=== PATIENT | female | born 1950 | race Caucasian/White ===

== ENCOUNTER 2017-10-14 14:15 | Outpatient (RCR) | payer SELFPAY | END 2017-10-21 23:59 | LOC: PR 14:15 | PROVIDERS: Family Provider Internal Medicine; PCP Internal Medicine; Visit Provider Internal Medicine Critical Care Medicine | DX: Z00.00 Encounter for general adult medical examination without abnormal findings (principal) ==

== ENCOUNTER 2017-11-17 06:00 | Outpatient (RCR) | payer SELFPAY | END 2017-11-18 23:59 | LOC: PR 06:00 | PROVIDERS: Family Provider Internal Medicine; PCP Internal Medicine; Visit Provider Internal Medicine Critical Care Medicine | DX: Z00.00 Encounter for general adult medical examination without abnormal findings (principal) ==

== ENCOUNTER 2017-11-19 06:48 | Outpatient (RCR) | payer SELFPAY | END 2017-12-19 23:59 | LOC: PR 06:48 | PROVIDERS: Family Provider Internal Medicine; PCP Internal Medicine; Visit Provider Internal Medicine Critical Care Medicine | DX: Z00.00 Encounter for general adult medical examination without abnormal findings (principal) ==

== ENCOUNTER → 2018-02-10 14:05 | Outpatient (CLI) | payer MEDICARE, SELFPAY ==
[2018-02-10 14:36] LABS: Allen Test POS; Base Excess 11 mmol/L (-2 to +2); Bicarbonate 36.2 mmol/L (22-26); Blood Gas Specimen Type ART; O2 Delivery Device Nasal Can; PO2 75 mmHG (75-100); SITE L Radial; SO2 93 % (95-99); Time Given 1428; Total Carbon Dioxide 38 mmol/L; pCO2 65.5 mmHg (35-45); pH 7.35 (7.35-7.45)
[2018-02-10 15:01] LABS: Hematocrit 43.3 % (37-47); Hemoglobin 13.1 g/dl (12.0-15.0); Mean Corp Hgb Conc 30.3 g/gl (32-36); Mean Corpuscular Hgb 30.3 pg (27.0-32.0); Mean Platelet Vol. 10.8 fl (6.2-12.0); Platelet Count 283 K/mm3 (150-450); RBC Distribution Width CV 11.7 % (11.6-14.6); RBC Distribution Width SD 41.9 fl (35.1-43.9); Red Blood Count 4.33 M/mm3 (4.2-5.4); Scan Indicated on CBC? Y/N NO; White Blood Count 8.7 K/mm3 (4.4-11.0)
== END ==
PROVIDERS: Family Provider Internal Medicine; PCP Internal Medicine; Visit Provider Nurse Practitioner Acute Care
DX: J44.9 Chronic obstructive pulmonary disease, unspecified (principal)
CPT/HCPCS: 36415; 36600; 82803; 85027

== ENCOUNTER 2018-02-17 14:15 | Outpatient (RCR) | payer SELFPAY | END 2018-02-18 23:59 | LOC: PR 14:15 | PROVIDERS: Family Provider Internal Medicine; PCP Internal Medicine; Visit Provider Internal Medicine Critical Care Medicine | DX: Z00.00 Encounter for general adult medical examination without abnormal findings (principal) ==

== ENCOUNTER 2018-03-15 14:15 | Outpatient (RCR) | payer SELFPAY | END 2018-03-20 23:59 | LOC: PR 14:15 | PROVIDERS: Family Provider Internal Medicine; PCP Internal Medicine; Visit Provider Internal Medicine Critical Care Medicine | DX: Z00.00 Encounter for general adult medical examination without abnormal findings (principal) ==

== ENCOUNTER → 2018-03-22 12:06 | Outpatient (CLI) | payer MEDICARE, SELFPAY ==
--- NOTE | 2018-03-22 12:09 | ECHOD_ITS ---
Reason For Study: Dyspnea/SOB Procedure This was a 2D Doppler, Color Flow transthoracic echocardiogram. The exam was of fair technical quality due to diminished acoustic windows. The study was technically difficult. Exam performed in department. Left Ventricle Normal LV size. Mild segmental systolic dysfunction (see wall motion). The estimated ejection fraction is 50 %. Septal motion consistent with IVCD. No evidence for diastolic dysfunction. Anterio-Basal: Hypokinetic. Infero-Basal: Hypokinetic. Basal inferoseptal: Hypokinetic. Basal anteroseptal: Hypokinetic. Mid-Anterior : Hypokinetic. Mid-Lateral : Hypokinetic. Mid-Posterior: Hypokinetic. Mid-Inferior: Hypokinetic. Mid-inferoseptal : Hypokinetic. Mid-anteroseptal : Hypokinetic. [place] : Hypokinetic. Right Ventricle Normal RV size. Normal systolic function. Atria Normal left atrium. Normal right atrium. No doppler evidence for ASD. Mitral Valve There is no mitral annular calcification. Normal mitral valve. Mild (1+) mitral valve insufficiency. Tricuspid Valve Normal tricuspid valve. Trivial tricuspid valve insufficiency. Right ventricular systolic pressure estimated to be 20 mmHg. Aortic Valve Trisinus/trileaflet aortic valve. Normal aortic valve. Trivial aortic valve insufficiency. Pulmonic Valve The pulmonic valve is not well visualized. Trivial pulmonic valve insufficiency. Great Vessels Normal sized aortic root. Pericardium/Pleural No pericardial effusion. MMode/2D Measurements & Calculations LVIDd: 4.2 cm IVSd: 0.93 cm Ao root diam: 2.1 cm LVIDs: 3.1 cm LVPWd: 1.0 cm RVDd: 3.1 cm FS: 25.7 % LAV(MOD-bp): 26.5 ml LA A4 area: 10.4 cm2 RA A4 area: 9.6 cm2 LAV(MOD-bp) Indexed: 16.6 ml/m2 LAV(MOD-sp2): 35.5 ml LAV(MOD-sp4): 18.6 ml Doppler Measurements & Calculations MV E max jose: 63.9 cm/sec Lat Peak E' Jose: 6.3 cm/sec Med Peak E' Jose: 5.2 cm/sec MV A max jose: 75.2 cm/sec E/E' lat: 10.2 E/E' med: 12.4 MV E/A: 0.85 Ao V2 max: 135.1 cm/sec LV V1 max: 89.8 cm/sec PA V2 max: 109.3 cm/sec Ao max P.3 mmHg LV V1 max P.2 mmHg Ao V2 mean: 96.5 cm/sec Ao mean P.1 mmHg Ao V2 VTI: 29.0 cm TR max jose: 204.6 cm/sec TR max P.7 mmHg Interpretation Summary The study was technically difficult. Mild segmental systolic dysfunction (see wall motion). The estimated ejection fraction is 50 %. Septal motion consistent with IVCD. Mild (1+) mitral valve insufficiency. Trivial tricuspid valve insufficiency. Trivial aortic valve insufficiency. Trivial pulmonic valve insufficiency. Right ventricular systolic pressure estimated to be 20 mmHg. No evidence for diastolic dysfunction. Ordering Physician: Henry Villar Referring Physician: Edith Alba M.D. Performed By: Kaleigh Isbell, CONNER, RVT
== END ==
PROVIDERS: Family Provider Internal Medicine; PCP Internal Medicine; Visit Provider Internal Medicine Cardiovascular Disease
DX: I42.0 Dilated cardiomyopathy (principal); G47.33 Obstructive sleep apnea (adult) (pediatric)
CPT/HCPCS: 93306

== ENCOUNTER 2018-04-20 06:00 | Outpatient (RCR) | payer MEDICARE, SELFPAY | END 2018-04-20 23:59 | LOC: PR 06:00 | PROVIDERS: Family Provider Internal Medicine; PCP Internal Medicine; Visit Provider Internal Medicine Critical Care Medicine | DX: Z00.00 Encounter for general adult medical examination without abnormal findings (principal) ==

== ENCOUNTER → 2018-05-20 09:05 | Outpatient (CLI) | payer MEDICARE, SELFPAY ==
--- NOTE | 2018-05-20 09:30 | CPS ---
Patient arrived on own liquid oxygen at 4lpm. Placed on room air prior to ambulation. At rest pre test, spo2 was 86% RA. Placed on 2lpmwith spo2 increasing to 95%. Ambulation began on 2lpm. At 2 min, spo2 was 86% on 2lpm, rest break taken, increased to 3lpm, continued test. At 3 min, spo2 80% on 3lpm, increased to 4lpm(spo2 to 86%) then 6lpm (pt rested entire 3rd and 4th minute) Ambulation began again at minute 5 and testing finished on 6lpm.
[2018-05-20 09:48] VITALS: PULSE 100; PULSE 104; PULSE 106; PULSE 109; PULSE 112; PULSE 91; PULSE 98; O2SAT 80; O2SAT 86; O2SAT 93; O2SAT 94; O2SAT 96
--- NOTE | 2018-05-20 13:26 | PCM.PSN.6M ---
PSN 6 Minute Walk Test - 6 Minute Walk Test 6 Minute Walk Test: 6 Minute Walk Test PSN:6-Minute Walk Test Start: 05/20/18 09:48 Freq: Status: Active Protocol: RESP.6MINW Document 05/20/18 09:48 [facility] (Rec: 05/20/18 09:56 [facility] [id number]) 6 Minute Walk Test Date Performed 05/20/18 Time Performed 09:30 Height 5 ft 1 in Weight: 138 lb Weight in Pounds 138.[address]: Fili Wellington Assistive device used: None Pre-test Oxygen Delivery Method Room Air Pulse Ox (%) 86 Pulse Rate (60-100 beats/min) 91 Dyspnea Ganga Scale (0-10) 0 Reported Symptoms Cyanotic 1st minute Oxygen Flow Rate (L/min) (L/min) 2 Oxygen Delivery Method Nasal Cannula Pulse Ox (%) 94 Pulse Rate (60-100 beats/min) 100 Dyspnea Ganga Scale (0-10) 1 2nd minute Oxygen Flow Rate (L/min) (L/min) 2 Oxygen Delivery Method Nasal Cannula Pulse Ox (%) 86 Pulse Rate (60-100 beats/min) 106 H Dyspnea Ganga Scale (0-10) 3 Number of Rests Taken 1 Reported Symptoms Cyanotic Increased Work of Breathing 3rd minute Oxygen Flow Rate (L/min) (L/min) 3 Oxygen Delivery Method Nasal Cannula Pulse Ox (%) 80 Pulse Rate (60-100 beats/min) 112 H Dyspnea Ganga Scale (0-10) 5 Number of Rests Taken 1 Reported Symptoms Cyanotic Increased Work of Breathing Dizziness 4th minute Oxygen Flow Rate (L/min) (L/min) 4 Oxygen Delivery Method Nasal Cannula Pulse Ox (%) 86 Pulse Rate (60-100 beats/min) 109 H Dyspnea Ganga Scale (0-10) 4 Number of Rests Taken 1 Reported Symptoms Cyanotic Increased Work of Breathing Dizziness 5th minute Oxygen Flow Rate (L/min) (L/min) 6 Oxygen Delivery Method Nasal Cannula Pulse Ox (%) 96 Pulse Rate (60-100 beats/min) 104 H Dyspnea Ganga Scale (0-10) 3 Reported Symptoms Increased Work of Breathing 6th minute Oxygen Flow Rate (L/min) (L/min) 6 Oxygen Delivery Method Nasal Cannula Pulse Ox (%) 93 Pulse Rate (60-100 beats/min) 106 H Dyspnea Ganga Scale (0-10) 3 Reported Symptoms Increased Work of Breathing Post-test Oxygen Flow Rate (L/min) (L/min) 4 Oxygen Delivery Method Nasal Cannula Pulse Ox (%) 94 Pulse Rate (60-100 beats/min) 98 Dyspnea Ganga Scale (0-10) 1 Full Laps Walked 12 Partial Lap, Number of Tiles Walked 16 Total Distance Walked (ft) 724 05/20/18 09:30 (created 05/20/18 11:01) Cardiopulmonary Services by Sonali Rhodes Patient arrived on own liquid oxygen at 4lpm. Placed on room air prior to ambulation. At rest pre test, spo2 was 86% RA. Placed on 2lpmwith spo2 increasing to 95%. Ambulation began on 2lpm. At 2 min, spo2 was 86% on 2lpm, rest break taken, increased to 3lpm, continued test. At 3 min, spo2 80% on 3lpm, increased to 4lpm(spo2 to 86%) then 6lpm (pt rested entire 3rd and 4th minute) Ambulation began again at minute 5 and testing finished on 6lpm. Initialized on 05/20/18 11:01 - END OF NOTE - Interpretation Interpretation: The patient ambulated 724 feet over the course of 6 minutes on supplemental oxygen with notable breaks taken. Pretesting oxygen saturation on room air was noted to be 86%. Therefore, 2 L/min of supplemental oxygen was applied prior to testing. With ambulation, the patient desaturated to 86% at minute 2 of testing. The patient supplemental flow rate was increased to 3 L/min. However, the patient continued to experience significant oxygen desaturation down to 80%, which eventually required an escalation in her flow rate to 6 L/min. The patient was noted to have rested during minutes 3 and 4 of the test. On 6 L/min of supplemental oxygen, the patient was able to complete the remainder of the test while maintaining oxygen saturations at or above 88%. This testing indicates significant exertional oxygen desaturation consistent with a pulmonary limitation to exercise tolerance. - Recommendations Recommendations: 2 L/min of supplemental oxygen should be utilized at rest and 6 L/min should be utilized with exertion. Close interval follow-up is recommended.
== END ==
PROVIDERS: Family Provider Internal Medicine; PCP Internal Medicine; Visit Provider Internal Medicine Critical Care Medicine
DX: J44.9 Chronic obstructive pulmonary disease, unspecified (principal); J96.12 Chronic respiratory failure with hypercapnia
CPT/HCPCS: 94618

== ENCOUNTER 2018-05-21 14:15 | Outpatient (RCR) | payer SELFPAY | END 2018-05-21 23:59 | LOC: PR 14:15 | PROVIDERS: Family Provider Internal Medicine; PCP Internal Medicine; Visit Provider Internal Medicine Critical Care Medicine | DX: Z00.00 Encounter for general adult medical examination without abnormal findings (principal) ==

== ENCOUNTER → 2018-06-11 12:54 | Outpatient (CLI) | payer MEDICARE, SELFPAY ==
--- NOTE | 2018-06-12 07:11 | PFTCOMP ---
COMPLETE PULMONARY FUNCTION TEST INTERPRETATION Brief HPI: Patient is a 67 year old female, currently under the care of myself, who presents to [facility] for complete pulmonary function tests secondary to diagnosis of COPD. Respiratory therapist reports good effort and reproducible results. Interpretation: Forced expiration spirometry shows a very severe large airways obstructive ventilatory defect with an FEV1 of 23% predicted. There is no significant bronchodilator response by ATS criteria. Spirograms are of good quality and plateau slowly, indicating slowly emptying areas of the lungs. The respiratory flow volume loop shows decreased expiratory flow rates at all lung volumes consistent with airway obstruction. Lung volumes by body plethysmography show an elevated total lung capacity at 5.57 L, 131% predicted. FRC and RV are elevated out of proportion. Lung volume measurements are consistent with hyperinflation and air-trapping. Diffusion capacity by carbon monoxide is decreased at 34% predicted. The airway resistance is elevated. Compared to previous pulmonary function tests from 01/14/2016, there has been a significant reduction in FVC with significant increase in air trapping. Impression: Irreversible very severe large airways obstructive ventilatory defect with a symmetric reduction in diffusing capacity, resulting in air trapping with hyperinflation. There has been worsening in air-trapping compared to previous study in 2016.
== END ==
PROVIDERS: Family Provider Internal Medicine; PCP Internal Medicine; Visit Provider Internal Medicine Critical Care Medicine
DX: J44.9 Chronic obstructive pulmonary disease, unspecified (principal); J96.12 Chronic respiratory failure with hypercapnia
CPT/HCPCS: 94060; 94726; 94729

== ENCOUNTER 2018-06-18 14:15 | Outpatient (RCR) | payer SELFPAY | END 2018-06-20 23:59 | LOC: PR 14:15 | PROVIDERS: Family Provider Internal Medicine; PCP Internal Medicine; Visit Provider Internal Medicine Critical Care Medicine | DX: Z00.00 Encounter for general adult medical examination without abnormal findings (principal) ==

== ENCOUNTER 2018-07-21 14:15 | Outpatient (RCR) | payer SELFPAY | END 2018-07-21 23:59 | LOC: PR 14:15 | PROVIDERS: Family Provider Internal Medicine; PCP Internal Medicine; Visit Provider Internal Medicine Critical Care Medicine | DX: Z00.00 Encounter for general adult medical examination without abnormal findings (principal) ==

== ENCOUNTER 2018-07-29 06:00 | Outpatient (RCR) | payer SELFPAY | END 2018-08-20 23:59 | LOC: PR 06:00 | PROVIDERS: Family Provider Internal Medicine; PCP Internal Medicine; Visit Provider Internal Medicine Critical Care Medicine | DX: Z00.00 Encounter for general adult medical examination without abnormal findings (principal) ==

== ENCOUNTER 2018-08-23 14:11 | Outpatient (RCR) | payer SELFPAY | END 2018-09-20 23:59 | LOC: PR 14:11 | PROVIDERS: Family Provider Internal Medicine; PCP Internal Medicine; Referring Provider Internal Medicine Critical Care Medicine; Visit Provider Internal Medicine Critical Care Medicine | DX: Z00.00 Encounter for general adult medical examination without abnormal findings (principal) ==

== ENCOUNTER → 2018-09-09 13:54 | Outpatient (CLI) | payer MEDICARE, SELFPAY ==
[2018-08-24 13:10] VITALS: BMI 26.6
--- NOTE | 2018-09-09 13:58 | BI_ITS ---
MAMMOGRAPHY - BILATERAL SCREENING REASON FOR EXAM: Female, 67 years old. Routine annual screening examination. PERTINENT HISTORY: Daughter with breast cancer. Remote right stereotactic breast biopsy. TECHNIQUE: Digital bilateral breast kelley (3D mammographic acquisition) in the CC and MLO projections. 2-D mediolateral oblique (MLO) and craniocaudad (CC) views of both breasts were obtained. CAD: Full Field Digital Mammography with Computer Added Detection was performed. COMPARISON: Comparison is made with prior study dated January 08, 2017 and September 04, 2015. FINDINGS: Breast Composition: The breasts are heterogeneously dense, which may obscure small masses. There are no dominant masses or suspicious calcifications. A tissue clip marker is once again seen in the upper midportion of the right breast. No other significant abnormalities are identified. There has been no significant change since the prior study. BI/SCREENING MAMM (CAD), BILAT IMPRESSION: Stable bilateral screening mammogram. Yearly follow-up mammogram recommended. (A) ASSESSMENT CATEGORY: BIRADS Category 2: Benign. A letter regarding these results will be sent to the patient by the facility within 30 days. Approximately 10% of breast cancers are not detected by mammography. A normal mammogram should not delay biopsy of a clinically suspicious abnormality. [id number] Electronically Signed: Jcarlos Lennon MD at 8:16 EST Tel [phone], Service support ,
--- NOTE | 2018-09-09 14:20 | BD_ITS ---
STUDY: DUAL ENERGY X-RAY ABSORPTIOMETRY / DXA REASON FOR EXAM: Female, 67 years old. Early menopause. Loss of height. TECHNIQUE: Bone Mineral Density (BMD) measurements of lumbar spine and bilateral hips were obtained. COMPARISON: Comparison is made with prior study dated September 04, 2015. FINDINGS: Lumbar Spine (L1-L4): g/cm2 (1.061) / T-score (-1.0) / Z-score (0.6) Findings are suggestive of normal bone density with a low fracture risk. Left Femur Total: g/cm2 (0.847) / T-score (-1.3) / Z-score (0.0) Left Femoral Neck: g/cm2 (0.723) / T-score (-2.3) / Z-score (-0.7) Right Femur Total: g/cm2 (0.769) / T-score (-1.9) / Z-score (-0.6) Right Femoral Neck: g/cm2 (0.688) / T-score (-2.5) / Z-score (-1.0) The T-Scores on the most recent prior examination were: Lumbar Spine (L1-L4): There has been worsening of bone density since the previous examination. Left Femur Total: which represents a worsening of 3.5%. Right Femur Total: which represents a worsening of 4.1%. BD/Dexa Bone Density Study IMPRESSION: The patient is considered osteopenic as outlined below according to World Joseph Organization (WHO) criteria with a high fracture risk. There has been worsening of bone density since the previous examination. Reference Information: The T-score is the number of standard deviations above or below the standard which is normal for young adults at their peak bone mineral density. The World Health Organization (WHO) interprets the T-scores as follows: Above -1 Normal bone density Between -1 and -2.5 Osteopenia Equal to / or below -2.5 Osteoporosis As a practical clinical guideline, osteopenia may be graded as follows: Mild -1 through -1.5 Moderate -1.6 through -2.0 Severe -2.1 through -2.4 The Z-score is the number of standard deviations above or below age-matched controls. A Z-score of less than -1.5 would be considered abnormal. References: 1. NIH Osteoporosis and Related Bone Diseases http://www.osteo.org 2. International Society for Clinical Densitometry http://www.iscd.org 3. National Osteoporosis Foundation http://www.nof.org Electronically Signed: Jcarlos Lennon MD at 12:48 EST Tel [phone], Service support ,
== END ==
PROVIDERS: Family Provider Internal Medicine; PCP Internal Medicine; Visit Provider Internal Medicine
DX: Z12.31 Encounter for screening mammogram for malignant neoplasm of breast (principal); Z78.0 Asymptomatic menopausal state; M85.80 Other specified disorders of bone density and structure, unspecified site
CPT/HCPCS: 77063; 77067; 77080

== ENCOUNTER 2018-09-22 12:27 | Outpatient (RCR) | payer SELFPAY ==
[2018-08-24 13:10] VITALS: BMI 26.6
== END 2018-10-21 23:59 ==
LOC: PR 12:27
PROVIDERS: Family Provider Internal Medicine; PCP Internal Medicine; Visit Provider Internal Medicine Critical Care Medicine
DX: Z00.00 Encounter for general adult medical examination without abnormal findings (principal)

== ENCOUNTER 2018-10-25 06:35 | Outpatient (RCR) | payer SELFPAY ==
[2018-08-24 13:10] VITALS: BMI 26.6
== END 2018-11-18 23:59 ==
LOC: PR 06:35
PROVIDERS: Family Provider Internal Medicine; PCP Internal Medicine; Visit Provider Internal Medicine Critical Care Medicine
DX: Z00.00 Encounter for general adult medical examination without abnormal findings (principal)

== ENCOUNTER 2018-11-19 12:46 | Outpatient (RCR) | payer SELFPAY ==
[2018-08-24 13:10] VITALS: BMI 26.6
== END 2018-12-19 23:59 ==
LOC: PR 12:46
PROVIDERS: Family Provider Internal Medicine; PCP Internal Medicine; Visit Provider Internal Medicine Critical Care Medicine
DX: Z00.00 Encounter for general adult medical examination without abnormal findings (principal)

== ENCOUNTER 2019-01-18 06:00 | Outpatient (RCR) | payer SELFPAY ==
[2018-12-01 14:31] VITALS: BMI 26.6
== END 2019-01-18 23:59 ==
LOC: PR 06:00
PROVIDERS: Family Provider Internal Medicine; PCP Internal Medicine; Referring Provider Internal Medicine Critical Care Medicine; Visit Provider Internal Medicine Critical Care Medicine
DX: Z00.00 Encounter for general adult medical examination without abnormal findings (principal)

== ENCOUNTER 2019-02-07 14:15 | Outpatient (RCR) | payer SELFPAY ==
[2018-12-01 14:31] VITALS: BMI 26.6
== END 2019-02-18 23:59 ==
LOC: PR 14:15
PROVIDERS: Family Provider Internal Medicine; PCP Internal Medicine; Referring Provider Internal Medicine Critical Care Medicine; Visit Provider Internal Medicine Critical Care Medicine
DX: Z00.00 Encounter for general adult medical examination without abnormal findings (principal)

== ENCOUNTER 2019-02-16 12:36 | Day surgery (SDC) | payer MEDICARE, SELFPAY ==
[2018-12-01 14:31] VITALS: BMI 26.6
--- NOTE | 2019-02-15 19:29 | HP.PCM_ITS ---
History and Physical Date of Admission: 02/16/19 HISTORY AND PHYSICAL ? Mary Petit 1950 ? REFERRING PHYSICIAN: ??Self ? CHIEF COMPLAINT: ??Consult (Consult colonoscopy) ? HPI: The patient is a 68 year old female referred for endoscopy.??Patient is preparing for a lung transplant and was told she needs to complete colonoscopy prior to this.??Mary notes?no colon issues currently. ?Patient denies any change in bowel habits, weight changes, blood in stools, black tarry stools or abdominal pain. ?Notes father had benign colon polyps.??The patient notes no upper GI complaints. ? Mary?has?undergone prior endoscopy.??Most recent colonoscopy was in January [address] Najera with no concerning findings. ?Repeat colonoscopy was recommended in 5 years due to her personal history of prior polyps as well as family history of polyps. ? Patient's past medical history is significant for severe COPD, pneumonia, history of viral cardiomyopathy. ?Patient follows with Dr. Wellington in pulmonology and Dr. Villra in cardiology. ?Patient on oxygen up to 8 L, but states constantly adjusts oxygen flow depending on activity, states she is a CO2 retainer. ?Patient denies problems with sedation in the past. ? ? ? PAST?MEDICAL?HISTORY PAST MEDICAL HISTORY Diagnosis Date ? Abdominal pain, unspecified site ? ? Anxiety states ? ? Benign neoplasm of colon ? ? Carpal tunnel syndrome ? ? Chronic obstructive asthma ? ? COPD (chronic obstructive pulmonary disease) (HCC) ? ? Disorder of bone and cartilage, unspecified ? ? Esophageal reflux ? ? Flatulence, eructation, and gas pain ? ? Other emphysema (HCC) ? ? Pneumonia, organism unspecified([phone]) ? ? ? PAST?SURGICAL?HISTORY PAST SURGICAL HISTORY Procedure Laterality Date ? BRONCHOSCOPY ? 2009 ? CHOLECYSTECTOMY ? 2006 ? COLONOSCOP W/ OR W/O BRSH SPEC ? 02/08/2008 ? Colonoscopy ? COLONOSCOP W/ OR W/O BRSH SPEC ? 02/09/2014 ? Colonoscopy ? LAP CHOLECYSTECT/CHOLANGIOGRAPHY ? ? Normal IOC ? LIGATE FALLOPIAN TUBE ? 1973 ? SIGMOIDOSCOPY FLEX DIAG ? ? ? Sigmoidoscopy ? ? CURRENT?MEDICATIONS ? Current Outpatient Medications: xhgqwjbjtuf-thwdeqxvw-enqmuqok (TRELEGY ELLIPTA) 100-62.5-25 mcg dsdv Inhale 1 Puff as instructed. losartan (COZAAR) 25 mg tablet Take 25 mg by mouth. alendronate (FOSAMAX) 70 mg tablet Take 70 mg by mouth. thjnpja-ebgwsyxiw-hpfqekw D3 500 mg(1,250mg) -200 unit per tablet Take 1 tablet by mouth. PREDNISONE ORAL Take by mouth. COMPOUNDED PRESCRIPTION lozenge for thrush alprazolam(XANAX 0.25 MG TAB) Take one(1) tablet two(2) times daily. IPRATROPIUM BROMIDE 0.02 % SOLN FOR INHALATION as directed albuterol sulfate(ACCUNEB 0.63 MG/3 ML NEB SOLUTION) ? ALBUTEROL SULFATE 2.5 MG/3 ML NEB SOLUTION nebulized soln 1 unit inhalation every 4 hrs as needed ALBUTEROL 90 MCG/ACTUATION AEROSOL INHALER Use as directed four(4) times daily. NEXIUM 40 MG CAP Take one(1) tablet daily. carvedilol (COREG) 12.5 mg tablet ? simvastatin (ZOCOR) 40 mg tablet ? aspirin 81 mg chewable tablet Take 81 mg by mouth. azelastine (ASTELIN,ASTEPRO) 0.1% nasal spray ? fluticasone-salmeterol (ADVAIR DISKUS) 500-50 mcg/dose dsdv Inhale 1 Puff as instructed twice daily. multivitamins w-minerals/lut(CENTRUM SILVER TAB) Take one(1) tablet daily. fluticasone propionate(FLONASE 50 MCG/ACTUATION NASAL SPRAY) as directed CALTRATE 600 1,500 MG TAB Take one(1) tablet two(2) times daily. TYLENOL 325MG CAPLET as necessary ? No current facility-administered medications for this visit.? ? ALLERGIES:?Codeine ? PERSONAL HISTORY:? SOCIAL?HISTORY Social History ??Socioeconomic History ?Marital status: ?Spouse name: Not on file ?Number of children: Not on file ?Years of education: Not on file ?Highest education level: Not on file ??Social Needs ?Financial resource strain: Not on file ?Food insecurity - worry: Not on file ?Food insecurity - inability: Not on file ?Transportation needs - medical: Not on file ?Transportation needs - non-medical: Not on file ??Occupational History ?Not on file ??Tobacco Use ?Smoking status: Former Smoker ?Packs/day: 2.00 ?Years: 22.00 ?Pack years: 44 ?Types: Cigarettes ?Quit date: 08/22/1997 ?Years since quittin.4 ??Substance and Sexual Activity ?Alcohol use: No ?Drug use: No ?Sexual activity: Not on file ??Other Topics ?Concerns: ?Not on file ??Social History Narrative ?Not on file ? FAMILY HISTORY:? FAMILY?HISTORY FAMILY HISTORY Problem Relation Age of Onset ? Asthma Sister ? ? COPD Sister ? ? REVIEW OF SYMPTOMS: ??The review of systems data was entered by the nurse and reviewed by me ? Nursing Notes: Roque Miguel LPN ?02/10/2019 ?3:14 PM ?Signed REVIEW OF SYSTEMS: ?General:???The patient denies fatigue, denies weight loss, denies weight gain, denies feeling hot, and denies feelings of cold. ?Eyes: ?The patient denies glaucoma, denies eye injury/surgery, wears glasses or contacts. ?Ear/Nose/Throat: ?The patient NOTES allergies, denies hayfever, denies ear infections, and denies bloody noses. ?Cardiovascular: ?The patient denies chest pain, denies heart disease, NOTES high blood pressure,denies cardiac stent, denies prior heart attack, denies irregular heart beat, denies high cholesterol, ?denies poor circulation, denies heart failure, other cardiac issues, denies claudication, denies cold feet, denies peripheral arterial stent. ?Respiratory: ?The patient denies tuberculosis, denies pneumonia, denies frequent cough, denies pulmonary embolism, NOTES shortness of breath, and denies coughing up blood. ?Gastrointestinal: ?The patient denies difficulty swallowing, NOTES acid reflux, denies ulcers, denies vomiting, denies jaundice/hepatitis, denies gallbladder problems, denies black or tarry stools, denies hemorrhoids, denies bleeding from rectum, denies diverticulitis, denies constipation, denies diarrhea, denies loss of stool control, and denies hernias. ?Kidney/Bladder: ?The patient denies kidney stones, denies urine infections, and denies bloody urine. ?Skin: ?The patient denies a history of skin cancer, denies bleeding/changing moles, and denies a history of skin rash. ?Neurologic: ?The patient denies a history of epilepsy/convulsions, denies headaches, denies head/spinal injuries, and denies stroke/TIA. ?Psychiatric: ?The patient denies psychiatric medications, denies depression, and denies voices, denies substance abuse. ?Endocrine: ?The patient denies thyroid disorders, denies diabetes, and denies hormonal problems. ?Hematologic: ?The patient denies a history of bruising, denies bleeding, and denies anemia, denies blood clots. ?Infections: ?The patient denies a history of measles and mumps, denies rheumatic fever, and denies sexually transmitted diseases. ?Musculoskeletal: ?The patient denies back pain/injury, denies back problems, denies sciatica, denies knee/foot trouble, denies arthritis, or denies gout. ? ? When was patient's last Mammogram screening? 2018 ? ?Last Colonoscopy: ?02/01 ? ? Roque Miguel LPN? I have confirmed and edited as necessary, the PFSH and ROS obtained by others. ? ? PHYSICAL EXAMINATION: ? General: ?The patient is 68 year old female, well nourished, well hydrated in no acute distress. ?The patient is oriented to time, place, and person. ? VITALS:?Blood pressure 132/64, pulse 74, temperature 36.4 ?C (97.5 ?F), height 155.6 cm (5' 1.25), weight 64.3 kg (141 lb 12.8 oz), SpO2 97 %.?Body mass index is 26.57 kg/m?.? ? HEENT: ?Normal cephalic, ataumatic, pupils are equally round, sclera are anicteric, mucous membranes are moist, oropharynx is clear. ?Neck has no masses, asymmetry or lymphadenopathy. ? ? Respiratory: ?Clear to auscultation and percussion. ?Normal respiratory excursion and pattern. ? Cardiac: ?Examination is regular rate and rhythm. ?Normal S1/S2 ? Abdominal exam: ?Soft, nontender, ?with no palpable masses. ?No hepatosplenomegaly. ?No palpable hernias. ? Extremities: ?no clubbing, cyanosis or edema. ?No adenopathy. ? LABORATORY VALUES: As Noted ? RADIOLOGIC STUDIES: ?As Noted ? ? Assessment ? IMPRESSION:?encounter for colonoscopy, part of preop testing for lung transplant. ?Multiple medical comorbidities, plan for MAC in hospital ? PLAN: ?I have reviewed my findings with the surgeon. ?Will plan for colonoscopy under Monitored Anesthetic Care in a hospital setting.???We discussed the risks and benefits of the planned endoscopy. ?I have informed the patient that complications can occur including failure to complete the endoscopy and perforation. ?The patient had the opportunity to ask questions concerning the planned endoscopy. ?My staff has also explained the procedure to the patient in understandable terms and has given the patient printed material concerning the procedure. ?The patient freely consents to surgery. ? I plan to use?Golytely?bowel preparation ? The patient has medical comorbidities for which we will plan for the procedure to be performed under Monitored Anesthetic Care. Patient requesting [facility] as both her paid internship and photo stylist, Dr. Wellington and Dr. Villar, are at [facility] ? 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 ? Grace Vigil PA-C
--- NOTE | 2019-02-16 | COLBX_PTH ---
PATIENT: EPIFANIO PAYTON LOC: EN U#:[id number] AGE/SX: 68/F ROOM: RE02/16/[address]: Dr. Partha Underwood MD : 1950 BED: DIS: 02/16/2019 SPEC #: [id number] RECD: 02/16/19 14:40 STATUS: HOPE REShai #: [id number] DAVIDA: 02/16/19 00:[address]: Partha Underwood DEPT: SURGICAL PATHOLOGY RECD BY: Justice Williamson ENTERED: 02/17/19 10:23 SP TYPE: COLON BX OTHR DR: Dr. Edith Alba DO Tissues: Sigmoid colon biopsy Procedures: Surgery Specimen Level IV HEADER OPERATION: Colonoscopy (MAC) PRE-OP DIAGNOSIS: Screening TISSUE SUBMITTED: Polyp sigmoid MICROSCOPIC DIAGNOSIS Sigmoid colon polyp, biopsy: Mucosal polyp with cautery artifact. See comment. AM:cecy 02/18/19 COMMENT A hyperplastic polyp is favored. Clinical correlation is suggested. MICROSCOPIC DESCRIPTION Slides are reviewed. GROSS DESCRIPTION Received in fixative is one container labeled with the patient's name and designated polyp sigmoid. The specimen consists of one irregular fragment of light tobin soft tissue that measures 0.3 x 0.2 x 0.2 cm. The specimen is totally submitted in one cassette. / CE:cecy 02/17/19 TC:5 CPT: 91046
[2019-02-16 13:00] VITALS: BP 132/50; PULSE 73; RESP 20; TEMP 36.9; O2SAT 100; BMI 26.2
--- NOTE | 2019-02-16 14:26 | OP.ENDO_ITS ---
02/16/2019 Edith Alba [address] [place] [address] Re : Colonoscopy procedure for Mary Petit Dear Dr. Alba This procedure was performed on Saturday, February 16, 2019. My impressions and recommendations are as follows: Impressions : - One 6 mm polyp in the sigmoid colon, removed with a hot snare. Resected and retrieved. - Diverticulosis in the sigmoid colon. - The examination was otherwise normal. - The distal rectum and anal verge are normal on retroflexion view. Recommendations : - Discharge patient to home. - Resume previous diet. - Continue present medications. - Telephone my office for pathology results in 1 week. - Repeat colonoscopy is recommended. The colonoscopy date will be determined after pathology results from today's exam become available for review. My findings are described in the full procedure note, which is enclosed. If I can be of further assistance, please feel free to contact me at Doctor phone number(s): , Work: . Sincerely, Partha Underwood MD 02/16/2019 2:26:25 PM This report has been signed electronically.
[2019-02-16 14:28] VITALS: BP 106/53; BP 132/50; PULSE 80; RESP 16; TEMP 36.8; O2SAT 92
[2019-02-16 14:33] VITALS: BP 105/76; BP 132/50; PULSE 72; RESP 17; O2SAT 98
[2019-02-16 14:38] VITALS: BP 102/45; BP 132/50; PULSE 80; RESP 18; O2SAT 98
[2019-02-16 14:43] VITALS: BP 117/53; BP 132/50; PULSE 74; RESP 18; TEMP 37.1; O2SAT 100
[2019-02-16 15:15] VITALS: BP 132/50
== END 2019-02-16 15:33 | disposition home or self-care (01) ==
LOC: EN 12:37 → AC 12:40
PROVIDERS: Family Provider Internal Medicine; PCP Internal Medicine; Referring Provider Internal Medicine; Visit Provider Surgery
PROC: 0DJD8ZZ Inspection of Lower Intestinal Tract, Via Natural or Artificial Opening Endoscopic (ICD-10-PCS; CPT 45378; principal; 2019-02-16 14:00)
DX: Z12.11 Encounter for screening for malignant neoplasm of colon (principal); D12.5 Benign neoplasm of sigmoid colon; K57.30 Diverticulosis of large intestine without perforation or abscess without bleeding; J43.1 Panlobular emphysema; I10 Essential (primary) hypertension; E78.00 Pure hypercholesterolemia, unspecified; K21.9 Gastro-esophageal reflux disease without esophagitis; F41.9 Anxiety disorder, unspecified; Z78.0 Asymptomatic menopausal state; Z79.51 Long term (current) use of inhaled steroids; Z79.82 Long term (current) use of aspirin; Z99.81 Dependence on supplemental oxygen; Z79.52 Long term (current) use of systemic steroids; Z79.899 Other long term (current) drug therapy; Z88.5 Allergy status to narcotic agent; Z86.010 Personal history of colon polyps; Z87.891 Personal history of nicotine dependence
CPT/HCPCS: 45385; 88305; J7120

== ENCOUNTER 2019-02-21 07:37 | Outpatient (RCR) | payer SELFPAY ==
[2019-02-19 00:36] VITALS: BMI 26.6
== END 2019-03-20 23:59 ==
LOC: PR 07:37
PROVIDERS: Family Provider Internal Medicine; PCP Internal Medicine; Referring Provider Internal Medicine Critical Care Medicine; Visit Provider Internal Medicine Critical Care Medicine
DX: Z00.00 Encounter for general adult medical examination without abnormal findings (principal)

== ENCOUNTER 2019-04-20 14:15 | Outpatient (RCR) | payer SELFPAY ==
[2019-02-21 14:29] VITALS: BMI 26.6
== END 2019-04-20 23:59 ==
LOC: PR 14:15
PROVIDERS: Family Provider Internal Medicine; PCP Internal Medicine; Referring Provider Internal Medicine Critical Care Medicine; Visit Provider Internal Medicine Critical Care Medicine
DX: Z00.00 Encounter for general adult medical examination without abnormal findings (principal)

== ENCOUNTER 2019-05-20 14:15 | Outpatient (RCR) | payer SELFPAY ==
[2019-04-20 14:34] VITALS: BMI 26.6
== END 2019-05-21 23:59 ==
LOC: PR 14:15
PROVIDERS: Family Provider Internal Medicine; PCP Internal Medicine; Referring Provider Internal Medicine Critical Care Medicine; Visit Provider Internal Medicine Critical Care Medicine
DX: Z00.00 Encounter for general adult medical examination without abnormal findings (principal)

== ENCOUNTER 2019-06-20 14:15 | Outpatient (RCR) | payer SELFPAY ==
[2019-04-20 14:34] VITALS: BMI 26.6
== END 2019-06-20 23:59 ==
LOC: PR 14:15
PROVIDERS: Family Provider Internal Medicine; PCP Internal Medicine; Referring Provider Internal Medicine Critical Care Medicine; Visit Provider Internal Medicine Critical Care Medicine
DX: Z00.00 Encounter for general adult medical examination without abnormal findings (principal)

== ENCOUNTER 2019-07-21 06:00 | Outpatient (RCR) | payer SELFPAY ==
[2019-04-20 14:34] VITALS: BMI 26.6
== END 2019-07-21 23:59 ==
LOC: PR 06:00
PROVIDERS: Family Provider Internal Medicine; PCP Internal Medicine; Referring Provider Internal Medicine Critical Care Medicine; Visit Provider Internal Medicine Critical Care Medicine
DX: Z00.00 Encounter for general adult medical examination without abnormal findings (principal)

== ENCOUNTER 2019-07-25 10:36 | Outpatient (RCR) | payer MEDICARE, SELFPAY ==
[2019-07-14 08:36] VITALS: BMI 26.6
== END 2019-08-20 23:59 ==
LOC: PAVLAB 10:36
PROVIDERS: Family Provider Internal Medicine; PCP Internal Medicine
DX: Z01.818 Encounter for other preprocedural examination (principal); R79.9 Abnormal finding of blood chemistry, unspecified
CPT/HCPCS: 36415

== ENCOUNTER 2019-08-17 14:15 | Outpatient (RCR) | payer SELFPAY ==
[2019-07-14 08:36] VITALS: BMI 26.6
== END 2019-08-20 23:59 ==
LOC: PR 14:15
PROVIDERS: Family Provider Internal Medicine; PCP Internal Medicine; Referring Provider Internal Medicine Critical Care Medicine; Visit Provider Internal Medicine Critical Care Medicine
DX: Z00.00 Encounter for general adult medical examination without abnormal findings (principal)

== ENCOUNTER 2019-08-25 11:14 | Outpatient (RCR) | payer MEDICARE, SELFPAY ==
[2019-07-14 08:36] VITALS: BMI 26.6
== END 2019-09-20 23:59 ==
LOC: PAVLAB 11:14
PROVIDERS: Family Provider Internal Medicine; PCP Internal Medicine
DX: Z01.818 Encounter for other preprocedural examination (principal); R79.9 Abnormal finding of blood chemistry, unspecified
CPT/HCPCS: 36415

== ENCOUNTER 2019-08-26 14:15 | Outpatient (RCR) | payer SELFPAY ==
[2019-07-14 08:36] VITALS: BMI 26.6
== END 2019-09-20 23:59 ==
LOC: PR 14:15
PROVIDERS: Family Provider Internal Medicine; PCP Internal Medicine; Referring Provider Internal Medicine Critical Care Medicine; Visit Provider Internal Medicine Critical Care Medicine
DX: Z00.00 Encounter for general adult medical examination without abnormal findings (principal)

== ENCOUNTER → 2019-11-01 07:43 | Outpatient (CLI) | payer MEDICARE, MEDICAID, SELFPAY ==
[2019-07-14 08:36] VITALS: BMI 26.6
--- NOTE | 2019-11-01 07:49 | PCM.PR.TP ---
General Information - General Information Admitting Diagnosis: S/P BILATERAL LUNG TRANSPLANT AT [facility] - Education/Goals Barriers to Learning: Vision Impairment Patient Goals: Breathe better: Initial Assessment, Increase endurance/stamina: Initial Assessment, Improve diet and nutrition: Initial Assessment Exercise - Initial Assessment - Visit Date of Eval: 11/01/19 - Problem/Goals Goals:: Aerobic exercise 30-60 mins x 9 weeks, TN: 2-3/wk, Resistance: 2-3x/weekly - Physician Prescribed Exercise Modalities: Treadmill, Airdyne, NuStep, SciFit Frequency (days/week): 3 Duration (Minutes):: 30-45 Intensity: 60-80% of age predicted maximum heart rate reserve METs - Progression: 0.5-1.0 MET, RPE 11-14 WEEK: 3.5 Target Heart Rate:: 99-129 - Plan Plan and Plan to Review:: Benefits of exercise, Core components of exercise, How to measure dyspnea level, How to monitor dyspnea level, Exercise intensity, Exercise safety guideline, Home exercise guidelines, [place]: 3-4/-13 Disease Management - Initial - Problems/Goals-Hypoxemia Hypoxemia Problems:: No home O2 - Problems/Goals-Bronchial Hygiene Bronchial Hygiene Problems:: Respiratory infection Prevention/Management Bronchial Hygiene Goals:: Pt demonstrates effective cough, effective secretion clearance., Pt describes signs and symptoms of infection. - Initial Assessment Medications: No MDI, No DPI, No NEB, No Spacer Patient Reports:: No cough - Plans Hypoxemia Plan:: Monitor SpO2 rest & with exercise Reviewed prescribed medications:: Purpose, Schedule, Side effects, Importance of compliance Bronchial Hygiene Plan: Hand hygiene, Signs/symptoms to report: Psychosocial - Initial Assess - Problems/Goals Problems: Depression, Anxiety Psychosocial Goals: Improved psychosocial coping skills., Verbalizes coping strategies., Adequate treatment of depression., Improved Q.O.L. - Psychosocial Test Depression:: Anxiety, Impaired QOL Tests Completed: SF - 36 survey completed, Mood Scale Test Referred to MD for counseling:: No - Plan Reviewed screening results: No Instructions given regarding:: Benefits of exercise, Relaxation techniques, Training in coping strategies Tobacco - Initial Assessment - Program Goals Tobacco Program Goals: Complete smoking cessation. Attend education classes. Improve Knowledge Test score - Stage of Change Stages of Change:: Action - Learning Barriers Learning Barriers: Vision, Ready to Learn - Family Support Do you have family support?: Yes - Tobacco Use Tobacco Use: Non-smoker Do you use smokeless tobacco?: No - Intervention Smoking Cessation Referral:: No Individual Education/Counseling:: No Education Schedule Given:: Yes - Education Gave Education Materials For:: Pulmonary Disease, Risk Factors, Breathing Techniques, Medical Compliance, Pulmonary A&P, Exacerbation Signs & Symptoms, Stress & Relaxation Nutrition/Wt Mgmt - Initial - Weight Management Knowledge Deficit Management of:: Osteoporosis, Lack of vitamin D/Ca++ supplement - Diabetes Diabetes:: Yes Insulin: No Do you monitor your blood sugar at home?: No - Intervention Referral to dietitian:: No Referral to Diabetic Clinic:: No Will attend diet classes:: Yes - Plan Nutrition Plan: Yes Nutrition education class:, Yes Medication education class [Prednisone]: Patient Health Questionnaire Initial Assessment 1. Little interest or pleasure in doing things: Several days 2. Feeling down, depressed, or hopeless: Not at all 3. Trouble falling or staying asleep, or sleeping too much: Several days 4. Feeling tired or having little energy: Several days 5. Poor appetite or overeating: Nearly every day 6. Feeling bad about yourself -- or that you are a failure or have let yourself or your family down: Several days 7. Trouble concentrating on things, such as reading the newspaper or watching television: Not at all 8. Moving or speaking so slowly that other people could have noticed. Or the opposite - being so fidgety or restless that you have been moving around a lot more than usual: Not at all 9. Thoughts that you would be better off , or of hurting yourself in some way: Not at all How difficult have these problems made it for you to do your work, take care of things at home, or get along with other people?: Not difficult at all Total Score: 7 COPD Knowledge Test Initial COPD is a lung disease that:: Makes it hard to breathe & gets worse over time In the [place] the term COPD describes 2 main lung conditions:: Emphysema & chronic bronchitis The most common lung irritant that causes COPD is:: Cigarette smoke Common signs and symptoms of COPD include:: An ongoing cough/cough that produces a large amount of mucus, & SOB If you have COPD, what steps can you take?: All of the above Swelling of the ankles is common in COPD:: False Fatigue [tiredness] is common in COPD:: True Wheezing is common in COPD:: True Crushing chest pain is common in COPD:: False Rapid weight loss is common in COPD:: False Breathlessness is a normal response to exercise: True Exercise should be avoided if it makes you short of breath: False All bronchodilators act within 10 minutes: False A spacer device increases the medication to the lungs: True Annual flu vaccine is recommended for pts w/lung disease: True COPD Knowledge Test Total Score:: 15 COPD Assessment Test [CAT] - Questions Never cough = 0, Cough all the time = 5: 2 No phlegm = 0, Chest full of phlegm = 5: 1 No chest tightness = 0, Chest very tight = 5: 5 No breathless w/exertion = 0, Very breathless w/exertion = 5: 1 No limitations w/activity = 0, Very limited w/activity = 5: 4 Confident leaving home = 0, Not at all confident = 5: 1 Sleep soundly = 0, Don't sleep soundly = 5: 3 Lots of energy = 0, No energy at all = 5: 3 Total CAT score:: 20 Self-Efficacy Initial Assessment We would like to know how confident you are in doing certain activities. Please select your confidence level for:: Select your confidence level for the following using the scale 1-10 where 1 is not at all confident and 10 is totally confident. Your score is the average of all 6 responses. Fatigue: How confident are you that you can keep the fatigue caused by your disease from interfering with the things you want to do? Select Number: 10 Physical Discomfort or Pain: How confident are you that you can keep the physical discomfort or pain of your disease from interfering with the things you want to do? Select Number: 10 Emotional Distress: How confident are you that you can keep the emotional distress caused by your disease from interfering with the things you want to do? Select Number: 10 Other Symptoms or Health Problems: How confident are you that you can keep other symptoms or health problems from interfering with the things you want to do? Select Number: 10 Different Tasks and Activities: How confident are you that you can do the different tasks and activities needed to manage your health condition so as to reduce your need to see a doctor? Select Number: 10 Medication: How confident are you that you can do things other than just taking medication to reduce how much your illness affects your everyday life? Select Number: 10 Total Score:: 10 Nutrition Survey - Nutrition Survey Instructions Scoring Instructions: Scoring is as follows: Yes = 1 points. No = 0 point. Patient score that is >/=12 is considered to be at potential nutritional risk and could benefit from a referral to a registered dietitian. - Nutrition Survey Initial Have you lost >10 lbs over the past 2 months without trying?: Yes Are you following a special diet at home for diabetes, low fat, or low salt?: Yes Are you interested in meeting with a dietitian for help understanding your diet?: No Do you eat less than 3 meals a day?: No Do you eat fatty meats (muniz, sausage, ribs, etc), fried foods, desserts, large amounts of salad dressings, margarine, butter, or cheese most days?: No Do you have food allergies? [Enter types in comment field]: No Do you eat in restaurants more than 3 times a week?: No Do you season food with salt, seasoning salt, or garlic salt?: No Do you used canned, boxed, frozen meals, or soups, seasoning packets?: No Total Score:: 2
--- NOTE | 2019-11-01 07:50 | PR.HP_ITS ---
History of Present Illness Arrival date:: 11/01/19 Arrival time:: 07:35 Date of Referral:: 10/11/19 Date of Evaluation: 11/01/19 Referring Physician: DR. MARINA MONTES @ [facility] / DR. BAH @ [facility] Primary Diagnosis: S/P BILATERAL LUNG TRANSPLANT History of Present Illness: PT IS A 69 YR OLD FEMALE PATIENT OF DR. LASHAWN BAH WHO WAS RECENTLY REFERRED TO [facility] IN [facility] FOR LUNG TRANSPLANT EVALUATION. ON Aug PATIENT WAS CALLED ADN RECEIVED A BILATERAL LUNG TRANSPLANT. THE PATIENT REPORTED A SLIGHT SET-BACK S/P SURGERY FROM STEROID FACUNDO (REACTION TO ALL OF THE STEROIDS). SHE RECOVERED WELL AND HAS SINCE BEEN DISCHARGED TO RESUME HER [place] PROGRAM HERE AT [facility]. SHE HAS ATTENDED 6 TOTAL [place] VISITS AT [facility] FOLLOWING OCCUPATIONAL THERAPY. WE HAVE RECEIVED HER EXERCISE PROTOCOL FROM [facility] AND WILL BE FOLLOWING HER GUIDELINES. m[facility] Breathless Scale: When is the patient short of breath? Y/N Grade: Description of Breathlessness: 0 I only get breathless with strenuous exercise. 1 I get short of breath when hurrying on level ground or walking up a slight hill. 2 On level ground, I walk slower than people of the same age because of breathless, or have to stop for breath when walking at my own pace. 3 I stop for breath after walking 100 yards or after a few minutes on level ground. 4 I am too breathless to leave the house or I am breathless when dressing. Home Medications: Home Medications ALPRAZolam [Xanax] 0.25 mg PO TID 01/15/15 Acetaminophen [Tylenol] 500 mg PO Q4H PRN PRN 01/15/15 Esomeprazole Mag Trihydrate [Nexium] 40 mg PO DAILY 01/15/15 Fluticasone 0.05% [Flonase Nasal [place]] 2 spray NASAL DAILY 01/15/15 Aspirin [Aspirin, Baby] 81 mg PO DAILY 01/23/15 Oxygen, Home [Home Oxygen] 5 lpm NASAL CONT 05/14/16 ipratropium 0.5 mg-albuterol 3 mg (2.5 mg base)/3 mL nebulization soln 3 ml INHALATION BID #60 vial 11/19/17 simvastatin 40 mg tablet 40 mg PO QHS #30 tab 01/18/18 albuterol sulfate 90 mcg/actuation aerosol inhaler 1 puff INHALATION Q4H PRN PRN #18 g 08/24/18 Alendronate Sodium [Fosamax] 70 mg PO QWEEK 02/15/19 azelastine 137 mcg (0.1 %) nasal spray aerosol 1 spray INTRANASAL BID #30 ml 02/21/19 fluticasone fur. 100 mcg-umeclid 62.5 mcg-vilant 25 mcg inhalat.powder 1 inh INHALATION 1300 #60 ea 02/21/19 carvedilol 25 mg tablet 25 mg PO BID 04/20/19 cholecalciferol (vitamin D3) 50 mcg (2,000 unit) tablet 2,000 unit PO DAILY 04/20/19 ferrous sulfate 325 mg (65 mg iron) tablet 325 mg PO DAILY 04/20/19 albuterol sulfate 2.5 mg INHALATION Q4H PRN #180 vial 07/14/19 Blood-Glucose Meter [Blood Glucose Monitoring] 11/01/19 Calcium Citrate/Vitamin D3 [Calcium Citrate - Vit D Tablet] 1 ea PO 11/01/19 Enoxaparin [Lovenox] 40 mg SUBCUT DAILY@0600 11/01/19 Furosemide [Lasix] 80 mg PO BIDLX 11/01/19 Loperamide [Imodium] 2 mg PO 11/01/19 Magnesium Oxide [Magnesium] 400 mg PO 11/01/19 Melatonin/Pyridoxine HCl (B6) [Melatonin 3 mg Tablet] 11/01/19 Metoprolol Tartrate [Lopressor (Beta Annmarie)] 12.5 mg PO BID 11/01/19 Mirtazapine [Remeron] 15 mg PO 11/01/19 Multivit with Calcium,Iron,Min [Multiple Vitamins For Women] 11/01/19 Mycophenolate Mofetil [Cellcept] 1,000 mg PO BID 11/01/19 Olanzapine [Zyprexa] 2.5 mg PO 11/01/19 Pantoprazole Sodium [Protonix] 40 mg PO DAILY 11/01/19 Prednisone 10 mg PO 11/01/19 Rosuvastatin Calcium [Crestor] 5 mg PO QHS 11/01/19 Sulfamethoxazole/Trimethoprim [Sulfamethoxazole-Tmp Ds Tablet] 160 - 800 each 11/01/19 Tacrolimus [Astagraf Xl] 0.5 mg PO 11/01/19 Thiamine HCl [Vitamin B-1] 100 mg PO 11/01/19 Valganciclovir HCl 450 mg PO 11/01/19 Voriconazole [Vfend] 200 mg PO Q12H 11/01/19 Allergies/Adverse Reactions: Allergies codeine Adverse Reaction (Verified 07/14/19 13:50) Vomiting morphine Adverse Reaction (Verified 07/14/19 13:50) Nausea - Secretions Thick:: No Thin:: No Hx of Sleep Apnea: Yes Do you snore loudly (louder than talking or can be heard through closed doors)?: Yes - NOT CURRENTLY USING HOME UNIT PER [facility] TRANSPLANT TEAM. Do you often feel tired/ fatigued/ sleepy during daytime?: No Has anyone observed you stop breathing during sleep?: No History of Hypertension (for STOP score): Yes STOP Results: Positive Medical Utilization Do you use a peak flow meter at home?: No Do you use a spacer device with your inhalers?: No Number of hospital visits in the last year?: 1 Number of emergency room visits in the last year?: 0 Do you see your physician on a regular schedule?: Yes How often?: WEEKLY SEE TRANSPLANT TEAM ON THURSDAY'S Advanced Directives - Advanced Directives Power of Talent Coordinator: Yes - dAUGHTER Mattie IS HER POA FOR HEALTHCARE. 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 (Chronic) J44.9 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 Allergic rhinitis (Chronic) J30.9 Fatigue (Chronic) R53.83 Shortness of breath (Chronic) R06.02 COLD (chronic obstructive lung disease) (Chronic) J44.9 Chronic respiratory failure (Chronic) J96.10 Chest pain (Acute) R07.9 Hyperlipidemia (Chronic) E78.5 PVC (premature ventricular contraction) (Acute) I49.3 Anxiety F41.9 GERD (gastroesophageal reflux disease) K21.9 Sleep apnea G47.30 Hyperkalemia (Resolved) E87.5 Abnormal nuclear stress test (Inactive) Rib pain on right side (Inactive) R07.81 Surgical History: Past Surgical History (Last Updated 11/01/19 @ 08:06 by Fidencio Carlton, [employer] PRESS OPERATOR, SHARED SERVICES AND OUTSOURCING MANAGER, BS) S/P lung transplant Onset Date: ~08/31/19 Z94.2 bILATERAL LUNG TRANSPLANT AT [facility] H/O tubal ligation Z98.51 History of cholecystectomy Z90.49 Family History: Family History (Last Reviewed 07/14/19 @ 13:53 by Janessa Spicer NP-C) Sister Asthma Hypertension Grandmother Asthma CAD (coronary artery disease) Grandfather CAD (coronary artery disease) Son Diabetes Hypertension Social History - Smoking History Smoking Status: Former smoker Hx Tobacco Use: No Hx Smoking Exposure: No - Alcohol Use Alcohol Usage: No - Substance Abuse Hx Substance Use: No - Occupation Occupation (List type of work in comments):: Retired - Hobbies, Recreation, Social Activities Hobbies: Reading, Watch TV, Exercise Recreational Activities: I am able to engage in most, but not all activities - GETTING BETTER EACH DAY ADN DOING MORE EACH DAY. Functioning ADL/IADL - Current Ability Current Ability: Independent Self-Care (e.g.,grooming, dressing, & bathing), Independent Ambulation, Independent Transfer, Independent Household tasks (e.g., light meal prep, laundry, shopping) - Pt Functioning Prior to Problem Prior Functioning: Self-Care (e.g.,grooming, dressing, & bathing): Independent, Ambulation: Independent, Transfer: Independent, Household tasks (e.g., light meal prep, laundry, shopping): Independent Social Environment - Status Marital Status: - Current Living Arrangements Living Environment:: Alone - Children How many children do you have?: 2 Do any of your children live nearby?: Yes - Safety Do you feel safe in your surroundings?: Yes - Assistance Do you need any assistance at home?: NONE Review of Systems Review of Systems: Right click = Denies (Slash). Left click = Reports ([place]) Respiratory: Reports: Sputum production - VERY SLIGHT PRODUCTION, Fatigue - CONTROLLED, Sleep, Normal. Denies: Cough, SOB at Rest, SOB upon Exertion, Wheezing, Appetite, Normal - LACK OF TASTE, Dizziness/Lightheadedness Is Patient Pain Free?: Yes Pain Location: none Pain Level: 0/10 Risk Factor Assessment - Vital Signs Temperature: 98.5 F Pulse Rate: 61 Respiratory Rate: 14 Pulse Ox: 96 - ROOM AIR - Diabetes Nutrition Referral for Diabetes: No - Obesity Height: 5 ft 1 in Weight:: 129 lb Weight in Pounds: 129.0 lbs Weight Source: Standing Scale Body Mass Index (BMI): 24.3 Nutritional Referral for Obesity: No - Physical Activity Physical Inactivity: Recreational activity - WALKING - Risk Stratification Risk Guidelines: Lowest Risk: Risk Factor for Smoking, Risk Factor for Dyslipidemia, Risk Factor for Diabetes, Risk Factor for Obesity, Risk Factor for Hypertension, Risk Factor for Sedentary Lifestyle, Risk Factor for Depression - For Smoking Smoking Risk Guidelines: Smoking Low Risk: None or quit greater than 6 months ago. Smoking Moderate Risk: Smoker or quit 6 months or less ago. Smoking High Risk: Smoker - For Dyslipidemia Dyslipidemia Risk Guidelines: Low Risk: Moderate Risk: High Risk: 15-25% fat 25.1-29% fat >/= 30% fat. <7% sat fat 7-9% sat fat >9% sat fat. <150 mg chol 150-299 mg chol >/= 300 mg chol. LDL <100 LDL 100-129 LDL >/= 130. Chol/HDL ratio <5.0 Chol/HDL ratio 5.0-6.0 Chol/HDL ratio >6.0. Triglycerides <100 Triglycerides 100- 149 Triglycerides >/= 150 - For Diabetes Mellitus Diabetes Risk Guidelines: Diabetes Low Risk: HgA1c <6.5% and/or FBG <120. Diabetes Moderate Risk: HgA1c 6.6-7.9% and/or FBG 120-180. Diabetes High Risk: HgA1c >/= 8% and/or FBG >180 - For Obesity/Overweight Obesity/Overweight Risk Guidelines: Obesity Low Risk: BMI <25.0. Obesity Moderate Risk: BMI 25-29.9. Obesity High Risk: BMI >/= 30.0 - For Hypertension Hypertension Risk Guidelines: Hypertension Low Risk: Systolic <120 and Diastolic <80. Hypertension Moderate Risk: Systolic 120-139 and Diastolic 80-89. Hypertension High Risk: Systolic >/= 140 and Diastolic >/= 90 - For Sedentary Lifestyle Sedentary Lifestyle Risk Guidelines: Sedentary Lifestyle Low Risk: >/= 1,500 kcal/week. Sedentary Lifestyle Moderate Risk: 700-1,499 kcal/week. Sedentary Lifestyle High Risk: < 700 kcal/week - For Depression Depression Risk Guidelines: Depression Low Risk: Not clinically depressed. Depression Moderate Risk: Mildly depressed. Depression High Risk: Clinically depressed Motivation - Motivation to Participate On a scale of 1 to 10, how prepared are you to commit to attending program?: 10 What do you see as barriers to successfully being able to complete the program?: NONE What do you see as the benefits of succesfully completing the program? In other words, what do you hope to get out of participating in the program?: GETTING CRISTINA K TO MY NORMAL Are there issues you are dealing with that will interfere with completing the program?: NONE Do you have a spouse or signficant other, family or friends who will help support you to complete the program?: YES
[2019-11-01 08:29] VITALS: PULSE 61; RESP 14; TEMP 36.9; O2SAT 96; BMI 24.3
== END ==
PROVIDERS: PCP Internal Medicine; Referring Provider Internal Medicine Critical Care Medicine; Visit Provider Internal Medicine Critical Care Medicine
DX: Z94.2 Lung transplant status (principal)

== ENCOUNTER 2019-11-14 09:29 | Outpatient (RCR) | payer MEDICARE, SELFPAY ==
[2019-07-14 08:36] VITALS: BMI 26.6
[2019-10-31 09:45] LABS: Absolute Neutrophil Count 4.8 X10^3/uL (2.0-7.7); Basophil# 0.07 X10^3/uL; Basophil% 0.9 % (0-1); Eosinophil# 0.04 X10^3/uL; Eosinophils% 0.5 % (0-5); Hematocrit 38.9 % (37-47); Hemoglobin 11.6 g/dL (12.0-15.0); Lymphocyte % 33.2 % (19-41); Mean Corp Hgb Conc 29.8 g/dL (32-36); Mean Corpuscular Volume 110.5 fL (81-99); Mean Platelet Vol. 9.6 fl (6.2-12.0); Monocyte# 0.22 X10^3/uL; Monocyte% 2.8 % (0-10); NRBC Flagged by Analyzer 0 % (0-5); Neutrophil # 4.75 X10^3/uL (2.7-7.7); Neutrophil % 60.7 % (47-70); POSITIVE MORPHOLOGY YES; Platelet Count 341 K/mm3 (150-450); RBC Distribution Width CV 18.3 % (11.6-14.6); RBC Distribution Width SD 74.7 fl (35.1-43.9); Red Blood Count 3.52 M/mm3 (4.2-5.4); White Blood Count 7.8 K/mm3 (4.4-11.0)
[2019-10-31 09:46] LABS: Differential Indicated SCAN CRITERIA MET
[2019-10-31 10:05] LABS: ALB/GLOB Ratio 1.1 RATIO (0.9-2.4); AST(SGOT) 30 U/L (15-37); Alanine Aminotransfer ALT/SGPT 50 U/L (13-56); Albumin, Serum 3.3 g/dL (3.2-5.0); Alkaline Phosphatase 85 U/L (45-117); Anion Gap 5 (5-15); BUN 28 mg/dL (7-18); BUN/Creat Ratio 15.1 RATIO (10-20); Chloride 94 mmol/L (98-107); Creatinine, Serum 1.86 mg/dL (0.55-1.02); EST Glomerular Filtration Rate 29 mL/min (>60); Est Glom Filt Rate - Afr Amer 35 mL/min (>60); Ferritin 254 ng/mL (8-252); Glucose 135 mg/dL (74-106); Iron 55 ug/dL (50-170); Iron Binding Capacity,Total 382 ug/dL (250-450); Magnesium 2.2 mg/dL (1.6-2.6); PERCENT IRON SATURATION 14.4 % (15.0-55.0); Phosphorus 3.2 mg/dL (2.5-4.9); Protein, Total 6.3 g/dL (6.4-8.2); Sodium Level 135 mmol/L (136-145); Uric Acid 9.5 mg/dL (2.6-6.0)
[2019-10-31 10:14] LABS: Hemoglobin A1c 4.1 % (4.2-6.3)
[2019-10-31 10:39] LABS: Anisocytosis 2+
[2019-10-31 10:40] LABS: Platelet Estimate ADEQUATE (ADEQ); Stomatocyte 2+
[2019-11-02 10:18] LABS: GGTP 100 U/L (5-55)
[2019-11-03 09:41] LABS: Absolute Lymphocyte Count 2.89 X10^3/uL (0.83-4.51); Basophil# 0.07 X10^3/uL; Basophil% 0.8 % (0-1); Eosinophil# 0.02 X10^3/uL; Eosinophils% 0.2 % (0-5); Hematocrit 39.5 % (37-47); Hemoglobin 12.1 g/dL (12.0-15.0); Lymphocyte # 2.89 X10^3/ul (4.0); Lymphocyte % 34.5 % (19-41); Mean Corp Hgb Conc 30.6 g/dL (32-36); Mean Corpuscular Hgb 33.6 pg (27.0-32.0); Mean Corpuscular Volume 109.7 fL (81-99); Mean Platelet Vol. 9.7 fl (6.2-12.0); Monocyte# 0.23 X10^3/uL; Monocyte% 2.7 % (0-10); NRBC Flagged by Analyzer 0 % (0-5); Neutrophil # 4.95 X10^3/uL (2.7-7.7); Neutrophil % 59.2 % (47-70); POSITIVE MORPHOLOGY YES; Platelet Count 356 K/mm3 (150-450); RBC Distribution Width CV 16.9 % (11.6-14.6); RBC Distribution Width SD 68.8 fl (35.1-43.9); White Blood Count 8.4 K/mm3 (4.4-11.0)
[2019-11-03 09:50] LABS: Differential Indicated SCAN CRITERIA MET
[2019-11-03 09:55] LABS: Anion Gap 7 (5-15); BUN 41 mg/dL (7-18); BUN/Creat Ratio 18.2 RATIO (10-20); Calcium,Total 8.9 mg/dL (8.5-10.1); Chloride 93 mmol/L (98-107); Creatinine, Serum 2.25 mg/dL (0.55-1.02); EST Glomerular Filtration Rate 23 mL/min (>60); Est Glom Filt Rate - Afr Amer 28 mL/min (>60); Glucose 99 mg/dL (74-106); Magnesium 2.6 mg/dL (1.6-2.6); Potassium 4.7 mmol/L (3.5-5.1); Sodium Level 136 mmol/L (136-145)
[2019-11-03 10:43] LABS: Anisocytosis 1+; Platelet Estimate ADEQUATE (ADEQ)
[2019-11-03 10:44] LABS: Red Cell Morphology N CHROM NORMAL (NORM C&C)
[2019-11-04 08:08] LABS: Immunoglobulin A 181 mg/dL (87-352); Immunoglobulin G 480 mg/dL (700-1600); Immunoglobulin M 69 mg/dL (26-217)
[2019-11-04 11:22] LABS: CMV by PCR Negative (Negative); Tacrolimus (FK506) 12.5 ng/mL (2.0-20.0)
[2019-11-07 09:40] LABS: Hematocrit 41.4 % (37-47); Mean Corp Hgb Conc 31.4 g/dL (32-36); Mean Corpuscular Hgb 33.5 pg (27.0-32.0); Mean Corpuscular Volume 106.7 fL (81-99); Mean Platelet Vol. 9.7 fl (6.2-12.0); POSITIVE COUNT YES; POSITIVE MORPHOLOGY YES; Platelet Count 299 K/mm3 (150-450); RBC Distribution Width CV 15.5 % (11.6-14.6); RBC Distribution Width SD 62.1 fl (35.1-43.9); Red Blood Count 3.88 M/mm3 (4.2-5.4); White Blood Count 7.3 K/mm3 (4.4-11.0)
[2019-11-07 09:58] LABS: Anion Gap 8 (5-15); BUN 48 mg/dL (7-18); Calcium,Total 8.5 mg/dL (8.5-10.1); Chloride 88 mmol/L (98-107); Creatinine, Serum 2.09 mg/dL (0.55-1.02); EST Glomerular Filtration Rate 25 mL/min (>60); Est Glom Filt Rate - Afr Amer 30 mL/min (>60); GGTP 121 U/L (5-55); Glucose 118 mg/dL (74-106); Magnesium 2.4 mg/dL (1.6-2.6); Phosphorus 4.4 mg/dL (2.5-4.9); Potassium 4.6 mmol/L (3.5-5.1); Sodium Level 131 mmol/L (136-145)
[2019-11-07 10:02] LABS: Differential Indicated MANUAL DIFF
[2019-11-07 10:45] LABS: Basophil 1 % (0-1); Lymphocyte 51 % (19-41); Myelocyte 1 (0-0); Neutrophil-Segmented 47 % (47-70); Total Cells Counted 100 (MANUAL DIFF)
[2019-11-07 10:49] LABS: Platelet Estimate ADEQUATE (ADEQ)
[2019-11-07 10:50] LABS: Red Cell Morphology NORM C+C NORMAL (NORM C&C)
[2019-11-07 10:51] LABS: Absolute Lymphocyte Count 3.72 X10^3/uL (0.83-4.51); Absolute Neutrophil Count 3.4 X10^3/uL (2.0-7.7)
[2019-11-07 12:19] LABS: Tacrolimus (FK506) 12.3 ng/mL (2.0-20.0)
[2019-11-08 14:43] LABS: Pathologist Review Reviewed
[2019-11-08 15:17] LABS: Tacrolimus (FK506) 12.9 ng/mL (2.0-20.0)
[2019-11-10 09:27] LABS: Hematocrit 41.9 % (37-47); Hemoglobin 13.1 g/dL (12.0-15.0); Mean Corp Hgb Conc 31.3 g/dL (32-36); Mean Corpuscular Hgb 33.5 pg (27.0-32.0); Mean Corpuscular Volume 107.2 fL (81-99); POSITIVE COUNT YES; POSITIVE MORPHOLOGY YES; Platelet Count 288 K/mm3 (150-450); RBC Distribution Width CV 15.1 % (11.6-14.6); RBC Distribution Width SD 59.7 fl (35.1-43.9); Red Blood Count 3.91 M/mm3 (4.2-5.4); White Blood Count 8.9 K/mm3 (4.4-11.0)
[2019-11-10 09:36] LABS: Differential Indicated MANUAL DIFF
[2019-11-10 09:40] LABS: Anion Gap 9 (5-15); BUN 61 mg/dL (7-18); BUN/Creat Ratio 25.2 RATIO (10-20); Calcium,Total 8.7 mg/dL (8.5-10.1); Chloride 88 mmol/L (98-107); Creatinine, Serum 2.42 mg/dL (0.55-1.02); EST Glomerular Filtration Rate 21 mL/min (>60); Est Glom Filt Rate - Afr Amer 26 mL/min (>60); Glucose 170 mg/dL (74-106); Magnesium 2.5 mg/dL (1.6-2.6); Phosphorus 3.4 mg/dL (2.5-4.9); Potassium 4.6 mmol/L (3.5-5.1); Sodium Level 129 mmol/L (136-145)
[2019-11-10 10:11] LABS: Lymphocyte 53 % (19-41); Monocyte 3 % (0-10); Neutrophil-Segmented 44 % (47-70); Total Cells Counted 100 (MANUAL DIFF)
[2019-11-10 10:12] LABS: Platelet Estimate ADEQUATE (ADEQ); Red Cell Morphology N CHROM NORMAL (NORM C&C); Stomatocyte 2+
[2019-11-10 10:13] LABS: Absolute Neutrophil Count 3.9 X10^3/uL (2.0-7.7)
[2019-11-10 12:30] LABS: Pathologist Review Reviewed
[2019-11-11 20:47] LABS: Tacrolimus (FK506) 16.5 ng/mL (2.0-20.0)
[2019-11-14 09:56] LABS: Absolute Lymphocyte Count 3.21 X10^3/uL (0.83-4.51); Absolute Neutrophil Count 3.2 X10^3/uL (2.0-7.7); Basophil# 0.06 X10^3/uL; Basophil% 0.9 % (0-1); Eosinophil# 0.01 X10^3/uL; Eosinophils% 0.1 % (0-5); Hematocrit 42.1 % (37-47); Hemoglobin 12.8 g/dL (12.0-15.0); Lymphocyte # 3.21 X10^3/ul (4.0); Lymphocyte % 45.9 % (19-41); Mean Corp Hgb Conc 30.4 g/dL (32-36); Mean Corpuscular Hgb 33.2 pg (27.0-32.0); Mean Corpuscular Volume 109.1 fL (81-99); Monocyte# 0.38 X10^3/uL; Monocyte% 5.4 % (0-10); NRBC Flagged by Analyzer 0 % (0-5); Neutrophil % 45.7 % (47-70); POSITIVE MORPHOLOGY YES; Platelet Count 211 K/mm3 (150-450); RBC Distribution Width CV 14.7 % (11.6-14.6); RBC Distribution Width SD 60.2 fl (35.1-43.9); Red Blood Count 3.86 M/mm3 (4.2-5.4)
[2019-11-14 10:09] LABS: Anion Gap 7 (5-15); BUN 52 mg/dL (7-18); Calcium,Total 8.9 mg/dL (8.5-10.1); Chloride 96 mmol/L (98-107); EST Glomerular Filtration Rate 19 mL/min (>60); Est Glom Filt Rate - Afr Amer 24 mL/min (>60); Glucose 99 mg/dL (74-106); Magnesium 2.5 mg/dL (1.6-2.6); Phosphorus 3.6 mg/dL (2.5-4.9); Potassium 5.2 mmol/L (3.5-5.1); Sodium Level 134 mmol/L (136-145)
[2019-11-14 10:21] LABS: Differential Indicated SCAN CRITERIA MET
[2019-11-14 10:51] LABS: Atypical Lymphocyte RARE %; Differential Comment SCANNED
[2019-11-16 15:58] LABS: Tacrolimus (FK506) 14.7 ng/mL (2.0-20.0)
== END 2019-11-19 23:59 ==
LOC: PAVLAB 09:29
PROVIDERS: Family Provider Internal Medicine; PCP Internal Medicine
DX: Z01.818 Encounter for other preprocedural examination (principal); Z94.2 Lung transplant status; Z48.24 Encounter for aftercare following lung transplant; D89.9 Disorder involving the immune mechanism, unspecified; R79.9 Abnormal finding of blood chemistry, unspecified; Z79.899 Other long term (current) drug therapy; Z51.81 Encounter for therapeutic drug level monitoring
CPT/HCPCS: 36415; 80048; 80053; 80197; 82248; 82728; 82784; 82977; 83036; 83540; 83550; 83735; 84100; 84550; 85025; 87496; 97150; G0239

== ENCOUNTER 2019-11-18 10:15 | Outpatient (RCR) | payer MEDICARE, MEDICAID, SELFPAY ==
[2019-11-01 08:29] VITALS: BMI 24.3
== END 2019-11-19 23:59 ==
LOC: PR 10:15
PROVIDERS: PCP Internal Medicine; Referring Provider Internal Medicine Critical Care Medicine; Visit Provider Internal Medicine Critical Care Medicine
DX: Z01.818 Encounter for other preprocedural examination (principal); Z48.24 Encounter for aftercare following lung transplant
CPT/HCPCS: 97150; G0239

== ENCOUNTER 2019-12-12 10:15 | Outpatient (RCR) | payer MEDICARE, MEDICAID, SELFPAY ==
[2019-11-01 08:29] VITALS: BMI 24.3
--- NOTE | 2019-11-30 06:35 | PCM.PR.TP ---
General Information - General Information Admitting Diagnosis: S/P LUNG TRANSPLANT BILATERAL - Education/Goals Barriers to Learning: Vision Impairment Individual Counseling: Initial Assessment: Dyspnea control techniques at rest, activity, and ADLs, ADL management and pacing, Home exercise plan & guidelines Patient Goals: Breathe better: Initial Assessment, Increase endurance/stamina: Initial Assessment, Improve diet and nutrition: Initial Assessment Exercise - 30-Day Assessment - Physician Prescribed Exercise Modalities: Treadmill, NuStep, SciFit Frequency (days/week): 3 Duration (Minutes):: 30-45 Intensity: 60-80% of age predicted maximum heart rate reserve Aerobic Exercise [30-60 min 3-7x/week]:: Progressing Target heart rate: 98-129 Ganga-12 METs - Progression: 0.5-1.0 MET, RPE 11-14 WEEK: 3.0 - Home Exercise Home Exercise:: Yes Mode: Treadmill Frequency:: OFF DAYS OF PULM REHAB Time (minutes):: 30 Disease Management - 30-Day - Medications Medication list reviewed:: Yes Taking medications 100% of the time:: Met Medication reassessment: Yes Pt demonstrates correct technique timing for MDI, Yes Pt demonstrates correct technique timing for DPI, Yes Pt demonstrates correct technique timing for NEB, Yes Pt demonstrates correct technique timing for spacer - Bronchial Hygiene Bronchial Hygiene Plan: Yes Pt demonstrates correctly for effective cough, Yes Pt demo correct for device, Yes Pt demo correct for sputum management, Yes Pt demo correct for improved hydration, Yes Pt demo correct for hand hygiene Psychosocial - 30-Day - Assessment Reassessment: Management of stress & depression, Practicing interventions, Demonstrate coping strategies, COPD assessment w/ CAT, Geriatric depression screening, Self efficacy score Tobacco - 30-Day Assessment - Program Goals Tobacco Program Goals: Complete smoking cessation. Attend education classes. Improve Knowledge Test score - Stage of Change Stages of Change:: Action - Learning Barriers Learning Barriers: Participates in education - Family Support Do you have family support?: Yes - Tobacco Use Tobacco Use: Non-smoker - Intervention Smoking Cessation Referral:: No - Education Gave Education Materials For:: Pulmonary Disease, Risk Factors, Breathing Techniques, Medical Compliance, Pulmonary A&P, Exacerbation Signs & Symptoms, Stress & Relaxation Nutrition/Wt Mgmt - 30-Day - Weight Management Weight:: 123 lb 9.6 oz - DOWN FROM 129 Weight Goals Progress:: Progressing Patient Health Questionnaire 30-Day Re-eval Assessment 1. Little interest or pleasure in doing things: Several days 2. Feeling down, depressed, or hopeless: Not at all 3. Trouble falling or staying asleep, or sleeping too much: Several days 4. Feeling tired or having little energy: Several days 5. Poor appetite or overeating: Nearly every day 6. Feeling bad about yourself -- or that you are a failure or have let yourself or your family down: Several days 7. Trouble concentrating on things, such as reading the newspaper or watching television: Not at all 8. Moving or speaking so slowly that other people could have noticed. Or the opposite - being so fidgety or restless that you have been moving around a lot more than usual: Not at all 9. Thoughts that you would be better off , or of hurting yourself in some way: Not at all Total Score: 7 COPD Assessment Test [CAT] - Questions Never cough = 0, Cough all the time = 5: 2 No phlegm = 0, Chest full of phlegm = 5: 1 No chest tightness = 0, Chest very tight = 5: 5 No breathless w/exertion = 0, Very breathless w/exertion = 5: 1 No limitations w/activity = 0, Very limited w/activity = 5: 4 Confident leaving home = 0, Not at all confident = 5: 1 Sleep soundly = 0, Don't sleep soundly = 5: 3 Lots of energy = 0, No energy at all = 5: 3 Total CAT score:: 20 Self-Efficacy 30-Day Re-eval Assessment We would like to know how confident you are in doing certain activities. Please select your confidence level for:: Select your confidence level for the following using the scale 1-10 where 1 is not at all confident and 10 is totally confident. Your score is the average of all 6 responses. Fatigue: How confident are you that you can keep the fatigue caused by your disease from interfering with the things you want to do? Select Number: 10 Physical Discomfort or Pain: How confident are you that you can keep the physical discomfort or pain of your disease from interfering with the things you want to do? Select Number: 10 Emotional Distress: How confident are you that you can keep the emotional distress caused by your disease from interfering with the things you want to do? Select Number: 10 Other Symptoms or Health Problems: How confident are you that you can keep other symptoms or health problems from interfering with the things you want to do? Select Number: 10 Different Tasks and Activities: How confident are you that you can do the different tasks and activities needed to manage your health condition so as to reduce your need to see a doctor? Select Number: 10 Medication: How confident are you that you can do things other than just taking medication to reduce how much your illness affects your everyday life? Select Number: 10 Total Score:: 10
== END 2019-12-20 23:59 ==
LOC: PR 10:15
PROVIDERS: PCP Internal Medicine; Referring Provider Internal Medicine Critical Care Medicine; Visit Provider Internal Medicine Critical Care Medicine
DX: Z01.818 Encounter for other preprocedural examination (principal); Z48.24 Encounter for aftercare following lung transplant
CPT/HCPCS: 97150; G0239

== ENCOUNTER 2019-12-19 09:06 | Outpatient (RCR) | payer MEDICARE, MEDICAID, SELFPAY ==
[2019-11-01 08:29] VITALS: BMI 24.3
[2019-11-21 09:50] LABS: Absolute Lymphocyte Count 2.71 X10^3/uL (0.83-4.51); Absolute Neutrophil Count 2.9 X10^3/uL (2.0-7.7); Basophil# 0.04 X10^3/uL; Basophil% 0.6 % (0-1); Differential Indicated SCAN CRITERIA MET; Eosinophil# 0.03 X10^3/uL; Eosinophils% 0.5 % (0-5); Hematocrit 37.9 % (37-47); Hemoglobin 11.4 g/dL (12.0-15.0); Lymphocyte # 2.71 X10^3/ul (4.0); Lymphocyte % 43.6 % (19-41); Mean Corp Hgb Conc 30.1 g/dL (32-36); Mean Corpuscular Hgb 32.9 pg (27.0-32.0); Mean Corpuscular Volume 109.5 fL (81-99); Mean Platelet Vol. 9.8 fl (6.2-12.0); Monocyte# 0.46 X10^3/uL; Monocyte% 7.4 % (0-10); NRBC Flagged by Analyzer 0 % (0-5); Neutrophil # 2.87 X10^3/uL (2.7-7.7); Neutrophil % 46.1 % (47-70); POSITIVE MORPHOLOGY YES; Platelet Count 159 K/mm3 (150-450); RBC Distribution Width CV 14.6 % (11.6-14.6); RBC Distribution Width SD 58.9 fl (35.1-43.9); Red Blood Count 3.46 M/mm3 (4.2-5.4); White Blood Count 6.2 K/mm3 (4.4-11.0)
[2019-11-21 10:04] LABS: Anion Gap 5 (5-15); BUN 31 mg/dL (7-18); BUN/Creat Ratio 18.9 RATIO (10-20); Calcium,Total 8.4 mg/dL (8.5-10.1); Chloride 103 mmol/L (98-107); Creatinine, Serum 1.64 mg/dL (0.55-1.02); EST Glomerular Filtration Rate 33 mL/min (>60); Est Glom Filt Rate - Afr Amer 40 mL/min (>60); Glucose 109 mg/dL (74-106); Magnesium 2.3 mg/dL (1.6-2.6); Phosphorus 2.6 mg/dL (2.5-4.9); Sodium Level 138 mmol/L (136-145)
[2019-11-21 10:16] LABS: Hypochromasia RARE; Platelet Estimate ADEQUATE (ADEQ); Red Cell Morphology N CYTIC NORMAL (NORM C&C)
[2019-11-22 18:35] LABS: Tacrolimus (FK506) 6.7 ng/mL (2.0-20.0)
[2019-11-28 09:56] LABS: Absolute Lymphocyte Count 2.54 X10^3/uL (0.83-4.51); Absolute Neutrophil Count 2.1 X10^3/uL (2.0-7.7); Basophil# 0.04 X10^3/uL; Basophil% 0.7 % (0-1); Eosinophil# 0.06 X10^3/uL; Eosinophils% 1.1 % (0-5); Hematocrit 38.8 % (37-47); Hemoglobin 11.8 g/dL (12.0-15.0); Lymphocyte # 2.54 X10^3/ul (4.0); Mean Corp Hgb Conc 30.4 g/dL (32-36); Mean Corpuscular Volume 108.4 fL (81-99); Mean Platelet Vol. 9.9 fl (6.2-12.0); Monocyte# 0.44 X10^3/uL; Monocyte% 8.1 % (0-10); NRBC Flagged by Analyzer 0 % (0-5); Neutrophil # 2.09 X10^3/uL (2.7-7.7); Neutrophil % 38.8 % (47-70); POSITIVE MORPHOLOGY YES; Platelet Count 236 K/mm3 (150-450); RBC Distribution Width SD 56.9 fl (35.1-43.9); Red Blood Count 3.58 M/mm3 (4.2-5.4); White Blood Count 5.4 K/mm3 (4.4-11.0)
[2019-11-28 09:58] LABS: Differential Indicated SCAN CRITERIA MET
[2019-11-28 10:15] LABS: ALB/GLOB Ratio 1.2 RATIO (0.9-2.4); AST(SGOT) 52 U/L (15-37); Alanine Aminotransfer ALT/SGPT 85 U/L (13-56); Albumin, Serum 3.3 g/dL (3.2-5.0); Alkaline Phosphatase 97 U/L (45-117); Anion Gap 5 (5-15); BUN 24 mg/dL (7-18); BUN/Creat Ratio 15.3 RATIO (10-20); Bilirubin, Direct 0.06 mg/dL (0.00-0.30); Calcium,Total 8.7 mg/dL (8.5-10.1); Chloride 102 mmol/L (98-107); Creatinine, Serum 1.57 mg/dL (0.55-1.02); EST Glomerular Filtration Rate 35 mL/min (>60); Est Glom Filt Rate - Afr Amer 42 mL/min (>60); GGTP 285 U/L (5-55); Globulin 2.8 g/dL (2.2-4.2); Glucose 101 mg/dL (74-106); Phosphorus 3.7 mg/dL (2.5-4.9); Potassium 5.1 mmol/L (3.5-5.1); Protein, Total 6.1 g/dL (6.4-8.2); Sodium Level 139 mmol/L (136-145); Uric Acid 5.7 mg/dL (2.6-6.0)
[2019-11-28 11:00] LABS: Reactive Lymphocyte 1+
[2019-11-29 21:48] LABS: Tacrolimus (FK506) 11.3 ng/mL (2.0-20.0)
[2019-12-05 09:01] LABS: Absolute Lymphocyte Count 3.28 X10^3/uL (0.83-4.51); Absolute Neutrophil Count 2.3 X10^3/uL (2.0-7.7); Basophil# 0.05 X10^3/uL; Basophil% 0.8 % (0-1); Eosinophil# 0.08 X10^3/uL; Eosinophils% 1.3 % (0-5); Hematocrit 39.9 % (37-47); Hemoglobin 12.2 g/dL (12.0-15.0); Lymphocyte # 3.28 X10^3/ul (4.0); Lymphocyte % 52.7 % (19-41); Mean Corp Hgb Conc 30.6 g/dL (32-36); Mean Corpuscular Hgb 32.6 pg (27.0-32.0); Mean Corpuscular Volume 106.7 fL (81-99); Monocyte# 0.51 X10^3/uL; Monocyte% 8.2 % (0-10); NRBC Flagged by Analyzer 0 % (0-5); Neutrophil # 2.26 X10^3/uL (2.7-7.7); Neutrophil % 36.4 % (47-70); POSITIVE MORPHOLOGY YES; Platelet Count 239 K/mm3 (150-450); RBC Distribution Width CV 13.6 % (11.6-14.6); Red Blood Count 3.74 M/mm3 (4.2-5.4); White Blood Count 6.2 K/mm3 (4.4-11.0)
[2019-12-05 09:02] LABS: Differential Indicated SCAN CRITERIA MET
[2019-12-05 09:13] LABS: Anion Gap 5 (5-15); BUN 39 mg/dL (7-18); BUN/Creat Ratio 20.1 RATIO (10-20); Calcium,Total 8.8 mg/dL (8.5-10.1); Chloride 99 mmol/L (98-107); Creatinine, Serum 1.94 mg/dL (0.55-1.02); EST Glomerular Filtration Rate 27 mL/min (>60); Est Glom Filt Rate - Afr Amer 33 mL/min (>60); Glucose 120 mg/dL (74-106); Magnesium 2.2 mg/dL (1.6-2.6); Phosphorus 3.6 mg/dL (2.5-4.9); Potassium 4.4 mmol/L (3.5-5.1); Sodium Level 134 mmol/L (136-145)
[2019-12-06 16:20] LABS: Tacrolimus (FK506) 8.3 ng/mL (2.0-20.0)
[2019-12-12 09:55] LABS: Absolute Lymphocyte Count 2.69 X10^3/uL (0.83-4.51); Absolute Neutrophil Count 2.1 X10^3/uL (2.0-7.7); Basophil# 0.04 X10^3/uL; Basophil% 0.7 % (0-1); Eosinophil# 0.07 X10^3/uL; Eosinophils% 1.3 % (0-5); Hematocrit 35.5 % (37-47); Hemoglobin 10.6 g/dL (12.0-15.0); Lymphocyte # 2.69 X10^3/ul (4.0); Lymphocyte % 48.7 % (19-41); Mean Corp Hgb Conc 29.9 g/dL (32-36); Mean Corpuscular Hgb 32.1 pg (27.0-32.0); Mean Corpuscular Volume 107.6 fL (81-99); Mean Platelet Vol. 9.9 fl (6.2-12.0); Monocyte# 0.43 X10^3/uL; Monocyte% 7.8 % (0-10); NRBC Flagged by Analyzer 0 % (0-5); Neutrophil # 2.09 X10^3/uL (2.7-7.7); Neutrophil % 37.9 % (47-70); Platelet Count 183 K/mm3 (150-450); RBC Distribution Width CV 13.7 % (11.6-14.6); RBC Distribution Width SD 54.8 fl (35.1-43.9); White Blood Count 5.5 K/mm3 (4.4-11.0)
[2019-12-12 10:17] LABS: Anion Gap 3 (5-15); BUN 31 mg/dL (7-18); BUN/Creat Ratio 21.5 RATIO (10-20); Calcium,Total 8.5 mg/dL (8.5-10.1); Chloride 102 mmol/L (98-107); Creatinine, Serum 1.44 mg/dL (0.55-1.02); EST Glomerular Filtration Rate 38 mL/min (>60); Est Glom Filt Rate - Afr Amer 47 mL/min (>60); Glucose 122 mg/dL (74-106); Magnesium 2.6 mg/dL (1.6-2.6); Phosphorus 3.4 mg/dL (2.5-4.9); Potassium 5.3 mmol/L (3.5-5.1); Sodium Level 134 mmol/L (136-145)
[2019-12-14 14:31] LABS: Tacrolimus (FK506) 10.2 ng/mL (2.0-20.0)
[2019-12-19 09:25] LABS: Absolute Lymphocyte Count 2.89 X10^3/uL (0.83-4.51); Basophil# 0.04 X10^3/uL; Basophil% 0.7 % (0-1); Eosinophil# 0.07 X10^3/uL; Eosinophils% 1.2 % (0-5); Hematocrit 36.8 % (37-47); Hemoglobin 11.1 g/dL (12.0-15.0); Lymphocyte # 2.89 X10^3/ul (4.0); Lymphocyte % 50.7 % (19-41); Mean Corp Hgb Conc 30.2 g/dL (32-36); Mean Corpuscular Hgb 32.8 pg (27.0-32.0); Mean Corpuscular Volume 108.9 fL (81-99); Mean Platelet Vol. 9.9 fl (6.2-12.0); Monocyte# 0.48 X10^3/uL; Monocyte% 8.4 % (0-10); NRBC Flagged by Analyzer 0 % (0-5); Neutrophil # 1.96 X10^3/uL (2.7-7.7); Neutrophil % 34.4 % (47-70); POSITIVE MORPHOLOGY YES; Platelet Count 204 K/mm3 (150-450); RBC Distribution Width CV 13.5 % (11.6-14.6); RBC Distribution Width SD 53.8 fl (35.1-43.9); Red Blood Count 3.38 M/mm3 (4.2-5.4); White Blood Count 5.7 K/mm3 (4.4-11.0)
[2019-12-19 09:29] LABS: Differential Indicated SCAN CRITERIA MET
[2019-12-19 09:47] LABS: Anion Gap 7 (5-15); BUN 22 mg/dL (7-18); BUN/Creat Ratio 15.4 RATIO (10-20); Calcium,Total 8.3 mg/dL (8.5-10.1); Chloride 102 mmol/L (98-107); Creatinine, Serum 1.43 mg/dL (0.55-1.02); EST Glomerular Filtration Rate 39 mL/min (>60); Est Glom Filt Rate - Afr Amer 47 mL/min (>60); Glucose 121 mg/dL (74-106); Magnesium 2.4 mg/dL (1.6-2.6); Potassium 4.6 mmol/L (3.5-5.1); Sodium Level 135 mmol/L (136-145)
[2019-12-19 10:00] LABS: Platelet Estimate ADEQUATE (ADEQ); Reactive Lymphocyte 1+; Red Cell Morphology NORM C+C NORMAL (NORM C&C)
[2019-12-22 12:02] LABS: Tacrolimus (FK506) 8.6 ng/mL (2.0-20.0)
== END 2019-12-20 23:59 ==
LOC: PAVLAB 09:06
PROVIDERS: Family Provider Internal Medicine; PCP Internal Medicine
DX: Z01.818 Encounter for other preprocedural examination (principal); Z94.2 Lung transplant status; Z48.24 Encounter for aftercare following lung transplant; D89.9 Disorder involving the immune mechanism, unspecified; R79.9 Abnormal finding of blood chemistry, unspecified; Z79.899 Other long term (current) drug therapy; Z51.81 Encounter for therapeutic drug level monitoring
CPT/HCPCS: 36415; 80048; 80053; 80197; 82248; 82977; 83735; 84100; 84550; 85025; 97150; G0239

== ENCOUNTER 2020-01-16 09:05 | Outpatient (RCR) | payer MEDICARE, MEDICAID, SELFPAY ==
[2019-11-01 08:29] VITALS: BMI 24.3
[2019-12-26 09:19] LABS: Hemoglobin 10.5 g/dL (12.0-15.0); Mean Corpuscular Hgb 32.1 pg (27.0-32.0); Mean Platelet Vol. 9.9 fl (6.2-12.0); POSITIVE COUNT YES; POSITIVE MORPHOLOGY YES; Platelet Count 231 K/mm3 (150-450); RBC Distribution Width CV 13.6 % (11.6-14.6); RBC Distribution Width SD 53.8 fl (35.1-43.9); Red Blood Count 3.27 M/mm3 (4.2-5.4); White Blood Count 6.5 K/mm3 (4.4-11.0)
[2019-12-26 09:25] LABS: Differential Indicated MANUAL DIFF
[2019-12-26 09:36] LABS: AST(SGOT) 175 U/L (15-37); Alanine Aminotransfer ALT/SGPT 230 U/L (13-56); Albumin, Serum 3.3 g/dL (3.2-5.0); Alkaline Phosphatase 239 U/L (45-117); Anion Gap 3 (5-15); BUN 29 mg/dL (7-18); Calcium,Total 8.7 mg/dL (8.5-10.1); Chloride 107 mmol/L (98-107); Creatinine, Serum 1.21 mg/dL (0.55-1.02); EST Glomerular Filtration Rate 47 mL/min (>60); Est Glom Filt Rate - Afr Amer 57 mL/min (>60); GGTP 1263 U/L (5-55); Glucose 126 mg/dL (74-106); Magnesium 1.9 mg/dL (1.6-2.6); Phosphorus 2.9 mg/dL (2.5-4.9); Potassium 5.1 mmol/L (3.5-5.1); Sodium Level 137 mmol/L (136-145); Uric Acid 4.6 mg/dL (2.6-6.0)
[2019-12-26 10:02] LABS: Eosinophil 1 % (0-5); Lymphocyte 54 % (19-41); Monocyte 7 % (0-10); Neutrophil-Band 2 % (0-5); Neutrophil-Segmented 36 % (47-70); Platelet Estimate ADEQUATE (ADEQ); Red Cell Morphology N CHROM NORMAL (NORM C&C); Total Cells Counted 100 (MANUAL DIFF)
[2019-12-26 10:03] LABS: Absolute Neutrophil Count 2.5 X10^3/uL (2.0-7.7); Macrocytosis 1+
[2019-12-26 10:04] LABS: Absolute Lymphocyte Count 3.51 X10^3/uL (0.83-4.51)
[2019-12-27 10:41] LABS: Pathologist Review Reviewed
[2020-01-02 10:11] LABS: Absolute Lymphocyte Count 2.75 X10^3/uL (0.83-4.51); Absolute Neutrophil Count 2.4 X10^3/uL (2.0-7.7); Basophil# 0.06 X10^3/uL; Eosinophil# 0.09 X10^3/uL; Eosinophils% 1.5 % (0-5); Hematocrit 33.1 % (37-47); Hemoglobin 9.7 g/dL (12.0-15.0); Lymphocyte # 2.75 X10^3/ul (4.0); Lymphocyte % 45.3 % (19-41); Mean Corp Hgb Conc 29.3 g/dL (32-36); Mean Corpuscular Hgb 31.5 pg (27.0-32.0); Mean Corpuscular Volume 107.5 fL (81-99); Mean Platelet Vol. 10.2 fl (6.2-12.0); Monocyte# 0.49 X10^3/uL; Monocyte% 8.1 % (0-10); NRBC Flagged by Analyzer 0 % (0-5); Neutrophil # 2.38 X10^3/uL (2.7-7.7); Neutrophil % 39.2 % (47-70); Platelet Count 235 K/mm3 (150-450); RBC Distribution Width CV 13.6 % (11.6-14.6); RBC Distribution Width SD 53.8 fl (35.1-43.9); Red Blood Count 3.08 M/mm3 (4.2-5.4); White Blood Count 6.1 K/mm3 (4.4-11.0)
[2020-01-02 10:23] LABS: Anion Gap 6 (5-15); BUN 26 mg/dL (7-18); BUN/Creat Ratio 24.3 RATIO (10-20); Calcium,Total 8.8 mg/dL (8.5-10.1); Chloride 110 mmol/L (98-107); Creatinine, Serum 1.07 mg/dL (0.55-1.02); EST Glomerular Filtration Rate 54 mL/min (>60); Est Glom Filt Rate - Afr Amer 66 mL/min (>60); Glucose 121 mg/dL (74-106); Magnesium 1.9 mg/dL (1.6-2.6); Phosphorus 3.9 mg/dL (2.5-4.9); Potassium 4.2 mmol/L (3.5-5.1); Sodium Level 143 mmol/L (136-145)
[2020-01-02 17:47] LABS: Xtra Tube EP Lab EXTRA TUBE
[2020-01-03 12:46] LABS: CMV by PCR Negative (Negative); Tacrolimus (FK506) 9.8 ng/mL (2.0-20.0)
[2020-01-04 23:10] LABS: Tacrolimus (FK506) 8.2 ng/mL (2.0-20.0)
[2020-01-09 09:18] LABS: Hematocrit 34.2 % (37-47); Hemoglobin 10.2 g/dL (12.0-15.0); Mean Corp Hgb Conc 29.8 g/dL (32-36); Mean Corpuscular Hgb 32.4 pg (27.0-32.0); Mean Corpuscular Volume 108.6 fL (81-99); Mean Platelet Vol. 10.1 fl (6.2-12.0); POSITIVE COUNT YES; POSITIVE MORPHOLOGY YES; Platelet Count 232 K/mm3 (150-450); RBC Distribution Width CV 13.9 % (11.6-14.6); RBC Distribution Width SD 55.5 fl (35.1-43.9); Red Blood Count 3.15 M/mm3 (4.2-5.4); White Blood Count 6.6 K/mm3 (4.4-11.0)
[2020-01-09 09:19] LABS: Differential Indicated MANUAL DIFF
[2020-01-09 09:32] LABS: Anion Gap 5 (5-15); BUN 21 mg/dL (7-18); BUN/Creat Ratio 18.4 RATIO (10-20); Calcium,Total 8.7 mg/dL (8.5-10.1); Chloride 108 mmol/L (98-107); Creatinine, Serum 1.14 mg/dL (0.55-1.02); EST Glomerular Filtration Rate 50 mL/min (>60); Est Glom Filt Rate - Afr Amer 61 mL/min (>60); Glucose 126 mg/dL (74-106); Magnesium 2.1 mg/dL (1.6-2.6); Phosphorus 2.8 mg/dL (2.5-4.9); Potassium 4.1 mmol/L (3.5-5.1); Sodium Level 142 mmol/L (136-145)
[2020-01-09 09:42] LABS: Anisocytosis 2+; Eosinophil 1 % (0-5); Lymphocyte 43 % (19-41); Macrocytosis 2+; Monocyte 3 % (0-10); Myelocyte 1 (0-0); Neutrophil-Segmented 52 % (47-70); Total Cells Counted 100 (MANUAL DIFF)
[2020-01-09 09:43] LABS: Platelet Estimate ADEQUATE (ADEQ)
[2020-01-09 09:44] LABS: Absolute Lymphocyte Count 2.84 X10^3/uL (0.83-4.51); Absolute Neutrophil Count 3.4 X10^3/uL (2.0-7.7)
[2020-01-10 10:38] LABS: Pathologist Review Reviewed
[2020-01-16 10:54] LABS: Hematocrit 32.9 % (37-47); Hemoglobin 9.9 g/dL (12.0-15.0); Mean Corp Hgb Conc 30.1 g/dL (32-36); Mean Corpuscular Hgb 32.7 pg (27.0-32.0); Mean Corpuscular Volume 108.6 fL (81-99); Mean Platelet Vol. 10.9 fl (6.2-12.0); POSITIVE COUNT YES; POSITIVE MORPHOLOGY YES; Platelet Count 218 K/mm3 (150-450); RBC Distribution Width CV 13.7 % (11.6-14.6); RBC Distribution Width SD 54.8 fl (35.1-43.9); Red Blood Count 3.03 M/mm3 (4.2-5.4); White Blood Count 6.6 K/mm3 (4.4-11.0)
[2020-01-16 10:55] LABS: Anion Gap 5 (5-15); BUN 20 mg/dL (7-18); BUN/Creat Ratio 18.7 RATIO (10-20); Calcium,Total 8.7 mg/dL (8.5-10.1); Chloride 107 mmol/L (98-107); Creatinine, Serum 1.07 mg/dL (0.55-1.02); EST Glomerular Filtration Rate 54 mL/min (>60); Est Glom Filt Rate - Afr Amer 66 mL/min (>60); Glucose 128 mg/dL (74-106); Magnesium 2.1 mg/dL (1.6-2.6); Phosphorus 3.8 mg/dL (2.5-4.9); Potassium 4.2 mmol/L (3.5-5.1); Sodium Level 141 mmol/L (136-145)
[2020-01-16 11:08] LABS: Differential Indicated MANUAL DIFF
[2020-01-16 12:08] LABS: Lymphocyte 36 % (19-41); Monocyte 13 % (0-10); Neutrophil-Band 3 % (0-5); Neutrophil-Segmented 48 % (47-70); Total Cells Counted 100 (MANUAL DIFF)
[2020-01-16 12:10] LABS: Anisocytosis 1+; Platelet Estimate ADEQUATE (ADEQ); Stomatocyte 1+
[2020-01-16 12:13] LABS: Absolute Lymphocyte Count 2.38 X10^3/uL (0.83-4.51); Absolute Neutrophil Count 3.4 X10^3/uL (2.0-7.7)
[2020-01-17 12:18] LABS: Pathologist Review Reviewed
[2020-01-18 14:34] LABS: Tacrolimus (FK506) 9.9 ng/mL (2.0-20.0)
== END 2020-01-19 23:59 ==
LOC: PAVLAB 09:05
PROVIDERS: Family Provider Internal Medicine; PCP Internal Medicine
DX: Z94.2 Lung transplant status (principal); Z79.899 Other long term (current) drug therapy; Z48.24 Encounter for aftercare following lung transplant; D89.9 Disorder involving the immune mechanism, unspecified; R79.9 Abnormal finding of blood chemistry, unspecified; Z51.81 Encounter for therapeutic drug level monitoring
CPT/HCPCS: 36415; 80048; 80197; 82040; 82247; 82248; 82977; 83735; 84075; 84100; 84450; 84460; 84550; 85025; 87496

== ENCOUNTER 2020-02-14 09:16 | Outpatient (RCR) | payer MEDICARE, MEDICAID, SELFPAY ==
[2019-11-01 08:29] VITALS: BMI 24.3
[2020-01-23 09:03] LABS: Hematocrit 32.6 % (37-47); Hemoglobin 9.7 g/dL (12.0-15.0); Mean Corp Hgb Conc 29.8 g/dL (32-36); Mean Corpuscular Hgb 33.1 pg (27.0-32.0); Mean Corpuscular Volume 111.3 fL (81-99); Mean Platelet Vol. 10.1 fl (6.2-12.0); POSITIVE COUNT YES; POSITIVE MORPHOLOGY YES; Platelet Count 227 K/mm3 (150-450); RBC Distribution Width CV 13.7 % (11.6-14.6); RBC Distribution Width SD 55.9 fl (35.1-43.9); Red Blood Count 2.93 M/mm3 (4.2-5.4); White Blood Count 7.8 K/mm3 (4.4-11.0)
[2020-01-23 09:05] LABS: Differential Indicated MANUAL DIFF
[2020-01-23 09:25] LABS: AST(SGOT) 51 U/L (15-37); Alanine Aminotransfer ALT/SGPT 66 U/L (13-56); Albumin, Serum 2.9 g/dL (3.2-5.0); Alkaline Phosphatase 197 U/L (45-117); Anion Gap 2 (5-15); BUN 24 mg/dL (7-18); BUN/Creat Ratio 22.4 RATIO (10-20); Bilirubin, Direct 0.08 mg/dL (0.00-0.30); Calcium,Total 8.7 mg/dL (8.5-10.1); Chloride 110 mmol/L (98-107); Creatinine, Serum 1.07 mg/dL (0.55-1.02); EST Glomerular Filtration Rate 54 mL/min (>60); Est Glom Filt Rate - Afr Amer 66 mL/min (>60); GGTP 920 U/L (5-55); Glucose 130 mg/dL (74-106); Magnesium 2.2 mg/dL (1.6-2.6); Phosphorus 3.5 mg/dL (2.5-4.9); Potassium 5.4 mmol/L (3.5-5.1); Sodium Level 142 mmol/L (136-145); Uric Acid 5.3 mg/dL (2.6-6.0)
[2020-01-23 10:02] LABS: Eosinophil 3 % (0-5); Lymphocyte 34 % (19-41); Monocyte 3 % (0-10); Myelocyte 2 (0-0); Neutrophil-Band 4 % (0-5); Neutrophil-Segmented 54 % (47-70); Platelet Estimate ADEQUATE (ADEQ); Red Cell Morphology NORM C+C NORMAL (NORM C&C); Total Cells Counted 100 (MANUAL DIFF)
[2020-01-23 10:04] LABS: Absolute Lymphocyte Count 2.64 X10^3/uL (0.83-4.51); Absolute Neutrophil Count 4.3 X10^3/uL (2.0-7.7)
[2020-01-24 09:26] LABS: Pathologist Review Reviewed
[2020-01-26 15:39] LABS: CMV by PCR Negative (Negative); Tacrolimus (FK506) 8.7 ng/mL (2.0-20.0)
[2020-01-30 09:44] LABS: Hematocrit 34.9 % (37-47); Hemoglobin 10.7 g/dL (12.0-15.0); Mean Corp Hgb Conc 30.7 g/dL (32-36); Mean Corpuscular Hgb 33.5 pg (27.0-32.0); Mean Corpuscular Volume 109.4 fL (81-99); Mean Platelet Vol. 10.3 fl (6.2-12.0); POSITIVE COUNT YES; POSITIVE MORPHOLOGY YES; Platelet Count 261 K/mm3 (150-450); RBC Distribution Width CV 13.5 % (11.6-14.6); Red Blood Count 3.19 M/mm3 (4.2-5.4); White Blood Count 7.3 K/mm3 (4.4-11.0)
[2020-01-30 09:47] LABS: Differential Indicated MANUAL DIFF
[2020-01-30 09:56] LABS: Anion Gap 3 (5-15); BUN 23 mg/dL (7-18); Calcium,Total 8.4 mg/dL (8.5-10.1); Chloride 107 mmol/L (98-107); Creatinine, Serum 1.15 mg/dL (0.55-1.02); EST Glomerular Filtration Rate 50 mL/min (>60); Est Glom Filt Rate - Afr Amer 60 mL/min (>60); Glucose 103 mg/dL (74-106); Magnesium 2.4 mg/dL (1.6-2.6); Phosphorus 3.8 mg/dL (2.5-4.9); Potassium 4.6 mmol/L (3.5-5.1); Sodium Level 141 mmol/L (136-145)
[2020-01-30 10:15] LABS: Eosinophil 2 % (0-5); Lymphocyte 33 % (19-41); Metamyelocyte 2 % (0-1); Monocyte 8 % (0-10); Neutrophil-Band 5 % (0-5); Neutrophil-Segmented 50 % (47-70); Total Cells Counted 100 (MANUAL DIFF)
[2020-01-30 10:16] LABS: Hypochromasia RARE; Macrocytosis 1+; Platelet Estimate ADEQUATE (ADEQ)
[2020-01-30 10:17] LABS: Absolute Lymphocyte Count 2.42 X10^3/uL (0.83-4.51)
[2020-01-31 10:56] LABS: Pathologist Review Reviewed
[2020-02-01 22:31] LABS: Tacrolimus (FK506) 7.4 ng/mL (2.0-20.0)
[2020-02-06 09:33] LABS: Hematocrit 33.8 % (37-47); Hemoglobin 10.1 g/dL (12.0-15.0); Mean Corp Hgb Conc 29.9 g/dL (32-36); Mean Corpuscular Hgb 33.1 pg (27.0-32.0); Mean Corpuscular Volume 110.8 fL (81-99); Mean Platelet Vol. 10.4 fl (6.2-12.0); POSITIVE COUNT YES; POSITIVE MORPHOLOGY YES; Platelet Count 268 K/mm3 (150-450); RBC Distribution Width CV 13.2 % (11.6-14.6); RBC Distribution Width SD 54.1 fl (35.1-43.9); Red Blood Count 3.05 M/mm3 (4.2-5.4)
[2020-02-06 09:35] LABS: Differential Indicated MANUAL DIFF
[2020-02-06 09:44] LABS: Anion Gap 4 (5-15); BUN 25 mg/dL (7-18); BUN/Creat Ratio 23.1 RATIO (10-20); Calcium,Total 8.7 mg/dL (8.5-10.1); Chloride 107 mmol/L (98-107); Creatinine, Serum 1.08 mg/dL (0.55-1.02); EST Glomerular Filtration Rate 54 mL/min (>60); Est Glom Filt Rate - Afr Amer 65 mL/min (>60); Glucose 141 mg/dL (74-106); Magnesium 2.1 mg/dL (1.6-2.6); Phosphorus 3.3 mg/dL (2.5-4.9); Potassium 3.7 mmol/L (3.5-5.1); Sodium Level 142 mmol/L (136-145)
[2020-02-06 10:02] LABS: Eosinophil 1 % (0-5); Lymphocyte 28 % (19-41); Metamyelocyte 4 % (0-1); Monocyte 7 % (0-10); Neutrophil-Segmented 60 % (47-70); Platelet Estimate ADEQUATE (ADEQ); Red Cell Morphology NORM C+C NORMAL (NORM C&C); Total Cells Counted 100 (MANUAL DIFF)
[2020-02-06 10:03] LABS: Absolute Neutrophil Count 3.6 X10^3/uL (2.0-7.7)
[2020-02-07 10:48] LABS: Pathologist Review Reviewed
[2020-02-09 08:24] LABS: Tacrolimus (FK506) 8.2 ng/mL (2.0-20.0)
[2020-02-14 09:59] LABS: Hematocrit 32.2 % (37-47); Hemoglobin 9.8 g/dL (12.0-15.0); Mean Corp Hgb Conc 30.4 g/dL (32-36); Mean Corpuscular Hgb 33.1 pg (27.0-32.0); Mean Corpuscular Volume 108.8 fL (81-99); Mean Platelet Vol. 10.6 fl (6.2-12.0); POSITIVE COUNT YES; POSITIVE MORPHOLOGY YES; Platelet Count 267 K/mm3 (150-450); RBC Distribution Width CV 13.2 % (11.6-14.6); RBC Distribution Width SD 52.7 fl (35.1-43.9); Red Blood Count 2.96 M/mm3 (4.2-5.4); White Blood Count 6.5 K/mm3 (4.4-11.0)
[2020-02-14 10:01] LABS: Anion Gap 5 (5-15); BUN 25 mg/dL (7-18); BUN/Creat Ratio 23.4 RATIO (10-20); Calcium,Total 8.5 mg/dL (8.5-10.1); Chloride 108 mmol/L (98-107); Creatinine, Serum 1.07 mg/dL (0.55-1.02); EST Glomerular Filtration Rate 54 mL/min (>60); Est Glom Filt Rate - Afr Amer 66 mL/min (>60); Glucose 124 mg/dL (74-106); Potassium 3.6 mmol/L (3.5-5.1); Sodium Level 144 mmol/L (136-145)
[2020-02-14 10:12] LABS: Differential Indicated MANUAL DIFF
[2020-02-14 12:29] LABS: Basophil 2 % (0-1); Eosinophil 4 % (0-5); Lymphocyte 36 % (19-41); Metamyelocyte 2 % (0-1); Monocyte 7 % (0-10); Myelocyte 1 (0-0); Neutrophil-Segmented 48 % (47-70); Platelet Estimate ADEQUATE (ADEQ); Red Cell Morphology NORM C+C NORMAL (NORM C&C); Total Cells Counted 100 (MANUAL DIFF)
[2020-02-14 12:30] LABS: Absolute Neutrophil Count 3.1 X10^3/uL (2.0-7.7)
[2020-02-14 17:39] LABS: Xtra Tube EP Lab EXTRA TUBE
[2020-02-15 11:59] LABS: Pathologist Review Reviewed
[2020-02-15 16:50] LABS: Tacrolimus (FK506) 7.2 ng/mL (2.0-20.0)
== END 2020-02-19 23:59 ==
LOC: PAVLAB 09:16
PROVIDERS: Family Provider Internal Medicine; PCP Internal Medicine
DX: Z94.2 Lung transplant status (principal); Z79.899 Other long term (current) drug therapy; Z48.24 Encounter for aftercare following lung transplant; D89.9 Disorder involving the immune mechanism, unspecified; R79.9 Abnormal finding of blood chemistry, unspecified; Z51.81 Encounter for therapeutic drug level monitoring
CPT/HCPCS: 36415; 80048; 80197; 82040; 82247; 82248; 82977; 83735; 84075; 84100; 84450; 84460; 84550; 85025; 87496

== ENCOUNTER 2020-03-19 09:08 | Outpatient (RCR) | payer MEDICARE, MEDICAID, SELFPAY ==
[2020-02-06 07:32] VITALS: BMI 24.3
[2020-02-20 09:49] LABS: Hematocrit 33.5 % (37-47); Hemoglobin 10.1 g/dL (12.0-15.0); Mean Corp Hgb Conc 30.1 g/dL (32-36); Mean Corpuscular Hgb 32.7 pg (27.0-32.0); Mean Corpuscular Volume 108.4 fL (81-99); Mean Platelet Vol. 10.3 fl (6.2-12.0); POSITIVE COUNT YES; POSITIVE MORPHOLOGY YES; Platelet Count 288 K/mm3 (150-450); RBC Distribution Width CV 13.1 % (11.6-14.6); RBC Distribution Width SD 51.8 fl (35.1-43.9); Red Blood Count 3.09 M/mm3 (4.2-5.4); White Blood Count 7.2 K/mm3 (4.4-11.0)
[2020-02-20 09:51] LABS: Differential Indicated MANUAL DIFF
[2020-02-20 10:05] LABS: ALB/GLOB Ratio 0.8 RATIO (0.9-2.4); AST(SGOT) 58 U/L (15-37); Alanine Aminotransfer ALT/SGPT 62 U/L (13-56); Albumin, Serum 2.8 g/dL (3.2-5.0); Alkaline Phosphatase 231 U/L (45-117); Anion Gap 6 (5-15); BUN 32 mg/dL (7-18); BUN/Creat Ratio 29.6 RATIO (10-20); Calcium,Total 8.6 mg/dL (8.5-10.1); Chloride 104 mmol/L (98-107); Cholesterol 242 mg/dL (200); Creatinine, Serum 1.08 mg/dL (0.55-1.02); EST Glomerular Filtration Rate 54 mL/min (>60); Est Glom Filt Rate - Afr Amer 65 mL/min (>60); Globulin 3.6 g/dL (2.2-4.2); Glucose 141 mg/dL (74-106); High Density Lipoprotein 47 mg/dL; Phosphorus 3.7 mg/dL (2.5-4.9); Potassium 4.1 mmol/L (3.5-5.1); Protein, Total 6.4 g/dL (6.4-8.2); Sodium Level 142 mmol/L (136-145); Triglycerides 239 mg/dL; Very Low Density Lipoprotein 48 mg/dL (5-40)
[2020-02-20 10:17] LABS: Basophil 1 % (0-1); Eosinophil 3 % (0-5); Lymphocyte 31 % (19-41); Metamyelocyte 6 % (0-1); Monocyte 6 % (0-10); Myelocyte 5 (0-0); Neutrophil-Band 3 % (0-5); Neutrophil-Segmented 45 % (47-70); Total Cells Counted 100 (MANUAL DIFF)
[2020-02-20 10:18] LABS: Absolute Neutrophil Count 3.5 X10^3/uL (2.0-7.7); Platelet Estimate ADEQUATE (ADEQ); Red Cell Morphology NORM C+C NORMAL (NORM C&C)
[2020-02-20 10:19] LABS: Absolute Lymphocyte Count 2.23 X10^3/uL (0.83-4.51); Lymphocyte # 2.23 X10^3/ul (4.0)
[2020-02-20 10:28] LABS: Magnesium 1.9 mg/dL (1.6-2.6); Uric Acid 5.7 mg/dL (2.6-6.0)
[2020-02-21 11:24] LABS: Pathologist Review Reviewed
[2020-02-27 09:56] LABS: Hematocrit 34.3 % (37-47); Hemoglobin 10.4 g/dL (12.0-15.0); Mean Corp Hgb Conc 30.3 g/dL (32-36); Mean Corpuscular Volume 108.9 fL (81-99); Mean Platelet Vol. 10.8 fl (6.2-12.0); POSITIVE COUNT YES; POSITIVE MORPHOLOGY YES; Platelet Count 284 K/mm3 (150-450); RBC Distribution Width CV 13.1 % (11.6-14.6); Red Blood Count 3.15 M/mm3 (4.2-5.4); White Blood Count 6.4 K/mm3 (4.4-11.0)
[2020-02-27 10:22] LABS: ALB/GLOB Ratio 0.9 RATIO (0.9-2.4); AST(SGOT) 80 U/L (15-37); Alanine Aminotransfer ALT/SGPT 61 U/L (13-56); Albumin, Serum 2.9 g/dL (3.2-5.0); Alkaline Phosphatase 213 U/L (45-117); Anion Gap 4 (5-15); BUN 36 mg/dL (7-18); BUN/Creat Ratio 26.7 RATIO (10-20); Bilirubin, Direct 0.22 mg/dL (0.00-0.30); Calcium,Total 9.1 mg/dL (8.5-10.1); Chloride 108 mmol/L (98-107); Creatinine, Serum 1.35 mg/dL (0.55-1.02); EST Glomerular Filtration Rate 41 mL/min (>60); Est Glom Filt Rate - Afr Amer 50 mL/min (>60); GGTP 939 U/L (5-55); Globulin 3.2 g/dL (2.2-4.2); Glucose 115 mg/dL (74-106); Magnesium 2.2 mg/dL (1.6-2.6); Potassium 4.5 mmol/L (3.5-5.1); Protein, Total 6.1 g/dL (6.4-8.2); Sodium Level 144 mmol/L (136-145); Uric Acid 6.4 mg/dL (2.6-6.0)
[2020-02-27 10:38] LABS: Differential Indicated MANUAL DIFF
[2020-02-27 10:43] LABS: Lymphocyte 30 % (19-41); Metamyelocyte 4 % (0-1); Monocyte 10 % (0-10); Myelocyte 2 (0-0); Neutrophil-Band 19 % (0-5); Neutrophil-Segmented 35 % (47-70); Total Cells Counted 100 (MANUAL DIFF)
[2020-02-27 10:45] LABS: Absolute Lymphocyte Count 1.92 X10^3/uL (0.83-4.51); Absolute Neutrophil Count 3.4 X10^3/uL (2.0-7.7); Scan Smear per Review Criteria MANUAL DIFF
[2020-02-27 10:47] LABS: Macrocytosis 1+; Reactive Lymphocyte OCC; Red Cell Morphology N CHROM NORMAL (NORM C&C)
[2020-02-28 11:18] LABS: Pathologist Review Reviewed
[2020-02-28 12:28] LABS: CMV by PCR Negative (Negative); Tacrolimus (FK506) 9.6 ng/mL (2.0-20.0)
[2020-03-05 09:01] LABS: Hematocrit 38.2 % (37-47); Hemoglobin 11.6 g/dL (12.0-15.0); Mean Corp Hgb Conc 30.4 g/dL (32-36); Mean Corpuscular Hgb 33.1 pg (27.0-32.0); Mean Corpuscular Volume 109.1 fL (81-99); Mean Platelet Vol. 10.3 fl (6.2-12.0); POSITIVE COUNT YES; POSITIVE MORPHOLOGY YES; Platelet Count 350 K/mm3 (150-450); RBC Distribution Width CV 12.9 % (11.6-14.6); RBC Distribution Width SD 51.3 fl (35.1-43.9); White Blood Count 8.6 K/mm3 (4.4-11.0)
[2020-03-05 09:03] LABS: Differential Indicated MANUAL DIFF
[2020-03-05 09:23] LABS: ALB/GLOB Ratio 0.9 RATIO (0.9-2.4); AST(SGOT) 58 U/L (15-37); Alanine Aminotransfer ALT/SGPT 58 U/L (13-56); Albumin, Serum 3.2 g/dL (3.2-5.0); Alkaline Phosphatase 229 U/L (45-117); Anion Gap 4 (5-15); BUN 28 mg/dL (7-18); BUN/Creat Ratio 21.1 RATIO (10-20); Bilirubin, Direct 0.12 mg/dL (0.00-0.30); Calcium,Total 9.2 mg/dL (8.5-10.1); Chloride 105 mmol/L (98-107); Creatinine, Serum 1.33 mg/dL (0.55-1.02); EST Glomerular Filtration Rate 42 mL/min (>60); Est Glom Filt Rate - Afr Amer 51 mL/min (>60); GGTP 1034 U/L (5-55); Globulin 3.7 g/dL (2.2-4.2); Glucose 104 mg/dL (74-106); Magnesium 2.2 mg/dL (1.6-2.6); Phosphorus 3.4 mg/dL (2.5-4.9); Potassium 3.9 mmol/L (3.5-5.1); Protein, Total 6.9 g/dL (6.4-8.2); Sodium Level 142 mmol/L (136-145)
[2020-03-05 09:33] LABS: Eosinophil 1 % (0-5); Lymphocyte 34 % (19-41); Metamyelocyte 6 % (0-1); Monocyte 8 % (0-10); Neutrophil-Band 3 % (0-5); Neutrophil-Segmented 48 % (47-70); Total Cells Counted 100 (MANUAL DIFF)
[2020-03-05 09:34] LABS: Hypochromasia 1+; Macrocytosis 1+; Platelet Estimate ADEQUATE (ADEQ)
[2020-03-05 09:35] LABS: Absolute Lymphocyte Count 2.93 X10^3/uL (0.83-4.51); Absolute Neutrophil Count 4.4 X10^3/uL (2.0-7.7)
[2020-03-06 09:51] LABS: CMV by PCR Negative (Negative)
[2020-03-06 11:17] LABS: Pathologist Review Reviewed
[2020-03-14 03:19] LABS: CMV by PCR Negative (Negative); Tacrolimus (FK506) 14.1 ng/mL (2.0-20.0)
[2020-03-19 09:32] LABS: Hematocrit 39.2 % (37-47); Hemoglobin 12.1 g/dL (12.0-15.0); Mean Corp Hgb Conc 30.9 g/dL (32-36); Mean Corpuscular Hgb 32.4 pg (27.0-32.0); Mean Corpuscular Volume 104.8 fL (81-99); Mean Platelet Vol. 10.1 fl (6.2-12.0); POSITIVE COUNT YES; POSITIVE MORPHOLOGY YES; Platelet Count 328 K/mm3 (150-450); RBC Distribution Width CV 12.2 % (11.6-14.6); RBC Distribution Width SD 47.3 fl (35.1-43.9); Red Blood Count 3.74 M/mm3 (4.2-5.4); White Blood Count 7.3 K/mm3 (4.4-11.0)
[2020-03-19 09:34] LABS: Differential Indicated MANUAL DIFF
[2020-03-19 09:51] LABS: ALB/GLOB Ratio 0.9 RATIO (0.9-2.4); AST(SGOT) 29 U/L (15-37); Alanine Aminotransfer ALT/SGPT 32 U/L (13-56); Albumin, Serum 3.3 g/dL (3.2-5.0); Alkaline Phosphatase 123 U/L (45-117); Anion Gap 4 (5-15); BUN 27 mg/dL (7-18); BUN/Creat Ratio 18.4 RATIO (10-20); Calcium,Total 9.6 mg/dL (8.5-10.1); Chloride 100 mmol/L (98-107); Cholesterol 229 mg/dL (200); Creatinine, Serum 1.47 mg/dL (0.55-1.02); EST Glomerular Filtration Rate 38 mL/min (>60); Est Glom Filt Rate - Afr Amer 45 mL/min (>60); Globulin 3.8 g/dL (2.2-4.2); Glucose 113 mg/dL (74-106); High Density Lipoprotein 44 mg/dL; Magnesium 2.3 mg/dL (1.6-2.6); Phosphorus 4.4 mg/dL (2.5-4.9); Potassium 4.9 mmol/L (3.5-5.1); Protein, Total 7.1 g/dL (6.4-8.2); Sodium Level 137 mmol/L (136-145); Triglycerides 374 mg/dL; Uric Acid 8.1 mg/dL (2.6-6.0); Very Low Density Lipoprotein 75 mg/dL (5-40)
[2020-03-19 10:13] LABS: Eosinophil 2 % (0-5); Lymphocyte 39 % (19-41); Monocyte 6 % (0-10); Myelocyte 1 (0-0); Neutrophil-Band 13 % (0-5); Neutrophil-Segmented 39 % (47-70); Total Cells Counted 100 (MANUAL DIFF)
[2020-03-19 10:14] LABS: Absolute Lymphocyte Count 2.86 X10^3/uL (0.83-4.51); Absolute Neutrophil Count 3.8 X10^3/uL (2.0-7.7)
[2020-03-19 10:16] LABS: Anisocytosis 1+; Macrocytosis 1+; Platelet Estimate ADEQUATE (ADEQ)
[2020-03-19 10:17] LABS: Red Cell Morphology N CHROM NORMAL (NORM C&C)
[2020-03-20 11:39] LABS: Pathologist Review Reviewed
[2020-03-24 07:57] LABS: CMV by PCR Negative (Negative); Tacrolimus (FK506) 7.3 ng/mL (2.0-20.0)
== END 2020-03-20 23:59 ==
LOC: PAVLAB 09:08
PROVIDERS: Family Provider Internal Medicine; PCP Internal Medicine
DX: Z94.2 Lung transplant status (principal); Z48.24 Encounter for aftercare following lung transplant; D89.9 Disorder involving the immune mechanism, unspecified; R79.9 Abnormal finding of blood chemistry, unspecified; Z51.81 Encounter for therapeutic drug level monitoring; Z79.899 Other long term (current) drug therapy
CPT/HCPCS: 36415; 80053; 80061; 80197; 82248; 82977; 83735; 84100; 84550; 85025; 87496

== ENCOUNTER 2020-03-20 06:00 | Outpatient (RCR) | payer SELFPAY ==
[2019-07-14 08:36] VITALS: BMI 26.6
[2020-02-06 07:32] VITALS: BMI 24.3
== END 2020-03-20 23:59 ==
LOC: PR 06:00
PROVIDERS: Family Provider Internal Medicine; PCP Internal Medicine; Referring Provider Internal Medicine Critical Care Medicine; Visit Provider Internal Medicine Critical Care Medicine
DX: Z00.00 Encounter for general adult medical examination without abnormal findings (principal)

== ENCOUNTER 2020-04-16 08:53 | Outpatient (RCR) | payer MEDICARE, MEDICAID, SELFPAY ==
[2020-02-06 07:32] VITALS: BMI 24.3
[2020-03-26 09:56] LABS: Hematocrit 36.1 % (37-47); Hemoglobin 11.6 g/dL (12.0-15.0); Mean Corp Hgb Conc 32.1 g/dL (32-36); Mean Corpuscular Volume 102.8 fL (81-99); Mean Platelet Vol. 10.2 fl (6.2-12.0); POSITIVE COUNT YES; POSITIVE MORPHOLOGY YES; Platelet Count 258 K/mm3 (150-450); RBC Distribution Width CV 12.1 % (11.6-14.6); Red Blood Count 3.51 M/mm3 (4.2-5.4); White Blood Count 6.4 K/mm3 (4.4-11.0)
[2020-03-26 09:58] LABS: Differential Indicated MANUAL DIFF
[2020-03-26 10:24] LABS: AST(SGOT) 26 U/L (15-37); Alanine Aminotransfer ALT/SGPT 22 U/L (13-56); Albumin, Serum 3.5 g/dL (3.2-5.0); Alkaline Phosphatase 87 U/L (45-117); Anion Gap 5 (5-15); BUN 52 mg/dL (7-18); BUN/Creat Ratio 24.4 RATIO (10-20); Calcium,Total 9.3 mg/dL (8.5-10.1); Chloride 97 mmol/L (98-107); Creatinine, Serum 2.13 mg/dL (0.55-1.02); EST Glomerular Filtration Rate 25 mL/min (>60); Est Glom Filt Rate - Afr Amer 30 mL/min (>60); Globulin 3.5 g/dL (2.2-4.2); Glucose 96 mg/dL (74-106); Magnesium 2.3 mg/dL (1.6-2.6); Phosphorus 4.5 mg/dL (2.5-4.9); Potassium 4.2 mmol/L (3.5-5.1); Sodium Level 136 mmol/L (136-145); Uric Acid 10.1 mg/dL (2.6-6.0)
[2020-03-26 10:25] LABS: Eosinophil 5 % (0-5); Lymphocyte 41 % (19-41); Macrocytosis RARE; Metamyelocyte 4 % (0-1); Monocyte 7 % (0-10); Neutrophil-Band 2 % (0-5); Neutrophil-Segmented 41 % (47-70); Platelet Estimate ADEQUATE (ADEQ); Red Cell Morphology N CHROM NORMAL (NORM C&C); Total Cells Counted 100 (MANUAL DIFF)
[2020-03-26 10:26] LABS: Absolute Neutrophil Count 2.7 X10^3/uL (2.0-7.7)
[2020-03-27 12:00] LABS: Pathologist Review Reviewed
[2020-04-02 09:45] LABS: Hematocrit 35.4 % (37-47); Hemoglobin 10.9 g/dL (12.0-15.0); Mean Corp Hgb Conc 30.8 g/dL (32-36); Mean Corpuscular Hgb 32.3 pg (27.0-32.0); Mean Platelet Vol. 9.9 fl (6.2-12.0); POSITIVE COUNT YES; POSITIVE MORPHOLOGY YES; Platelet Count 256 K/mm3 (150-450); RBC Distribution Width CV 12.3 % (11.6-14.6); RBC Distribution Width SD 47.1 fl (35.1-43.9); Red Blood Count 3.37 M/mm3 (4.2-5.4); White Blood Count 6.4 K/mm3 (4.4-11.0)
[2020-04-02 09:46] LABS: Differential Indicated MANUAL DIFF
[2020-04-02 09:59] LABS: Anion Gap 5 (5-15); BUN 30 mg/dL (7-18); BUN/Creat Ratio 25.9 RATIO (10-20); Calcium,Total 8.8 mg/dL (8.5-10.1); Chloride 106 mmol/L (98-107); Creatinine, Serum 1.16 mg/dL (0.55-1.02); EST Glomerular Filtration Rate 49 mL/min (>60); Est Glom Filt Rate - Afr Amer 60 mL/min (>60); Glucose 103 mg/dL (74-106); Phosphorus 3.1 mg/dL (2.5-4.9); Potassium 4.3 mmol/L (3.5-5.1); Sodium Level 140 mmol/L (136-145)
[2020-04-02 10:14] LABS: Eosinophil 1 % (0-5); Lymphocyte 33 % (19-41); Metamyelocyte 1 % (0-1); Monocyte 6 % (0-10); Neutrophil-Band 8 % (0-5); Neutrophil-Segmented 51 % (47-70); Total Cells Counted 100 (MANUAL DIFF)
[2020-04-02 10:15] LABS: Hypochromasia RARE; Macrocytosis RARE; Platelet Estimate ADEQUATE (ADEQ)
[2020-04-02 10:16] LABS: Absolute Lymphocyte Count 2.11 X10^3/uL (0.83-4.51); Absolute Neutrophil Count 3.8 X10^3/uL (2.0-7.7)
[2020-04-02 17:41] LABS: Xtra Tube EP Lab EXTRA TUBE
[2020-04-03 12:44] LABS: Pathologist Review Reviewed
[2020-04-04 06:28] LABS: Tacrolimus (FK506) 5.6 ng/mL (2.0-20.0)
[2020-04-05 04:18] LABS: CMV by PCR Negative (Negative); Tacrolimus (FK506) 3.4 ng/mL (2.0-20.0)
[2020-04-09 09:30] LABS: Hematocrit 36.1 % (37-47); Hemoglobin 11.4 g/dL (12.0-15.0); Mean Corp Hgb Conc 31.6 g/dL (32-36); Mean Corpuscular Hgb 32.6 pg (27.0-32.0); Mean Corpuscular Volume 103.1 fL (81-99); POSITIVE COUNT YES; POSITIVE MORPHOLOGY YES; Platelet Count 267 K/mm3 (150-450); RBC Distribution Width CV 12.2 % (11.6-14.6); RBC Distribution Width SD 45.9 fl (35.1-43.9); White Blood Count 6.3 K/mm3 (4.4-11.0)
[2020-04-09 09:31] LABS: Differential Indicated MANUAL DIFF
[2020-04-09 09:45] LABS: ALB/GLOB Ratio 0.9 RATIO (0.9-2.4); AST(SGOT) 21 U/L (15-37); Alanine Aminotransfer ALT/SGPT 25 U/L (13-56); Albumin, Serum 3.3 g/dL (3.2-5.0); Alkaline Phosphatase 65 U/L (45-117); Anion Gap 3 (5-15); BUN 38 mg/dL (7-18); BUN/Creat Ratio 29.2 RATIO (10-20); Calcium,Total 8.3 mg/dL (8.5-10.1); Chloride 106 mmol/L (98-107); EST Glomerular Filtration Rate 43 mL/min (>60); Est Glom Filt Rate - Afr Amer 52 mL/min (>60); Globulin 3.6 g/dL (2.2-4.2); Glucose 98 mg/dL (74-106); Magnesium 2.5 mg/dL (1.6-2.6); Phosphorus 3.5 mg/dL (2.5-4.9); Potassium 4.7 mmol/L (3.5-5.1); Protein, Total 6.9 g/dL (6.4-8.2); Sodium Level 141 mmol/L (136-145)
[2020-04-09 10:07] LABS: Eosinophil 2 % (0-5); Lymphocyte 41 % (19-41); Monocyte 6 % (0-10); Neutrophil-Band 9 % (0-5); Neutrophil-Segmented 42 % (47-70); Platelet Estimate ADEQUATE (ADEQ); Red Cell Morphology NORM C+C NORMAL (NORM C&C); Total Cells Counted 100 (MANUAL DIFF)
[2020-04-09 10:08] LABS: Absolute Lymphocyte Count 2.57 X10^3/uL (0.83-4.51); Absolute Neutrophil Count 3.2 X10^3/uL (2.0-7.7); Lymphocyte # 2.57 X10^3/ul (4.0)
[2020-04-10 11:48] LABS: Pathologist Review Reviewed
[2020-04-11 15:35] LABS: Tacrolimus (FK506) 3.9 ng/mL (2.0-20.0)
[2020-04-16 09:23] LABS: Hematocrit 34.4 % (37-47); Hemoglobin 10.9 g/dL (12.0-15.0); Mean Corp Hgb Conc 31.7 g/dL (32-36); Mean Corpuscular Hgb 32.1 pg (27.0-32.0); Mean Corpuscular Volume 101.2 fL (81-99); POSITIVE COUNT YES; POSITIVE MORPHOLOGY YES; Platelet Count 269 K/mm3 (150-450); RBC Distribution Width CV 12.3 % (11.6-14.6); RBC Distribution Width SD 45.8 fl (35.1-43.9); White Blood Count 6.5 K/mm3 (4.4-11.0)
[2020-04-16 09:36] LABS: Differential Indicated MANUAL DIFF
[2020-04-16 09:40] LABS: Hemoglobin A1c 5.7 % (3.8-5.6)
[2020-04-16 09:41] LABS: AST(SGOT) 22 U/L (15-37); Alanine Aminotransfer ALT/SGPT 25 U/L (13-56); Albumin, Serum 3.1 g/dL (3.2-5.0); Alkaline Phosphatase 56 U/L (45-117); Anion Gap 4 (5-15); BUN 34 mg/dL (7-18); Bilirubin, Direct 0.08 mg/dL (0.00-0.30); Calcium,Total 8.5 mg/dL (8.5-10.1); Chloride 105 mmol/L (98-107); Creatinine, Serum 1.36 mg/dL (0.55-1.02); EST Glomerular Filtration Rate 41 mL/min (>60); Est Glom Filt Rate - Afr Amer 50 mL/min (>60); Ferritin 50 ng/mL (8-252); GGTP 63 U/L (5-55); Globulin 3.5 g/dL (2.2-4.2); Glucose 125 mg/dL (74-106); Iron Binding Capacity,Total 351 ug/dL (250-450); Magnesium 2.1 mg/dL (1.6-2.6); Phosphorus 4.1 mg/dL (2.5-4.9); Potassium 4.2 mmol/L (3.5-5.1); Protein, Total 6.6 g/dL (6.4-8.2); Sodium Level 137 mmol/L (136-145)
[2020-04-16 10:20] LABS: POSITIVE DIFFERENTIAL YES
[2020-04-16 10:21] LABS: Blast 1 % (0-0); Eosinophil 1 % (0-5); Lymphocyte 34 % (19-41); Metamyelocyte 3 % (0-1); Monocyte 7 % (0-10); Myelocyte 1 (0-0); Neutrophil-Band 12 % (0-5); Neutrophil-Segmented 41 % (47-70)
[2020-04-16 10:22] LABS: Macrocytosis 1+; Platelet Estimate ADEQUATE (ADEQ); Red Cell Morphology N CHROM NORMAL (NORM C&C)
[2020-04-16 10:36] LABS: Absolute Lymphocyte Count 2.21 X10^3/uL (0.83-4.51); Absolute Neutrophil Count 3.5 X10^3/uL (2.0-7.7)
[2020-04-17 12:16] LABS: Pathologist Review Reviewed
[2020-04-25 20:07] LABS: Immunoglobulin A 173 mg/dL (87-352); Immunoglobulin G 641 mg/dL (586-1602); Immunoglobulin M 112 mg/dL (26-217)
[2020-04-25 20:23] LABS: CMV by PCR Negative (Negative); Tacrolimus (FK506) 5.1 ng/mL (2.0-20.0); Transferrin 269 mg/dL (192-364)
== END 2020-04-20 23:59 ==
LOC: PAVLAB 08:53
PROVIDERS: Family Provider Internal Medicine; PCP Internal Medicine
DX: Z94.2 Lung transplant status (principal); Z79.899 Other long term (current) drug therapy; R79.9 Abnormal finding of blood chemistry, unspecified; Z48.24 Encounter for aftercare following lung transplant; D89.9 Disorder involving the immune mechanism, unspecified; Z51.81 Encounter for therapeutic drug level monitoring
CPT/HCPCS: 36415; 80048; 80053; 80076; 80197; 82248; 82728; 82784; 82977; 83036; 83550; 83735; 84100; 84466; 84550; 85025; 87496

== ENCOUNTER 2020-04-20 14:00 | Outpatient (RCR) | payer SELFPAY ==
[2020-02-06 07:32] VITALS: BMI 24.3
== END 2020-04-20 23:59 ==
LOC: PR 14:00
PROVIDERS: Family Provider Internal Medicine; PCP Internal Medicine; Referring Provider Internal Medicine Critical Care Medicine; Visit Provider Internal Medicine Critical Care Medicine
DX: Z00.00 Encounter for general adult medical examination without abnormal findings (principal)

== ENCOUNTER 2020-05-21 08:58 | Outpatient (RCR) | payer MEDICARE, MEDICAID, SELFPAY ==
[2020-04-18 10:20] VITALS: BMI 24.4
[2020-04-23 09:38] LABS: Hemoglobin 10.5 g/dL (12.0-15.0); Mean Corp Hgb Conc 30.9 g/dL (32-36); Mean Corpuscular Hgb 31.6 pg (27.0-32.0); Mean Corpuscular Volume 102.4 fL (81-99); Mean Platelet Vol. 9.9 fl (6.2-12.0); POSITIVE COUNT YES; POSITIVE MORPHOLOGY YES; Platelet Count 323 K/mm3 (150-450); RBC Distribution Width CV 12.4 % (11.6-14.6); RBC Distribution Width SD 46.5 fl (35.1-43.9); Red Blood Count 3.32 M/mm3 (4.2-5.4); White Blood Count 8.1 K/mm3 (4.4-11.0)
[2020-04-23 09:39] LABS: Differential Indicated MANUAL DIFF
[2020-04-23 09:55] LABS: ALB/GLOB Ratio 0.9 RATIO (0.9-2.4); AST(SGOT) 16 U/L (15-37); Alanine Aminotransfer ALT/SGPT 20 U/L (13-56); Albumin, Serum 3.1 g/dL (3.2-5.0); Alkaline Phosphatase 55 U/L (45-117); Anion Gap 4 (5-15); BUN 42 mg/dL (7-18); BUN/Creat Ratio 26.4 RATIO (10-20); Calcium,Total 8.6 mg/dL (8.5-10.1); Chloride 105 mmol/L (98-107); Creatinine, Serum 1.59 mg/dL (0.55-1.02); EST Glomerular Filtration Rate 34 mL/min (>60); Est Glom Filt Rate - Afr Amer 41 mL/min (>60); Globulin 3.5 g/dL (2.2-4.2); Glucose 84 mg/dL (74-106); Magnesium 2.2 mg/dL (1.6-2.6); Potassium 5.4 mmol/L (3.5-5.1); Protein, Total 6.6 g/dL (6.4-8.2); Sodium Level 138 mmol/L (136-145)
[2020-04-23 10:14] LABS: Hypochromasia 1+; Lymphocyte 41 % (19-41); Macrocytosis 1+; Metamyelocyte 3 % (0-1); Monocyte 9 % (0-10); Neutrophil-Band 2 % (0-5); Neutrophil-Segmented 45 % (47-70); Platelet Estimate ADEQUATE (ADEQ); Total Cells Counted 100 (MANUAL DIFF)
[2020-04-23 10:15] LABS: Absolute Lymphocyte Count 3.32 X10^3/uL (0.83-4.51); Absolute Neutrophil Count 3.8 X10^3/uL (2.0-7.7); Ovalocyte RARE
[2020-04-24 13:35] LABS: Pathologist Review Reviewed
[2020-04-26 13:45] LABS: Tacrolimus (FK506) 9.7 ng/mL (2.0-20.0)
[2020-04-30 09:18] LABS: Hematocrit 33.8 % (37-47); Hemoglobin 10.4 g/dL (12.0-15.0); Mean Corp Hgb Conc 30.8 g/dL (32-36); Mean Corpuscular Hgb 31.4 pg (27.0-32.0); Mean Corpuscular Volume 102.1 fL (81-99); Mean Platelet Vol. 9.7 fl (6.2-12.0); POSITIVE COUNT YES; POSITIVE MORPHOLOGY YES; Platelet Count 305 K/mm3 (150-450); RBC Distribution Width CV 12.5 % (11.6-14.6); RBC Distribution Width SD 46.5 fl (35.1-43.9); Red Blood Count 3.31 M/mm3 (4.2-5.4); White Blood Count 7.3 K/mm3 (4.4-11.0)
[2020-04-30 09:38] LABS: AST(SGOT) 18 U/L (15-37); Alanine Aminotransfer ALT/SGPT 19 U/L (13-56); Albumin, Serum 3.1 g/dL (3.2-5.0); Alkaline Phosphatase 53 U/L (45-117); Anion Gap 5 (5-15); BUN 22 mg/dL (7-18); BUN/Creat Ratio 15.7 RATIO (10-20); Calcium,Total 8.5 mg/dL (8.5-10.1); Chloride 109 mmol/L (98-107); EST Glomerular Filtration Rate 40 mL/min (>60); Est Glom Filt Rate - Afr Amer 48 mL/min (>60); Globulin 3.2 g/dL (2.2-4.2); Glucose 83 mg/dL (74-106); Magnesium 1.9 mg/dL (1.6-2.6); Phosphorus 5.2 mg/dL (2.5-4.9); Protein, Total 6.3 g/dL (6.4-8.2); Sodium Level 140 mmol/L (136-145)
[2020-04-30 09:47] LABS: Neutrophil-Band 17 % (0-5); Neutrophil-Segmented 32 % (47-70); Total Cells Counted 100 (MANUAL DIFF)
[2020-04-30 09:48] LABS: Eosinophil 3 % (0-5); Lymphocyte 41 % (19-41); Metamyelocyte 1 % (0-1); Monocyte 6 % (0-10)
[2020-04-30 09:49] LABS: Differential Indicated MANUAL DIFF
[2020-04-30 09:51] LABS: Reactive Lymphocyte OCC
[2020-04-30 09:52] LABS: Macrocytosis 1+; Platelet Estimate ADEQUATE (ADEQ); Red Cell Morphology N CHROM NORMAL (NORM C&C)
[2020-04-30 09:57] LABS: Absolute Lymphocyte Count 2.98 X10^3/uL (0.83-4.51); Absolute Neutrophil Count 3.6 X10^3/uL (2.0-7.7)
[2020-05-01 11:44] LABS: Pathologist Review Reviewed
[2020-05-02 20:39] LABS: Tacrolimus (FK506) 9.3 ng/mL (2.0-20.0)
[2020-05-07 10:36] LABS: Hematocrit 36.2 % (37-47); Mean Corp Hgb Conc 30.4 g/dL (32-36); Mean Corpuscular Hgb 31.2 pg (27.0-32.0); Mean Corpuscular Volume 102.5 fL (81-99); Mean Platelet Vol. 9.7 fl (6.2-12.0); POSITIVE COUNT YES; POSITIVE MORPHOLOGY YES; Platelet Count 305 K/mm3 (150-450); RBC Distribution Width CV 12.4 % (11.6-14.6); RBC Distribution Width SD 46.3 fl (35.1-43.9); Red Blood Count 3.53 M/mm3 (4.2-5.4); White Blood Count 5.6 K/mm3 (4.4-11.0)
[2020-05-07 10:41] LABS: Differential Indicated MANUAL DIFF
[2020-05-07 10:50] LABS: Anion Gap 2 (5-15); BUN 18 mg/dL (7-18); Calcium,Total 8.8 mg/dL (8.5-10.1); Chloride 104 mmol/L (98-107); Creatinine, Serum 1.38 mg/dL (0.55-1.02); EST Glomerular Filtration Rate 40 mL/min (>60); Est Glom Filt Rate - Afr Amer 49 mL/min (>60); Glucose 94 mg/dL (74-106); Magnesium 2.3 mg/dL (1.6-2.6); Phosphorus 3.8 mg/dL (2.5-4.9); Potassium 5.3 mmol/L (3.5-5.1); Sodium Level 136 mmol/L (136-145)
[2020-05-07 11:07] LABS: Eosinophil 2 % (0-5); Lymphocyte 30 % (19-41); Metamyelocyte 2 % (0-1); Monocyte 6 % (0-10); Neutrophil-Band 17 % (0-5); Neutrophil-Segmented 42 % (47-70); Promyelocyte 1 (0-0); Total Cells Counted 100 (MANUAL DIFF)
[2020-05-07 11:09] LABS: Platelet Estimate ADEQUATE (ADEQ); Red Cell Morphology N CHROM NORMAL (NORM C&C)
[2020-05-07 11:10] LABS: Macrocytosis 1+
[2020-05-07 18:25] LABS: Absolute Lymphocyte Count 1.68 X10^3/uL (0.83-4.51); Absolute Neutrophil Count 3.3 X10^3/uL (2.0-7.7)
[2020-05-08 12:39] LABS: Pathologist Review Reviewed
[2020-05-09 12:59] LABS: Tacrolimus (FK506) 8.9 ng/mL (2.0-20.0)
[2020-05-14 09:46] LABS: Hematocrit 34.2 % (37-47); Hemoglobin 10.5 g/dL (12.0-15.0); Mean Corp Hgb Conc 30.7 g/dL (32-36); Mean Corpuscular Hgb 31.7 pg (27.0-32.0); Mean Corpuscular Volume 103.3 fL (81-99); Mean Platelet Vol. 9.6 fl (6.2-12.0); POSITIVE COUNT YES; POSITIVE MORPHOLOGY YES; Platelet Count 286 K/mm3 (150-450); RBC Distribution Width CV 12.5 % (11.6-14.6); RBC Distribution Width SD 46.5 fl (35.1-43.9); Red Blood Count 3.31 M/mm3 (4.2-5.4); White Blood Count 6.4 K/mm3 (4.4-11.0)
[2020-05-14 09:47] LABS: Differential Indicated MANUAL DIFF
[2020-05-14 10:25] LABS: ALB/GLOB Ratio 0.9 RATIO (0.9-2.4); AST(SGOT) 16 U/L (15-37); Alanine Aminotransfer ALT/SGPT 18 U/L (13-56); Alkaline Phosphatase 52 U/L (45-117); Anion Gap 3 (5-15); BUN 20 mg/dL (7-18); Calcium,Total 8.3 mg/dL (8.5-10.1); Chloride 110 mmol/L (98-107); Cholesterol 234 mg/dL (200); Creatinine, Serum 1.33 mg/dL (0.55-1.02); EST Glomerular Filtration Rate 42 mL/min (>60); Est Glom Filt Rate - Afr Amer 51 mL/min (>60); GGTP 22 U/L (5-55); Globulin 3.2 g/dL (2.2-4.2); Glucose 96 mg/dL (74-106); High Density Lipoprotein 45 mg/dL; Magnesium 2.3 mg/dL (1.6-2.6); Potassium 5.2 mmol/L (3.5-5.1); Protein, Total 6.2 g/dL (6.4-8.2); Sodium Level 139 mmol/L (136-145); Triglycerides 466 mg/dL; Uric Acid 4.3 mg/dL (2.6-6.0)
[2020-05-14 10:47] LABS: Eosinophil 3 % (0-5); Lymphocyte 35 % (19-41); Monocyte 7 % (0-10); Neutrophil-Segmented 55 % (47-70); Platelet Estimate ADEQUATE (ADEQ); Red Cell Morphology NORM C+C NORMAL (NORM C&C); Total Cells Counted 100 (MANUAL DIFF)
[2020-05-14 10:48] LABS: Absolute Neutrophil Count 3.5 X10^3/uL (2.0-7.7)
[2020-05-15 12:39] LABS: Pathologist Review Reviewed
[2020-05-19 14:47] LABS: CMV by PCR Negative (Negative); Tacrolimus (FK506) 7.2 ng/mL (2.0-20.0)
[2020-05-21 10:01] LABS: Differential Indicated MANUAL DIFF; Hematocrit 33.7 % (37-47); Hemoglobin 10.5 g/dL (12.0-15.0); Mean Corp Hgb Conc 31.2 g/dL (32-36); Mean Corpuscular Hgb 31.4 pg (27.0-32.0); Mean Corpuscular Volume 100.9 fL (81-99); Mean Platelet Vol. 9.9 fl (6.2-12.0); POSITIVE COUNT YES; POSITIVE MORPHOLOGY YES; Platelet Count 301 K/mm3 (150-450); RBC Distribution Width CV 12.6 % (11.6-14.6); RBC Distribution Width SD 46.3 fl (35.1-43.9); Red Blood Count 3.34 M/mm3 (4.2-5.4); White Blood Count 7.4 K/mm3 (4.4-11.0)
[2020-05-21 10:19] LABS: ALB/GLOB Ratio 0.9 RATIO (0.9-2.4); AST(SGOT) 18 U/L (15-37); Alanine Aminotransfer ALT/SGPT 18 U/L (13-56); Alkaline Phosphatase 63 U/L (45-117); Anion Gap 3 (5-15); BUN 19 mg/dL (7-18); BUN/Creat Ratio 15.3 RATIO (10-20); Calcium,Total 8.1 mg/dL (8.5-10.1); Chloride 109 mmol/L (98-107); Creatinine, Serum 1.24 mg/dL (0.55-1.02); EST Glomerular Filtration Rate 46 mL/min (>60); Est Glom Filt Rate - Afr Amer 55 mL/min (>60); Globulin 3.4 g/dL (2.2-4.2); Glucose 100 mg/dL (74-106); Magnesium 2.1 mg/dL (1.6-2.6); Phosphorus 2.5 mg/dL (2.5-4.9); Potassium 4.5 mmol/L (3.5-5.1); Protein, Total 6.4 g/dL (6.4-8.2); Sodium Level 139 mmol/L (136-145)
[2020-05-21 10:22] LABS: Eosinophil 4 % (0-5); Lymphocyte 36 % (19-41); Metamyelocyte 2 % (0-1); Monocyte 10 % (0-10); Myelocyte 3 (0-0); Neutrophil-Band 4 % (0-5); Neutrophil-Segmented 41 % (47-70); Total Cells Counted 100 (MANUAL DIFF)
[2020-05-21 10:23] LABS: Hypochromasia 1+; Macrocytosis 1+; Platelet Estimate ADEQUATE (ADEQ)
[2020-05-21 10:24] LABS: Absolute Lymphocyte Count 2.66 X10^3/uL (0.83-4.51); Absolute Neutrophil Count 3.3 X10^3/uL (2.0-7.7)
[2020-05-22 14:00] LABS: Pathologist Review Reviewed
[2020-05-23 10:40] LABS: Tacrolimus (FK506) 9.2 ng/mL (2.0-20.0)
== END 2020-05-21 23:59 ==
LOC: PAVLAB 08:58
PROVIDERS: Family Provider Internal Medicine; PCP Internal Medicine
DX: Z94.2 Lung transplant status (principal); Z48.24 Encounter for aftercare following lung transplant; D89.9 Disorder involving the immune mechanism, unspecified; Z79.899 Other long term (current) drug therapy; R79.9 Abnormal finding of blood chemistry, unspecified; Z51.81 Encounter for therapeutic drug level monitoring
CPT/HCPCS: 36415; 80048; 80053; 80061; 80197; 82977; 83735; 84100; 84550; 85025; 87496

== ENCOUNTER 2020-05-21 14:00 | Outpatient (RCR) | payer MEDICARE, SELFPAY ==
[2020-04-18 10:20] VITALS: BMI 24.4
== END 2020-05-21 23:59 ==
LOC: PR 14:00
PROVIDERS: Family Provider Internal Medicine; PCP Internal Medicine; Referring Provider Internal Medicine Critical Care Medicine; Visit Provider Internal Medicine Critical Care Medicine
DX: Z00.00 Encounter for general adult medical examination without abnormal findings (principal)

== ENCOUNTER 2020-06-04 08:48 | Outpatient (RCR) | payer MEDICARE, MEDICAID, SELFPAY ==
[2020-04-18 10:20] VITALS: BMI 24.4
[2020-05-29 09:31] LABS: Hematocrit 35.4 % (37-47); Hemoglobin 10.7 g/dL (12.0-15.0); Mean Corp Hgb Conc 30.2 g/dL (32-36); Mean Corpuscular Hgb 30.4 pg (27.0-32.0); Mean Corpuscular Volume 100.6 fL (81-99); Mean Platelet Vol. 9.7 fl (6.2-12.0); POSITIVE COUNT YES; POSITIVE MORPHOLOGY YES; Platelet Count 334 K/mm3 (150-450); RBC Distribution Width CV 12.6 % (11.6-14.6); RBC Distribution Width SD 46.2 fl (35.1-43.9); Red Blood Count 3.52 M/mm3 (4.2-5.4); White Blood Count 6.8 K/mm3 (4.4-11.0)
[2020-05-29 09:36] LABS: Differential Indicated MANUAL DIFF
[2020-05-29 09:43] LABS: Anion Gap 5 (5-15); BUN 32 mg/dL (7-18); BUN/Creat Ratio 21.1 RATIO (10-20); Calcium,Total 8.8 mg/dL (8.5-10.1); Chloride 108 mmol/L (98-107); Creatinine, Serum 1.52 mg/dL (0.55-1.02); EST Glomerular Filtration Rate 36 mL/min (>60); Est Glom Filt Rate - Afr Amer 44 mL/min (>60); Glucose 84 mg/dL (74-106); Magnesium 2.2 mg/dL (1.6-2.6); Phosphorus 4.4 mg/dL (2.5-4.9); Sodium Level 141 mmol/L (136-145)
[2020-05-29 10:22] LABS: Basophil 1 % (0-1); Eosinophil 3 % (0-5); Lymphocyte 45 % (19-41); Monocyte 3 % (0-10); Neutrophil-Band 12 % (0-5); Neutrophil-Segmented 36 % (47-70); Total Cells Counted 100 (MANUAL DIFF)
[2020-05-29 10:24] LABS: Atypical Lymphocyte 2+ %
[2020-05-29 10:26] LABS: Absolute Lymphocyte Count 3.06 X10^3/uL (0.83-4.51); Absolute Neutrophil Count 3.3 X10^3/uL (2.0-7.7); Macrocytosis 1+; Platelet Estimate ADEQUATE (ADEQ); Red Cell Morphology N CHROM NORMAL (NORM C&C)
[2020-05-31 09:11] LABS: Pathologist Review Reviewed
[2020-06-01 09:52] LABS: Tacrolimus (FK506) 10.3 ng/mL (2.0-20.0)
[2020-06-04 09:47] LABS: Hematocrit 33.1 % (37-47); Hemoglobin 10.4 g/dL (12.0-15.0); Mean Corp Hgb Conc 31.4 g/dL (32-36); Mean Corpuscular Hgb 31.5 pg (27.0-32.0); Mean Corpuscular Volume 100.3 fL (81-99); POSITIVE COUNT YES; POSITIVE MORPHOLOGY YES; Platelet Count 296 K/mm3 (150-450); RBC Distribution Width CV 12.8 % (11.6-14.6); RBC Distribution Width SD 46.7 fl (35.1-43.9); White Blood Count 6.3 K/mm3 (4.4-11.0)
[2020-06-04 09:55] LABS: Differential Indicated MANUAL DIFF
[2020-06-04 10:03] LABS: AST(SGOT) 20 U/L (15-37); Alanine Aminotransfer ALT/SGPT 25 U/L (13-56); Albumin, Serum 3.3 g/dL (3.2-5.0); Alkaline Phosphatase 58 U/L (45-117); Anion Gap 5 (5-15); BUN 39 mg/dL (7-18); BUN/Creat Ratio 24.5 RATIO (10-20); Bilirubin, Direct < 0.05 mg/dL (0.00-0.30); Calcium,Total 8.9 mg/dL (8.5-10.1); Chloride 106 mmol/L (98-107); Creatinine, Serum 1.59 mg/dL (0.55-1.02); EST Glomerular Filtration Rate 34 mL/min (>60); Est Glom Filt Rate - Afr Amer 41 mL/min (>60); GGTP 18 U/L (5-55); Globulin 3.2 g/dL (2.2-4.2); Glucose 84 mg/dL (74-106); Magnesium 2.4 mg/dL (1.6-2.6); Phosphorus 4.6 mg/dL (2.5-4.9); Potassium 4.7 mmol/L (3.5-5.1); Protein, Total 6.5 g/dL (6.4-8.2); Sodium Level 140 mmol/L (136-145)
[2020-06-04 11:05] LABS: Basophil 1 % (0-1); Eosinophil 2 % (0-5); Lymphocyte 41 % (19-41); Monocyte 7 % (0-10); Neutrophil-Band 14 % (0-5); Neutrophil-Segmented 35 % (47-70); Total Cells Counted 100 (MANUAL DIFF)
[2020-06-04 11:06] LABS: Platelet Estimate ADEQUATE (ADEQ); Reactive Lymphocyte 3+
[2020-06-04 11:07] LABS: Absolute Neutrophil Count 3.1 X10^3/uL (2.0-7.7); Macrocytosis 1+; Red Cell Morphology N CHROM NORMAL (NORM C&C)
[2020-06-04 11:08] LABS: Absolute Lymphocyte Count 2.58 X10^3/uL (0.83-4.51)
[2020-06-05 13:02] LABS: Pathologist Review Reviewed
[2020-06-08 08:40] LABS: CMV by PCR Negative (Negative); Tacrolimus (FK506) 12.1 ng/mL (2.0-20.0)
== END 2020-06-20 23:59 ==
LOC: PAVLAB 08:48
PROVIDERS: Family Provider Internal Medicine; PCP Internal Medicine
DX: Z48.24 Encounter for aftercare following lung transplant (principal); D89.9 Disorder involving the immune mechanism, unspecified; R79.9 Abnormal finding of blood chemistry, unspecified; Z51.81 Encounter for therapeutic drug level monitoring; Z79.899 Other long term (current) drug therapy; Z94.2 Lung transplant status
CPT/HCPCS: 36415; 80048; 80053; 80197; 82248; 82977; 83735; 84100; 85025; 85610; 87496

== ENCOUNTER 2020-06-19 06:00 | Outpatient (RCR) | payer SELFPAY ==
[2020-04-18 10:20] VITALS: BMI 24.4
== END 2020-06-20 23:59 ==
LOC: PR 06:00
PROVIDERS: Family Provider Internal Medicine; PCP Internal Medicine; Referring Provider Internal Medicine Critical Care Medicine; Visit Provider Internal Medicine Critical Care Medicine
DX: Z00.00 Encounter for general adult medical examination without abnormal findings (principal)

== ENCOUNTER 2020-06-26 06:00 | Outpatient (RCR) | payer SELFPAY ==
[2020-04-18 10:20] VITALS: BMI 24.4
== END 2020-07-21 23:59 ==
LOC: PR 06:00
PROVIDERS: Family Provider Internal Medicine; PCP Internal Medicine; Referring Provider Internal Medicine Critical Care Medicine; Visit Provider Internal Medicine Critical Care Medicine
DX: Z00.00 Encounter for general adult medical examination without abnormal findings (principal)

== ENCOUNTER 2020-07-16 08:58 | Outpatient (RCR) | payer MEDICARE, MEDICAID, SELFPAY ==
[2020-04-18 10:20] VITALS: BMI 24.4
[2020-06-25 09:31] LABS: Hematocrit 36.7 % (37-47); Hemoglobin 10.9 g/dL (12.0-15.0); Mean Corp Hgb Conc 29.7 g/dL (32-36); Mean Corpuscular Hgb 30.5 pg (27.0-32.0); Mean Corpuscular Volume 102.8 fL (81-99); Mean Platelet Vol. 9.7 fl (6.2-12.0); POSITIVE COUNT YES; POSITIVE MORPHOLOGY YES; Platelet Count 298 K/mm3 (150-450); RBC Distribution Width CV 12.9 % (11.6-14.6); RBC Distribution Width SD 48.6 fl (35.1-43.9); Red Blood Count 3.57 M/mm3 (4.2-5.4); White Blood Count 6.5 K/mm3 (4.4-11.0)
[2020-06-25 09:32] LABS: Differential Indicated MANUAL DIFF
[2020-06-25 09:45] LABS: BUN 32 mg/dL (7-18); Calcium,Total 8.6 mg/dL (8.5-10.1); Chloride 109 mmol/L (98-107); Creatinine, Serum 1.33 mg/dL (0.55-1.02); EST Glomerular Filtration Rate 42 mL/min (>60); Est Glom Filt Rate - Afr Amer 51 mL/min (>60); Glucose Challenge Gest 1H 50g 131 mg/dL (70-140); Magnesium 2.5 mg/dL (1.6-2.6); Phosphorus 3.4 mg/dL (2.5-4.9); Potassium 4.7 mmol/L (3.5-5.1); Sodium Level 141 mmol/L (136-145)
[2020-06-25 09:49] LABS: Eosinophil 2 % (0-5); Lymphocyte 34 % (19-41); Metamyelocyte 1 % (0-1); Monocyte 7 % (0-10); Myelocyte 1 (0-0); Neutrophil-Band 2 % (0-5); Neutrophil-Segmented 53 % (47-70); Total Cells Counted 100 (MANUAL DIFF)
[2020-06-25 09:50] LABS: Hypochromasia RARE; Macrocytosis 1+; Platelet Estimate ADEQUATE (ADEQ); Toxic Granulation RARE
[2020-06-25 09:51] LABS: Absolute Lymphocyte Count 2.21 X10^3/uL (0.83-4.51); Absolute Neutrophil Count 3.6 X10^3/uL (2.0-7.7)
[2020-06-25 17:28] LABS: Xtra Tube EP Lab EXTRA TUBE
[2020-06-26 15:09] LABS: Pathologist Review Reviewed
[2020-07-02 09:47] LABS: Hematocrit 35.1 % (37-47); Hemoglobin 10.8 g/dL (12.0-15.0); Mean Corp Hgb Conc 30.8 g/dL (32-36); Mean Corpuscular Hgb 30.1 pg (27.0-32.0); Mean Corpuscular Volume 97.8 fL (81-99); Mean Platelet Vol. 9.8 fl (6.2-12.0); POSITIVE COUNT YES; POSITIVE MORPHOLOGY YES; Platelet Count 278 K/mm3 (150-450); RBC Distribution Width SD 46.6 fl (35.1-43.9); Red Blood Count 3.59 M/mm3 (4.2-5.4)
[2020-07-02 09:51] LABS: Differential Indicated MANUAL DIFF
[2020-07-02 10:08] LABS: Anion Gap 6 (5-15); BUN 41 mg/dL (7-18); BUN/Creat Ratio 21.2 RATIO (10-20); Calcium,Total 9.5 mg/dL (8.5-10.1); Chloride 107 mmol/L (98-107); Creatinine, Serum 1.93 mg/dL (0.55-1.02); EST Glomerular Filtration Rate 27 mL/min (>60); Est Glom Filt Rate - Afr Amer 33 mL/min (>60); Glucose 78 mg/dL (74-106); Magnesium 2.6 mg/dL (1.6-2.6); Phosphorus 6.2 mg/dL (2.5-4.9); Potassium 4.8 mmol/L (3.5-5.1); Sodium Level 140 mmol/L (136-145); Uric Acid 6.9 mg/dL (2.6-6.0)
[2020-07-02 10:15] LABS: Basophil 1 % (0-1); Eosinophil 3 % (0-5); Lymphocyte 35 % (19-41); Monocyte 9 % (0-10); Neutrophil-Band 21 % (0-5); Neutrophil-Segmented 31 % (47-70); Total Cells Counted 100 (MANUAL DIFF)
[2020-07-02 10:17] LABS: Absolute Lymphocyte Count 2.46 X10^3/uL (0.83-4.51); Absolute Neutrophil Count 3.7 X10^3/uL (2.0-7.7); Hypersegmented Neutrophils RARE
[2020-07-02 10:18] LABS: Platelet Estimate ADEQUATE (ADEQ); Red Cell Morphology NORM C+C NORMAL (NORM C&C)
[2020-07-03 13:45] LABS: Pathologist Review Reviewed
[2020-07-04 16:10] LABS: Tacrolimus (FK506) 7.6 ng/mL (2.0-20.0)
[2020-07-09 09:35] LABS: Hematocrit 36.5 % (37-47); Hemoglobin 10.8 g/dL (12.0-15.0); Mean Corp Hgb Conc 29.6 g/dL (32-36); Mean Corpuscular Hgb 30.3 pg (27.0-32.0); Mean Corpuscular Volume 102.2 fL (81-99); POSITIVE COUNT YES; POSITIVE MORPHOLOGY YES; Platelet Count 288 K/mm3 (150-450); RBC Distribution Width CV 12.9 % (11.6-14.6); RBC Distribution Width SD 48.4 fl (35.1-43.9); Red Blood Count 3.57 M/mm3 (4.2-5.4)
[2020-07-09 09:38] LABS: Differential Indicated MANUAL DIFF
[2020-07-09 10:00] LABS: Eosinophil 5 % (0-5); Lymphocyte 37 % (19-41); Metamyelocyte 2 % (0-1); Monocyte 4 % (0-10); Neutrophil-Band 6 % (0-5); Neutrophil-Segmented 45 % (47-70); Promyelocyte 1 (0-0); Total Cells Counted 100 (MANUAL DIFF)
[2020-07-09 10:01] LABS: Hypochromasia 1+; Macrocytosis 1+; Platelet Estimate ADEQUATE (ADEQ); Polychromasia RARE
[2020-07-09 10:02] LABS: Absolute Lymphocyte Count 2.22 X10^3/uL (0.83-4.51); Absolute Neutrophil Count 3.1 X10^3/uL (2.0-7.7)
[2020-07-09 10:34] LABS: AST(SGOT) 22 U/L (15-37); Alanine Aminotransfer ALT/SGPT 29 U/L (13-56); Albumin, Serum 3.3 g/dL (3.2-5.0); Alkaline Phosphatase 50 U/L (45-117); Anion Gap 9 (5-15); BUN 24 mg/dL (7-18); BUN/Creat Ratio 15.7 RATIO (10-20); Bilirubin, Direct < 0.05 mg/dL (0.00-0.30); Calcium,Total 8.5 mg/dL (8.5-10.1); Chloride 105 mmol/L (98-107); Creatinine, Serum 1.53 mg/dL (0.55-1.02); EST Glomerular Filtration Rate 36 mL/min (>60); Est Glom Filt Rate - Afr Amer 43 mL/min (>60); Ferritin 44 ng/mL (8-252); GGTP 12 U/L (5-55); Globulin 3.2 g/dL (2.2-4.2); Glucose 126 mg/dL (74-106); Iron 88 ug/dL (50-170); Iron Binding Capacity,Total 346 ug/dL (250-450); Magnesium 2.6 mg/dL (1.6-2.6); Phosphorus 3.2 mg/dL (2.5-4.9); Potassium 4.1 mmol/L (3.5-5.1); Protein, Total 6.5 g/dL (6.4-8.2); Sodium Level 140 mmol/L (136-145); Uric Acid 5.2 mg/dL (2.6-6.0)
[2020-07-09 13:57] LABS: Hemoglobin A1c 5.5 % (3.8-5.6)
[2020-07-09 14:30] LABS: Pathologist Review Reviewed
[2020-07-16 09:22] LABS: Hematocrit 36.2 % (37-47); Hemoglobin 10.8 g/dL (12.0-15.0); Mean Corp Hgb Conc 29.8 g/dL (32-36); Mean Corpuscular Hgb 30.1 pg (27.0-32.0); Mean Corpuscular Volume 100.8 fL (81-99); Mean Platelet Vol. 9.6 fl (6.2-12.0); POSITIVE COUNT YES; POSITIVE MORPHOLOGY YES; Platelet Count 262 K/mm3 (150-450); RBC Distribution Width SD 47.9 fl (35.1-43.9); Red Blood Count 3.59 M/mm3 (4.2-5.4); White Blood Count 7.1 K/mm3 (4.4-11.0)
[2020-07-16 09:24] LABS: Differential Indicated MANUAL DIFF
[2020-07-16 09:34] LABS: Anion Gap 3 (5-15); BUN 37 mg/dL (7-18); BUN/Creat Ratio 23.4 RATIO (10-20); Calcium,Total 9.1 mg/dL (8.5-10.1); Chloride 106 mmol/L (98-107); Creatinine, Serum 1.58 mg/dL (0.55-1.02); EST Glomerular Filtration Rate 35 mL/min (>60); Est Glom Filt Rate - Afr Amer 42 mL/min (>60); Glucose 90 mg/dL (74-106); Magnesium 2.7 mg/dL (1.6-2.6); Potassium 5.4 mmol/L (3.5-5.1); Sodium Level 139 mmol/L (136-145)
[2020-07-16 09:49] LABS: Eosinophil 3 % (0-5); Lymphocyte 51 % (19-41); Monocyte 7 % (0-10); Neutrophil-Band 5 % (0-5); Neutrophil-Segmented 34 % (47-70); Platelet Estimate ADEQUATE (ADEQ); Total Cells Counted 100 (MANUAL DIFF)
[2020-07-16 09:50] LABS: Red Cell Morphology NORM C+C NORMAL (NORM C&C)
[2020-07-16 09:51] LABS: Absolute Lymphocyte Count 3.62 X10^3/uL (0.83-4.51); Absolute Neutrophil Count 2.8 X10^3/uL (2.0-7.7)
[2020-07-16 17:19] LABS: Xtra Tube EP Lab EXTRA TUBE
[2020-07-17 09:08] LABS: Immunoglobulin A 159 mg/dL (87-352); Immunoglobulin G 640 mg/dL (586-1602); Immunoglobulin M 101 mg/dL (26-217)
[2020-07-17 10:41] LABS: CMV by PCR Negative (Negative); Tacrolimus (FK506) 16.8 ng/mL (2.0-20.0); Transferrin 273 mg/dL (192-364)
[2020-07-17 14:26] LABS: Pathologist Review Reviewed
[2020-07-18 15:16] LABS: Tacrolimus (FK506) 10.7 ng/mL (2.0-20.0)
== END 2020-07-21 23:59 ==
LOC: PAVLAB 08:58
PROVIDERS: Family Provider Internal Medicine; PCP Internal Medicine
DX: Z48.24 Encounter for aftercare following lung transplant (principal); D89.9 Disorder involving the immune mechanism, unspecified; R79.9 Abnormal finding of blood chemistry, unspecified; Z51.81 Encounter for therapeutic drug level monitoring; Z79.899 Other long term (current) drug therapy; Z94.2 Lung transplant status
CPT/HCPCS: 36415; 80048; 80053; 80197; 82248; 82310; 82374; 82435; 82565; 82728; 82784; 82950; 82977; 83036; 83540; 83550; 83735; 84100; 84132; 84295; 84466; 84520; 84550; 85025; 87496

== ENCOUNTER 2020-08-20 08:53 | Outpatient (RCR) | payer MEDICARE, MEDICAID, SELFPAY ==
[2020-04-18 10:20] VITALS: BMI 24.4
[2020-07-23 09:54] LABS: Hematocrit 34.4 % (37-47); Hemoglobin 10.6 g/dL (12.0-15.0); Mean Corp Hgb Conc 30.8 g/dL (32-36); Mean Corpuscular Hgb 30.5 pg (27.0-32.0); Mean Corpuscular Volume 98.9 fL (81-99); Mean Platelet Vol. 9.9 fl (6.2-12.0); POSITIVE COUNT YES; POSITIVE MORPHOLOGY YES; Platelet Count 233 K/mm3 (150-450); RBC Distribution Width CV 12.9 % (11.6-14.6); RBC Distribution Width SD 46.1 fl (35.1-43.9); Red Blood Count 3.48 M/mm3 (4.2-5.4); White Blood Count 6.1 K/mm3 (4.4-11.0)
[2020-07-23 09:55] LABS: Differential Indicated MANUAL DIFF
[2020-07-23 10:08] LABS: Anion Gap 8 (5-15); BUN 24 mg/dL (7-18); BUN/Creat Ratio 17.5 RATIO (10-20); Calcium,Total 8.5 mg/dL (8.5-10.1); Chloride 108 mmol/L (98-107); Creatinine, Serum 1.37 mg/dL (0.55-1.02); EST Glomerular Filtration Rate 41 mL/min (>60); Est Glom Filt Rate - Afr Amer 49 mL/min (>60); Glucose 110 mg/dL (74-106); Magnesium 2.3 mg/dL (1.6-2.6); Phosphorus 3.7 mg/dL (2.5-4.9); Potassium 4.1 mmol/L (3.5-5.1); Sodium Level 140 mmol/L (136-145)
[2020-07-23 10:23] LABS: Basophil 4 % (0-1); Lymphocyte 32 % (19-41); Metamyelocyte 1 % (0-1); Monocyte 5 % (0-10); Myelocyte 1 (0-0); Neutrophil-Band 1 % (0-5); Neutrophil-Segmented 56 % (47-70); Total Cells Counted 100 (MANUAL DIFF)
[2020-07-23 10:24] LABS: Platelet Estimate ADEQUATE (ADEQ); Red Cell Morphology NORM C+C NORMAL (NORM C&C)
[2020-07-23 10:32] LABS: Absolute Lymphocyte Count 1.93 X10^3/uL (0.83-4.51); Lymphocyte # 1.93 X10^3/ul (4.0)
[2020-07-23 10:33] LABS: Absolute Neutrophil Count 3.4 X10^3/uL (2.0-7.7); Neutrophil # 3.44 X10^3/uL (2.7-7.7)
[2020-07-23 17:52] LABS: Xtra Tube EP Lab EXTRA TUBE
[2020-07-24 14:52] LABS: Pathologist Review Reviewed
[2020-07-25 14:07] LABS: Tacrolimus (FK506) 11.7 ng/mL (2.0-20.0)
[2020-07-30 09:21] LABS: Hematocrit 36.4 % (37-47); Hemoglobin 11.4 g/dL (12.0-15.0); Mean Corp Hgb Conc 31.3 g/dL (32-36); Mean Corpuscular Hgb 30.5 pg (27.0-32.0); Mean Corpuscular Volume 97.3 fL (81-99); POSITIVE COUNT YES; POSITIVE MORPHOLOGY YES; Platelet Count 305 K/mm3 (150-450); RBC Distribution Width CV 12.8 % (11.6-14.6); RBC Distribution Width SD 45.2 fl (35.1-43.9); Red Blood Count 3.74 M/mm3 (4.2-5.4); White Blood Count 6.3 K/mm3 (4.4-11.0)
[2020-07-30 09:23] LABS: Differential Indicated MANUAL DIFF
[2020-07-30 09:36] LABS: Anion Gap 6 (5-15); BUN 30 mg/dL (7-18); BUN/Creat Ratio 17.6 RATIO (10-20); Calcium,Total 8.9 mg/dL (8.5-10.1); Chloride 103 mmol/L (98-107); EST Glomerular Filtration Rate 32 mL/min (>60); Est Glom Filt Rate - Afr Amer 38 mL/min (>60); Glucose 115 mg/dL (74-106); Magnesium 2.5 mg/dL (1.6-2.6); Phosphorus 4.4 mg/dL (2.5-4.9); Potassium 4.5 mmol/L (3.5-5.1); Sodium Level 137 mmol/L (136-145)
[2020-07-30 09:49] LABS: Eosinophil 4 % (0-5); Lymphocyte 39 % (19-41); Monocyte 1 % (0-10); Neutrophil-Band 11 % (0-5); Neutrophil-Segmented 45 % (47-70); Total Cells Counted 100 (MANUAL DIFF)
[2020-07-30 09:50] LABS: Platelet Estimate ADEQUATE (ADEQ); Red Cell Morphology NORM C+C NORMAL (NORM C&C)
[2020-07-30 09:56] LABS: Absolute Lymphocyte Count 2.46 X10^3/uL (0.83-4.51); Absolute Neutrophil Count 3.5 X10^3/uL (2.0-7.7)
[2020-07-30 17:18] LABS: Xtra Tube EP Lab EXTRA TUBE
[2020-07-31 14:06] LABS: Pathologist Review Reviewed
[2020-08-01 15:15] LABS: Tacrolimus (FK506) 8.9 ng/mL (2.0-20.0)
[2020-08-06 09:34] LABS: Hematocrit 39.2 % (37-47); Hemoglobin 11.7 g/dL (12.0-15.0); Mean Corp Hgb Conc 29.8 g/dL (32-36); Mean Corpuscular Hgb 29.8 pg (27.0-32.0); Mean Corpuscular Volume 99.7 fL (81-99); Mean Platelet Vol. 10.1 fl (6.2-12.0); POSITIVE COUNT YES; POSITIVE MORPHOLOGY YES; Platelet Count 278 K/mm3 (150-450); RBC Distribution Width CV 12.9 % (11.6-14.6); RBC Distribution Width SD 47.8 fl (35.1-43.9); Red Blood Count 3.93 M/mm3 (4.2-5.4); White Blood Count 7.2 K/mm3 (4.4-11.0)
[2020-08-06 09:36] LABS: Differential Indicated MANUAL DIFF
[2020-08-06 10:15] LABS: AST(SGOT) 21 U/L (15-37); Alanine Aminotransfer ALT/SGPT 25 U/L (13-56); Albumin, Serum 3.5 g/dL (3.2-5.0); Alkaline Phosphatase 61 U/L (45-117); Anion Gap 7 (5-15); BUN 30 mg/dL (7-18); BUN/Creat Ratio 20.8 RATIO (10-20); Bilirubin, Direct 0.07 mg/dL (0.00-0.30); Calcium,Total 8.5 mg/dL (8.5-10.1); Chloride 107 mmol/L (98-107); Creatinine, Serum 1.44 mg/dL (0.55-1.02); EST Glomerular Filtration Rate 38 mL/min (>60); Est Glom Filt Rate - Afr Amer 46 mL/min (>60); Globulin 3.4 g/dL (2.2-4.2); Glucose 122 mg/dL (74-106); Lymphocyte 46 % (19-41); Magnesium 2.4 mg/dL (1.6-2.6); Metamyelocyte 4 % (0-1); Monocyte 1 % (0-10); Neutrophil-Band 1 % (0-5); Neutrophil-Segmented 48 % (47-70); Platelet Estimate ADEQUATE (ADEQ); Potassium 4.2 mmol/L (3.5-5.1); Protein, Total 6.9 g/dL (6.4-8.2); Red Cell Morphology NORM C+C NORMAL (NORM C&C); Sodium Level 140 mmol/L (136-145); Total Bilirubin < 0.10 mg/dL (0.20-1.00); Total Cells Counted 100 (MANUAL DIFF); Uric Acid 6.1 mg/dL (2.6-6.0)
[2020-08-06 10:16] LABS: Absolute Neutrophil Count 3.5 X10^3/uL (2.0-7.7)
[2020-08-07 13:12] LABS: Pathologist Review Reviewed
[2020-08-10 16:48] LABS: CMV by PCR Negative (Negative)
[2020-08-13 09:27] LABS: Hematocrit 41.3 % (37-47); Hemoglobin 12.8 g/dL (12.0-15.0); Mean Corpuscular Hgb 30.6 pg (27.0-32.0); Mean Corpuscular Volume 98.8 fL (81-99); Mean Platelet Vol. 10.4 fl (6.2-12.0); POSITIVE COUNT YES; POSITIVE MORPHOLOGY YES; Platelet Count 289 K/mm3 (150-450); RBC Distribution Width CV 13.1 % (11.6-14.6); RBC Distribution Width SD 46.5 fl (35.1-43.9); Red Blood Count 4.18 M/mm3 (4.2-5.4); White Blood Count 7.4 K/mm3 (4.4-11.0)
[2020-08-13 09:30] LABS: Differential Indicated MANUAL DIFF
[2020-08-13 09:38] LABS: Anion Gap 3 (5-15); BUN 40 mg/dL (7-18); BUN/Creat Ratio 22.5 RATIO (10-20); Calcium,Total 9.6 mg/dL (8.5-10.1); Chloride 104 mmol/L (98-107); Creatinine, Serum 1.78 mg/dL (0.55-1.02); EST Glomerular Filtration Rate 30 mL/min (>60); Est Glom Filt Rate - Afr Amer 36 mL/min (>60); Glucose 110 mg/dL (74-106); Magnesium 2.7 mg/dL (1.6-2.6); Phosphorus 4.4 mg/dL (2.5-4.9); Potassium 4.6 mmol/L (3.5-5.1); Sodium Level 138 mmol/L (136-145)
[2020-08-13 09:56] LABS: Atypical Lymphocyte 2+ %; Basophil 1 % (0-1); Lymphocyte 64 % (19-41); Monocyte 5 % (0-10); Neutrophil-Segmented 30 % (47-70)
[2020-08-13 09:57] LABS: Platelet Estimate ADEQUATE (ADEQ); Red Cell Morphology NORM C+C NORMAL (NORM C&C)
[2020-08-13 09:58] LABS: Absolute Neutrophil Count 2.2 X10^3/uL (2.0-7.7)
[2020-08-13 09:59] LABS: Absolute Lymphocyte Count 4.76 X10^3/uL (0.83-4.51)
[2020-08-13 17:22] LABS: Xtra Tube EP Lab EXTRA TUBE
[2020-08-14 15:00] LABS: Pathologist Review Reviewed
[2020-08-15 13:28] LABS: Tacrolimus (FK506) 8.9 ng/mL (2.0-20.0)
[2020-08-20 09:17] LABS: Hematocrit 38.9 % (37-47); Hemoglobin 11.9 g/dL (12.0-15.0); Mean Corp Hgb Conc 30.6 g/dL (32-36); Mean Corpuscular Hgb 30.2 pg (27.0-32.0); Mean Corpuscular Volume 98.7 fL (81-99); Mean Platelet Vol. 10.4 fl (6.2-12.0); POSITIVE COUNT YES; POSITIVE MORPHOLOGY YES; Platelet Count 265 K/mm3 (150-450); RBC Distribution Width CV 12.8 % (11.6-14.6); RBC Distribution Width SD 45.9 fl (35.1-43.9); Red Blood Count 3.94 M/mm3 (4.2-5.4)
[2020-08-20 09:20] LABS: Differential Indicated MANUAL DIFF
[2020-08-20 09:29] LABS: Anion Gap 5 (5-15); BUN 33 mg/dL (7-18); BUN/Creat Ratio 18.4 RATIO (10-20); Calcium,Total 8.8 mg/dL (8.5-10.1); Chloride 105 mmol/L (98-107); Creatinine, Serum 1.79 mg/dL (0.55-1.02); EST Glomerular Filtration Rate 30 mL/min (>60); Est Glom Filt Rate - Afr Amer 36 mL/min (>60); Glucose 110 mg/dL (74-106); Magnesium 2.5 mg/dL (1.6-2.6); Phosphorus 3.9 mg/dL (2.5-4.9); Sodium Level 139 mmol/L (136-145)
[2020-08-20 09:44] LABS: Eosinophil 3 % (0-5); Lymphocyte 33 % (19-41); Metamyelocyte 4 % (0-1); Monocyte 7 % (0-10); Neutrophil-Band 3 % (0-5); Neutrophil-Segmented 50 % (47-70); Platelet Estimate ADEQUATE (ADEQ); Red Cell Morphology NORM C+C NORMAL (NORM C&C); Total Cells Counted 100 (MANUAL DIFF)
[2020-08-20 09:45] LABS: Absolute Lymphocyte Count 2.65 X10^3/uL (0.83-4.51); Absolute Neutrophil Count 4.3 X10^3/uL (2.0-7.7)
[2020-08-20 17:12] LABS: Xtra Tube EP Lab EXTRA TUBE
[2020-08-21 13:14] LABS: Pathologist Review Reviewed
[2020-08-23 15:02] LABS: Tacrolimus (FK506) 6.8 ng/mL (2.0-20.0)
== END 2020-08-20 23:59 ==
LOC: PAVLAB 08:53
PROVIDERS: Family Provider Internal Medicine; PCP Internal Medicine
DX: Z48.24 Encounter for aftercare following lung transplant (principal); D89.9 Disorder involving the immune mechanism, unspecified; R79.9 Abnormal finding of blood chemistry, unspecified; Z51.81 Encounter for therapeutic drug level monitoring; Z79.899 Other long term (current) drug therapy; Z94.2 Lung transplant status
CPT/HCPCS: 36415; 80048; 80076; 80197; 83735; 84100; 84550; 85025; 87496

== ENCOUNTER → 2020-09-12 08:35 | Outpatient (CLI) | payer MEDICARE, MEDICAID, SELFPAY ==
[2020-04-18 10:20] VITALS: BMI 24.4
--- NOTE | 2020-09-12 08:41 | BD_ITS ---
STUDY: DUAL ENERGY X-RAY ABSORPTIOMETRY / DXA REASON FOR EXAM: Female, 69 years old. ROGUER -EARLY AT 39 YRS OLD -- HX OF HRT FOR SHORT WHILE -- RECENT DOUBLE LUNG TRANSPLANT- TAKES ANTI REJECTION MEDS -- HX OF SMOKING -- USES STEROID MEDS NEEDED -- TAKES LASIX -- TAKES CALCIUM AND VITAMIN D -- TAKES FOSAMAX -- DOES HIGH AMOUNT OF EXERCISE -- FAMILY HX OF OSTEO- MOTHER, GRANDMOTHER -- ELIZABET OF 1 INCH TECHNIQUE: Bone Mineral Density (BMD) measurements of lumbar spine and bilateral hips were obtained. COMPARISON: Comparison is made with prior study dated 09/09/2018. FINDINGS: Lumbar Spine (L1-L4): g/cm2 (1.097) / T-score (-0.7) / Z-score (1.0) Findings are suggestive of normal bone density with a low fracture risk. Left Femur Total: g/cm2 (0.823) / T-score (-1.5) / Z-score (-0.1) Left Femoral Neck: g/cm2 (0.711) / T-score (-2.4) / Z-score (-0.7) Right Femur Total: g/cm2 (0.765) / T-score (-1.9) / Z-score (-0.5) Right Femoral Neck: g/cm2 (0.742) / T-score (-2.1) / Z-score (-0.5) The T-Scores on the most recent prior examination were: Lumbar Spine (L1-L4): There has been improvement of bone density since the previous examination. Left Femur Total: which represents a worsening of 2.8%. Right Femur Total: which represents a worsening of 0.5%. BD/Dexa Bone Density Study IMPRESSION: The patient is considered osteopenic as outlined below according to World Joseph Organization (WHO) criteria with a high fracture risk. There has been worsening of bone density since the previous examination. Reference Information: The T-score is the number of standard deviations above or below the standard which is normal for young adults at their peak bone mineral density. The World Health Organization (WHO) interprets the T-scores as follows: Above -1 Normal bone density Between -1 and -2.5 Osteopenia Equal to / or below -2.5 Osteoporosis As a practical clinical guideline, osteopenia may be graded as follows: Mild -1 through -1.5 Moderate -1.6 through -2.0 Severe -2.1 through -2.4 The Z-score is the number of standard deviations above or below age-matched controls. A Z-score of less than -1.5 would be considered abnormal. References: 1. NIH Osteoporosis and Related Bone Diseases www osteo.org 2. International Society for Clinical Densitometry www iscd.org 3. National Osteoporosis Foundation www nof.org Electronically Signed: Jcarlos Lennon, at 10:44 EST , Service support ,
== END ==
PROVIDERS: PCP Internal Medicine; Referring Provider Internal Medicine Critical Care Medicine; Visit Provider Internal Medicine Critical Care Medicine
DX: M85.89 Other specified disorders of bone density and structure, multiple sites (principal); D84.9 Immunodeficiency, unspecified; R79.9 Abnormal finding of blood chemistry, unspecified; Z94.2 Lung transplant status; Z48.24 Encounter for aftercare following lung transplant; Z51.81 Encounter for therapeutic drug level monitoring; Z79.52 Long term (current) use of systemic steroids; Z79.899 Other long term (current) drug therapy; Z78.0 Asymptomatic menopausal state
CPT/HCPCS: 77080

== ENCOUNTER 2020-09-17 08:43 | Outpatient (RCR) | payer MEDICARE, MEDICAID, SELFPAY ==
[2020-04-18 10:20] VITALS: BMI 24.4
[2020-08-27 09:41] LABS: Hemoglobin 11.7 g/dL (12.0-15.0); Mean Corp Hgb Conc 31.6 g/dL (32-36); Mean Corpuscular Volume 97.9 fL (81-99); Mean Platelet Vol. 10.3 fl (6.2-12.0); POSITIVE COUNT YES; POSITIVE MORPHOLOGY YES; Platelet Count 279 K/mm3 (150-450); RBC Distribution Width SD 46.3 fl (35.1-43.9); Red Blood Count 3.78 M/mm3 (4.2-5.4); White Blood Count 6.9 K/mm3 (4.4-11.0)
[2020-08-27 09:43] LABS: Differential Indicated MANUAL DIFF
[2020-08-27 09:53] LABS: Anion Gap 5 (5-15); BUN 28 mg/dL (7-18); BUN/Creat Ratio 17.1 RATIO (10-20); Calcium,Total 8.9 mg/dL (8.5-10.1); Chloride 108 mmol/L (98-107); Creatinine, Serum 1.64 mg/dL (0.55-1.02); EST Glomerular Filtration Rate 33 mL/min (>60); Est Glom Filt Rate - Afr Amer 40 mL/min (>60); Glucose 103 mg/dL (74-106); Magnesium 2.7 mg/dL (1.6-2.6); Phosphorus 3.6 mg/dL (2.5-4.9); Potassium 4.6 mmol/L (3.5-5.1); Sodium Level 138 mmol/L (136-145)
[2020-08-27 10:11] LABS: Basophil 2 % (0-1); Eosinophil 1 % (0-5); Lymphocyte 43 % (19-41); Monocyte 5 % (0-10); Neutrophil-Segmented 49 % (47-70); Platelet Estimate ADEQUATE (ADEQ); Red Cell Morphology NORM C+C NORMAL (NORM C&C); Total Cells Counted 100 (MANUAL DIFF)
[2020-08-27 10:12] LABS: Absolute Neutrophil Count 3.4 X10^3/uL (2.0-7.7)
[2020-08-28 12:20] LABS: Pathologist Review Reviewed
[2020-08-29 21:35] LABS: Tacrolimus (FK506) 6.7 ng/mL (2.0-20.0)
[2020-09-10 09:24] LABS: Hematocrit 35.3 % (37-47); Hemoglobin 11.5 g/dL (12.0-15.0); Mean Corp Hgb Conc 32.6 g/dL (32-36); Mean Corpuscular Hgb 30.8 pg (27.0-32.0); Mean Corpuscular Volume 94.6 fL (81-99); Mean Platelet Vol. 10.4 fl (6.2-12.0); POSITIVE COUNT YES; POSITIVE MORPHOLOGY YES; Platelet Count 297 K/mm3 (150-450); RBC Distribution Width CV 13.1 % (11.6-14.6); RBC Distribution Width SD 45.1 fl (35.1-43.9); Red Blood Count 3.73 M/mm3 (4.2-5.4)
[2020-09-10 09:25] LABS: Differential Indicated MANUAL DIFF
[2020-09-10 09:40] LABS: AST(SGOT) 29 U/L (15-37); Alanine Aminotransfer ALT/SGPT 31 U/L (13-56); Albumin, Serum 3.6 g/dL (3.2-5.0); Alkaline Phosphatase 54 U/L (45-117); Anion Gap 7 (5-15); BUN 33 mg/dL (7-18); BUN/Creat Ratio 15.5 RATIO (10-20); Bilirubin, Direct 0.06 mg/dL (0.00-0.30); Calcium,Total 9.7 mg/dL (8.5-10.1); Chloride 100 mmol/L (98-107); Creatinine, Serum 2.13 mg/dL (0.55-1.02); EST Glomerular Filtration Rate 24 mL/min (>60); Est Glom Filt Rate - Afr Amer 30 mL/min (>60); GGTP 15 U/L (5-55); Glucose 120 mg/dL (74-106); Magnesium 2.2 mg/dL (1.6-2.6); Phosphorus 5.6 mg/dL (2.5-4.9); Potassium 4.1 mmol/L (3.5-5.1); Sodium Level 135 mmol/L (136-145); Uric Acid 6.9 mg/dL (2.6-6.0)
[2020-09-10 09:41] LABS: Eosinophil 3 % (0-5); Lymphocyte 52 % (19-41); Monocyte 3 % (0-10); Neutrophil-Band 8 % (0-5); Neutrophil-Segmented 34 % (47-70); Total Cells Counted 100 (MANUAL DIFF)
[2020-09-10 09:44] LABS: Absolute Lymphocyte Count 3.65 X10^3/uL (0.83-4.51); Absolute Neutrophil Count 2.9 X10^3/uL (2.0-7.7); Reactive Lymphocyte 2+
[2020-09-10 09:45] LABS: Platelet Estimate ADEQUATE (ADEQ); Red Cell Morphology NORM C+C NORMAL (NORM C&C)
[2020-09-11 13:32] LABS: Pathologist Review Reviewed
[2020-09-17 09:08] LABS: Hematocrit 36.9 % (37-47); Hemoglobin 11.8 g/dL (12.0-15.0); Mean Corpuscular Hgb 32.3 pg (27.0-32.0); Mean Corpuscular Volume 101.1 fL (81-99); Platelet Count 250 K/mm3 (150-450); Red Blood Count 3.65 M/mm3 (4.2-5.4); White Blood Count 8.6 K/mm3 (4.4-11.0)
[2020-09-17 09:23] LABS: Anion Gap 6 (5-15); BUN 27 mg/dL (7-18); BUN/Creat Ratio 15.3 RATIO (10-20); Calcium,Total 8.7 mg/dL (8.5-10.1); Chloride 105 mmol/L (98-107); Creatinine, Serum 1.77 mg/dL (0.55-1.02); EST Glomerular Filtration Rate 30 mL/min (>60); Est Glom Filt Rate - Afr Amer 37 mL/min (>60); Glucose 88 mg/dL (74-106); Magnesium 2.3 mg/dL (1.6-2.6); Phosphorus 4.1 mg/dL (2.5-4.9); Potassium 4.5 mmol/L (3.5-5.1); Sodium Level 139 mmol/L (136-145)
[2020-09-17 09:37] LABS: Eosinophil 3 % (0-5); Lymphocyte 34 % (19-41); Metamyelocyte 4 % (0-1); Monocyte 4 % (0-10); Neutrophil-Band 3 % (0-5); Neutrophil-Segmented 52 % (47-70); Total Cells Counted 100 (MANUAL DIFF)
[2020-09-17 09:38] LABS: Hypochromasia RARE; Macrocytosis 1+; Platelet Estimate ADEQUATE (ADEQ)
[2020-09-17 09:40] LABS: Absolute Neutrophil Count 4.7 X10^3/uL (2.0-7.7)
[2020-09-17 16:32] LABS: CMV by PCR Negative (Negative)
[2020-09-18 11:33] LABS: Pathologist Review Reviewed
[2020-09-18 20:19] LABS: Tacrolimus (FK506) 11.1 ng/mL (2.0-20.0)
== END 2020-09-20 23:59 ==
LOC: PAVLAB 08:43
PROVIDERS: Family Provider Internal Medicine; PCP Internal Medicine
DX: Z48.24 Encounter for aftercare following lung transplant (principal); D89.9 Disorder involving the immune mechanism, unspecified; R79.9 Abnormal finding of blood chemistry, unspecified; Z51.81 Encounter for therapeutic drug level monitoring; Z79.899 Other long term (current) drug therapy; Z94.2 Lung transplant status
CPT/HCPCS: 36415; 80048; 80197; 82040; 82247; 82248; 82977; 83735; 84075; 84100; 84450; 84460; 84550; 85007; 85025; 85027; 87496

== ENCOUNTER 2020-09-24 08:54 | Outpatient (RCR) | payer MEDICARE, MEDICAID, SELFPAY ==
[2020-04-18 10:20] VITALS: BMI 24.4
[2020-09-24 09:32] LABS: Hematocrit 36.3 % (37-47); Mean Corp Hgb Conc 30.3 g/dL (32-36); Mean Corpuscular Hgb 29.7 pg (27.0-32.0); Mean Corpuscular Volume 98.1 fL (81-99); Mean Platelet Vol. 9.9 fl (6.2-12.0); POSITIVE COUNT YES; POSITIVE MORPHOLOGY YES; Platelet Count 272 K/mm3 (150-450); RBC Distribution Width CV 13.1 % (11.6-14.6); RBC Distribution Width SD 46.2 fl (35.1-43.9); White Blood Count 8.9 K/mm3 (4.4-11.0)
[2020-09-24 09:36] LABS: Differential Indicated MANUAL DIFF
[2020-09-24 09:50] LABS: Hemoglobin A1c 5.6 % (3.8-5.6)
[2020-09-24 09:53] LABS: AST(SGOT) 19 U/L (15-37); Alanine Aminotransfer ALT/SGPT 25 U/L (13-56); Albumin, Serum 3.4 g/dL (3.2-5.0); Alkaline Phosphatase 53 U/L (45-117); Anion Gap 6 (5-15); BUN 37 mg/dL (7-18); Calcium,Total 8.7 mg/dL (8.5-10.1); Chloride 108 mmol/L (98-107); Creatinine, Serum 1.54 mg/dL (0.55-1.02); EST Glomerular Filtration Rate 36 mL/min (>60); Est Glom Filt Rate - Afr Amer 43 mL/min (>60); Ferritin 44 ng/mL (8-252); Globulin 3.3 g/dL (2.2-4.2); Glucose 92 mg/dL (74-106); Iron 91 ug/dL (50-170); Iron Binding Capacity,Total 376 ug/dL (250-450); Magnesium 2.3 mg/dL (1.6-2.6); Phosphorus 4.6 mg/dL (2.5-4.9); Potassium 4.2 mmol/L (3.5-5.1); Protein, Total 6.7 g/dL (6.4-8.2); Sodium Level 140 mmol/L (136-145); Uric Acid 6.1 mg/dL (2.6-6.0)
[2020-09-24 10:08] LABS: Metamyelocyte 5 % (0-1); Myelocyte 1 (0-0); Neutrophil-Band 2 % (0-5); Neutrophil-Segmented 60 % (47-70); Total Cells Counted 100 (MANUAL DIFF)
[2020-09-24 10:09] LABS: Lymphocyte 24 % (19-41); Monocyte 8 % (0-10); Plasma Cell 1 %; Platelet Estimate ADEQUATE (ADEQ); Red Cell Morphology NORM C+C NORMAL (NORM C&C)
[2020-09-24 10:10] LABS: Absolute Lymphocyte Count 2.14 X10^3/uL (0.83-4.51); Absolute Neutrophil Count 5.5 X10^3/uL (2.0-7.7)
[2020-09-25 11:09] LABS: Pathologist Review Reviewed
[2020-09-26 12:08] LABS: Immunoglobulin A 160 mg/dL (87-352); Immunoglobulin G 657 mg/dL (586-1602); Immunoglobulin M 102 mg/dL (26-217)
[2020-09-26 12:25] LABS: CMV by PCR Negative (Negative); Tacrolimus (FK506) 7.9 ng/mL (2.0-20.0); Transferrin 289 mg/dL (192-364)
== END 2020-10-21 23:59 ==
LOC: PAVLAB 08:54
PROVIDERS: Internal Medicine Critical Care Medicine; Family Provider Internal Medicine; PCP Internal Medicine
DX: Z48.24 Encounter for aftercare following lung transplant (principal); D89.9 Disorder involving the immune mechanism, unspecified; R79.9 Abnormal finding of blood chemistry, unspecified; Z94.2 Lung transplant status; Z51.81 Encounter for therapeutic drug level monitoring; Z79.899 Other long term (current) drug therapy
CPT/HCPCS: 36415; 80053; 80197; 82728; 82784; 83036; 83540; 83550; 83735; 84100; 84466; 84550; 85025; 87496

== ENCOUNTER → 2020-10-05 10:02 | Outpatient (CLI) | payer MEDICARE, MEDICAID, SELFPAY ==
[2020-04-18 10:20] VITALS: BMI 24.4
--- NOTE | 2020-10-05 14:38 | SPIR ---
Spirometry PFT Testing Spirometry PFT Testing: INTRODUCTION: The patient is a 70-year-old female that presents for pulmonary function testing secondary to a diagnosis of post lung transplantation. Respiratory therapy reports good patient effort. INTERPRETATION: Forced expiration spirometry demonstrates no evidence of a large airways obstructive ventilatory defect with an FEV1 of 110% of predicted. Spirograms are of good quality and plateau normally. The respiratory flow volume loop appears normal. IMPRESSION: Normal spirometry.
== END ==
PROVIDERS: PCP Internal Medicine
DX: Z48.24 Encounter for aftercare following lung transplant (principal); D84.9 Immunodeficiency, unspecified; Z94.2 Lung transplant status; Z79.899 Other long term (current) drug therapy
CPT/HCPCS: 94010

== ENCOUNTER 2020-10-23 08:23 | Outpatient (RCR) | payer MEDICARE, MEDICAID, SELFPAY ==
[2020-04-18 10:20] VITALS: BMI 24.4
[2020-10-23 09:20] LABS: Absolute Lymphocyte Count 1.86 X10^3/uL (0.83-4.51); Basophil# 0.04 X10^3/uL; Basophil% 0.7 % (0-1); Eosinophil# 0.14 X10^3/uL; Eosinophils% 2.4 % (0-5); Hematocrit 34.8 % (37-47); Hemoglobin 11.1 g/dL (12.0-15.0); Lymphocyte # 1.86 X10^3/ul (4.0); Mean Corp Hgb Conc 31.9 g/dL (32-36); Mean Corpuscular Volume 94.1 fL (81-99); Mean Platelet Vol. 10.3 fl (6.2-12.0); Monocyte# 0.52 X10^3/uL; NRBC Flagged by Analyzer 0 % (0-5); Neutrophil # 2.98 X10^3/uL (2.7-7.7); Neutrophil % 51.3 % (47-70); Platelet Count 230 K/mm3 (150-450); RBC Distribution Width CV 12.7 % (11.6-14.6); RBC Distribution Width SD 43.7 fl (35.1-43.9); White Blood Count 5.8 K/mm3 (4.4-11.0)
[2020-10-23 09:37] LABS: AST(SGOT) 24 U/L (15-37); Alanine Aminotransfer ALT/SGPT 29 U/L (13-56); Albumin, Serum 3.3 g/dL (3.2-5.0); Alkaline Phosphatase 50 U/L (45-117); Anion Gap 8 (5-15); BUN 25 mg/dL (7-18); BUN/Creat Ratio 16.8 RATIO (10-20); Bilirubin, Direct 0.07 mg/dL (0.00-0.30); Calcium,Total 8.9 mg/dL (8.5-10.1); Chloride 107 mmol/L (98-107); Creatinine, Serum 1.49 mg/dL (0.55-1.02); EST Glomerular Filtration Rate 37 mL/min (>60); Est Glom Filt Rate - Afr Amer 45 mL/min (>60); Ferritin 56 ng/mL (8-252); Globulin 3.3 g/dL (2.2-4.2); Glucose 78 mg/dL (74-106); Hemoglobin A1c 5.5 % (3.8-5.6); Iron 106 ug/dL (50-170); Iron Binding Capacity,Total 346 ug/dL (250-450); Magnesium 2.5 mg/dL (1.6-2.6); Phosphorus 4.3 mg/dL (2.5-4.9); Potassium 4.7 mmol/L (3.5-5.1); Protein, Total 6.6 g/dL (6.4-8.2); Sodium Level 139 mmol/L (136-145); Uric Acid 5.7 mg/dL (2.6-6.0)
[2020-10-23 14:16] LABS: GGTP 15 U/L (5-55)
[2020-10-23 17:10] LABS: Xtra Tube EP Lab EXTRA TUBE
[2020-10-26 14:09] LABS: Immunoglobulin A 163 mg/dL (87-352); Immunoglobulin G 673 mg/dL (586-1602); Immunoglobulin M 105 mg/dL (26-217)
[2020-10-26 15:55] LABS: Tacrolimus (FK506) 6.2 ng/mL (2.0-20.0); Transferrin 260 mg/dL (192-364)
== END 2020-11-18 23:59 ==
LOC: PAVLAB 08:23
PROVIDERS: Internal Medicine Critical Care Medicine; Family Provider Internal Medicine; PCP Internal Medicine
DX: Z48.24 Encounter for aftercare following lung transplant (principal); Z94.2 Lung transplant status; Z79.899 Other long term (current) drug therapy; R79.9 Abnormal finding of blood chemistry, unspecified; D89.9 Disorder involving the immune mechanism, unspecified; Z51.81 Encounter for therapeutic drug level monitoring
CPT/HCPCS: 36415; 80048; 80076; 80197; 82728; 82784; 82977; 83036; 83540; 83550; 83735; 84100; 84466; 84550; 85025

== ENCOUNTER → 2020-11-05 09:32 | Outpatient (CLI) | payer MEDICARE, MEDICAID, SELFPAY ==
[2020-04-18 10:20] VITALS: BMI 24.4
--- NOTE | 2020-11-05 14:46 | SPIR_ITS ---
Spirometry PFT Testing Spirometry PFT Testing: COMPLETE PULMONARY FUNCTION TEST INTERPRETATION Brief HPI: Patient is a 70 year old female, currently under the care of myself, who presents to [facility] for complete pulmonary function tests secondary to diagnosis of lung transplant. Respiratory therapist reports good effort and reproducible results. Interpretation: Forced expiration spirometry shows no large airways obstructive ventilatory defect with an FEV1 of 105% predicted. There is no bronchodilator response tested. Spirograms are of good quality and plateau normally. The respiratory flow volume loop shows a normal pattern. Compared to previous pulmonary function tests from 10/05/2020, there has been no significant change. Impression: Normal spirometry
== END ==
PROVIDERS: PCP Internal Medicine
DX: Z48.24 Encounter for aftercare following lung transplant (principal); D84.9 Immunodeficiency, unspecified; Z79.899 Other long term (current) drug therapy
CPT/HCPCS: 94010

== ENCOUNTER 2020-11-20 08:25 | Outpatient (RCR) | payer MEDICARE, MEDICAID, SELFPAY ==
[2020-04-18 10:20] VITALS: BMI 24.4
[2020-11-20 08:50] LABS: Hematocrit 38.1 % (37-47); Hemoglobin 11.6 g/dL (12.0-15.0); Mean Corp Hgb Conc 30.4 g/dL (32-36); Mean Corpuscular Hgb 29.4 pg (27.0-32.0); Mean Corpuscular Volume 96.7 fL (81-99); Mean Platelet Vol. 10.1 fl (6.2-12.0); POSITIVE COUNT YES; POSITIVE MORPHOLOGY YES; Platelet Count 252 K/mm3 (150-450); RBC Distribution Width CV 12.9 % (11.6-14.6); RBC Distribution Width SD 45.7 fl (35.1-43.9); Red Blood Count 3.94 M/mm3 (4.2-5.4); White Blood Count 6.5 K/mm3 (4.4-11.0)
[2020-11-20 08:55] LABS: Differential Indicated MANUAL DIFF
[2020-11-20 09:07] LABS: AST(SGOT) 24 U/L (15-37); Alanine Aminotransfer ALT/SGPT 35 U/L (13-56); Albumin, Serum 3.5 g/dL (3.2-5.0); Alkaline Phosphatase 62 U/L (45-117); Anion Gap 8 (5-15); BUN 34 mg/dL (7-18); Bilirubin, Direct 0.07 mg/dL (0.00-0.30); Calcium,Total 9.4 mg/dL (8.5-10.1); Chloride 105 mmol/L (98-107); Creatinine, Serum 1.89 mg/dL (0.55-1.02); EST Glomerular Filtration Rate 28 mL/min (>60); Est Glom Filt Rate - Afr Amer 34 mL/min (>60); GGTP 25 U/L (5-55); Globulin 3.5 g/dL (2.2-4.2); Glucose 141 mg/dL (74-106); Magnesium 2.1 mg/dL (1.6-2.6); Phosphorus 5.8 mg/dL (2.5-4.9); Potassium 4.2 mmol/L (3.5-5.1); Sodium Level 140 mmol/L (136-145); Uric Acid 6.8 mg/dL (2.6-6.0)
[2020-11-20 09:49] LABS: Eosinophil 2 % (0-5); Lymphocyte 34 % (19-41); Monocyte 1 % (0-10); Myelocyte 1 (0-0); Neutrophil-Band 5 % (0-5); Neutrophil-Segmented 57 % (47-70); Platelet Estimate ADEQUATE (ADEQ); Red Cell Morphology NORM C+C NORMAL (NORM C&C); Total Cells Counted 100 (MANUAL DIFF)
[2020-11-20 09:50] LABS: Reactive Lymphocyte 1+
[2020-11-20 09:54] LABS: Absolute Lymphocyte Count 2.21 X10^3/uL (0.83-4.51); Lymphocyte # 2.21 X10^3/ul (4.0); Neutrophil # 4.04 X10^3/uL (2.7-7.7)
[2020-11-20 16:46] LABS: Xtra Tube EP Lab EXTRA TUBE
[2020-11-21 14:48] LABS: Pathologist Review Reviewed
== END 2020-12-19 23:59 ==
LOC: PAVLAB 08:25
PROVIDERS: Family Provider Internal Medicine; PCP Internal Medicine
DX: Z48.24 Encounter for aftercare following lung transplant (principal); Z94.2 Lung transplant status; Z79.899 Other long term (current) drug therapy; R79.9 Abnormal finding of blood chemistry, unspecified; D89.9 Disorder involving the immune mechanism, unspecified; Z51.81 Encounter for therapeutic drug level monitoring
CPT/HCPCS: 36415; 80048; 80076; 80197; 82977; 83735; 84100; 84550; 85025

== ENCOUNTER → 2020-12-25 08:32 | Outpatient (CLI) | payer MEDICARE, MEDICAID, SELFPAY ==
[2020-04-18 10:20] VITALS: BMI 24.4
[2020-12-25 08:55] LABS: Hematocrit 36.3 % (37-47); Hemoglobin 11.6 g/dL (12.0-15.0); Mean Corpuscular Hgb 29.3 pg (27.0-32.0); Mean Corpuscular Volume 91.7 fL (81-99); Mean Platelet Vol. 9.5 fl (6.2-12.0); POSITIVE COUNT YES; POSITIVE MORPHOLOGY YES; Platelet Count 297 K/mm3 (150-450); RBC Distribution Width CV 12.8 % (11.6-14.6); RBC Distribution Width SD 42.6 fl (35.1-43.9); Red Blood Count 3.96 M/mm3 (4.2-5.4); White Blood Count 7.3 K/mm3 (4.4-11.0)
[2020-12-25 08:56] LABS: Differential Indicated MANUAL DIFF
[2020-12-25 09:14] LABS: AST(SGOT) 28 U/L (15-37); Alanine Aminotransfer ALT/SGPT 38 U/L (13-56); Albumin, Serum 3.8 g/dL (3.2-5.0); Alkaline Phosphatase 70 U/L (45-117); Anion Gap 6 (5-15); BUN 20 mg/dL (7-18); BUN/Creat Ratio 14.6 RATIO (10-20); Calcium,Total 8.9 mg/dL (8.5-10.1); Chloride 98 mmol/L (98-107); Creatinine, Serum 1.37 mg/dL (0.55-1.02); EST Glomerular Filtration Rate 41 mL/min (>60); Est Glom Filt Rate - Afr Amer 49 mL/min (>60); GGTP 20 U/L (5-55); Globulin 3.3 g/dL (2.2-4.2); Glucose 84 mg/dL (74-106); Magnesium 1.8 mg/dL (1.6-2.6); Potassium 4.5 mmol/L (3.5-5.1); Protein, Total 7.1 g/dL (6.4-8.2); Sodium Level 130 mmol/L (136-145); Uric Acid 6.7 mg/dL (2.6-6.0)
[2020-12-25 09:41] LABS: Lymphocyte 28 % (19-41); Metamyelocyte 1 % (0-1); Monocyte 7 % (0-10); Myelocyte 1 % (0-0); Neutrophil-Segmented 63 % (47-70); Platelet Estimate ADEQUATE (ADEQ); Red Cell Morphology NORM C+C NORMAL (NORM C&C); Total Cells Counted 100 (MANUAL DIFF)
[2020-12-25 09:43] LABS: Absolute Neutrophil Count 4.6 X10^3/uL (2.0-7.7)
[2020-12-26 12:25] LABS: Pathologist Review Reviewed
== END ==
PROVIDERS: PCP Internal Medicine; Referring Provider Internal Medicine Critical Care Medicine; Visit Provider Internal Medicine Critical Care Medicine
DX: Z48.24 Encounter for aftercare following lung transplant (principal); D89.9 Disorder involving the immune mechanism, unspecified; R79.9 Abnormal finding of blood chemistry, unspecified; Z51.81 Encounter for therapeutic drug level monitoring; Z79.899 Other long term (current) drug therapy; Z94.2 Lung transplant status
CPT/HCPCS: 36415; 80048; 80076; 80197; 82977; 83735; 84100; 84550; 85025

== ENCOUNTER 2020-12-26 09:49 | Outpatient (RCR) | payer MEDICARE, SELFPAY ==
[2020-04-18 10:20] VITALS: BMI 24.4
== END 2021-02-26 23:59 ==
LOC: IMMUN 09:49
PROVIDERS: PCP Internal Medicine; Referring Provider Family Medicine; Visit Provider Family Medicine
DX: Z23 Encounter for immunization (principal)
CPT/HCPCS: 0001A; 0002A; 91300

== ENCOUNTER → 2021-01-03 08:39 | Outpatient (CLI) | payer MEDICARE, MEDICAID, SELFPAY ==
[2020-04-18 10:20] VITALS: BMI 24.4
--- NOTE | 2021-01-04 13:30 | SPIR ---
Spirometry PFT Testing Spirometry PFT Testing: COMPLETE PULMONARY FUNCTION TEST INTERPRETATION Brief HPI: Patient is a 70 year old female, currently under the care of myself, who presents to [facility] for complete pulmonary function tests secondary to diagnosis of status post lung transplant. Respiratory therapist reports good effort and reproducible results. Interpretation: Forced expiration spirometry shows no large airways obstructive ventilatory defect with an FEV1 of 107% predicted. Spirograms are of good quality and plateau normally. The respiratory flow volume loop shows a normal pattern. Compared to previous pulmonary function tests from 11/05/20, there has been no significant change. Impression: Normal Spirometry
== END ==
PROVIDERS: PCP Internal Medicine
DX: Z48.24 Encounter for aftercare following lung transplant (principal); D84.9 Immunodeficiency, unspecified; Z79.899 Other long term (current) drug therapy; Z94.2 Lung transplant status
CPT/HCPCS: 94010

== ENCOUNTER 2021-01-16 08:34 | Outpatient (RCR) | payer MEDICARE, MEDICAID, SELFPAY ==
[2020-04-18 10:20] VITALS: BMI 24.4
[2021-01-04 09:07] LABS: Absolute Lymphocyte Count 2.92 X10^3/uL (0.83-4.51); Absolute Neutrophil Count 4.6 X10^3/uL (2.0-7.7); Basophil# 0.03 X10^3/uL; Basophil% 0.4 % (0-1); Eosinophil# 0.14 X10^3/uL; Eosinophils% 1.7 % (0-5); Hematocrit 37.5 % (37-47); Hemoglobin 12.1 g/dL (12.0-15.0); Lymphocyte # 2.92 X10^3/ul (0.83-4.51); Lymphocyte % 34.8 % (19-41); Mean Corp Hgb Conc 32.3 g/dL (32-36); Mean Corpuscular Hgb 29.7 pg (27.0-32.0); Mean Corpuscular Volume 91.9 fL (81-99); Mean Platelet Vol. 9.6 fl (6.2-12.0); NRBC Flagged by Analyzer 0 % (0-5); Neutrophil # 4.55 X10^3/uL (2.7-7.7); Neutrophil % 54.1 % (47-70); Platelet Count 352 K/mm3 (150-450); RBC Distribution Width CV 12.5 % (11.6-14.6); RBC Distribution Width SD 41.9 fl (35.1-43.9); Red Blood Count 4.08 M/mm3 (4.2-5.4); White Blood Count 8.4 K/mm3 (4.4-11.0)
[2021-01-04 09:25] LABS: AST(SGOT) 20 U/L (15-37); Alanine Aminotransfer ALT/SGPT 35 U/L (13-56); Albumin, Serum 3.9 g/dL (3.2-5.0); Alkaline Phosphatase 55 U/L (45-117); Anion Gap 6 (5-15); BUN 27 mg/dL (7-18); Bilirubin, Direct 0.09 mg/dL (0.00-0.30); Calcium,Total 8.7 mg/dL (8.5-10.1); Chloride 97 mmol/L (98-107); Creatinine, Serum 2.08 mg/dL (0.55-1.02); EST Glomerular Filtration Rate 25 mL/min (>60); Est Glom Filt Rate - Afr Amer 30 mL/min (>60); GGTP 24 U/L (5-55); Globulin 3.2 g/dL (2.2-4.2); Glucose 102 mg/dL (74-106); Phosphorus 3.6 mg/dL (2.5-4.9); Potassium 4.6 mmol/L (3.5-5.1); Protein, Total 7.1 g/dL (6.4-8.2); Sodium Level 128 mmol/L (136-145); Uric Acid 6.4 mg/dL (2.6-6.0)
[2021-01-07 17:54] LABS: Tacrolimus (FK506) 14.7 ng/mL (2.0-20.0)
[2021-01-16 09:07] LABS: Hemoglobin 9.6 g/dL (12.0-15.0); Mean Corpuscular Volume 93.7 fL (81-99); POSITIVE COUNT YES; POSITIVE MORPHOLOGY YES; Platelet Count 265 K/mm3 (150-450); RBC Distribution Width CV 13.2 % (11.6-14.6); RBC Distribution Width SD 45.4 fl (35.1-43.9); Red Blood Count 3.31 M/mm3 (4.2-5.4); White Blood Count 5.5 K/mm3 (4.4-11.0)
[2021-01-16 09:11] LABS: Differential Indicated MANUAL DIFF
[2021-01-16 09:22] LABS: AST(SGOT) 21 U/L (15-37); Alanine Aminotransfer ALT/SGPT 44 U/L (13-56); Albumin, Serum 3.3 g/dL (3.2-5.0); Alkaline Phosphatase 63 U/L (45-117); Anion Gap 4 (5-15); BUN 22 mg/dL (7-18); BUN/Creat Ratio 12.7 RATIO (10-20); Bilirubin, Direct 0.06 mg/dL (0.00-0.30); Chloride 110 mmol/L (98-107); Creatinine, Serum 1.73 mg/dL (0.55-1.02); EST Glomerular Filtration Rate 31 mL/min (>60); Est Glom Filt Rate - Afr Amer 38 mL/min (>60); Ferritin 78 ng/mL (8-252); GGTP 48 U/L (5-55); Glucose 91 mg/dL (74-106); Iron 80 ug/dL (50-170); Iron Binding Capacity,Total 310 ug/dL (250-450); Magnesium 1.9 mg/dL (1.6-2.6); Potassium 4.1 mmol/L (3.5-5.1); Protein, Total 6.3 g/dL (6.4-8.2); Sodium Level 140 mmol/L (136-145); Uric Acid 6.8 mg/dL (2.6-6.0)
[2021-01-16 09:27] LABS: Hemoglobin A1c 5.6 % (3.8-5.6)
[2021-01-16 09:38] LABS: Eosinophil 4 % (0-5); Lymphocyte 25 % (19-41); Metamyelocyte 1 % (0-1); Monocyte 17 % (0-10); Myelocyte 1 % (0-0); Neutrophil-Segmented 52 % (47-70); Total Cells Counted 100 (MANUAL DIFF)
[2021-01-16 09:39] LABS: Absolute Neutrophil Count 2.9 X10^3/uL (2.0-7.7); Platelet Estimate ADEQUATE (ADEQ); Red Cell Morphology NORM C+C NORMAL (NORM C&C)
[2021-01-16 17:01] LABS: Xtra Tube EP Lab EXTRA TUBE
[2021-01-17 12:47] LABS: Pathologist Review Reviewed
[2021-01-19 09:07] LABS: Immunoglobulin A 152 mg/dL (87-352); Immunoglobulin G 647 mg/dL (586-1602); Immunoglobulin M 84 mg/dL (26-217)
[2021-01-20 08:34] LABS: Tacrolimus (FK506) 6.8 ng/mL (2.0-20.0); Transferrin 262 mg/dL (192-364)
== END 2021-01-18 23:59 ==
LOC: PAVLAB 08:34
PROVIDERS: Family Provider Internal Medicine; PCP Internal Medicine
DX: Z48.24 Encounter for aftercare following lung transplant (principal); D89.9 Disorder involving the immune mechanism, unspecified; Z51.81 Encounter for therapeutic drug level monitoring; R79.9 Abnormal finding of blood chemistry, unspecified; Z79.899 Other long term (current) drug therapy; Z94.2 Lung transplant status
CPT/HCPCS: 36415; 80048; 80076; 80197; 82728; 82784; 82977; 83036; 83540; 83550; 83735; 84100; 84466; 84550; 85025

== ENCOUNTER → 2021-02-07 08:54 | Outpatient (CLI) | payer MEDICARE, MEDICAID, SELFPAY ==
[2020-04-18 10:20] VITALS: BMI 24.4
[2021-01-29 15:35] VITALS: BMI 27.8
--- NOTE | 2021-02-07 13:20 | SPIR_ITS ---
Spirometry PFT Testing Spirometry PFT Testing: INTRODUCTION: The patient is a 70-year-old female that presents for pulmonary func tion studies secondary to a diagnosis of lung transplantation. Respiratory therapy reports good patient effort. Bronchodilators were used during testing. INTERPRETATION: Forced expiration spirometry demonstrates no evidence of a large airways obstructive ventilatory defect with an FEV1 noted to be 110% of predicted. Spirograms are of good quality and plateau normally. IMPRESSION: Normal spirometry
== END ==
PROVIDERS: PCP Internal Medicine
DX: Z48.24 Encounter for aftercare following lung transplant (principal); D84.9 Immunodeficiency, unspecified; Z79.899 Other long term (current) drug therapy; Z94.2 Lung transplant status
CPT/HCPCS: 94010

== ENCOUNTER → 2021-02-12 12:18 | Outpatient (CLI) | payer MEDICARE, MEDICAID, SELFPAY ==
[2021-01-29 15:35] VITALS: BMI 27.8
--- NOTE | 2021-02-12 12:20 | ECHOD_ITS ---
Reason For Study: MURMUR Procedure This was a 2D Doppler, Color Flow transthoracic echocardiogram. Technically difficult parasternal images- acquired subcostally. The study was technically difficult. Exam performed in department. Left Ventricle Normal LV size. Left ventricular systolic function is normal. The estimated ejection fraction is 55 %. The global longitudinal strain = -16% (borderline). Septal motion consistent with IVCD. No evidence for diastolic dysfunction. No regional wall motion abnormalities noted. Right Ventricle Normal RV size. Normal systolic function. Atria Normal left atrium. Normal right atrium. No doppler evidence for ASD. Mitral Valve There is no mitral annular calcification. Normal mitral valve. Mild-Moderate (1-2+) eccentric mitral valve insufficiency. Tricuspid Valve Normal tricuspid valve. Mild tricuspid valve insufficiency. Right ventricular systolic pressure estimated to be 33 mmHg. Aortic Valve The aortic valve is not well visualized. Trivial aortic valve insufficiency. Pulmonic Valve The pulmonic valve is not well visualized. Great Vessels The aortic root is not well visualized. Pericardium/Pleural No pericardial effusion. MMode/2D Measurements & Calculations LVIDd: 4.2 cm IVSd: 1.0 cm LAV(MOD-bp): 43.3 ml LVIDs: 3.4 cm LVPWd: 1.0 cm LAV(MOD-bp) Indexed: 26.2 ml/m2 RVDd: 3.4 cm FS: 19.5 % LAV(MOD-sp2): 47.3 ml LAV(MOD-sp4): 40.1 ml LA A4 area: 15.4 cm2 RA A4 area: 13.1 cm2 Time Measurements MV dec time: 0.14 sec Doppler Measurements & Calculations MV E max jose: 74.1 cm/sec Lat Peak E' Jose: 9.0 cm/sec Med Peak E' Jose: 7.2 cm/sec MV A max jose: 100.9 cm/sec E/E' lat: 8.3 E/E' med: 10.3 MV E/A: 0.73 Ao V2 max: 133.8 cm/sec AI max jose: 323.4 cm/sec LV V1 max: 94.3 cm/sec Ao max P.2 mmHg AI max P.8 mmHg LV V1 max P.6 mmHg AI dec slope: 162.1 cm/sec2 AI P1/2t: 584.4 msec PA V2 max: 56.5 cm/sec TR max jose: 271.6 cm/sec TR max P.5 mmHg ECHO/Echo Complete Interpretation Summary The study was technically difficult. Left ventricular systolic function is normal. The estimated ejection fraction is 55 %. The global longitudinal strain = -16% (borderline). Septal motion consistent with IVCD. Mild-Moderate (1-2+) eccentric mitral valve insufficiency. Mild tricuspid valve insufficiency. Trivial aortic valve insufficiency. Right ventricular systolic pressure estimated to be 33 mmHg. No evidence for diastolic dysfunction. Ordering Physician: Henry Villar Referring Physician: IRISH CARLIN Performed By: Lucinda Larson, CONNER, RVT
== END ==
PROVIDERS: PCP Internal Medicine; Referring Provider Internal Medicine Cardiovascular Disease; Visit Provider Internal Medicine Cardiovascular Disease
DX: R07.9 Chest pain, unspecified (principal); I10 Essential (primary) hypertension; I42.0 Dilated cardiomyopathy; E78.5 Hyperlipidemia, unspecified; I49.3 Ventricular premature depolarization
CPT/HCPCS: 93306

== ENCOUNTER 2021-02-26 09:13 | Outpatient (RCR) | payer MEDICARE, MEDICAID, SELFPAY ==
[2020-04-18 10:20] VITALS: BMI 24.4
[2021-01-29 15:35] VITALS: BMI 27.8
[2021-02-26 09:41] LABS: Hematocrit 33.5 % (37-47); Hemoglobin 10.5 g/dL (12.0-15.0); Mean Corp Hgb Conc 31.3 g/dL (32-36); Mean Corpuscular Volume 92.5 fL (81-99); Mean Platelet Vol. 9.9 fl (6.2-12.0); POSITIVE COUNT YES; POSITIVE MORPHOLOGY YES; Platelet Count 290 K/mm3 (150-450); RBC Distribution Width CV 13.1 % (11.6-14.6); RBC Distribution Width SD 43.8 fl (35.1-43.9); Red Blood Count 3.62 M/mm3 (4.2-5.4); White Blood Count 6.8 K/mm3 (4.4-11.0)
[2021-02-26 09:43] LABS: Differential Indicated MANUAL DIFF
[2021-02-26 09:58] LABS: AST(SGOT) 20 U/L (15-37); Alanine Aminotransfer ALT/SGPT 31 U/L (13-56); Albumin, Serum 3.6 g/dL (3.2-5.0); Alkaline Phosphatase 54 U/L (45-117); Anion Gap 6 (5-15); BUN 24 mg/dL (7-18); BUN/Creat Ratio 15.4 RATIO (10-20); Bilirubin, Direct 0.07 mg/dL (0.00-0.30); Chloride 107 mmol/L (98-107); Creatinine, Serum 1.56 mg/dL (0.55-1.02); EST Glomerular Filtration Rate 35 mL/min (>60); Est Glom Filt Rate - Afr Amer 42 mL/min (>60); GGTP 28 U/L (5-55); Globulin 3.1 g/dL (2.2-4.2); Glucose 93 mg/dL (74-106); Magnesium 2.1 mg/dL (1.6-2.6); Phosphorus 3.9 mg/dL (2.5-4.9); Potassium 4.6 mmol/L (3.5-5.1); Protein, Total 6.7 g/dL (6.4-8.2); Sodium Level 137 mmol/L (136-145); Uric Acid 5.9 mg/dL (2.6-6.0)
[2021-02-26 10:04] LABS: Lymphocyte 32 % (19-41); Metamyelocyte 3 % (0-1); Monocyte 4 % (0-10); Neutrophil-Band 3 % (0-5); Neutrophil-Segmented 54 % (47-70); Total Cells Counted 100 (MANUAL DIFF)
[2021-02-26 10:05] LABS: Absolute Lymphocyte Count 2.17 X10^3/uL (0.83-4.51); Absolute Neutrophil Count 3.9 X10^3/uL (2.0-7.7); Hypochromasia RARE; Platelet Estimate ADEQUATE (ADEQ)
[2021-02-26 17:38] LABS: Xtra Tube EP Lab EXTRA TUBE
[2021-02-27 13:22] LABS: Pathologist Review Reviewed
[2021-02-28 12:16] LABS: Tacrolimus (FK506) 9.3 ng/mL (2.0-20.0)
== END 2021-03-20 23:59 ==
LOC: PAVLAB 09:13
PROVIDERS: Family Provider Internal Medicine; PCP Internal Medicine
DX: Z48.24 Encounter for aftercare following lung transplant (principal); D89.9 Disorder involving the immune mechanism, unspecified; R79.9 Abnormal finding of blood chemistry, unspecified; Z51.81 Encounter for therapeutic drug level monitoring; Z94.2 Lung transplant status; Z79.899 Other long term (current) drug therapy
CPT/HCPCS: 36415; 80048; 80076; 80197; 82977; 83735; 84100; 84550; 85025

== ENCOUNTER 2021-03-26 08:49 | Outpatient (RCR) | payer MEDICARE, MEDICAID, SELFPAY ==
[2021-01-29 15:35] VITALS: BMI 27.8
[2021-03-26 09:13] LABS: Absolute Lymphocyte Count 2.78 X10^3/uL (0.83-4.51); Absolute Neutrophil Count 3.6 X10^3/uL (2.0-7.7); Basophil# 0.04 X10^3/uL; Basophil% 0.6 % (0-1); Eosinophil# 0.09 X10^3/uL; Eosinophils% 1.2 % (0-5); Hematocrit 31.8 % (37-47); Hemoglobin 10.1 g/dL (12.0-15.0); Lymphocyte # 2.78 X10^3/ul (0.83-4.51); Lymphocyte % 38.5 % (19-41); Mean Corp Hgb Conc 31.8 g/dL (32-36); Mean Corpuscular Hgb 29.2 pg (27.0-32.0); Mean Corpuscular Volume 91.9 fL (81-99); Mean Platelet Vol. 9.4 fl (6.2-12.0); Monocyte% 5.5 % (0-10); NRBC Flagged by Analyzer 0 % (0-5); Neutrophil # 3.59 X10^3/uL (2.7-7.7); Neutrophil % 49.8 % (47-70); Platelet Count 275 K/mm3 (150-450); RBC Distribution Width CV 12.9 % (11.6-14.6); RBC Distribution Width SD 43.2 fl (35.1-43.9); Red Blood Count 3.46 M/mm3 (4.2-5.4); White Blood Count 7.2 K/mm3 (4.4-11.0)
[2021-03-26 09:31] LABS: AST(SGOT) 23 U/L (15-37); Alanine Aminotransfer ALT/SGPT 26 U/L (13-56); Albumin, Serum 3.9 g/dL (3.2-5.0); Alkaline Phosphatase 55 U/L (45-117); Anion Gap 6 (5-15); BUN 32 mg/dL (7-18); BUN/Creat Ratio 15.2 RATIO (10-20); Calcium,Total 9.6 mg/dL (8.5-10.1); Chloride 100 mmol/L (98-107); Creatinine, Serum 2.11 mg/dL (0.55-1.02); EST Glomerular Filtration Rate 25 mL/min (>60); Est Glom Filt Rate - Afr Amer 30 mL/min (>60); GGTP 27 U/L (5-55); Globulin 3.1 g/dL (2.2-4.2); Glucose 98 mg/dL (74-106); Magnesium 2.2 mg/dL (1.6-2.6); Phosphorus 5.6 mg/dL (2.5-4.9); Potassium 5.1 mmol/L (3.5-5.1); Sodium Level 129 mmol/L (136-145)
[2021-03-26 17:10] LABS: Xtra Tube EP Lab EXTRA TUBE
== END 2021-04-20 23:59 ==
LOC: PAVLAB 08:49
PROVIDERS: Family Provider Internal Medicine; PCP Internal Medicine
DX: Z48.24 Encounter for aftercare following lung transplant (principal); D89.9 Disorder involving the immune mechanism, unspecified; R79.9 Abnormal finding of blood chemistry, unspecified; Z94.2 Lung transplant status; Z51.81 Encounter for therapeutic drug level monitoring; Z79.899 Other long term (current) drug therapy
CPT/HCPCS: 36415; 80048; 80076; 80197; 82977; 83735; 84100; 84550; 85025

== ENCOUNTER → 2021-04-04 08:57 | Outpatient (CLI) | payer MEDICARE, MEDICAID, SELFPAY ==
[2020-04-18 10:20] VITALS: BMI 24.4
[2021-01-29 15:35] VITALS: BMI 27.8
--- NOTE | 2021-04-05 10:42 | SPIR_ITS ---
Spirometry PFT Testing Spirometry PFT Testing: INTRODUCTION: The patient is a 70-year-old female that presents for spirometry [facility] due to a history of lung transplantation. Respiratory therapy reports good patient effort. INTERPRETATION: Forced expiration spirometry demonstrates no evidence of a large airways obstructive ventilatory defect. FEV1 was noted to be 117% of predicted. Spirograms are of good quality and plateau normally. The respiratory flow volume loop appears normal. IMPRESSION: Normal spirometry.
== END ==
PROVIDERS: PCP Internal Medicine; Referring Provider Internal Medicine Critical Care Medicine; Visit Provider Internal Medicine Critical Care Medicine
DX: D84.9 Immunodeficiency, unspecified (principal); Z94.2 Lung transplant status
CPT/HCPCS: 94010

== ENCOUNTER 2021-04-25 09:10 | Outpatient (RCR) | payer MEDICARE, MEDICAID, SELFPAY ==
[2021-01-29 15:35] VITALS: BMI 27.8
[2021-04-25 09:39] LABS: Absolute Lymphocyte Count 2.72 X10^3/uL (0.83-4.51); Absolute Neutrophil Count 5.2 X10^3/uL (2.0-7.7); Basophil# 0.02 X10^3/uL; Basophil% 0.2 % (0-1); Eosinophil# 0.04 X10^3/uL; Eosinophils% 0.5 % (0-5); Hematocrit 28.3 % (37-47); Hemoglobin 8.7 g/dL (12.0-15.0); Lymphocyte # 2.72 X10^3/ul (0.83-4.51); Lymphocyte % 32.3 % (19-41); Mean Corp Hgb Conc 30.7 g/dL (32-36); Mean Corpuscular Hgb 29.4 pg (27.0-32.0); Mean Corpuscular Volume 95.6 fL (81-99); Mean Platelet Vol. 9.6 fl (6.2-12.0); Monocyte# 0.29 X10^3/uL; Monocyte% 3.4 % (0-10); NRBC Flagged by Analyzer 0 % (0-5); Neutrophil # 5.15 X10^3/uL (2.7-7.7); Neutrophil % 61.3 % (47-70); Platelet Count 371 K/mm3 (150-450); RBC Distribution Width CV 13.2 % (11.6-14.6); RBC Distribution Width SD 45.1 fl (35.1-43.9); Red Blood Count 2.96 M/mm3 (4.2-5.4); White Blood Count 8.4 K/mm3 (4.4-11.0)
[2021-04-25 10:00] LABS: Hemoglobin A1c 5.5 % (3.8-5.6)
[2021-04-25 10:15] LABS: AST(SGOT) 23 U/L (15-37); Alanine Aminotransfer ALT/SGPT 29 U/L (13-56); Albumin, Serum 3.8 g/dL (3.2-5.0); Alkaline Phosphatase 44 U/L (45-117); Anion Gap 10 (5-15); BUN 34 mg/dL (7-18); BUN/Creat Ratio 15.2 RATIO (10-20); Bilirubin, Direct 0.08 mg/dL (0.00-0.30); Calcium,Total 8.7 mg/dL (8.5-10.1); Chloride 101 mmol/L (98-107); Creatinine, Serum 2.23 mg/dL (0.55-1.02); EST Glomerular Filtration Rate 23 mL/min (>60); Est Glom Filt Rate - Afr Amer 28 mL/min (>60); Ferritin 124 ng/mL (8-252); GGTP 25 U/L (5-55); Globulin 3.3 g/dL (2.2-4.2); Glucose 124 mg/dL (74-106); Iron 119 ug/dL (50-170); Iron Binding Capacity,Total 352 ug/dL (250-450); Magnesium 2.2 mg/dL (1.6-2.6); Phosphorus 3.9 mg/dL (2.5-4.9); Potassium 5.3 mmol/L (3.5-5.1); Protein, Total 7.1 g/dL (6.4-8.2); Sodium Level 132 mmol/L (136-145); Uric Acid 7.2 mg/dL (2.6-6.0)
[2021-04-25 17:36] LABS: Xtra Tube EP Lab EXTRA TUBE
[2021-04-27 09:07] LABS: Immunoglobulin A 153 mg/dL (87-352); Immunoglobulin G 659 mg/dL (586-1602); Immunoglobulin M 94 mg/dL (26-217)
[2021-04-27 12:54] LABS: Tacrolimus (FK506) 10.3 ng/mL (2.0-20.0); Transferrin 271 mg/dL (192-364)
== END 2021-05-21 23:59 ==
LOC: PAVLAB 09:10
PROVIDERS: Internal Medicine Critical Care Medicine; Family Provider Internal Medicine; PCP Internal Medicine
DX: Z48.24 Encounter for aftercare following lung transplant (principal); Z94.2 Lung transplant status; D89.9 Disorder involving the immune mechanism, unspecified; Z79.899 Other long term (current) drug therapy; R79.9 Abnormal finding of blood chemistry, unspecified; Z51.81 Encounter for therapeutic drug level monitoring
CPT/HCPCS: 36415; 80048; 80076; 80197; 82728; 82784; 82977; 83036; 83540; 83550; 83735; 84100; 84466; 84550; 85025

== ENCOUNTER → 2021-05-09 08:52 | Outpatient (CLI) | payer MEDICARE, MEDICAID, SELFPAY ==
[2020-04-18 10:20] VITALS: BMI 24.4
--- NOTE | 2021-05-09 14:16 | SPIR_ITS ---
Spirometry PFT Testing Spirometry PFT Testing: COMPLETE PULMONARY FUNCTION TEST INTERPRETATION Brief HPI: Patient is a 70 year old female, currently under the care of Dr. Goldberg, who presents to [facility] for complete pulmonary function tests secondary to diagnosis of status post lung transplant. Respiratory therapist reports good effort and reproducible results. Interpretation: Forced expiration spirometry shows no large airways obstructive ventilatory defect with an FEV1 of 118% predicted. No bronchodilators were tested. Spirograms are of good quality and plateau normally. The respiratory flow volume loop shows a normal pattern. Compared to previous pulmonary function tests from 04/04/2021, there has been no significant change. Impression: Normal spirometry
== END ==
PROVIDERS: PCP Internal Medicine; Referring Provider Internal Medicine Critical Care Medicine; Visit Provider Internal Medicine Critical Care Medicine
DX: D84.9 Immunodeficiency, unspecified (principal); Z94.2 Lung transplant status
CPT/HCPCS: 94010

== ENCOUNTER 2021-05-30 08:32 | Outpatient (RCR) | payer MEDICARE, MEDICAID, SELFPAY ==
[2021-05-22 00:20] VITALS: BMI 27.8
[2021-05-30 08:58] LABS: Absolute Lymphocyte Count 2.03 X10^3/uL (0.83-4.51); Absolute Neutrophil Count 3.6 X10^3/uL (2.0-7.7); Basophil# 0.02 X10^3/uL; Basophil% 0.3 % (0-1); Eosinophil# 0.06 X10^3/uL; Hematocrit 25.6 % (37-47); Hemoglobin 8.1 g/dL (12.0-15.0); Lymphocyte # 2.03 X10^3/ul (0.83-4.51); Mean Corp Hgb Conc 31.6 g/dL (32-36); Mean Corpuscular Hgb 30.5 pg (27.0-32.0); Mean Corpuscular Volume 96.2 fL (81-99); Mean Platelet Vol. 9.5 fl (6.2-12.0); Monocyte# 0.35 X10^3/uL; Monocyte% 5.7 % (0-10); NRBC Flagged by Analyzer 0 % (0-5); Neutrophil # 3.58 X10^3/uL (2.7-7.7); Neutrophil % 58.2 % (47-70); Platelet Count 332 K/mm3 (150-450); RBC Distribution Width CV 13.4 % (11.6-14.6); RBC Distribution Width SD 47.5 fl (35.1-43.9); Red Blood Count 2.66 M/mm3 (4.2-5.4); White Blood Count 6.2 K/mm3 (4.4-11.0)
[2021-05-30 09:14] LABS: AST(SGOT) 25 U/L (15-37); Alanine Aminotransfer ALT/SGPT 31 U/L (13-56); Albumin, Serum 3.6 g/dL (3.2-5.0); Alkaline Phosphatase 40 U/L (45-117); Anion Gap 6 (5-15); BUN 23 mg/dL (7-18); BUN/Creat Ratio 12.1 RATIO (10-20); Bilirubin, Direct 0.07 mg/dL (0.00-0.30); Calcium,Total 8.9 mg/dL (8.5-10.1); Chloride 100 mmol/L (98-107); EST Glomerular Filtration Rate 28 mL/min (>60); Est Glom Filt Rate - Afr Amer 34 mL/min (>60); Ferritin 116 ng/mL (8-252); GGTP 24 U/L (5-55); Globulin 3.1 g/dL (2.2-4.2); Glucose 106 mg/dL (74-106); Iron 104 ug/dL (50-170); Iron Binding Capacity,Total 317 ug/dL (250-450); Magnesium 1.9 mg/dL (1.6-2.6); Phosphorus 3.9 mg/dL (2.5-4.9); Potassium 4.8 mmol/L (3.5-5.1); Protein, Total 6.7 g/dL (6.4-8.2); Sodium Level 130 mmol/L (136-145); Uric Acid 6.1 mg/dL (2.6-6.0)
[2021-05-30 09:20] LABS: Hemoglobin A1c 5.6 % (3.8-5.6)
[2021-05-30 16:52] LABS: Xtra Tube EP Lab EXTRA TUBE
[2021-06-02 20:07] LABS: Immunoglobulin A 137 mg/dL (87-352); Immunoglobulin G 562 mg/dL (586-1602); Immunoglobulin M 86 mg/dL (26-217)
[2021-06-02 21:11] LABS: Tacrolimus (FK506) 6.7 ng/mL (2.0-20.0); Transferrin 260 mg/dL (192-364)
== END 2021-06-20 23:59 ==
LOC: PAVLAB 08:32
PROVIDERS: Family Provider Internal Medicine; PCP Internal Medicine
DX: Z48.24 Encounter for aftercare following lung transplant (principal); Z94.2 Lung transplant status; D89.9 Disorder involving the immune mechanism, unspecified; Z79.899 Other long term (current) drug therapy; R79.9 Abnormal finding of blood chemistry, unspecified; Z51.81 Encounter for therapeutic drug level monitoring
CPT/HCPCS: 36415; 80048; 80076; 80197; 82728; 82784; 82977; 83036; 83540; 83550; 83735; 84100; 84466; 84550; 85025

== ENCOUNTER 2021-07-03 09:26 | Outpatient (RCR) | payer MEDICARE, MEDICAID, SELFPAY ==
[2021-06-21 00:15] VITALS: BMI 27.8
[2021-07-03 09:57] LABS: Absolute Lymphocyte Count 2.43 X10^3/uL (0.83-4.51); Absolute Neutrophil Count 3.6 X10^3/uL (2.0-7.7); Basophil# 0.02 X10^3/uL; Basophil% 0.3 % (0-1); Eosinophil# 0.05 X10^3/uL; Eosinophils% 0.8 % (0-5); Hematocrit 25.5 % (37-47); Lymphocyte # 2.43 X10^3/ul (0.83-4.51); Lymphocyte % 36.9 % (19-41); Mean Corp Hgb Conc 31.4 g/dL (32-36); Mean Corpuscular Hgb 30.4 pg (27.0-32.0); Mean Platelet Vol. 9.4 fl (6.2-12.0); Monocyte# 0.35 X10^3/uL; Monocyte% 5.3 % (0-10); NRBC Flagged by Analyzer 0 % (0-5); Neutrophil # 3.64 X10^3/uL (2.7-7.7); Neutrophil % 55.3 % (47-70); Platelet Count 357 K/mm3 (150-450); RBC Distribution Width CV 13.5 % (11.6-14.6); RBC Distribution Width SD 47.8 fl (35.1-43.9); Red Blood Count 2.63 M/mm3 (4.2-5.4); White Blood Count 6.6 K/mm3 (4.4-11.0)
[2021-07-03 10:13] LABS: Hemoglobin A1c 5.6 % (3.8-5.6)
[2021-07-03 10:18] LABS: AST(SGOT) 18 U/L (15-37); Alanine Aminotransfer ALT/SGPT 21 U/L (13-56); Albumin, Serum 3.6 g/dL (3.2-5.0); Alkaline Phosphatase 37 U/L (45-117); Anion Gap 10 (5-15); BUN 25 mg/dL (7-18); BUN/Creat Ratio 11.5 RATIO (10-20); Bilirubin, Direct 0.07 mg/dL (0.00-0.30); Calcium,Total 9.3 mg/dL (8.5-10.1); Chloride 97 mmol/L (98-107); Creatinine, Serum 2.17 mg/dL (0.55-1.02); EST Glomerular Filtration Rate 24 mL/min (>60); Est Glom Filt Rate - Afr Amer 29 mL/min (>60); Ferritin 142 ng/mL (8-252); GGTP 22 U/L (5-55); Glucose 88 mg/dL (74-106); Iron 115 ug/dL (50-170); Iron Binding Capacity,Total 307 ug/dL (250-450); Magnesium 1.5 mg/dL (1.6-2.6); PERCENT IRON SATURATION 37.5 % (15.0-55.0); Phosphorus 3.4 mg/dL (2.5-4.9); Potassium 4.6 mmol/L (3.5-5.1); Protein, Total 6.6 g/dL (6.4-8.2); Sodium Level 129 mmol/L (136-145); Uric Acid 5.2 mg/dL (2.6-6.0)
[2021-07-05 12:08] LABS: Immunoglobulin A 140 mg/dL (87-352); Immunoglobulin G 566 mg/dL (586-1602); Immunoglobulin M 83 mg/dL (26-217)
[2021-07-05 13:23] LABS: Transferrin 248 mg/dL (192-364)
== END 2021-07-21 23:59 ==
LOC: PAVLAB 09:26
PROVIDERS: Family Provider Internal Medicine; PCP Internal Medicine
DX: D89.9 Disorder involving the immune mechanism, unspecified (principal); Z48.24 Encounter for aftercare following lung transplant; Z94.2 Lung transplant status; Z79.899 Other long term (current) drug therapy; R79.9 Abnormal finding of blood chemistry, unspecified; Z51.81 Encounter for therapeutic drug level monitoring
CPT/HCPCS: 36415; 80048; 80076; 80197; 82728; 82784; 82977; 83036; 83540; 83550; 83735; 84100; 84466; 84550; 85025

== ENCOUNTER → 2021-07-17 09:00 | Outpatient (CLI) | payer MEDICARE, MEDICAID, SELFPAY ==
--- NOTE | 2021-07-17 14:52 | SPIR ---
Spirometry PFT Testing Spirometry PFT Testing: COMPLETE PULMONARY FUNCTION TEST INTERPRETATION Brief HPI: Patient is a 70 year old female, currently under the care of Dr. Goldberg, who presents to [facility] for complete pulmonary function tests secondary to diagnosis of status post lung transplant. Respiratory therapist reports good effort and reproducible results. Interpretation: Forced expiration spirometry shows no large airways obstructive ventilatory defect with an FEV1 of 122% predicted. There is no testing for bronchodilator response. Spirograms are of good quality and plateau normally. The respiratory flow volume loop shows a normal pattern. Compared to previous pulmonary function tests from 05/09/2021, there has been no significant change. Impression: Normal spirometry with no change compared to previous.
== END ==
PROVIDERS: PCP Internal Medicine; Referring Provider Internal Medicine Critical Care Medicine; Visit Provider Internal Medicine Critical Care Medicine
DX: D84.9 Immunodeficiency, unspecified (principal); Z94.2 Lung transplant status
CPT/HCPCS: 94010

== ENCOUNTER 2021-08-14 07:53 | Outpatient (RCR) | payer MEDICARE, MEDICAID, SELFPAY ==
[2021-07-22 00:12] VITALS: BMI 27.8
[2021-07-30 09:46] LABS: Absolute Lymphocyte Count 2.26 X10^3/uL (0.83-4.51); Absolute Neutrophil Count 3.5 X10^3/uL (2.0-7.7); Basophil# 0.04 X10^3/uL; Basophil% 0.6 % (0-1); Eosinophil# 0.05 X10^3/uL; Eosinophils% 0.8 % (0-5); Hematocrit 22.9 % (37-47); Hemoglobin 7.3 g/dL (12.0-15.0); Lymphocyte # 2.26 X10^3/ul (0.83-4.51); Lymphocyte % 36.1 % (19-41); Mean Corp Hgb Conc 31.9 g/dL (32-36); Mean Corpuscular Hgb 30.7 pg (27.0-32.0); Mean Corpuscular Volume 96.2 fL (81-99); Mean Platelet Vol. 10.3 fl (6.2-12.0); Monocyte# 0.31 X10^3/uL; NRBC Flagged by Analyzer 0 % (0-5); Neutrophil # 3.51 X10^3/uL (2.7-7.7); Neutrophil % 56.1 % (47-70); Platelet Count 321 K/mm3 (150-450); RBC Distribution Width CV 13.6 % (11.6-14.6); RBC Distribution Width SD 46.7 fl (35.1-43.9); Red Blood Count 2.38 M/mm3 (4.2-5.4); White Blood Count 6.3 K/mm3 (4.4-11.0)
[2021-07-30 10:05] LABS: AST(SGOT) 18 U/L (15-37); Alanine Aminotransfer ALT/SGPT 21 U/L (13-56); Albumin, Serum 3.7 g/dL (3.2-5.0); Alkaline Phosphatase 44 U/L (45-117); Anion Gap 12 (5-15); BUN 77 mg/dL (7-18); BUN/Creat Ratio 22.2 RATIO (10-20); Bilirubin, Direct 0.07 mg/dL (0.00-0.30); Calcium,Total 8.9 mg/dL (8.5-10.1); Chloride 108 mmol/L (98-107); Creatinine, Serum 3.47 mg/dL (0.55-1.02); EST Glomerular Filtration Rate 14 mL/min (>60); Est Glom Filt Rate - Afr Amer 17 mL/min (>60); Ferritin 230 ng/mL (8-252); GGTP 18 U/L (5-55); Globulin 3.3 g/dL (2.2-4.2); Glucose 104 mg/dL (74-106); Iron 120 ug/dL (50-170); Iron Binding Capacity,Total 263 ug/dL (250-450); Magnesium 2.1 mg/dL (1.6-2.6); PERCENT IRON SATURATION 45.6 % (15.0-55.0); Phosphorus 4.8 mg/dL (2.5-4.9); Potassium 4.7 mmol/L (3.5-5.1); Sodium Level 135 mmol/L (136-145); Uric Acid 9.5 mg/dL (2.6-6.0)
[2021-07-30 17:42] LABS: Xtra Tube EP Lab EXTRA TUBE
[2021-08-01 16:51] LABS: Tacrolimus (FK506) 7.4 ng/mL (2.0-20.0); Transferrin 226 mg/dL (192-364)
[2021-08-07 09:37] LABS: Absolute Lymphocyte Count 1.51 X10^3/uL (0.83-4.51); Absolute Neutrophil Count 2.7 X10^3/uL (2.0-7.7); Basophil# 0.02 X10^3/uL; Basophil% 0.4 % (0-1); Eosinophil# 0.09 X10^3/uL; Eosinophils% 1.8 % (0-5); Hematocrit 26.9 % (37-47); Hemoglobin 8.3 g/dL (12.0-15.0); Lymphocyte # 1.51 X10^3/ul (0.83-4.51); Lymphocyte % 30.3 % (19-41); Mean Corp Hgb Conc 30.9 g/dL (32-36); Mean Corpuscular Hgb 28.8 pg (27.0-32.0); Mean Corpuscular Volume 93.4 fL (81-99); Mean Platelet Vol. 10.3 fl (6.2-12.0); Monocyte# 0.51 X10^3/uL; Monocyte% 10.2 % (0-10); NRBC Flagged by Analyzer 0 % (0-5); Neutrophil # 2.66 X10^3/uL (2.7-7.7); Neutrophil % 53.3 % (47-70); Platelet Count 232 K/mm3 (150-450); RBC Distribution Width CV 15.5 % (11.6-14.6); RBC Distribution Width SD 52.8 fl (35.1-43.9); Red Blood Count 2.88 M/mm3 (4.2-5.4)
[2021-08-07 09:49] LABS: AST(SGOT) 23 U/L (15-37); Alanine Aminotransfer ALT/SGPT 29 U/L (13-56); Albumin, Serum 3.1 g/dL (3.2-5.0); Alkaline Phosphatase 41 U/L (45-117); Anion Gap 5 (5-15); BUN 19 mg/dL (7-18); BUN/Creat Ratio 10.3 RATIO (10-20); Bilirubin, Direct 0.08 mg/dL (0.00-0.30); Calcium,Total 9.2 mg/dL (8.5-10.1); Chloride 109 mmol/L (98-107); Creatinine, Serum 1.84 mg/dL (0.55-1.02); EST Glomerular Filtration Rate 29 mL/min (>60); Est Glom Filt Rate - Afr Amer 35 mL/min (>60); GGTP 15 U/L (5-55); Glucose 93 mg/dL (74-106); Magnesium 1.6 mg/dL (1.6-2.6); Phosphorus 2.3 mg/dL (2.5-4.9); Protein, Total 6.1 g/dL (6.4-8.2); Sodium Level 137 mmol/L (136-145)
[2021-08-07 17:29] LABS: Xtra Tube EP Lab EXTRA TUBE
[2021-08-10 16:45] LABS: Tacrolimus (FK506) 4.9 ng/mL (2.0-20.0)
[2021-08-14 08:22] LABS: Absolute Lymphocyte Count 2.48 X10^3/uL (0.83-4.51); Absolute Neutrophil Count 2.7 X10^3/uL (2.0-7.7); Basophil# 0.04 X10^3/uL; Basophil% 0.7 % (0-1); Eosinophil# 0.07 X10^3/uL; Eosinophils% 1.2 % (0-5); Hematocrit 28.1 % (37-47); Hemoglobin 8.6 g/dL (12.0-15.0); Lymphocyte # 2.48 X10^3/ul (0.83-4.51); Lymphocyte % 41.9 % (19-41); Mean Corp Hgb Conc 30.6 g/dL (32-36); Mean Corpuscular Hgb 29.8 pg (27.0-32.0); Mean Corpuscular Volume 97.2 fL (81-99); Monocyte# 0.42 X10^3/uL; Monocyte% 7.1 % (0-10); NRBC Flagged by Analyzer 0 % (0-5); Neutrophil # 2.65 X10^3/uL (2.7-7.7); Neutrophil % 44.7 % (47-70); Platelet Count 328 K/mm3 (150-450); RBC Distribution Width CV 15.9 % (11.6-14.6); Red Blood Count 2.89 M/mm3 (4.2-5.4); White Blood Count 5.9 K/mm3 (4.4-11.0)
[2021-08-14 08:53] LABS: ALB/GLOB Ratio 1.3 RATIO (0.9-2.4); AST(SGOT) 27 U/L (15-37); Alanine Aminotransfer ALT/SGPT 31 U/L (13-56); Albumin, Serum 3.5 g/dL (3.2-5.0); Alkaline Phosphatase 45 U/L (45-117); Anion Gap 11 (5-15); BUN 42 mg/dL (7-18); BUN/Creat Ratio 21.1 RATIO (10-20); Bilirubin, Direct 0.08 mg/dL (0.00-0.30); Chloride 107 mmol/L (98-107); Creatinine, Serum 1.99 mg/dL (0.55-1.02); EST Glomerular Filtration Rate 26 mL/min (>60); Est Glom Filt Rate - Afr Amer 32 mL/min (>60); GGTP 13 U/L (5-55); Globulin 2.7 g/dL (2.2-4.2); Glucose 105 mg/dL (74-106); Magnesium 2.4 mg/dL (1.6-2.6); Phosphorus 4.2 mg/dL (2.5-4.9); Potassium 3.9 mmol/L (3.5-5.1); Protein, Total 6.2 g/dL (6.4-8.2); Sodium Level 139 mmol/L (136-145)
[2021-08-19 18:27] LABS: Tacrolimus (FK506) 5.2 ng/mL (2.0-20.0)
== END 2021-08-20 23:59 ==
LOC: PAVLAB 07:53
PROVIDERS: Internal Medicine Critical Care Medicine; Family Provider Internal Medicine; PCP Internal Medicine
DX: Z48.24 Encounter for aftercare following lung transplant (principal); Z94.2 Lung transplant status; D89.9 Disorder involving the immune mechanism, unspecified; Z79.899 Other long term (current) drug therapy; R79.9 Abnormal finding of blood chemistry, unspecified; Z51.81 Encounter for therapeutic drug level monitoring
CPT/HCPCS: 36415; 80048; 80053; 80076; 80197; 82248; 82728; 82977; 83540; 83550; 83735; 84100; 84466; 84550; 85025

== ENCOUNTER → 2021-08-14 08:10 | Outpatient (CLI) | payer MEDICARE, MEDICAID, SELFPAY ==
--- NOTE | 2021-08-14 15:44 | SPIR ---
Spirometry PFT Testing Spirometry PFT Testing: COMPLETE PULMONARY FUNCTION TEST INTERPRETATION Brief HPI: Patient is a 70 year old female, currently under the care of Dr. Goldberg, who presents to [facility] for complete pulmonary function tests secondary to diagnosis of status post lung transplant. Respiratory therapist reports good effort and reproducible results. Interpretation: Forced expiration spirometry shows no large airways obstructive ventilatory defect with an FEV1 of 123% predicted. There was no bronchodilator testing completed. Spirograms are of good quality and plateau normally. The respiratory flow volume loop shows a normal pattern. Compared to previous pulmonary function tests from July 17, there has been no significant change. Impression: Normal spirometry with no changes compared to previous
== END ==
PROVIDERS: PCP Internal Medicine; Referring Provider Internal Medicine Critical Care Medicine; Visit Provider Internal Medicine Critical Care Medicine
DX: D84.9 Immunodeficiency, unspecified (principal); Z48.24 Encounter for aftercare following lung transplant; Z94.2 Lung transplant status; D89.9 Disorder involving the immune mechanism, unspecified; R79.9 Abnormal finding of blood chemistry, unspecified; Z51.81 Encounter for therapeutic drug level monitoring; Z79.899 Other long term (current) drug therapy
CPT/HCPCS: 36415; 80048; 80053; 80076; 80197; 82248; 82728; 82977; 83540; 83550; 83735; 84100; 84466; 84550; 85025; 94010

== ENCOUNTER 2021-09-10 08:22 | Outpatient (RCR) | payer MEDICARE, MEDICAID, SELFPAY ==
[2021-08-21 00:17] VITALS: BMI 27.8
[2021-08-22 08:59] LABS: Absolute Lymphocyte Count 2.23 X10^3/uL (0.83-4.51); Absolute Neutrophil Count 4.3 X10^3/uL (2.0-7.7); Basophil# 0.06 X10^3/uL; Basophil% 0.8 % (0-1); Eosinophil# 0.08 X10^3/uL; Eosinophils% 1.1 % (0-5); Hematocrit 31.1 % (37-47); Hemoglobin 9.3 g/dL (12.0-15.0); Lymphocyte # 2.23 X10^3/ul (0.83-4.51); Lymphocyte % 30.4 % (19-41); Mean Corp Hgb Conc 29.9 g/dL (32-36); Mean Corpuscular Hgb 29.5 pg (27.0-32.0); Mean Corpuscular Volume 98.7 fL (81-99); Mean Platelet Vol. 9.7 fl (6.2-12.0); Monocyte# 0.52 X10^3/uL; Monocyte% 7.1 % (0-10); NRBC Flagged by Analyzer 0 % (0-5); Neutrophil # 4.28 X10^3/uL (2.7-7.7); Neutrophil % 58.3 % (47-70); Platelet Count 282 K/mm3 (150-450); RBC Distribution Width CV 16.7 % (11.6-14.6); RBC Distribution Width SD 60.3 fl (35.1-43.9); Red Blood Count 3.15 M/mm3 (4.2-5.4); White Blood Count 7.3 K/mm3 (4.4-11.0)
[2021-08-22 09:29] LABS: ALB/GLOB Ratio 1.1 RATIO (0.9-2.4); AST(SGOT) 23 U/L (15-37); Alanine Aminotransfer ALT/SGPT 27 U/L (13-56); Albumin, Serum 3.5 g/dL (3.2-5.0); Alkaline Phosphatase 44 U/L (45-117); Anion Gap 5 (5-15); BUN 30 mg/dL (7-18); BUN/Creat Ratio 17.8 RATIO (10-20); Bilirubin, Direct 0.11 mg/dL (0.00-0.30); Calcium,Total 9.4 mg/dL (8.5-10.1); Chloride 110 mmol/L (98-107); Creatinine, Serum 1.69 mg/dL (0.55-1.02); EST Glomerular Filtration Rate 32 mL/min (>60); Est Glom Filt Rate - Afr Amer 39 mL/min (>60); GGTP 14 U/L (5-55); Globulin 3.2 g/dL (2.2-4.2); Glucose 90 mg/dL (74-106); Magnesium 2.3 mg/dL (1.6-2.6); Phosphorus 5.5 mg/dL (2.5-4.9); Potassium 4.8 mmol/L (3.5-5.1); Protein, Total 6.7 g/dL (6.4-8.2); Sodium Level 141 mmol/L (136-145)
[2021-08-22 16:56] LABS: Xtra Tube EP Lab EXTRA TUBE
[2021-08-26 20:54] LABS: Tacrolimus (FK506) 3.7 ng/mL (2.0-20.0)
[2021-08-29 08:45] LABS: Absolute Lymphocyte Count 2.61 X10^3/uL (0.83-4.51); Absolute Neutrophil Count 2.8 X10^3/uL (2.0-7.7); Basophil# 0.04 X10^3/uL; Basophil% 0.7 % (0-1); Eosinophil# 0.03 X10^3/uL; Eosinophils% 0.5 % (0-5); Hematocrit 34.5 % (37-47); Hemoglobin 10.1 g/dL (12.0-15.0); Lymphocyte # 2.61 X10^3/ul (0.83-4.51); Mean Corp Hgb Conc 29.3 g/dL (32-36); Mean Corpuscular Hgb 29.7 pg (27.0-32.0); Mean Corpuscular Volume 101.5 fL (81-99); Mean Platelet Vol. 10.1 fl (6.2-12.0); Monocyte# 0.46 X10^3/uL; Monocyte% 7.6 % (0-10); NRBC Flagged by Analyzer 0 % (0-5); Neutrophil # 2.83 X10^3/uL (2.7-7.7); Neutrophil % 46.6 % (47-70); Platelet Count 221 K/mm3 (150-450); RBC Distribution Width CV 16.4 % (11.6-14.6); RBC Distribution Width SD 61.2 fl (35.1-43.9); White Blood Count 6.1 K/mm3 (4.4-11.0)
[2021-08-29 09:32] LABS: AST(SGOT) 21 U/L (15-37); Alanine Aminotransfer ALT/SGPT 30 U/L (13-56); Albumin, Serum 3.5 g/dL (3.2-5.0); Alkaline Phosphatase 47 U/L (45-117); Anion Gap 5 (5-15); BUN 32 mg/dL (7-18); Bilirubin, Direct 0.07 mg/dL (0.00-0.30); Calcium,Total 9.2 mg/dL (8.5-10.1); Chloride 111 mmol/L (98-107); Creatinine, Serum 1.39 mg/dL (0.55-1.02); EST Glomerular Filtration Rate 40 mL/min (>60); Est Glom Filt Rate - Afr Amer 48 mL/min (>60); GGTP 15 U/L (5-55); Globulin 3.6 g/dL (2.2-4.2); Glucose 94 mg/dL (74-106); Magnesium 2.6 mg/dL (1.6-2.6); Protein, Total 7.1 g/dL (6.4-8.2); Sodium Level 138 mmol/L (136-145)
[2021-09-02 16:21] LABS: Tacrolimus (FK506) 5.7 ng/mL (2.0-20.0)
[2021-09-10 08:59] LABS: Absolute Lymphocyte Count 2.23 X10^3/uL (0.83-4.51); Absolute Neutrophil Count 1.1 X10^3/uL (2.0-7.7); Basophil# 0.07 X10^3/uL; Basophil% 1.6 % (0-1); Eosinophil# 0.12 X10^3/uL; Eosinophils% 2.8 % (0-5); Hematocrit 32.8 % (37-47); Hemoglobin 10.2 g/dL (12.0-15.0); Lymphocyte # 2.23 X10^3/ul (0.83-4.51); Lymphocyte % 51.7 % (19-41); Mean Corp Hgb Conc 31.1 g/dL (32-36); Mean Corpuscular Hgb 31.3 pg (27.0-32.0); Mean Corpuscular Volume 100.6 fL (81-99); Mean Platelet Vol. 9.3 fl (6.2-12.0); Monocyte# 0.56 X10^3/uL; NRBC Flagged by Analyzer 0 % (0-5); Neutrophil # 1.14 X10^3/uL (2.7-7.7); Neutrophil % 26.5 % (47-70); Platelet Count 267 K/mm3 (150-450); RBC Distribution Width CV 16.1 % (11.6-14.6); RBC Distribution Width SD 60.5 fl (35.1-43.9); Red Blood Count 3.26 M/mm3 (4.2-5.4); White Blood Count 4.3 K/mm3 (4.4-11.0)
[2021-09-10 09:37] LABS: ALB/GLOB Ratio 0.9 RATIO (0.9-2.4); AST(SGOT) 21 U/L (15-37); Alanine Aminotransfer ALT/SGPT 25 U/L (13-56); Albumin, Serum 3.3 g/dL (3.2-5.0); Alkaline Phosphatase 48 U/L (45-117); Anion Gap 6 (5-15); BUN 28 mg/dL (7-18); BUN/Creat Ratio 19.7 RATIO (10-20); Bilirubin, Direct < 0.05 mg/dL (0.00-0.30); Calcium,Total 9.3 mg/dL (8.5-10.1); Chloride 108 mmol/L (98-107); Creatinine, Serum 1.42 mg/dL (0.55-1.02); EST Glomerular Filtration Rate 39 mL/min (>60); Est Glom Filt Rate - Afr Amer 47 mL/min (>60); GGTP 12 U/L (5-55); Globulin 3.7 g/dL (2.2-4.2); Glucose 90 mg/dL (74-106); Magnesium 2.3 mg/dL (1.6-2.6); Phosphorus 4.8 mg/dL (2.5-4.9); Sodium Level 139 mmol/L (136-145)
== END 2021-09-20 23:59 ==
LOC: PAVLAB 08:22
PROVIDERS: Internal Medicine Critical Care Medicine; Family Provider Internal Medicine; PCP Internal Medicine
DX: Z48.24 Encounter for aftercare following lung transplant (principal); Z94.2 Lung transplant status; D89.9 Disorder involving the immune mechanism, unspecified; Z79.899 Other long term (current) drug therapy; R79.9 Abnormal finding of blood chemistry, unspecified; Z51.81 Encounter for therapeutic drug level monitoring
CPT/HCPCS: 36415; 80053; 80197; 82248; 82977; 83735; 84100; 85025

== ENCOUNTER 2021-10-09 08:40 | Outpatient (RCR) | payer MEDICARE, MEDICAID, SELFPAY ==
[2021-09-21 00:17] VITALS: BMI 27.8
[2021-09-24 09:20] LABS: Absolute Lymphocyte Count 2.01 X10^3/uL (0.83-4.51); Absolute Neutrophil Count 2.3 X10^3/uL (2.0-7.7); Basophil# 0.06 X10^3/uL; Basophil% 1.2 % (0-1); Eosinophil# 0.08 X10^3/uL; Eosinophils% 1.6 % (0-5); Hemoglobin 10.4 g/dL (12.0-15.0); Lymphocyte # 2.01 X10^3/ul (0.83-4.51); Lymphocyte % 40.4 % (19-41); Mean Corp Hgb Conc 30.6 g/dL (32-36); Mean Corpuscular Volume 101.5 fL (81-99); Mean Platelet Vol. 9.7 fl (6.2-12.0); Monocyte% 10.1 % (0-10); NRBC Flagged by Analyzer 0 % (0-5); Neutrophil # 2.28 X10^3/uL (2.7-7.7); Neutrophil % 45.9 % (47-70); Platelet Count 204 K/mm3 (150-450); RBC Distribution Width CV 15.4 % (11.6-14.6); RBC Distribution Width SD 57.4 fl (35.1-43.9); Red Blood Count 3.35 M/mm3 (4.2-5.4)
[2021-09-24 09:39] LABS: Albumin, Serum 3.6 g/dL (3.2-5.0); BUN 28 mg/dL (7-18); BUN/Creat Ratio 20.3 RATIO (10-20); Creatinine, Serum 1.38 mg/dL (0.55-1.02); EST Glomerular Filtration Rate 40 mL/min (>60); Est Glom Filt Rate - Afr Amer 49 mL/min (>60); Glucose 93 mg/dL (74-106); Protein, Total 7.6 g/dL (6.4-8.2)
[2021-09-24 09:40] LABS: ALB/GLOB Ratio 0.9 RATIO (0.9-2.4); AST(SGOT) 22 U/L (15-37); Alanine Aminotransfer ALT/SGPT 22 U/L (13-56); Alkaline Phosphatase 53 U/L (45-117); Anion Gap 5 (5-15); Bilirubin, Direct < 0.05 mg/dL (0.00-0.30); Calcium,Total 9.1 mg/dL (8.5-10.1); Chloride 105 mmol/L (98-107); GGTP 11 U/L (5-55); Magnesium 2.6 mg/dL (1.6-2.6); Phosphorus 4.1 mg/dL (2.5-4.9); Potassium 5.2 mmol/L (3.5-5.1); Sodium Level 137 mmol/L (136-145)
[2021-09-27 15:44] LABS: Tacrolimus (FK506) 4.4 ng/mL (2.0-20.0)
[2021-10-09 09:07] LABS: Absolute Lymphocyte Count 2.78 X10^3/uL (0.83-4.51); Absolute Neutrophil Count 3.1 X10^3/uL (2.0-7.7); Basophil# 0.07 X10^3/uL; Eosinophil# 0.21 X10^3/uL; Eosinophils% 3.1 % (0-5); Hemoglobin 10.4 g/dL (12.0-15.0); Lymphocyte # 2.78 X10^3/ul (0.83-4.51); Mean Corp Hgb Conc 31.5 g/dL (32-36); Mean Corpuscular Volume 101.5 fL (81-99); Mean Platelet Vol. 9.1 fl (6.2-12.0); Monocyte# 0.57 X10^3/uL; Monocyte% 8.4 % (0-10); NRBC Flagged by Analyzer 0 % (0-5); Neutrophil # 3.13 X10^3/uL (2.7-7.7); Neutrophil % 46.2 % (47-70); Platelet Count 288 K/mm3 (150-450); RBC Distribution Width CV 15.6 % (11.6-14.6); Red Blood Count 3.25 M/mm3 (4.2-5.4); White Blood Count 6.8 K/mm3 (4.4-11.0)
[2021-10-09 09:33] LABS: ALB/GLOB Ratio 0.9 RATIO (0.9-2.4); AST(SGOT) 19 U/L (15-37); Alanine Aminotransfer ALT/SGPT 20 U/L (13-56); Albumin, Serum 3.7 g/dL (3.2-5.0); Alkaline Phosphatase 52 U/L (45-117); Anion Gap 6 (5-15); BUN 40 mg/dL (7-18); BUN/Creat Ratio 23.1 RATIO (10-20); Bilirubin, Direct < 0.05 mg/dL (0.00-0.30); Calcium,Total 9.3 mg/dL (8.5-10.1); Chloride 104 mmol/L (98-107); Creatinine, Serum 1.73 mg/dL (0.55-1.02); EST Glomerular Filtration Rate 31 mL/min (>60); Est Glom Filt Rate - Afr Amer 37 mL/min (>60); GGTP 8 U/L (5-55); Globulin 4.1 g/dL (2.2-4.2); Glucose 100 mg/dL (74-106); Magnesium 2.8 mg/dL (1.6-2.6); Phosphorus 4.8 mg/dL (2.5-4.9); Potassium 4.6 mmol/L (3.5-5.1); Protein, Total 7.8 g/dL (6.4-8.2); Sodium Level 135 mmol/L (136-145); Uric Acid 6.7 mg/dL (2.6-6.0)
[2021-10-12 14:23] LABS: Tacrolimus (FK506) 3.4 ng/mL (2.0-20.0)
== END 2021-10-21 23:59 ==
LOC: PAVLAB 08:40
PROVIDERS: Internal Medicine Critical Care Medicine; Family Provider Internal Medicine; PCP Internal Medicine
DX: Z48.24 Encounter for aftercare following lung transplant (principal); Z94.2 Lung transplant status; D89.9 Disorder involving the immune mechanism, unspecified; Z79.899 Other long term (current) drug therapy; R79.9 Abnormal finding of blood chemistry, unspecified; Z51.81 Encounter for therapeutic drug level monitoring
CPT/HCPCS: 36415; 80053; 80197; 82248; 82977; 83735; 84100; 84550; 85025

== ENCOUNTER 2021-10-17 09:05 | Outpatient (CLI) | payer MEDICARE, MEDICAID, SELFPAY ==
--- NOTE | 2021-10-18 10:07 | SPIR ---
Spirometry PFT Testing Spirometry PFT Testing: INTRODUCTION: The patient is a 71-year-old female that presents for spirometry due to a history of lung transplantation. Respiratory therapy reported good patient effort. INTERPRETATION: Forced expiration spirometry demonstrates no evidence of a large airways obstructive ventilatory defect. The respiratory flow volume loop is normal. IMPRESSION: Normal spirometry with stable FEV1.
== END 2021-10-17 23:59 | disposition short-term general hospital (02) ==
LOC: PSN 09:10
PROVIDERS: PCP Internal Medicine; Referring Provider Internal Medicine Critical Care Medicine; Visit Provider Internal Medicine Critical Care Medicine
DX: D84.9 Immunodeficiency, unspecified (principal); Z94.2 Lung transplant status
CPT/HCPCS: 94010

== ENCOUNTER 2021-11-11 08:30 | Outpatient (CLI) | payer MEDICARE, MEDICAID, SELFPAY ==
--- NOTE | 2021-11-11 13:42 | PFT ---
INTRODUCTION: The patient is a 71-year-old female that presents for spirometry secondary to a diagnosis of lung transplantation. Respiratory therapy reported good patient effort. INTERPRETATION: Forced expiration spirometry demonstrates no evidence of a large airways obstructive ventilatory defect with an FEV1 of 116% of predicted. There has been stability in the patient's FEV1 since July 2021. IMPRESSION: Normal spirometry.
== END 2021-11-11 23:59 | disposition home or self-care (01) ==
LOC: PSN 08:32
PROVIDERS: PCP Internal Medicine; Referring Provider Internal Medicine Critical Care Medicine; Visit Provider Internal Medicine Critical Care Medicine
DX: D84.9 Immunodeficiency, unspecified (principal); Z94.2 Lung transplant status
CPT/HCPCS: 94010

== ENCOUNTER 2021-11-13 08:54 | Outpatient (RCR) | payer MEDICARE, MEDICAID, SELFPAY ==
[2021-10-22 00:21] VITALS: BMI 27.8
[2021-10-31 08:58] LABS: Absolute Lymphocyte Count 3.03 X10^3/uL (0.83-4.51); Absolute Neutrophil Count 2.5 X10^3/uL (2.0-7.7); Basophil# 0.06 X10^3/uL; Eosinophils% 1.6 % (0-5); Hemoglobin 11.3 g/dL (12.0-15.0); Lymphocyte # 3.03 X10^3/ul (0.83-4.51); Lymphocyte % 48.6 % (19-41); Mean Corp Hgb Conc 33.2 g/dL (32-36); Mean Corpuscular Hgb 34.7 pg (27.0-32.0); Mean Corpuscular Volume 104.3 fL (81-99); Mean Platelet Vol. 9.7 fl (6.2-12.0); Monocyte# 0.52 X10^3/uL; Monocyte% 8.3 % (0-10); NRBC Flagged by Analyzer 0 % (0-5); Neutrophil # 2.51 X10^3/uL (2.7-7.7); Neutrophil % 40.2 % (47-70); Platelet Count 257 K/mm3 (150-450); RBC Distribution Width CV 15.9 % (11.6-14.6); RBC Distribution Width SD 60.3 fl (35.1-43.9); Red Blood Count 3.26 M/mm3 (4.2-5.4); White Blood Count 6.2 K/mm3 (4.4-11.0)
[2021-10-31 09:20] LABS: ALB/GLOB Ratio 1.1 RATIO (0.9-2.4); AST(SGOT) 18 U/L (15-37); Alanine Aminotransfer ALT/SGPT 19 U/L (13-56); Albumin, Serum 3.6 g/dL (3.2-5.0); Alkaline Phosphatase 47 U/L (45-117); Anion Gap 4 (5-15); BUN 31 mg/dL (7-18); BUN/Creat Ratio 16.9 RATIO (10-20); Bilirubin, Direct 0.08 mg/dL (0.00-0.30); Calcium,Total 8.6 mg/dL (8.5-10.1); Chloride 105 mmol/L (98-107); Creatinine, Serum 1.83 mg/dL (0.55-1.02); EST Glomerular Filtration Rate 29 mL/min (>60); Est Glom Filt Rate - Afr Amer 35 mL/min (>60); GGTP 11 U/L (5-55); Globulin 3.4 g/dL (2.2-4.2); Glucose 90 mg/dL (74-106); Phosphorus 3.9 mg/dL (2.5-4.9); Potassium 4.6 mmol/L (3.5-5.1); Sodium Level 134 mmol/L (136-145)
[2021-11-04 20:49] LABS: MG Sendout 2.7 mg/dL (1.6-2.3); Tacrolimus (FK506) 5.4 ng/mL (2.0-20.0)
[2021-11-13 09:15] LABS: Absolute Lymphocyte Count 2.87 X10^3/uL (0.83-4.51); Absolute Neutrophil Count 2.4 X10^3/uL (2.0-7.7); Basophil# 0.04 X10^3/uL; Basophil% 0.7 % (0-1); Eosinophil# 0.06 X10^3/uL; Hematocrit 32.5 % (37-47); Hemoglobin 10.9 g/dL (12.0-15.0); Lymphocyte # 2.87 X10^3/ul (0.83-4.51); Lymphocyte % 48.4 % (19-41); Mean Corp Hgb Conc 33.5 g/dL (32-36); Mean Corpuscular Hgb 35.2 pg (27.0-32.0); Mean Corpuscular Volume 104.8 fL (81-99); Mean Platelet Vol. 9.4 fl (6.2-12.0); Monocyte# 0.49 X10^3/uL; Monocyte% 8.3 % (0-10); NRBC Flagged by Analyzer 0 % (0-5); Neutrophil # 2.43 X10^3/uL (2.7-7.7); Neutrophil % 40.9 % (47-70); Platelet Count 209 K/mm3 (150-450); RBC Distribution Width CV 16.1 % (11.6-14.6); RBC Distribution Width SD 61.2 fl (35.1-43.9); White Blood Count 5.9 K/mm3 (4.4-11.0)
[2021-11-13 09:33] LABS: ALB/GLOB Ratio 0.9 RATIO (0.9-2.4); AST(SGOT) 19 U/L (15-37); Alanine Aminotransfer ALT/SGPT 22 U/L (13-56); Albumin, Serum 3.5 g/dL (3.2-5.0); Alkaline Phosphatase 53 U/L (45-117); Anion Gap 6 (5-15); BUN 38 mg/dL (7-18); BUN/Creat Ratio 20.4 RATIO (10-20); Bilirubin, Direct 0.07 mg/dL (0.00-0.30); Calcium,Total 8.5 mg/dL (8.5-10.1); Chloride 102 mmol/L (98-107); Creatinine, Serum 1.86 mg/dL (0.55-1.02); EST Glomerular Filtration Rate 29 mL/min (>60); Est Glom Filt Rate - Afr Amer 34 mL/min (>60); GGTP 15 U/L (5-55); Globulin 3.8 g/dL (2.2-4.2); Glucose 92 mg/dL (74-106); Magnesium 2.5 mg/dL (1.6-2.6); Phosphorus 4.2 mg/dL (2.5-4.9); Potassium 4.6 mmol/L (3.5-5.1); Protein, Total 7.3 g/dL (6.4-8.2); Sodium Level 133 mmol/L (136-145)
[2021-11-17 15:36] LABS: Tacrolimus (FK506) 3.9 ng/mL (2.0-20.0)
== END 2021-11-18 23:59 ==
LOC: PAVLAB 08:54
PROVIDERS: Family Provider Internal Medicine; PCP Internal Medicine
DX: Z48.24 Encounter for aftercare following lung transplant (principal); Z94.2 Lung transplant status; D89.9 Disorder involving the immune mechanism, unspecified; Z79.899 Other long term (current) drug therapy; R79.9 Abnormal finding of blood chemistry, unspecified; Z51.81 Encounter for therapeutic drug level monitoring
CPT/HCPCS: 36415; 80053; 80197; 82248; 82977; 83735; 84100; 84550; 85025

== ENCOUNTER 2021-11-27 08:32 | Outpatient (RCR) | payer MEDICARE, MEDICAID, SELFPAY ==
[2021-11-19 00:23] VITALS: BMI 27.8
[2021-11-27 08:51] LABS: Hematocrit 32.6 % (37-47); Mean Corp Hgb Conc 33.7 g/dL (32-36); Mean Corpuscular Hgb 35.9 pg (27.0-32.0); Mean Corpuscular Volume 106.5 fL (81-99); Mean Platelet Vol. 9.4 fl (6.2-12.0); POSITIVE COUNT YES; POSITIVE MORPHOLOGY YES; Platelet Count 235 K/mm3 (150-450); RBC Distribution Width CV 16.5 % (11.6-14.6); RBC Distribution Width SD 65.1 fl (35.1-43.9); Red Blood Count 3.06 M/mm3 (4.2-5.4); White Blood Count 7.3 K/mm3 (4.4-11.0)
[2021-11-27 09:16] LABS: Differential Indicated MANUAL DIFF
[2021-11-27 09:21] LABS: AST(SGOT) 23 U/L (15-37); Alanine Aminotransfer ALT/SGPT 24 U/L (13-56); Albumin, Serum 3.6 g/dL (3.2-5.0); Alkaline Phosphatase 50 U/L (45-117); Anion Gap 7 (5-15); BUN 41 mg/dL (7-18); Bilirubin, Direct < 0.05 mg/dL (0.00-0.30); Calcium,Total 8.6 mg/dL (8.5-10.1); Chloride 102 mmol/L (98-107); Creatinine, Serum 1.86 mg/dL (0.55-1.02); EST Glomerular Filtration Rate 29 mL/min (>60); Est Glom Filt Rate - Afr Amer 34 mL/min (>60); GGTP 14 U/L (5-55); Globulin 3.5 g/dL (2.2-4.2); Glucose 81 mg/dL (74-106); Magnesium 2.2 mg/dL (1.6-2.6); Phosphorus 4.6 mg/dL (2.5-4.9); Potassium 4.6 mmol/L (3.5-5.1); Protein, Total 7.1 g/dL (6.4-8.2); Sodium Level 134 mmol/L (136-145)
[2021-11-27 09:32] LABS: Basophil 1 % (0-1); Lymphocyte 38 % (19-41); Metamyelocyte 4 % (0-1); Monocyte 9 % (0-10); Neutrophil-Band 9 % (0-5); Neutrophil-Segmented 39 % (47-70); Total Cells Counted 100 (MANUAL DIFF)
[2021-11-27 09:33] LABS: Anisocytosis 1+; Macrocytosis RARE
[2021-11-27 09:34] LABS: Platelet Estimate ADEQUATE (ADEQ)
[2021-11-27 09:35] LABS: Absolute Neutrophil Count 3.5 X10^3/uL (2.0-7.7)
[2021-11-28 12:47] LABS: Pathologist Review Reviewed
[2021-11-30 22:44] LABS: Tacrolimus (FK506) 3.8 ng/mL (2.0-20.0)
== END 2021-12-19 23:59 ==
LOC: PAVLAB 08:32
PROVIDERS: Internal Medicine Critical Care Medicine; Family Provider Internal Medicine; PCP Internal Medicine
DX: Z48.24 Encounter for aftercare following lung transplant (principal); Z94.2 Lung transplant status; D89.9 Disorder involving the immune mechanism, unspecified; Z79.899 Other long term (current) drug therapy; R79.9 Abnormal finding of blood chemistry, unspecified; Z51.81 Encounter for therapeutic drug level monitoring
CPT/HCPCS: 36415; 80053; 80197; 82248; 82977; 83735; 84100; 85025

== ENCOUNTER 2021-12-09 08:02 | Outpatient (CLI) | payer MEDICARE, MEDICAID, SELFPAY ==
--- NOTE | 2021-12-10 08:45 | PFT ---
INTRODUCTION: The patient is a 71-year-old female that presents for spirometry testing due to a history of lung transplantation. Respiratory therapy reported good patient effort. INTERPRETATION: Forced expiration spirometry demonstrates no evidence of a large airways obstructive ventilatory defect with an FEV1 of 2.4 L, 121% of predicted. IMPRESSION: Normal spirometry.
== END 2021-12-09 23:59 | disposition home or self-care (01) ==
LOC: PSN 08:04
PROVIDERS: PCP Internal Medicine; Referring Provider Internal Medicine Critical Care Medicine; Visit Provider Internal Medicine Critical Care Medicine
DX: D84.9 Immunodeficiency, unspecified (principal); Z94.2 Lung transplant status
CPT/HCPCS: 94010

== ENCOUNTER 2021-12-25 07:56 | Outpatient (RCR) | payer MEDICARE, MEDICAID, SELFPAY ==
[2021-12-20 00:24] VITALS: BMI 27.8
[2021-12-25 08:26] LABS: Hemoglobin 10.9 g/dL (12.0-15.0); Mean Corpuscular Volume 106.1 fL (81-99); Mean Platelet Vol. 9.5 fl (6.2-12.0); POSITIVE COUNT YES; POSITIVE MORPHOLOGY YES; Platelet Count 203 K/mm3 (150-450); RBC Distribution Width CV 15.9 % (11.6-14.6); RBC Distribution Width SD 61.1 fl (35.1-43.9); Red Blood Count 3.11 M/mm3 (4.2-5.4); White Blood Count 6.2 K/mm3 (4.4-11.0)
[2021-12-25 08:28] LABS: Differential Indicated MANUAL DIFF
[2021-12-25 08:42] LABS: ALB/GLOB Ratio 1.1 RATIO (0.9-2.4); AST(SGOT) 26 U/L (15-37); Alanine Aminotransfer ALT/SGPT 29 U/L (13-56); Albumin, Serum 3.7 g/dL (3.2-5.0); Alkaline Phosphatase 51 U/L (45-117); Anion Gap 3 (5-15); BUN 31 mg/dL (7-18); BUN/Creat Ratio 20.4 RATIO (10-20); Bilirubin, Direct 0.06 mg/dL (0.00-0.30); Calcium,Total 8.5 mg/dL (8.5-10.1); Chloride 103 mmol/L (98-107); Creatinine, Serum 1.52 mg/dL (0.55-1.02); EST Glomerular Filtration Rate 36 mL/min (>60); Est Glom Filt Rate - Afr Amer 43 mL/min (>60); Globulin 3.5 g/dL (2.2-4.2); Glucose 98 mg/dL (74-106); Magnesium 2.3 mg/dL (1.6-2.6); Phosphorus 3.6 mg/dL (2.5-4.9); Potassium 4.5 mmol/L (3.5-5.1); Protein, Total 7.2 g/dL (6.4-8.2); Sodium Level 134 mmol/L (136-145)
[2021-12-25 09:02] LABS: Eosinophil 2 % (0-5); Lymphocyte 37 % (19-41); Metamyelocyte 2 % (0-1); Monocyte 10 % (0-10); Neutrophil-Band 6 % (0-5); Neutrophil-Segmented 43 % (47-70); Total Cells Counted 100 (MANUAL DIFF)
[2021-12-25 09:03] LABS: Platelet Estimate ADEQUATE (ADEQ); Red Cell Morphology NORM C+C NORMAL (NORM C&C)
[2021-12-25 09:06] LABS: Absolute Lymphocyte Count 2.29 X10^3/uL (0.83-4.51)
[2021-12-25 12:36] LABS: Pathologist Review Reviewed
[2021-12-31 16:35] LABS: Tacrolimus (FK506) 4.2 ng/mL (2.0-20.0)
== END 2022-01-18 23:59 ==
LOC: PAVLAB 07:56
PROVIDERS: Internal Medicine Critical Care Medicine; Family Provider Internal Medicine; PCP Internal Medicine
DX: Z48.24 Encounter for aftercare following lung transplant (principal); Z94.2 Lung transplant status; D89.9 Disorder involving the immune mechanism, unspecified; Z79.899 Other long term (current) drug therapy; R79.9 Abnormal finding of blood chemistry, unspecified; Z51.81 Encounter for therapeutic drug level monitoring
CPT/HCPCS: 36415; 80053; 80197; 82248; 83735; 84100; 85025

== ENCOUNTER 2022-02-05 08:50 | Outpatient (RCR) | payer MEDICARE, MEDICAID, SELFPAY ==
[2022-01-19 00:24] VITALS: BMI 27.8
[2022-01-29 08:42] LABS: Hematocrit 31.5 % (37-47); Hemoglobin 10.6 g/dL (12.0-15.0); Mean Corp Hgb Conc 33.7 g/dL (32-36); Mean Corpuscular Hgb 36.6 pg (27.0-32.0); Mean Corpuscular Volume 108.6 fL (81-99); Mean Platelet Vol. 9.7 fl (6.2-12.0); POSITIVE COUNT YES; POSITIVE MORPHOLOGY YES; Platelet Count 227 K/mm3 (150-450); RBC Distribution Width CV 14.4 % (11.6-14.6); RBC Distribution Width SD 57.9 fl (35.1-43.9); White Blood Count 4.9 K/mm3 (4.4-11.0)
[2022-01-29 08:50] LABS: Differential Indicated MANUAL DIFF
[2022-01-29 09:01] LABS: Hemoglobin A1c 5.2 % (3.8-5.6)
[2022-01-29 09:11] LABS: AST(SGOT) 23 U/L (15-37); Alanine Aminotransfer ALT/SGPT 25 U/L (13-56); Albumin, Serum 3.6 g/dL (3.2-5.0); Alkaline Phosphatase 41 U/L (45-117); Anion Gap 6 (5-15); BUN 35 mg/dL (7-18); BUN/Creat Ratio 21.5 RATIO (10-20); Calcium,Total 9.2 mg/dL (8.5-10.1); Chloride 108 mmol/L (98-107); Creatinine, Serum 1.63 mg/dL (0.55-1.02); EST Glomerular Filtration Rate 33 mL/min (>60); Est Glom Filt Rate - Afr Amer 40 mL/min (>60); Ferritin 19 ng/mL (8-252); GGTP 15 U/L (5-55); Globulin 3.6 g/dL (2.2-4.2); Glucose 58 mg/dL (74-106); Iron 76 ug/dL (50-170); Iron Binding Capacity,Total 408 ug/dL (250-450); Magnesium 2.3 mg/dL (1.6-2.6); Phosphorus 4.2 mg/dL (2.5-4.9); Potassium 4.6 mmol/L (3.5-5.1); Protein, Total 7.2 g/dL (6.4-8.2); Sodium Level 139 mmol/L (136-145); Uric Acid 6.4 mg/dL (2.6-6.0)
[2022-01-29 09:12] LABS: Atypical Lymphocyte 1+ %; Lymphocyte 41 % (19-41); Monocyte 15 % (0-10); Neutrophil-Band 5 % (0-5); Neutrophil-Segmented 39 % (47-70); Platelet Estimate ADEQUATE (ADEQ); Red Cell Morphology NORM C+C NORMAL (NORM C&C); Total Cells Counted 100 (MANUAL DIFF)
[2022-01-29 09:15] LABS: Absolute Lymphocyte Count 2.01 X10^3/uL (0.83-4.51); Absolute Neutrophil Count 2.2 X10^3/uL (2.0-7.7)
[2022-01-29 16:38] LABS: Xtra Tube EP Lab EXTRA TUBE
[2022-01-31 09:24] LABS: Pathologist Review Reviewed
[2022-02-03 11:07] LABS: Immunoglobulin A 175 mg/dL (87-352); Immunoglobulin G 968 mg/dL (586-1602); Immunoglobulin M 172 mg/dL (26-217)
[2022-02-03 13:34] LABS: Tacrolimus (FK506) 4.9 ng/mL (2.0-20.0); Transferrin 337 mg/dL (192-364)
== END 2022-02-18 23:59 ==
LOC: PAVLAB 08:50
PROVIDERS: Internal Medicine Critical Care Medicine; Family Provider Internal Medicine; PCP Internal Medicine
DX: Z48.24 Encounter for aftercare following lung transplant (principal); D89.9 Disorder involving the immune mechanism, unspecified; R79.9 Abnormal finding of blood chemistry, unspecified; Z94.2 Lung transplant status; Z51.81 Encounter for therapeutic drug level monitoring; Z79.899 Other long term (current) drug therapy
CPT/HCPCS: 36415; 80053; 80197; 82248; 82728; 82784; 82977; 83036; 83540; 83550; 83735; 84100; 84466; 84550; 85025

== ENCOUNTER → 2022-02-10 | Outpatient (CLI) | payer MEDICARE, MEDICAID, SELFPAY ==
--- NOTE | 2022-02-10 13:53 | SPIR_ITS ---
Spirometry PFT Testing Spirometry PFT Testing: COMPLETE PULMONARY FUNCTION TEST INTERPRETATION Brief HPI: Patient is a 71-year-old female, currently under the care of Angelito Goldberg, who presents to [facility] for complete pulmonary function tests secondary to diagnosis of status post lung transplant. Respiratory therapist reports good effort and reproducible results. Interpretation: Forced expiration spirometry shows no large airways obstructive ventilatory defect with an FEV1 of 113% predicted. There was no bronchodilator tested. Spirograms are of good quality and plateau normally. The respiratory flow volume loop shows a normal pattern. Compared to previous pulmonary function tests from 12/09/2021, there has been no significant change. Impression: Normal spirometry
== END | disposition home or self-care (01) ==
LOC: PSN 08:03
PROVIDERS: PCP Internal Medicine; Referring Provider Internal Medicine Critical Care Medicine; Visit Provider Internal Medicine Critical Care Medicine
DX: D84.9 Immunodeficiency, unspecified (principal); Z94.2 Lung transplant status
CPT/HCPCS: 94010

== ENCOUNTER 2022-03-05 07:57 | Outpatient (RCR) | payer MEDICARE, MEDICAID, SELFPAY ==
[2022-02-19 00:38] VITALS: BMI 27.8
[2022-03-05 08:15] LABS: Absolute Neutrophil Count 2.2 X10^3/uL (2.0-7.7); Basophil# 0.02 X10^3/uL; Basophil% 0.4 % (0-1); Eosinophil# 0.07 X10^3/uL; Eosinophils% 1.4 % (0-5); Hematocrit 32.4 % (37-47); Hemoglobin 10.7 g/dL (12.0-15.0); Lymphocyte % 45.4 % (19-41); Mean Corpuscular Hgb 36.1 pg (27.0-32.0); Mean Corpuscular Volume 109.5 fL (81-99); Mean Platelet Vol. 9.7 fl (6.2-12.0); Monocyte# 0.42 X10^3/uL; Monocyte% 8.3 % (0-10); NRBC Flagged by Analyzer 0 % (0-5); Neutrophil # 2.21 X10^3/uL (2.7-7.7); Neutrophil % 43.5 % (47-70); Platelet Count 196 K/mm3 (150-450); RBC Distribution Width CV 13.6 % (11.6-14.6); RBC Distribution Width SD 54.6 fl (35.1-43.9); Red Blood Count 2.96 M/mm3 (4.2-5.4); White Blood Count 5.1 K/mm3 (4.4-11.0)
[2022-03-05 09:26] LABS: AST(SGOT) 24 U/L (15-37); Alanine Aminotransfer ALT/SGPT 25 U/L (13-56); Albumin, Serum 3.5 g/dL (3.2-5.0); Alkaline Phosphatase 44 U/L (45-117); Anion Gap 5 (5-15); BUN 30 mg/dL (7-18); BUN/Creat Ratio 17.5 RATIO (10-20); Bilirubin, Direct 0.08 mg/dL (0.00-0.30); Chloride 107 mmol/L (98-107); Creatinine, Serum 1.71 mg/dL (0.55-1.02); EST Glomerular Filtration Rate 31 mL/min (>60); Est Glom Filt Rate - Afr Amer 38 mL/min (>60); GGTP 7 U/L (5-55); Globulin 3.6 g/dL (2.2-4.2); Glucose 99 mg/dL (74-106); Magnesium 2.4 mg/dL (1.6-2.6); Phosphorus 4.3 mg/dL (2.5-4.9); Potassium 4.8 mmol/L (3.5-5.1); Protein, Total 7.1 g/dL (6.4-8.2); Sodium Level 138 mmol/L (136-145)
[2022-03-08 21:17] LABS: Tacrolimus (FK506) 5.8 ng/mL (2.0-20.0)
== END 2022-03-20 23:59 ==
LOC: PAVLAB 07:57
PROVIDERS: Internal Medicine Critical Care Medicine; Family Provider Internal Medicine; PCP Internal Medicine
DX: D89.9 Disorder involving the immune mechanism, unspecified; R79.9 Abnormal finding of blood chemistry, unspecified; Z94.2 Lung transplant status; Z51.81 Encounter for therapeutic drug level monitoring; Z79.899 Other long term (current) drug therapy
CPT/HCPCS: 36415; 80053; 80197; 82248; 82977; 83735; 84100; 84550; 85025

== ENCOUNTER → 2022-03-06 | Outpatient (CLI) | payer MEDICARE, MEDICAID, SELFPAY ==
--- NOTE | 2022-03-07 08:17 | SPIR_ITS ---
Spirometry PFT Testing Spirometry PFT Testing: INTRODUCTION: The patient is a 71-year-old female that presents for spirometry te sting due to a history of lung transplantation. Respiratory therapy reported good patient effort. INTERPRETATION: Forced expiration spirometry demonstrates no evidence of a large airways obstructive ventilatory defect with an FEV1 of 104% of predicted. Spirograms are of good quality and plateau normally. When compared to prior spirometry values from January 2022, there has been an approximate 8% decrease in FEV1. IMPRESSION: Normal spirometry.
== END | disposition home or self-care (01) ==
LOC: PSN 10:15
PROVIDERS: PCP Internal Medicine; Referring Provider Internal Medicine Critical Care Medicine; Visit Provider Internal Medicine Critical Care Medicine
DX: D84.9 Immunodeficiency, unspecified (principal); Z94.2 Lung transplant status
CPT/HCPCS: 94010

== ENCOUNTER 2022-03-19 07:54 | Outpatient (CLI) | payer MEDICARE, MEDICAID, SELFPAY | END 2022-03-19 23:59 | disposition home or self-care (01) | LOC: PAVLAB 07:58 | PROVIDERS: PCP Internal Medicine; Referring Provider Internal Medicine Critical Care Medicine; Visit Provider Internal Medicine Critical Care Medicine | DX: Z94.2 Lung transplant status (principal) | CPT/HCPCS: 36415 ==

== ENCOUNTER 2022-04-02 07:37 | Outpatient (RCR) | payer MEDICARE, MEDICAID, SELFPAY ==
[2022-03-21 00:25] VITALS: BMI 27.8
[2022-04-02 08:16] LABS: Absolute Lymphocyte Count 1.69 X10^3/uL (0.83-4.51); Absolute Neutrophil Count 1.5 X10^3/uL (2.0-7.7); Basophil# 0.03 X10^3/uL; Basophil% 0.8 % (0-1); Eosinophil# 0.04 X10^3/uL; Hematocrit 32.4 % (37-47); Hemoglobin 10.6 g/dL (12.0-15.0); Lymphocyte # 1.69 X10^3/ul (0.83-4.51); Mean Corp Hgb Conc 32.7 g/dL (32-36); Mean Corpuscular Hgb 35.6 pg (27.0-32.0); Mean Corpuscular Volume 108.7 fL (81-99); Mean Platelet Vol. 9.9 fl (6.2-12.0); Monocyte# 0.38 X10^3/uL; Monocyte% 9.9 % (0-10); NRBC Flagged by Analyzer 0 % (0-5); Neutrophil # 1.54 X10^3/uL (2.7-7.7); Neutrophil % 40.1 % (47-70); Platelet Count 202 K/mm3 (150-450); RBC Distribution Width CV 13.4 % (11.6-14.6); RBC Distribution Width SD 54.2 fl (35.1-43.9); Red Blood Count 2.98 M/mm3 (4.2-5.4); White Blood Count 3.8 K/mm3 (4.4-11.0)
[2022-04-02 08:45] LABS: ALB/GLOB Ratio 1.1 RATIO (0.9-2.4); AST(SGOT) 27 U/L (15-37); Alanine Aminotransfer ALT/SGPT 25 U/L (13-56); Albumin, Serum 3.7 g/dL (3.2-5.0); Alkaline Phosphatase 37 U/L (45-117); Anion Gap 6 (5-15); BUN 27 mg/dL (7-18); BUN/Creat Ratio 14.8 RATIO (10-20); Bilirubin, Direct 0.08 mg/dL (0.00-0.30); Calcium,Total 9.2 mg/dL (8.5-10.1); Chloride 106 mmol/L (98-107); Creatinine, Serum 1.82 mg/dL (0.55-1.02); EST Glomerular Filtration Rate 29 mL/min (>60); Est Glom Filt Rate - Afr Amer 35 mL/min (>60); GGTP 9 U/L (5-55); Globulin 3.5 g/dL (2.2-4.2); Glucose 121 mg/dL (74-106); Magnesium 2.2 mg/dL (1.6-2.6); Potassium 4.1 mmol/L (3.5-5.1); Protein, Total 7.2 g/dL (6.4-8.2); Sodium Level 137 mmol/L (136-145); Uric Acid 5.9 mg/dL (2.6-6.0)
[2022-04-06 20:19] LABS: Immunoglobulin G 887 mg/dL (586-1602)
== END 2022-04-20 23:59 ==
LOC: PAVLAB 07:37
PROVIDERS: Internal Medicine Critical Care Medicine; Family Provider Internal Medicine; PCP Internal Medicine
DX: D89.9 Disorder involving the immune mechanism, unspecified (principal); R79.9 Abnormal finding of blood chemistry, unspecified; Z94.2 Lung transplant status; Z51.81 Encounter for therapeutic drug level monitoring; Z79.899 Other long term (current) drug therapy
CPT/HCPCS: 36415; 80053; 80197; 82248; 82784; 82977; 83735; 84100; 84550; 85025

== ENCOUNTER → 2022-04-03 | Outpatient (CLI) | payer MEDICARE, MEDICAID, SELFPAY ==
--- NOTE | 2022-04-03 11:33 | PFT ---
INTRODUCTION: The patient is a 71-year-old female that presents for spirometry secondary to a diagnosis of lung transplantation. Respiratory therapy reported good patient effort. INTERPRETATION: Forced expiration spirometry demonstrates no evidence of a large airways obstructive ventilatory defect. FEV1 was noted to be 106% of predicted. The respiratory flow volume loop is normal. There has been overall stability in the patient's spirometric values since February 2022. IMPRESSION: Normal spirometry.
== END | disposition home or self-care (01) ==
PROVIDERS: PCP Internal Medicine
DX: D84.9 Immunodeficiency, unspecified (principal); Z94.2 Lung transplant status
CPT/HCPCS: 94010

== ENCOUNTER 2022-05-01 07:53 | Outpatient (RCR) | payer MEDICARE, MEDICAID, SELFPAY ==
[2022-04-21 00:20] VITALS: BMI 27.8
[2022-05-01 08:25] LABS: Hematocrit 32.9 % (37-47); Hemoglobin 10.7 g/dL (12.0-15.0); Mean Corp Hgb Conc 32.5 g/dL (32-36); Mean Corpuscular Hgb 35.5 pg (27.0-32.0); Mean Corpuscular Volume 109.3 fL (81-99); Mean Platelet Vol. 9.7 fl (6.2-12.0); POSITIVE COUNT YES; POSITIVE MORPHOLOGY YES; Platelet Count 174 K/mm3 (150-450); RBC Distribution Width CV 14.1 % (11.6-14.6); RBC Distribution Width SD 56.1 fl (35.1-43.9); Red Blood Count 3.01 M/mm3 (4.2-5.4); White Blood Count 4.6 K/mm3 (4.4-11.0)
[2022-05-01 08:26] LABS: Differential Indicated MANUAL DIFF
[2022-05-01 08:36] LABS: AST(SGOT) 23 U/L (15-37); Alanine Aminotransfer ALT/SGPT 23 U/L (13-56); Albumin, Serum 3.6 g/dL (3.2-5.0); Alkaline Phosphatase 34 U/L (45-117); Anion Gap 5 (5-15); BUN 28 mg/dL (7-18); BUN/Creat Ratio 17.5 RATIO (10-20); Bilirubin, Direct 0.09 mg/dL (0.00-0.30); Calcium,Total 9.2 mg/dL (8.5-10.1); Chloride 105 mmol/L (98-107); EST Glomerular Filtration Rate 34 mL/min (>60); Est Glom Filt Rate - Afr Amer 41 mL/min (>60); GGTP 12 U/L (5-55); Globulin 3.5 g/dL (2.2-4.2); Glucose 96 mg/dL (74-106); Magnesium 2.2 mg/dL (1.6-2.6); Phosphorus 4.1 mg/dL (2.5-4.9); Potassium 4.7 mmol/L (3.5-5.1); Protein, Total 7.1 g/dL (6.4-8.2); Sodium Level 137 mmol/L (136-145); Uric Acid 5.1 mg/dL (2.6-6.0)
[2022-05-01 08:52] LABS: Basophil 1 % (0-1); Eosinophil 2 % (0-5); Lymphocyte 53 % (19-41); Monocyte 4 % (0-10); Neutrophil-Segmented 40 % (47-70); Platelet Estimate ADEQUATE (ADEQ); Red Cell Morphology NORM C+C NORMAL (NORM C&C); Total Cells Counted 100 (MANUAL DIFF)
[2022-05-01 08:53] LABS: Absolute Neutrophil Count 1.8 X10^3/uL (2.0-7.7)
[2022-05-02 11:33] LABS: Pathologist Review Reviewed
[2022-05-03 15:44] LABS: Tacrolimus (FK506) 7.3 ng/mL (2.0-20.0)
== END 2022-05-21 23:59 ==
LOC: PAVLAB 07:53
PROVIDERS: Internal Medicine Critical Care Medicine; Family Provider Internal Medicine; PCP Internal Medicine
DX: D89.9 Disorder involving the immune mechanism, unspecified (principal); R79.9 Abnormal finding of blood chemistry, unspecified; Z94.2 Lung transplant status; Z51.81 Encounter for therapeutic drug level monitoring; Z79.899 Other long term (current) drug therapy
CPT/HCPCS: 36415; 80053; 80197; 82248; 82977; 83735; 84100; 84550; 85025

== ENCOUNTER 2022-06-05 07:45 | Outpatient (RCR) | payer MEDICARE, MEDICAID, SELFPAY ==
[2022-05-22 00:24] VITALS: BMI 27.8
[2022-06-05 08:24] LABS: Hematocrit 32.5 % (37-47); Hemoglobin 10.6 g/dL (12.0-15.0); Mean Corp Hgb Conc 32.6 g/dL (32-36); Mean Corpuscular Hgb 36.3 pg (27.0-32.0); Mean Corpuscular Volume 111.3 fL (81-99); Mean Platelet Vol. 9.3 fl (6.2-12.0); POSITIVE COUNT YES; POSITIVE MORPHOLOGY YES; Platelet Count 236 K/mm3 (150-450); RBC Distribution Width CV 15.7 % (11.6-14.6); RBC Distribution Width SD 63.8 fl (35.1-43.9); Red Blood Count 2.92 M/mm3 (4.2-5.4); White Blood Count 3.7 K/mm3 (4.4-11.0)
[2022-06-05 08:32] LABS: Differential Indicated MANUAL DIFF
[2022-06-05 08:43] LABS: AST(SGOT) 21 U/L (15-37); Alanine Aminotransfer ALT/SGPT 26 U/L (13-56); Albumin, Serum 3.6 g/dL (3.2-5.0); Alkaline Phosphatase 29 U/L (45-117); Anion Gap 6 (5-15); BUN 32 mg/dL (7-18); BUN/Creat Ratio 20.8 RATIO (10-20); Bilirubin, Direct 0.09 mg/dL (0.00-0.30); Chloride 107 mmol/L (98-107); Creatinine, Serum 1.54 mg/dL (0.55-1.02); EST Glomerular Filtration Rate 35 mL/min (>60); Est Glom Filt Rate - Afr Amer 43 mL/min (>60); Ferritin 28 ng/mL (8-252); GGTP 11 U/L (5-55); Globulin 3.7 g/dL (2.2-4.2); Glucose 93 mg/dL (74-106); Iron 106 ug/dL (50-170); Iron Binding Capacity,Total 384 ug/dL (250-450); Magnesium 2.4 mg/dL (1.6-2.6); PERCENT IRON SATURATION 27.6 % (15.0-55.0); Potassium 4.6 mmol/L (3.5-5.1); Protein, Total 7.3 g/dL (6.4-8.2); Sodium Level 139 mmol/L (136-145); Uric Acid 5.6 mg/dL (2.6-6.0)
[2022-06-05 09:02] LABS: Eosinophil 3 % (0-5); Lymphocyte 51 % (19-41); Metamyelocyte 5 % (0-1); Monocyte 1 % (0-10); Myelocyte 1 % (0-0); Neutrophil-Band 7 % (0-5); Neutrophil-Segmented 32 % (47-70); Total Cells Counted 100 (MANUAL DIFF)
[2022-06-05 09:04] LABS: Hypochromasia 1+; Platelet Estimate ADEQUATE (ADEQ); Red Cell Morphology N CYTIC NORMAL (NORM C&C)
[2022-06-05 09:05] LABS: Absolute Lymphocyte Count 1.88 X10^3/uL (0.83-4.51); Absolute Neutrophil Count 1.4 X10^3/uL (2.0-7.7); Lymphocyte # 1.88 X10^3/ul (0.83-4.51); Neutrophil # 1.44 X10^3/uL (2.7-7.7); Promyelocyte 1 % (0-0)
[2022-06-07 15:07] LABS: Immunoglobulin A 180 mg/dL (87-352); Immunoglobulin G 912 mg/dL (586-1602); Immunoglobulin M 176 mg/dL (26-217)
[2022-06-07 15:19] LABS: Transferrin 315 mg/dL (192-364)
[2022-06-09 08:57] LABS: Pathologist Review Reviewed
== END 2022-06-20 23:59 ==
LOC: PAVLAB 07:45
PROVIDERS: Internal Medicine Critical Care Medicine; Family Provider Internal Medicine; PCP Internal Medicine
DX: D89.9 Disorder involving the immune mechanism, unspecified (principal); R79.9 Abnormal finding of blood chemistry, unspecified; Z94.2 Lung transplant status; Z51.81 Encounter for therapeutic drug level monitoring; Z79.899 Other long term (current) drug therapy
CPT/HCPCS: 36415; 80053; 80197; 82248; 82728; 82784; 82977; 83540; 83550; 83735; 84100; 84466; 84550; 85025

== ENCOUNTER → 2022-06-05 | Outpatient (CLI) | payer MEDICARE, MEDICAID, SELFPAY ==
--- NOTE | 2022-06-05 13:42 | SPIR ---
Spirometry PFT Testing Spirometry PFT Testing: COMPLETE PULMONARY FUNCTION TEST INTERPRETATION Brief HPI: Patient is a 71-year-old female, currently under the care of Dr. David, who presents to [facility] for complete pulmonary function tests secondary to diagnosis of status post lung transplant. Respiratory therapist reports good effort and reproducible results. Interpretation: Forced expiration spirometry shows no large airways obstructive ventilatory defect with an FEV1 of 110% predicted. There was no bronchodilator response tested. Spirograms are of good quality and plateau normally. The respiratory flow volume loop shows a normal pattern. Compared to previous pulmonary function tests from 04/03/2022, there has been no significant change. Impression: Normal spirometry with no change compared to previous
== END | disposition home or self-care (01) ==
LOC: PSN 10:36
PROVIDERS: PCP Internal Medicine
DX: Z48.24 Encounter for aftercare following lung transplant (principal); Z94.2 Lung transplant status; D84.9 Immunodeficiency, unspecified; R79.9 Abnormal finding of blood chemistry, unspecified; Z51.81 Encounter for therapeutic drug level monitoring; Z79.899 Other long term (current) drug therapy
CPT/HCPCS: 36415; 80053; 80197; 82248; 82728; 82784; 82977; 83540; 83550; 83735; 84100; 84466; 84550; 85025; 94010

== ENCOUNTER 2022-07-03 08:05 | Outpatient (RCR) | payer MEDICARE, MEDICAID, SELFPAY ==
[2022-06-21 01:04] VITALS: BMI 27.8
[2022-07-03 08:45] LABS: Hematocrit 29.8 % (37-47); Hemoglobin 9.6 g/dL (12.0-15.0); Mean Corp Hgb Conc 32.2 g/dL (32-36); Mean Corpuscular Hgb 36.9 pg (27.0-32.0); Mean Corpuscular Volume 114.6 fL (81-99); Mean Platelet Vol. 9.8 fl (6.2-12.0); POSITIVE COUNT YES; POSITIVE MORPHOLOGY YES; Platelet Count 201 K/mm3 (150-450); RBC Distribution Width CV 15.8 % (11.6-14.6); RBC Distribution Width SD 67.1 fl (35.1-43.9); White Blood Count 3.4 K/mm3 (4.4-11.0)
[2022-07-03 08:46] LABS: Differential Indicated MANUAL DIFF
[2022-07-03 09:02] LABS: AST(SGOT) 32 U/L (15-37); Alanine Aminotransfer ALT/SGPT 50 U/L (13-56); Albumin, Serum 3.5 g/dL (3.2-5.0); Alkaline Phosphatase 31 U/L (45-117); Anion Gap 4 (5-15); BUN 30 mg/dL (7-18); BUN/Creat Ratio 17.6 RATIO (10-20); Bilirubin, Direct 0.11 mg/dL (0.00-0.30); Calcium,Total 9.1 mg/dL (8.5-10.1); Chloride 109 mmol/L (98-107); EST Glomerular Filtration Rate 32 mL/min (>60); Est Glom Filt Rate - Afr Amer 38 mL/min (>60); GGTP 12 U/L (5-55); Globulin 3.6 g/dL (2.2-4.2); Glucose 88 mg/dL (74-106); Magnesium 2.4 mg/dL (1.6-2.6); Phosphorus 4.3 mg/dL (2.5-4.9); Potassium 4.6 mmol/L (3.5-5.1); Protein, Total 7.1 g/dL (6.4-8.2); Sodium Level 140 mmol/L (136-145); Uric Acid 6.9 mg/dL (2.6-6.0)
[2022-07-03 09:07] LABS: Eosinophil 2 % (0-5); Lymphocyte 41 % (19-41); Monocyte 8 % (0-10); Neutrophil-Band 1 % (0-5); Neutrophil-Segmented 48 % (47-70); Total Cells Counted 100 (MANUAL DIFF)
[2022-07-03 09:08] LABS: Anisocytosis 1+; Platelet Estimate ADEQUATE (ADEQ); Red Cell Morphology N CHROM NORMAL (NORM C&C)
[2022-07-03 09:09] LABS: Absolute Lymphocyte Count 1.37 X10^3/uL (0.83-4.51); Absolute Neutrophil Count 1.6 X10^3/uL (2.0-7.7); Lymphocyte # 1.37 X10^3/ul (0.83-4.51); Neutrophil # 1.64 X10^3/uL (2.7-7.7)
[2022-07-07 19:36] LABS: Tacrolimus (FK506) 5.5 ng/mL (2.0-20.0)
== END 2022-07-21 23:59 ==
LOC: PAVLAB 08:05
PROVIDERS: Internal Medicine Critical Care Medicine; Family Provider Internal Medicine; PCP Internal Medicine
DX: D89.9 Disorder involving the immune mechanism, unspecified (principal); R79.9 Abnormal finding of blood chemistry, unspecified; Z94.2 Lung transplant status; Z51.81 Encounter for therapeutic drug level monitoring; Z79.899 Other long term (current) drug therapy
CPT/HCPCS: 36415; 80053; 80197; 82248; 82977; 83735; 84100; 84550; 85025

== ENCOUNTER → 2022-07-03 | Outpatient (CLI) | payer MEDICARE, MEDICAID, SELFPAY ==
--- NOTE | 2022-07-03 14:06 | SPIR ---
Spirometry PFT Testing Spirometry PFT Testing: COMPLETE PULMONARY FUNCTION TEST INTERPRETATION Brief HPI: Patient is a 71-year-old female, currently under the care of Dr. Penaloza, who presents to [facility] for complete pulmonary function tests secondary to diagnosis of status post lung transplant. Respiratory therapist reports good effort and reproducible results. Interpretation: Forced expiration spirometry shows no large airways obstructive ventilatory defect with an FEV1 of 113% predicted. There is no bronchodilator testing completed. Spirograms are of good quality and plateau normally. The respiratory flow volume loop shows a normal pattern. Compared to previous pulmonary function tests from 06/05/2022, there has been no significant change. Impression: Normal spirometry
== END | disposition home or self-care (01) ==
PROVIDERS: PCP Internal Medicine; Visit Provider Internal Medicine
DX: D84.9 Immunodeficiency, unspecified (principal); Z94.2 Lung transplant status; D89.9 Disorder involving the immune mechanism, unspecified; R79.9 Abnormal finding of blood chemistry, unspecified; Z51.81 Encounter for therapeutic drug level monitoring; Z79.899 Other long term (current) drug therapy
CPT/HCPCS: 36415; 80053; 80197; 82248; 82977; 83735; 84100; 84550; 85025; 94010

== ENCOUNTER → 2022-07-31 | Outpatient (CLI) | payer MEDICARE, MEDICAID, SELFPAY ==
--- NOTE | 2022-07-31 13:35 | SPIR ---
Spirometry PFT Testing Spirometry PFT Testing: COMPLETE PULMONARY FUNCTION TEST INTERPRETATION Brief HPI: Patient is a 71-year-old female, currently under the care of Dr. David, who presents to [facility] for complete pulmonary function tests secondary to diagnosis of status post lung transplant. Respiratory therapist reports good effort and reproducible results. Interpretation: Forced expiration spirometry shows no large airways obstructive ventilatory defect with an FEV1 of 115% predicted. There was no bronchodilator response tested. Spirograms are of good quality and plateau normally. The respiratory flow volume loop shows a normal pattern. Compared to previous pulmonary function tests from 07/03/2022, there has been no significant change. Impression: Normal spirometry
== END | disposition home or self-care (01) ==
LOC: PSN 09:08
PROVIDERS: PCP Internal Medicine
DX: Z94.2 Lung transplant status (principal); D84.9 Immunodeficiency, unspecified
CPT/HCPCS: 94010

== ENCOUNTER 2022-08-07 07:49 | Outpatient (RCR) | payer MEDICARE, MEDICAID, SELFPAY ==
[2022-07-22 00:23] VITALS: BMI 27.8
[2022-08-07 08:17] LABS: Absolute Neutrophil Count 1.3 X10^3/uL (2.0-7.7); Basophil# 0.02 X10^3/uL; Basophil% 0.6 % (0-1); Eosinophil# 0.04 X10^3/uL; Eosinophils% 1.2 % (0-5); Hematocrit 30.9 % (37-47); Hemoglobin 10.4 g/dL (12.0-15.0); Lymphocyte % 47.8 % (19-41); Mean Corp Hgb Conc 33.7 g/dL (32-36); Mean Corpuscular Hgb 37.7 pg (27.0-32.0); Mean Platelet Vol. 9.5 fl (6.2-12.0); Monocyte# 0.31 X10^3/uL; Monocyte% 9.3 % (0-10); NRBC Flagged by Analyzer 0 % (0-5); Neutrophil # 1.32 X10^3/uL (2.7-7.7); Neutrophil % 39.3 % (47-70); Platelet Count 210 K/mm3 (150-450); RBC Distribution Width CV 15.7 % (11.6-14.6); RBC Distribution Width SD 64.6 fl (35.1-43.9); Red Blood Count 2.76 M/mm3 (4.2-5.4); White Blood Count 3.4 K/mm3 (4.4-11.0)
[2022-08-07 08:35] LABS: ALB/GLOB Ratio 1.1 RATIO (0.9-2.4); AST(SGOT) 36 U/L (15-37); Alanine Aminotransfer ALT/SGPT 49 U/L (13-56); Albumin, Serum 3.7 g/dL (3.2-5.0); Alkaline Phosphatase 31 U/L (45-117); Anion Gap 9 (5-15); BUN 27 mg/dL (7-18); BUN/Creat Ratio 16.7 RATIO (10-20); Bilirubin, Direct 0.08 mg/dL (0.00-0.30); Calcium,Total 9.4 mg/dL (8.5-10.1); Chloride 107 mmol/L (98-107); Creatinine, Serum 1.62 mg/dL (0.55-1.02); EST Glomerular Filtration Rate 33 mL/min (>60); Est Glom Filt Rate - Afr Amer 40 mL/min (>60); GGTP 13 U/L (5-55); Globulin 3.4 g/dL (2.2-4.2); Glucose 90 mg/dL (74-106); Magnesium 2.5 mg/dL (1.6-2.6); Phosphorus 3.9 mg/dL (2.5-4.9); Potassium 4.7 mmol/L (3.5-5.1); Protein, Total 7.1 g/dL (6.4-8.2); Sodium Level 140 mmol/L (136-145); Uric Acid 6.2 mg/dL (2.6-6.0)
[2022-08-10 09:14] LABS: Tacrolimus (FK506) 7.2 ng/mL (2.0-20.0)
== END 2022-08-20 23:59 ==
LOC: PAVLAB 07:49
PROVIDERS: Internal Medicine Critical Care Medicine; Family Provider Internal Medicine; PCP Internal Medicine
DX: D89.9 Disorder involving the immune mechanism, unspecified (principal); R79.9 Abnormal finding of blood chemistry, unspecified; Z94.2 Lung transplant status; Z51.81 Encounter for therapeutic drug level monitoring; Z79.899 Other long term (current) drug therapy
CPT/HCPCS: 36415; 80053; 80197; 82248; 82977; 83735; 84100; 84550; 85025

== ENCOUNTER 2022-09-18 09:09 | Outpatient (RCR) | payer MEDICARE, MEDICAID, SELFPAY ==
[2022-08-21 00:22] VITALS: BMI 27.8
== END 2022-09-20 23:59 ==
LOC: PAVLAB 09:09
PROVIDERS: Family Provider Internal Medicine; PCP Internal Medicine
DX: Z94.2 Lung transplant status; D89.9 Disorder involving the immune mechanism, unspecified; R79.9 Abnormal finding of blood chemistry, unspecified; Z51.81 Encounter for therapeutic drug level monitoring; Z79.899 Other long term (current) drug therapy

== ENCOUNTER 2022-11-05 07:36 | Outpatient (RCR) | payer MEDICARE, MEDICAID, SELFPAY ==
[2022-09-21 00:18] VITALS: BMI 27.8
[2022-11-05 08:22] LABS: Absolute Lymphocyte Count 1.62 X10^3/uL (0.83-4.51); Basophil# 0.01 X10^3/uL; Basophil% 0.3 % (0-1); Eosinophil# 0.07 X10^3/uL; Eosinophils% 2.3 % (0-5); Hematocrit 27.7 % (37-47); Hemoglobin 9.3 g/dL (12.0-15.0); Lymphocyte # 1.62 X10^3/ul (0.83-4.51); Lymphocyte % 52.3 % (19-41); Mean Corp Hgb Conc 33.6 g/dL (32-36); Mean Corpuscular Hgb 38.1 pg (27.0-32.0); Mean Corpuscular Volume 113.5 fL (81-99); Monocyte% 9.7 % (0-10); NRBC Flagged by Analyzer 0 % (0-5); Neutrophil # 0.97 X10^3/uL (2.7-7.7); Neutrophil % 31.2 % (47-70); POSITIVE COUNT YES; POSITIVE DIFFERENTIAL YES; POSITIVE MORPHOLOGY YES; Platelet Count 99 K/mm3 (150-450); RBC Distribution Width CV 14.7 % (11.6-14.6); RBC Distribution Width SD 60.5 fl (35.1-43.9); Red Blood Count 2.44 M/mm3 (4.2-5.4); White Blood Count 3.1 K/mm3 (4.4-11.0)
[2022-11-05 08:24] LABS: Differential Indicated SCAN CRITERIA MET
[2022-11-05 08:30] LABS: ALB/GLOB Ratio 1.1 RATIO (0.9-2.4); AST(SGOT) 23 U/L (15-37); Alanine Aminotransfer ALT/SGPT 19 U/L (13-56); Albumin, Serum 3.6 g/dL (3.2-5.0); Alkaline Phosphatase 37 U/L (45-117); Anion Gap 9 (5-15); BUN 24 mg/dL (7-18); BUN/Creat Ratio 13.3 RATIO (10-20); Bilirubin, Direct 0.12 mg/dL (0.00-0.30); Chloride 107 mmol/L (98-107); Creatinine, Serum 1.81 mg/dL (0.55-1.02); EST Glomerular Filtration Rate 29 mL/min (>60); Est Glom Filt Rate - Afr Amer 35 mL/min (>60); Ferritin 80 ng/mL (8-252); GGTP 21 U/L (5-55); Globulin 3.4 g/dL (2.2-4.2); Glucose 100 mg/dL (74-106); Iron 130 ug/dL (50-170); Iron Binding Capacity,Total 322 ug/dL (250-450); Magnesium 2.2 mg/dL (1.6-2.6); PERCENT IRON SATURATION 40.4 % (15.0-55.0); Phosphorus 4.8 mg/dL (2.5-4.9); Potassium 4.9 mmol/L (3.5-5.1); Sodium Level 138 mmol/L (136-145)
[2022-11-05 08:33] LABS: Hemoglobin A1c 5.3 % (3.8-5.6)
[2022-11-05 08:55] LABS: Platelet Estimate MOD DEC (ADEQ); Reactive Lymphocyte 1+
[2022-11-08 17:07] LABS: Immunoglobulin A 183 mg/dL (64-422); Immunoglobulin G 882 mg/dL (586-1602); Immunoglobulin M 172 mg/dL (26-217)
[2022-11-08 22:19] LABS: Transferrin 256 mg/dL (192-364)
== END 2022-11-18 23:59 ==
LOC: PAVLAB 07:36
PROVIDERS: Internal Medicine; Family Provider Internal Medicine; PCP Internal Medicine
DX: D89.9 Disorder involving the immune mechanism, unspecified (principal); R79.9 Abnormal finding of blood chemistry, unspecified; Z94.2 Lung transplant status; Z51.81 Encounter for therapeutic drug level monitoring; Z79.899 Other long term (current) drug therapy
CPT/HCPCS: 36415; 80053; 80197; 82248; 82728; 82784; 82977; 83036; 83540; 83550; 83735; 84100; 84466; 85025

== ENCOUNTER → 2022-11-07 | Outpatient (CLI) | payer MEDICARE, MEDICAID, SELFPAY ==
--- NOTE | 2022-11-07 12:13 | SPIR_ITS ---
Spirometry PFT Testing Spirometry PFT Testing: Spirometry PFT Testing Brief HPI: Patient is a 72-year-old female, currently under the care of Dr. David, who presents to [facility] for complete pulmonary function tests secondary to diagnosis of status post lung transplant.? Resp iratory therapist reports good effort and reproducible results. Interpretation: Forced expiration spirometry shows no large airways obstructive ventilatory defect with an FEV1 of 124% predicted. There was no bronchodilator response tested.? Spirograms are of good quality and plateau normally.? The respiratory flow volume loop shows a normal pattern. Compared to previous pulmonary function tests from 07/31/2022, there has been no significant change. Impression: Normal spirometry
== END | disposition home or self-care (01) ==
LOC: PSN 10:19
PROVIDERS: PCP Internal Medicine; Visit Provider Internal Medicine
DX: D84.9 Immunodeficiency, unspecified (principal); Z94.2 Lung transplant status
CPT/HCPCS: 94010

== ENCOUNTER 2022-12-04 08:02 | Outpatient (RCR) | payer MEDICARE, MEDICAID, SELFPAY ==
[2022-11-19 00:07] VITALS: BMI 27.8
[2022-12-04 08:38] LABS: Absolute Neutrophil Count 1.3 X10^3/uL (2.0-7.7); Basophil# 0.02 X10^3/uL; Basophil% 0.7 % (0-1); Eosinophil# 0.03 X10^3/uL; Hemoglobin 9.2 g/dL (12.0-15.0); Lymphocyte % 41.1 % (19-41); Mean Corp Hgb Conc 34.1 g/dL (32-36); Mean Corpuscular Hgb 39.7 pg (27.0-32.0); Mean Corpuscular Volume 116.4 fL (81-99); Mean Platelet Vol. 9.9 fl (6.2-12.0); Monocyte# 0.22 X10^3/uL; Monocyte% 7.5 % (0-10); NRBC Flagged by Analyzer 0 % (0-5); Neutrophil # 1.31 X10^3/uL (2.7-7.7); Neutrophil % 44.9 % (47-70); POSITIVE MORPHOLOGY YES; Platelet Count 142 K/mm3 (150-450); RBC Distribution Width CV 15.7 % (11.6-14.6); RBC Distribution Width SD 66.1 fl (35.1-43.9); Red Blood Count 2.32 M/mm3 (4.2-5.4); White Blood Count 2.9 K/mm3 (4.4-11.0)
[2022-12-04 08:39] LABS: Differential Indicated SCAN CRITERIA MET
[2022-12-04 09:10] LABS: ALB/GLOB Ratio 1.1 RATIO (0.9-2.4); AST(SGOT) 22 U/L (15-37); Alanine Aminotransfer ALT/SGPT 17 U/L (13-56); Albumin, Serum 3.4 g/dL (3.2-5.0); Alkaline Phosphatase 35 U/L (45-117); Anion Gap 5 (5-15); BUN 17 mg/dL (7-18); BUN/Creat Ratio 11.7 RATIO (10-20); Calcium,Total 8.9 mg/dL (8.5-10.1); Chloride 108 mmol/L (98-107); Creatinine, Serum 1.45 mg/dL (0.55-1.02); EST Glomerular Filtration Rate 38 mL/min (>60); Est Glom Filt Rate - Afr Amer 46 mL/min (>60); GGTP 14 U/L (5-55); Globulin 3.2 g/dL (2.2-4.2); Glucose 96 mg/dL (74-106); Magnesium 2.5 mg/dL (1.6-2.6); Potassium 5.1 mmol/L (3.5-5.1); Protein, Total 6.6 g/dL (6.4-8.2); Sodium Level 138 mmol/L (136-145)
[2022-12-04 09:15] LABS: Anisocytosis 1+
[2022-12-07 08:29] LABS: Tacrolimus (FK506) 5.6 ng/mL (2.0-20.0)
== END 2022-12-19 23:59 ==
LOC: PAVLAB 08:02
PROVIDERS: Family Provider Internal Medicine; PCP Internal Medicine
DX: D89.9 Disorder involving the immune mechanism, unspecified (principal); R79.9 Abnormal finding of blood chemistry, unspecified; Z94.2 Lung transplant status; Z51.81 Encounter for therapeutic drug level monitoring; Z79.899 Other long term (current) drug therapy
CPT/HCPCS: 36415; 80053; 80197; 82248; 82977; 83735; 84100; 85025

== ENCOUNTER 2022-12-04 10:26 | Outpatient (CLI) | payer MEDICARE, MEDICAID, SELFPAY ==
--- NOTE | 2022-12-04 14:52 | SPIR ---
Spirometry PFT Testing Spirometry PFT Testing: COMPLETE PULMONARY FUNCTION TEST INTERPRETATION Brief HPI: Patient is a 72-year-old female, currently under the care of Dr. David, who presents to [facility] for complete pulmonary function tests secondary to diagnosis of status post lung transplant. Respiratory therapist reports good effort and reproducible results. Interpretation: Forced expiration spirometry shows no large airways obstructive ventilatory defect with an FEV1 of 119% predicted. There was bronchodilator response tested. Spirograms are of good quality and plateau normally. The respiratory flow volume loop shows a normal pattern Compared to previous pulmonary function tests from 11/07/2022, there has been no significant change. Impression: Normal spirometry with no changes compared to previous
== END 2022-12-04 23:59 | disposition home or self-care (01) ==
LOC: PSN 10:28
PROVIDERS: PCP Family Medicine; Referring Provider Internal Medicine; Visit Provider Internal Medicine
DX: D84.9 Immunodeficiency, unspecified (principal); Z94.2 Lung transplant status; Z79.899 Other long term (current) drug therapy; R79.9 Abnormal finding of blood chemistry, unspecified; Z51.81 Encounter for therapeutic drug level monitoring
CPT/HCPCS: 36415; 80053; 80197; 82248; 82977; 83735; 84100; 85025; 94010

== ENCOUNTER 2023-01-08 07:37 | Outpatient (RCR) | payer MEDICARE, MEDICAID, SELFPAY ==
[2022-12-20 00:51] VITALS: BMI 27.8
[2023-01-08 08:03] LABS: Hematocrit 27.7 % (37-47); Hemoglobin 9.3 g/dL (12.0-15.0); Mean Corp Hgb Conc 33.6 g/dL (32-36); Mean Corpuscular Hgb 39.4 pg (27.0-32.0); Mean Corpuscular Volume 117.4 fL (81-99); Mean Platelet Vol. 9.5 fl (6.2-12.0); POSITIVE COUNT YES; POSITIVE MORPHOLOGY YES; Platelet Count 194 K/mm3 (150-450); RBC Distribution Width CV 15.1 % (11.6-14.6); RBC Distribution Width SD 65.2 fl (35.1-43.9); Red Blood Count 2.36 M/mm3 (4.2-5.4); White Blood Count 3.2 K/mm3 (4.4-11.0)
[2023-01-08 08:04] LABS: Differential Indicated MANUAL DIFF
[2023-01-08 08:23] LABS: ALB/GLOB Ratio 1.2 RATIO (0.9-2.4); AST(SGOT) 22 U/L (15-37); Alanine Aminotransfer ALT/SGPT 17 U/L (13-56); Albumin, Serum 3.7 g/dL (3.2-5.0); Alkaline Phosphatase 34 U/L (45-117); Anion Gap 2 (5-15); BUN 27 mg/dL (7-18); BUN/Creat Ratio 14.1 RATIO (10-20); Bilirubin, Direct 0.08 mg/dL (0.00-0.30); Calcium,Total 9.2 mg/dL (8.5-10.1); Chloride 108 mmol/L (98-107); Creatinine, Serum 1.91 mg/dL (0.55-1.02); EST Glomerular Filtration Rate 28 mL/min (>60); Est Glom Filt Rate - Afr Amer 33 mL/min (>60); GGTP 13 U/L (5-55); Globulin 3.2 g/dL (2.2-4.2); Glucose 93 mg/dL (74-106); Magnesium 2.5 mg/dL (1.6-2.6); Phosphorus 4.6 mg/dL (2.5-4.9); Potassium 4.9 mmol/L (3.5-5.1); Protein, Total 6.9 g/dL (6.4-8.2); Sodium Level 134 mmol/L (136-145)
[2023-01-08 08:37] LABS: Neutrophil-Band 1 % (0-5); Neutrophil-Segmented 41 % (47-70); Total Cells Counted 100 (MANUAL DIFF)
[2023-01-08 08:38] LABS: Anisocytosis 1+; Eosinophil 1 % (0-5); Lymphocyte 47 % (19-41); Metamyelocyte 2 % (0-1); Monocyte 7 % (0-10); Myelocyte 1 % (0-0); Platelet Estimate ADEQUATE (ADEQ)
[2023-01-08 08:39] LABS: Absolute Neutrophil Count 1.3 X10^3/uL (2.0-7.7)
[2023-01-09 12:12] LABS: Pathologist Review Reviewed
== END 2023-01-18 23:59 ==
LOC: PAVLAB 07:37
PROVIDERS: Family Provider Internal Medicine; PCP Family Medicine
DX: D89.9 Disorder involving the immune mechanism, unspecified (principal); R79.9 Abnormal finding of blood chemistry, unspecified; Z94.2 Lung transplant status; Z51.81 Encounter for therapeutic drug level monitoring; Z79.899 Other long term (current) drug therapy
CPT/HCPCS: 36415; 80053; 80197; 82248; 82977; 83735; 84100; 85025

== ENCOUNTER → 2023-01-15 | Outpatient (CLI) | payer MEDICARE, MEDICAID, SELFPAY ==
--- NOTE | 2023-01-15 13:21 | SPIR_ITS ---
Spirometry PFT Testing Spirometry PFT Testing: COMPLETE PULMONARY FUNCTION TEST INTERPRETATION Brief HPI: Patient is a 72-year-old female, currently under the care of Dr. David, who presents to [facility] for complete pulmonary function tests secondary to diagnosis of status post lung transplant. Respiratory therapist reports good effort and reproducible results. Interpretation: Forced expiration spirometry shows no large airways obstructive ventilatory defect with an FEV1 of 114% predicted. There is no bronchodilator response attempted. Spirograms are of good quality and plateau normally. The respiratory flow volume loop shows a normal pattern. Compared to previous pulmonary function tests from 12/04/2022, there has been no significant change. Impression: Normal spirometry with no change compared to previous
== END | disposition home or self-care (01) ==
LOC: PSN 08:33
PROVIDERS: PCP Family Medicine; Referring Provider Internal Medicine; Visit Provider Internal Medicine
DX: D84.9 Immunodeficiency, unspecified (principal); Z94.2 Lung transplant status
CPT/HCPCS: 94010

== ENCOUNTER → 2023-02-04 | Outpatient (CLI) | payer MEDICARE, MEDICAID, SELFPAY ==
--- NOTE | 2023-02-05 07:19 | SPIR_ITS ---
Spirometry PFT Testing Spirometry PFT Testing: INTRODUCTION: The patient is a 72-year-old female that presents for spirometry te sting status post lung transplantation. Respiratory therapy reported good patient effort and reproducible results. INTERPRETATION: Forced expiration spirometry demonstrated no evidence of a large airways obstructive ventilatory impairment. FEV1 was noted to be 2.37 L, 121% of predicted. Spirograms are of good quality and plateau normally. The respiratory flow-volume loop is normal. IMPRESSION: Normal spirometry.
== END | disposition home or self-care (01) ==
LOC: PSN 10:36
PROVIDERS: PCP Family Medicine; Referring Provider Internal Medicine; Visit Provider Internal Medicine
DX: D84.9 Immunodeficiency, unspecified (principal); Z94.2 Lung transplant status
CPT/HCPCS: 94010

== ENCOUNTER 2023-02-12 07:31 | Outpatient (RCR) | payer MEDICARE, MEDICAID, SELFPAY ==
[2023-01-19 00:18] VITALS: BMI 27.8
[2023-02-12 08:03] LABS: Absolute Lymphocyte Count 1.06 X10^3/uL (0.83-4.51); Absolute Neutrophil Count 0.9 X10^3/uL (2.0-7.7); Basophil# 0.02 X10^3/uL; Basophil% 0.9 % (0-1); Eosinophil# 0.04 X10^3/uL; Eosinophils% 1.7 % (0-5); Hematocrit 27.1 % (37-47); Hemoglobin 8.7 g/dL (12.0-15.0); Lymphocyte # 1.06 X10^3/ul (0.83-4.51); Lymphocyte % 45.1 % (19-41); Mean Corp Hgb Conc 32.1 g/dL (32-36); Mean Corpuscular Hgb 38.8 pg (27.0-32.0); Mean Platelet Vol. 9.8 fl (6.2-12.0); Monocyte# 0.27 X10^3/uL; Monocyte% 11.5 % (0-10); NRBC Flagged by Analyzer 0 % (0-5); Neutrophil # 0.85 X10^3/uL (2.7-7.7); Neutrophil % 36.1 % (47-70); POSITIVE DIFFERENTIAL YES; POSITIVE MORPHOLOGY YES; Platelet Count 190 K/mm3 (150-450); RBC Distribution Width CV 15.1 % (11.6-14.6); RBC Distribution Width SD 65.7 fl (35.1-43.9); Red Blood Count 2.24 M/mm3 (4.2-5.4); White Blood Count 2.4 K/mm3 (4.4-11.0)
[2023-02-12 08:07] LABS: Differential Indicated SCAN CRITERIA MET
[2023-02-12 08:23] LABS: ALB/GLOB Ratio 1.1 RATIO (0.9-2.4); AST(SGOT) 23 U/L (15-37); Alanine Aminotransfer ALT/SGPT 18 U/L (13-56); Albumin, Serum 3.5 g/dL (3.2-5.0); Alkaline Phosphatase 28 U/L (45-117); Anion Gap 4 (5-15); BUN 36 mg/dL (7-18); BUN/Creat Ratio 19.3 RATIO (10-20); Bilirubin, Direct 0.08 mg/dL (0.00-0.30); Chloride 109 mmol/L (98-107); Creatinine, Serum 1.87 mg/dL (0.55-1.02); EST Glomerular Filtration Rate 28 mL/min (>60); Est Glom Filt Rate - Afr Amer 34 mL/min (>60); GGTP 11 U/L (5-55); Globulin 3.3 g/dL (2.2-4.2); Glucose 90 mg/dL (74-106); Magnesium 2.6 mg/dL (1.6-2.6); Phosphorus 4.5 mg/dL (2.5-4.9); Potassium 5.1 mmol/L (3.5-5.1); Protein, Total 6.8 g/dL (6.4-8.2); Sodium Level 138 mmol/L (136-145)
[2023-02-12 08:34] LABS: Anisocytosis 1+
== END 2023-02-18 23:59 ==
LOC: PAVLAB 07:31
PROVIDERS: Family Provider Internal Medicine; PCP Family Medicine
DX: D89.9 Disorder involving the immune mechanism, unspecified (principal); R79.9 Abnormal finding of blood chemistry, unspecified; Z94.2 Lung transplant status; Z51.81 Encounter for therapeutic drug level monitoring; Z79.899 Other long term (current) drug therapy
CPT/HCPCS: 36415; 80053; 80197; 82248; 82977; 83735; 84100; 85025

== ENCOUNTER → 2023-04-02 | Outpatient (CLI) | payer MEDICARE, MEDICAID, SELFPAY ==
--- NOTE | 2023-04-03 09:37 | PFT ---
INTRODUCTION: The patient is a 72-year-old female who presents for spirometry testing secondary to a diagnosis of lung transplantation. Respiratory therapy reported good patient effort. INTERPRETATION: Forced expiration spirometry demonstrates no evidence of a large airways obstructive ventilatory defect. Spirograms are of good quality and plateau normally. The respiratory flow-volume loop is normal. IMPRESSION: Normal spirometry.
== END | disposition home or self-care (01) ==
PROVIDERS: PCP Family Medicine; Referring Provider Internal Medicine; Visit Provider Internal Medicine
DX: D84.9 Immunodeficiency, unspecified (principal); Z94.2 Lung transplant status
CPT/HCPCS: 94010

== ENCOUNTER → 2023-04-16 | Outpatient (CLI) | payer MEDICARE, MEDICAID, SELFPAY ==
--- NOTE | 2023-04-16 09:24 | CDU_ITS ---
Reason For Study: Dizziness Rt. Velocities/BP Lt. Velocities/BP Prox CCA 61.7/7.8 cm/sec. Prox CCA 73.2/11.8 cm/sec. Mid CCA 59.8/13.5 cm/sec. Mid CCA 81.8/9.3 cm/sec. Dist CCA 51.3/10.7 cm/sec. Dist CCA 73.2/14.2 cm/sec. Prox ICA 133.9/22.5 cm/sec. Prox ICA 58.4/11.8 cm/sec. Mid ICA 124.7/20.6 cm/sec. Mid ICA 83/17.9 cm/sec. Dist ICA 70.7/15.7 cm/sec. Dist ICA 95.3/21.6 cm/sec. Rt. ICA/CCA = 2.24. Lt. ICA/CCA = 1.30. Prox ECA 103.5/4.1 cm/sec. Prox ECA 96.5/4.4 cm/sec. Rt. Vert. 61.3/3.7 cm/sec. Lt. Vert. 73.2/14.2 cm/sec. Right Extracranial There is intimal thickening but no significant atherosclerotic plaque noted in the right common carotid artery. There is heterogeneous, irregular atherosclerotic plaque noted in the right internal carotid artery. There is heterogeneous, irregular atherosclerotic plaque noted in the right external carotid artery. Antegrade flow is noted in the right vertebral artery. Left Extracranial There is homogeneous, smooth atherosclerotic plaque noted in the left common carotid artery. There is heterogeneous, irregular atherosclerotic plaque noted in the left internal carotid artery. The atherosclerotic plaque causes acoustic shadowing. There is intimal thickening but no significant atherosclerotic plaque noted in the left external carotid artery. Antegrade flow is noted in the left vertebral artery. Procedure Carotid Duplex [id number]. This is a Carotid Duplex examination using B-mode, color flow and specral Doppler. Exam performed in department. VL/Carotid Duplex Ultrasound Interpretation Summary Irregular calcific plaque with shadowing at the proximal right internal carotid artery with 50 to 69% stenosis Less than 50% stenosis right external carotid artery Irregular calcific plaque with shadowing at the proximal left internal carotid artery with less than 50% stenosis Less than 50% stenosis left external carotid artery Patent antegrade vertebral arteries bilaterally Ordering Physician: ARI CAR Referring Physician: Hiwot Lewis Performed By: Khushi Whatley RVT
== END | disposition home or self-care (01) ==
LOC: CVS 09:23
PROVIDERS: PCP Family Medicine
DX: I65.23 Occlusion and stenosis of bilateral carotid arteries (principal); Z94.2 Lung transplant status; D89.9 Disorder involving the immune mechanism, unspecified; R42 Dizziness and giddiness; I10 Essential (primary) hypertension; R79.9 Abnormal finding of blood chemistry, unspecified; Z51.81 Encounter for therapeutic drug level monitoring; Z79.899 Other long term (current) drug therapy
CPT/HCPCS: 36415; 80053; 80197; 82248; 82728; 82784; 82977; 83036; 83540; 83550; 83735; 84100; 84466; 85025; 93880

== ENCOUNTER → 2023-04-16 | Outpatient (CLI) | payer MEDICARE, MEDICAID, SELFPAY ==
[2023-04-16 08:06] LABS: Hemoglobin 8.6 g/dL (12.0-15.0); Mean Corp Hgb Conc 33.1 g/dL (32-36); Mean Corpuscular Hgb 38.4 pg (27.0-32.0); Mean Corpuscular Volume 116.1 fL (81-99); Mean Platelet Vol. 10.1 fl (6.2-12.0); POSITIVE COUNT YES; POSITIVE DIFFERENTIAL YES; POSITIVE MORPHOLOGY YES; Platelet Count 191 K/mm3 (150-450); RBC Distribution Width CV 14.8 % (11.6-14.6); RBC Distribution Width SD 63.3 fl (35.1-43.9); Red Blood Count 2.24 M/mm3 (4.2-5.4); White Blood Count 2.6 K/mm3 (4.4-11.0)
[2023-04-16 08:09] LABS: Differential Indicated MANUAL DIFF
[2023-04-16 08:34] LABS: AST(SGOT) 24 U/L (15-37); Alanine Aminotransfer ALT/SGPT 19 U/L (13-56); Albumin, Serum 3.4 g/dL (3.2-5.0); Alkaline Phosphatase 40 U/L (45-117); Anion Gap 6 (5-15); BUN 27 mg/dL (7-18); BUN/Creat Ratio 13.6 RATIO (10-20); Bilirubin, Direct 0.11 mg/dL (0.00-0.30); Calcium,Total 8.7 mg/dL (8.5-10.1); Chloride 102 mmol/L (98-107); Creatinine, Serum 1.98 mg/dL (0.55-1.02); EST Glomerular Filtration Rate 26 mL/min (>60); Est Glom Filt Rate - Afr Amer 32 mL/min (>60); Ferritin 35 ng/mL (8-252); GGTP 12 U/L (5-55); Globulin 3.4 g/dL (2.2-4.2); Glucose 99 mg/dL (74-106); Iron 77 ug/dL (50-170); Iron Binding Capacity,Total 397 ug/dL (250-450); Magnesium 2.7 mg/dL (1.6-2.6); PERCENT IRON SATURATION 19.4 % (15.0-55.0); Phosphorus 4.7 mg/dL (2.5-4.9); Potassium 5.1 mmol/L (3.5-5.1); Protein, Total 6.8 g/dL (6.4-8.2); Sodium Level 133 mmol/L (136-145)
[2023-04-16 08:45] LABS: Eosinophil 1 % (0-5); Lymphocyte 50 % (19-41); Metamyelocyte 4 % (0-1); Monocyte 1 % (0-10); Neutrophil-Band 4 % (0-5); Neutrophil-Segmented 40 % (47-70); Platelet Estimate ADEQUATE (ADEQ); Total Cells Counted 100 (MANUAL DIFF)
[2023-04-16 08:46] LABS: Anisocytosis 2+; Hypochromasia 1+
[2023-04-16 08:47] LABS: Absolute Neutrophil Count 1.1 X10^3/uL (2.0-7.7)
[2023-04-16 09:03] LABS: Hemoglobin A1c 5.3 % (3.8-5.6)
[2023-04-17 09:55] LABS: Pathologist Review Reviewed
[2023-04-18 17:07] LABS: Immunoglobulin A 163 mg/dL (64-422); Immunoglobulin G 928 mg/dL (586-1602); Immunoglobulin M 172 mg/dL (26-217); Tacrolimus (FK506) 6.7 ng/mL (2.0-20.0); Transferrin 297 mg/dL (192-364)
== END | disposition home or self-care (01) ==
PROVIDERS: PCP Family Medicine; Referring Provider Internal Medicine; Visit Provider Internal Medicine
DX: D89.9 Disorder involving the immune mechanism, unspecified (principal); Z94.2 Lung transplant status; R79.9 Abnormal finding of blood chemistry, unspecified; Z51.81 Encounter for therapeutic drug level monitoring; Z79.899 Other long term (current) drug therapy
CPT/HCPCS: 36415; 80053; 80197; 82248; 82728; 82784; 82977; 83036; 83540; 83550; 83735; 84100; 84466; 85025

== ENCOUNTER → 2023-04-30 | Outpatient (CLI) | payer MEDICARE, MEDICAID, SELFPAY ==
--- NOTE | 2023-04-30 08:18 | BI_ITS ---
MAMMOGRAPHY - BILATERAL SCREENING REASON FOR EXAM: Female, 72 years old. Routine annual screening examination. PERTINENT HISTORY: Daughter with breast cancer. Remote right stereotactic breast biopsy. TECHNIQUE: Digital bilateral breast hank (3D mammographic acquisition) in the CC and MLO projections. 2-D mediolateral oblique (MLO) and craniocaudad (CC) views of both breasts were obtained. CAD: Full Field Digital Mammography with Computer Added Detection was performed. COMPARISON: Comparison is made with prior study dated September 09, 2018 and January 08, 2017. FINDINGS: Breast Composition: The breasts are heterogeneously dense, which may obscure small masses. Amorphous calcifications are now seen in the deep inferior medial aspect of the right breast. Biopsy is recommended. A tissue clip marker is seen in the upper central portion of the left breast as compared to the right side. No other significant abnormalities are identified. BI/SCRN MAMM (CAD)W/HANK BILAT IMPRESSION: New amorphous calcification seen in the deep inferior medial aspect of the right breast. Biopsy is recommended. ASSESSMENT CATEGORY: BIRADS Category 4: Suspicious - Biopsy Should Be Considered. A letter regarding these results will be sent to the patient by the facility within 30 days. Approximately 10% of breast cancers are not detected by mammography. A normal mammogram should not delay biopsy of a clinically suspicious abnormality. [id number] Electronically Signed: Jcarlos Lennon MD at 10:35 EDT ,
--- NOTE | 2023-04-30 09:01 | BD_ITS ---
STUDY: DUAL ENERGY X-RAY ABSORPTIOMETRY / DXA REASON FOR EXAM: Female, 72 years old. 733.90OsteopeniaBONE DENSITY REASON FOR EXAM TECHNIQUE: Bone Mineral Density (BMD) measurements of lumbar spine and bilateral hips were obtained. COMPARISON: Comparison is made with prior study dated September 12, 2020. FINDINGS: Lumbar Spine (L1-L4): g/cm2 (0.889) / T-score (-1.9) / Z-score (0.4) Findings are suggestive of osteopenia with a moderate fracture risk. Left Femur Total: g/cm2 (0.790) / T-score (-1.2) / Z-score (0.3) Left Femoral Neck: g/cm2 (0.576) / T-score (-2.5) / Z-score (-0.6) Right Femur Total: g/cm2 (0.703) / T-score (-2.0) / Z-score (-0.4) Right Femoral Neck: g/cm2 (0.576) / T-score (-2.5) / Z-score (-0.6) The T-Scores on the most recent prior examination were: Lumbar Spine (L1-L4): There has been worsening of bone density since the previous examination. Left Femur Total: which represents an improvement of 3.6%. Right Femur Total: which represents a worsening of 0.3%. BD/Dexa Bone Density Study IMPRESSION: The patient is considered osteoporotic as outlined below according to World Joseph Organization (WHO) criteria with a high fracture risk. There has been worsening of bone density since the previous examination. Reference Information: The T-score is the number of standard deviations above or below the standard which is normal for young adults at their peak bone mineral density. The World Health Organization (WHO) interprets the T-scores as follows: Above -1 Normal bone density Between -1 and -2.5 Osteopenia Equal to / or below -2.5 Osteoporosis As a practical clinical guideline, osteopenia may be graded as follows: Mild -1 through -1.5 Moderate -1.6 through -2.0 Severe -2.1 through -2.4 The Z-score is the number of standard deviations above or below age-matched controls. A Z-score of less than -1.5 would be considered abnormal. References: 1. NIH Osteoporosis and Related Bone Diseases www osteo.org 2. International Society for Clinical Densitometry www iscd.org 3. National Osteoporosis Foundation www nof.org Electronically Signed: Jcarlos Lennon MD at 9:15 EDT ,
== END | disposition home or self-care (01) ==
PROVIDERS: PCP Family Medicine; Referring Provider Family Medicine; Visit Provider Family Medicine
DX: M85.89 Other specified disorders of bone density and structure, multiple sites (principal); Z94.2 Lung transplant status; M81.0 Age-related osteoporosis without current pathological fracture; Z12.31 Encounter for screening mammogram for malignant neoplasm of breast; Z79.52 Long term (current) use of systemic steroids; Z80.3 Family history of malignant neoplasm of breast
CPT/HCPCS: 77063; 77067; 77080

== ENCOUNTER → 2023-05-12 | Outpatient (CLI) | payer MEDICARE, MEDICAID, SELFPAY ==
--- NOTE | 2023-05-13 12:42 | SPIR_ITS ---
Spirometry PFT Testing Spirometry PFT Testing: INTRODUCTION: The patient is a 72-year-old female who presents for spirometry [facility] due to a history of lung transplantation. Respiratory therapy reported good patient effort. INTERPRETATION: Forced expiration spirometry demonstrated no evidence of a large airways obstructive ventilatory defect with a FEV1/FVC of 78%. FEV1 was within normal limits. IMPRESSION: Normal spirometry.
== END | disposition home or self-care (01) ==
LOC: PSN 08:07
PROVIDERS: PCP Family Medicine; Referring Provider Internal Medicine; Visit Provider Internal Medicine
DX: D84.9 Immunodeficiency, unspecified (principal); Z94.2 Lung transplant status
CPT/HCPCS: 94010

== ENCOUNTER 2023-05-21 07:35 | Outpatient (RCR) | payer MEDICARE, MEDICAID, SELFPAY ==
[2023-02-19 00:18] VITALS: BMI 27.8
[2023-05-21 08:05] LABS: Absolute Neutrophil Count 1.3 X10^3/uL (2.0-7.7); Basophil# 0.01 X10^3/uL; Basophil% 0.3 % (0-1); Eosinophil# 0.05 X10^3/uL; Eosinophils% 1.7 % (0-5); Hematocrit 24.1 % (37-47); Hemoglobin 7.9 g/dL (12.0-15.0); Lymphocyte % 41.7 % (19-41); Mean Corp Hgb Conc 32.8 g/dL (32-36); Mean Corpuscular Hgb 39.3 pg (27.0-32.0); Mean Corpuscular Volume 119.9 fL (81-99); Mean Platelet Vol. 9.1 fl (6.2-12.0); Monocyte# 0.31 X10^3/uL; Monocyte% 10.8 % (0-10); NRBC Flagged by Analyzer 0 % (0-5); Neutrophil # 1.26 X10^3/uL (2.7-7.7); Neutrophil % 43.8 % (47-70); POSITIVE MORPHOLOGY YES; Platelet Count 165 K/mm3 (150-450); RBC Distribution Width CV 15.9 % (11.6-14.6); RBC Distribution Width SD 69.7 fl (35.1-43.9); Red Blood Count 2.01 M/mm3 (4.2-5.4); White Blood Count 2.9 K/mm3 (4.4-11.0)
[2023-05-21 08:06] LABS: Differential Indicated SCAN CRITERIA MET
[2023-05-21 08:24] LABS: ALB/GLOB Ratio 1.1 RATIO (0.9-2.4); AST(SGOT) 20 U/L (15-37); Alanine Aminotransfer ALT/SGPT 15 U/L (13-56); Albumin, Serum 3.6 g/dL (3.2-5.0); Alkaline Phosphatase 43 U/L (45-117); Anion Gap 2 (5-15); BUN 21 mg/dL (7-18); BUN/Creat Ratio 12.5 RATIO (10-20); Bilirubin, Direct 0.06 mg/dL (0.00-0.30); Calcium,Total 8.5 mg/dL (8.5-10.1); Chloride 110 mmol/L (98-107); Creatinine, Serum 1.68 mg/dL (0.55-1.02); EST Glomerular Filtration Rate 32 mL/min (>60); Est Glom Filt Rate - Afr Amer 39 mL/min (>60); GGTP 12 U/L (5-55); Globulin 3.3 g/dL (2.2-4.2); Glucose 89 mg/dL (74-106); Magnesium 2.6 mg/dL (1.6-2.6); Phosphorus 3.5 mg/dL (2.5-4.9); Potassium 4.6 mmol/L (3.5-5.1); Protein, Total 6.9 g/dL (6.4-8.2); Sodium Level 136 mmol/L (136-145)
[2023-05-21 08:35] LABS: Anisocytosis 1+
[2023-05-24 04:07] LABS: Tacrolimus (FK506) 5.8 ng/mL (2.0-20.0)
== END 2023-05-21 23:59 ==
LOC: PAVLAB 07:35
PROVIDERS: Family Provider Internal Medicine; PCP Family Medicine
DX: D89.9 Disorder involving the immune mechanism, unspecified (principal); R79.9 Abnormal finding of blood chemistry, unspecified; Z94.2 Lung transplant status; Z51.81 Encounter for therapeutic drug level monitoring; Z79.899 Other long term (current) drug therapy
CPT/HCPCS: 36415; 80053; 80197; 82248; 82977; 83735; 84100; 85025

== ENCOUNTER 2023-06-09 07:35 | Outpatient (RCR) | payer SELFPAY | END 2023-06-20 23:59 | LOC: PR 07:35 | PROVIDERS: PCP Family Medicine; Visit Provider Internal Medicine Critical Care Medicine | DX: Z00.00 Encounter for general adult medical examination without abnormal findings (principal) ==

== ENCOUNTER → 2023-06-11 | Outpatient (CLI) | payer MEDICAID, MEDICARE, SELFPAY ==
--- NOTE | 2023-06-12 10:35 | PFT_ITS ---
INTRODUCTION: The patient is a 72-year-old female who presents for spirometry testing post lung transplantation. Respiratory therapy reported good patient effort. INTERPRETATION: Forced expiration spirometry demonstrated no evidence of a large airways obstructive ventilatory defect. FEV1 was noted to be 2.21 L, 113% of predicted. Spirograms are of good quality and plateau normally. The respiratory flow- volume loop is normal. IMPRESSION: Normal spirometry.
== END | disposition home or self-care (01) ==
LOC: PSN 10:26
PROVIDERS: PCP Family Medicine; Referring Provider Internal Medicine; Visit Provider Internal Medicine
DX: Z94.2 Lung transplant status (principal); D84.9 Immunodeficiency, unspecified
CPT/HCPCS: 94010

== ENCOUNTER → 2023-06-18 | Outpatient (CLI) | payer MEDICARE, MEDICAID, SELFPAY ==
[2023-06-18 08:28] LABS: Hematocrit 25.1 % (37-47); Hemoglobin 8.1 g/dL (12.0-15.0); Mean Corp Hgb Conc 32.3 g/dL (32-36); Mean Corpuscular Hgb 37.7 pg (27.0-32.0); Mean Corpuscular Volume 116.7 fL (81-99); Mean Platelet Vol. 10.3 fl (6.2-12.0); POSITIVE COUNT YES; POSITIVE DIFFERENTIAL YES; POSITIVE MORPHOLOGY YES; Platelet Count 174 K/mm3 (150-450); RBC Distribution Width CV 15.3 % (11.6-14.6); RBC Distribution Width SD 65.2 fl (35.1-43.9); Red Blood Count 2.15 M/mm3 (4.2-5.4); White Blood Count 2.3 K/mm3 (4.4-11.0)
[2023-06-18 08:30] LABS: Differential Indicated MANUAL DIFF
[2023-06-18 08:40] LABS: AST(SGOT) 20 U/L (15-37); Alanine Aminotransfer ALT/SGPT 15 U/L (13-56); Albumin, Serum 3.6 g/dL (3.2-5.0); Alkaline Phosphatase 43 U/L (45-117); Anion Gap 4 (5-15); BUN 25 mg/dL (7-18); BUN/Creat Ratio 11.6 RATIO (10-20); Bilirubin, Direct 0.06 mg/dL (0.00-0.30); Calcium,Total 8.7 mg/dL (8.5-10.1); Chloride 109 mmol/L (98-107); Creatinine, Serum 2.15 mg/dL (0.55-1.02); EST Glomerular Filtration Rate 24 mL/min (>60); Est Glom Filt Rate - Afr Amer 29 mL/min (>60); GGTP 7 U/L (5-55); Globulin 3.6 g/dL (2.2-4.2); Glucose 80 mg/dL (74-106); Magnesium 2.8 mg/dL (1.6-2.6); Phosphorus 5.5 mg/dL (2.5-4.9); Potassium 5.3 mmol/L (3.5-5.1); Protein, Total 7.2 g/dL (6.4-8.2); Sodium Level 137 mmol/L (136-145)
[2023-06-18 09:56] LABS: Eosinophil 6 % (0-5); Lymphocyte 44 % (19-41); Metamyelocyte 2 % (0-1); Monocyte 13 % (0-10); Neutrophil-Band 3 % (0-5); Neutrophil-Segmented 32 % (47-70); Total Cells Counted 100 (MANUAL DIFF)
[2023-06-18 09:57] LABS: Absolute Lymphocyte Count 1.02 X10^3/uL (0.83-4.51); Absolute Neutrophil Count 0.9 X10^3/uL (2.0-7.7); Lymphocyte # 1.02 X10^3/ul (0.83-4.51); Neutrophil # 0.86 X10^3/uL (2.7-7.7)
[2023-06-18 09:58] LABS: Anisocytosis 2+; Differential Comment SCANNED; Macrocytosis 2+; Platelet Estimate ADEQUATE (ADEQ)
[2023-06-18 09:59] LABS: Ovalocyte RARE
[2023-06-19 09:10] LABS: Pathologist Review Reviewed
[2023-06-22 00:06] LABS: Immunoglobulin A 170 mg/dL (64-422); Immunoglobulin G 998 mg/dL (586-1602); Immunoglobulin M 196 mg/dL (26-217); Tacrolimus (FK506) 5.9 ng/mL (2.0-20.0)
== END | disposition home or self-care (01) ==
PROVIDERS: PCP Family Medicine; Referring Provider Internal Medicine; Visit Provider Internal Medicine
DX: Z94.2 Lung transplant status (principal); D89.9 Disorder involving the immune mechanism, unspecified; R79.9 Abnormal finding of blood chemistry, unspecified; Z51.81 Encounter for therapeutic drug level monitoring; Z79.899 Other long term (current) drug therapy
CPT/HCPCS: 36415; 80053; 80197; 82248; 82784; 82977; 83735; 84100; 85025

== ENCOUNTER → 2023-07-09 | Outpatient (CLI) | payer MEDICARE, MEDICAID, SELFPAY ==
--- NOTE | 2023-07-10 08:51 | PFT ---
INTRODUCTION: The patient is a 72-year-old female who presents for spirometry testing secondary to a diagnosis of post lung transplantation. Respiratory therapy reported good patient effort. INTERPRETATION: Forced expiration spirometry demonstrated no evidence of a large airways obstructive ventilatory defect with an FEV1 of 2.2 L, 113% of predicted. Spirograms are of good quality and plateau normally. IMPRESSION: Normal spirometry.
== END | disposition home or self-care (01) ==
LOC: PSN 10:23
PROVIDERS: PCP Family Medicine; Referring Provider Internal Medicine; Visit Provider Internal Medicine
DX: D84.9 Immunodeficiency, unspecified (principal); Z94.2 Lung transplant status
CPT/HCPCS: 94010

== ENCOUNTER 2023-07-21 07:15 | Outpatient (RCR) | payer MEDICARE, MEDICAID, SELFPAY ==
[2023-05-22 00:05] VITALS: BMI 27.8
[2023-07-21 07:56] LABS: Absolute Lymphocyte Count 1.26 X10^3/uL (0.83-4.51); Absolute Neutrophil Count 1.1 X10^3/uL (2.0-7.7); Basophil# 0.02 X10^3/uL; Basophil% 0.7 % (0-1); Eosinophil# 0.06 X10^3/uL; Eosinophils% 2.2 % (0-5); Hematocrit 25.7 % (37-47); Hemoglobin 8.4 g/dL (12.0-15.0); Lymphocyte # 1.26 X10^3/ul (0.83-4.51); Lymphocyte % 45.7 % (19-41); Mean Corp Hgb Conc 32.7 g/dL (32-36); Mean Corpuscular Hgb 36.5 pg (27.0-32.0); Mean Corpuscular Volume 111.7 fL (81-99); Mean Platelet Vol. 9.5 fl (6.2-12.0); Monocyte# 0.22 X10^3/uL; NRBC Flagged by Analyzer 0 % (0-5); Neutrophil % 39.8 % (47-70); Platelet Count 207 K/mm3 (150-450); RBC Distribution Width CV 15.1 % (11.6-14.6); RBC Distribution Width SD 60.2 fl (35.1-43.9); White Blood Count 2.8 K/mm3 (4.4-11.0)
[2023-07-21 08:13] LABS: ALB/GLOB Ratio 0.9 RATIO (0.9-2.4); AST(SGOT) 16 U/L (15-37); Alanine Aminotransfer ALT/SGPT 16 U/L (13-56); Albumin, Serum 3.6 g/dL (3.2-5.0); Alkaline Phosphatase 39 U/L (45-117); Anion Gap 6 (5-15); BUN 24 mg/dL (7-18); BUN/Creat Ratio 13.3 RATIO (10-20); Bilirubin, Direct 0.08 mg/dL (0.00-0.30); Calcium,Total 8.6 mg/dL (8.5-10.1); Chloride 103 mmol/L (98-107); EST Glomerular Filtration Rate 29 mL/min (>60); Est Glom Filt Rate - Afr Amer 36 mL/min (>60); Ferritin 29 ng/mL (8-252); GGTP 10 U/L (5-55); Globulin 3.8 g/dL (2.2-4.2); Glucose 87 mg/dL (74-106); Iron 36 ug/dL (50-170); Iron Binding Capacity,Total 452 ug/dL (250-450); Magnesium 2.4 mg/dL (1.6-2.6); Phosphorus 4.1 mg/dL (2.5-4.9); Potassium 4.2 mmol/L (3.5-5.1); Protein, Total 7.4 g/dL (6.4-8.2); Sodium Level 132 mmol/L (136-145)
[2023-07-21 08:14] LABS: Hemoglobin A1c 5.3 % (3.8-5.6)
[2023-07-23 13:07] LABS: Immunoglobulin A 179 mg/dL (64-422); Immunoglobulin G 970 mg/dL (586-1602); Immunoglobulin M 202 mg/dL (26-217); Tacrolimus (FK506) 5.2 ng/mL (2.0-20.0); Transferrin 363 mg/dL (192-364)
== END 2023-07-21 23:59 ==
LOC: PAVLAB 07:15
PROVIDERS: Internal Medicine; Family Provider Internal Medicine; PCP Family Medicine
DX: D89.9 Disorder involving the immune mechanism, unspecified (principal); R79.9 Abnormal finding of blood chemistry, unspecified; Z94.2 Lung transplant status; Z51.81 Encounter for therapeutic drug level monitoring; Z79.899 Other long term (current) drug therapy
CPT/HCPCS: 36415; 80053; 80197; 82248; 82728; 82784; 82977; 83036; 83540; 83550; 83735; 84100; 84466; 85025

== ENCOUNTER 2023-07-21 08:00 | Outpatient (RCR) | payer SELFPAY | END 2023-07-21 23:59 | LOC: PR 08:00 | PROVIDERS: PCP Family Medicine; Visit Provider Internal Medicine Critical Care Medicine | DX: Z00.00 Encounter for general adult medical examination without abnormal findings (principal) ==

== ENCOUNTER 2023-07-23 06:17 | Outpatient (RCR) | payer SELFPAY | END 2023-08-20 23:59 | LOC: PR 06:17 | PROVIDERS: PCP Family Medicine; Visit Provider Internal Medicine Critical Care Medicine | DX: Z00.00 Encounter for general adult medical examination without abnormal findings (principal) ==

== ENCOUNTER → 2023-08-06 | Outpatient (CLI) | payer MEDICARE, MEDICAID, SELFPAY ==
--- NOTE | 2023-08-07 08:16 | PFT ---
INTRODUCTION: The patient is a 72-year-old female who presents for spirometry testing secondary to a diagnosis of lung transplantation. Respiratory therapy reported good patient effort. INTERPRETATION: Forced expiration spirometry did not demonstrate a prebronchodilator large airways obstructive impairment with an FEV1 noted to be 117% of predicted. Spirograms are of good quality and plateau normally. IMPRESSION: Normal spirometry.
== END | disposition home or self-care (01) ==
PROVIDERS: PCP Family Medicine; Referring Provider Internal Medicine; Visit Provider Internal Medicine
DX: D84.9 Immunodeficiency, unspecified (principal); Z74.2 Need for assistance at home and no other household member able to render care
CPT/HCPCS: 94010

== ENCOUNTER → 2023-10-01 | Outpatient (CLI) | payer MEDICARE, MEDICAID, SELFPAY ==
--- NOTE | 2023-10-02 12:20 | PFT ---
INTRODUCTION: The patient is a 73-year-old female who presents for pulmonary function studies secondary to a diagnosis of lung transplantation. Respiratory therapy reported good patient effort. INTERPRETATION: Forced expiration spirometry demonstrated no evidence of a large airways obstructive ventilatory defect. FVC was normal. Spirograms are of good quality and plateau normally. IMPRESSION: Normal spirometry.
== END | disposition home or self-care (01) ==
LOC: PSN 10:41
PROVIDERS: PCP Family Medicine; Referring Provider Internal Medicine; Visit Provider Internal Medicine
DX: D84.9 Immunodeficiency, unspecified (principal); Z94.2 Lung transplant status
CPT/HCPCS: 94010

== ENCOUNTER 2023-10-02 07:29 | Outpatient (RCR) | payer MEDICARE, MEDICAID, SELFPAY ==
[2023-07-22 00:07] VITALS: BMI 27.8
[2023-10-02 08:03] LABS: Hematocrit 25.9 % (37-47); Hemoglobin 7.9 g/dL (12.0-15.0); Mean Corp Hgb Conc 30.5 g/dL (32-36); Mean Corpuscular Hgb 34.6 pg (27.0-32.0); Mean Corpuscular Volume 113.6 fL (81-99); Mean Platelet Vol. 9.7 fl (6.2-12.0); POSITIVE COUNT YES; POSITIVE DIFFERENTIAL YES; POSITIVE MORPHOLOGY YES; Platelet Count 222 K/mm3 (150-450); RBC Distribution Width CV 15.9 % (11.6-14.6); RBC Distribution Width SD 67.2 fl (35.1-43.9); Red Blood Count 2.28 M/mm3 (4.2-5.4); White Blood Count 3.2 K/mm3 (4.4-11.0)
[2023-10-02 08:15] LABS: Differential Indicated MANUAL DIFF
[2023-10-02 08:28] LABS: AST(SGOT) 16 U/L (15-37); Alanine Aminotransfer ALT/SGPT 15 U/L (13-56); Albumin, Serum 3.3 g/dL (3.2-5.0); Alkaline Phosphatase 41 U/L (45-117); Anion Gap 6 (5-15); BUN 37 mg/dL (7-18); BUN/Creat Ratio 20.2 RATIO (10-20); Bilirubin, Direct 0.08 mg/dL (0.00-0.30); Calcium,Total 8.8 mg/dL (8.5-10.1); Chloride 108 mmol/L (98-107); Cholesterol 180 mg/dL (200); Creatinine, Serum 1.83 mg/dL (0.55-1.02); EST Glomerular Filtration Rate 29 mL/min (>60); Est Glom Filt Rate - Afr Amer 35 mL/min (>60); Ferritin 13 ng/mL (8-252); GGTP 9 U/L (5-55); Globulin 3.4 g/dL (2.2-4.2); Glucose 103 mg/dL (74-106); High Density Lipoprotein 66 mg/dL; Iron 26 ug/dL (50-170); Iron Binding Capacity,Total 416 ug/dL (250-450); Magnesium 2.9 mg/dL (1.6-2.6); PERCENT IRON SATURATION 6.2 % (15.0-55.0); Phosphorus 3.9 mg/dL (2.5-4.9); Potassium 4.7 mmol/L (3.5-5.1); Protein, Total 6.7 g/dL (6.4-8.2); Sodium Level 137 mmol/L (136-145); Triglycerides 100 mg/dL; Very Low Density Lipoprotein 20 mg/dL (5-40)
[2023-10-02 08:43] LABS: Anisocytosis 2+; Lymphocyte 47 % (19-41); Macrocytosis 1+; Metamyelocyte 1 % (0-1); Microcytosis 1+; Monocyte 4 % (0-10); Myelocyte 3 % (0-0); Neutrophil-Band 10 % (0-5); Neutrophil-Segmented 35 % (47-70); Platelet Estimate ADEQUATE (ADEQ); Total Cells Counted 100 (MANUAL DIFF)
[2023-10-02 08:47] LABS: Absolute Neutrophil Count 1.4 X10^3/uL (2.0-7.7)
[2023-10-05 14:08] LABS: Immunoglobulin A 171 mg/dL (64-422); Immunoglobulin G 926 mg/dL (586-1602); Immunoglobulin M 204 mg/dL (26-217); Tacrolimus (FK506) 4.2 ng/mL (2.0-20.0); Transferrin 319 mg/dL (192-364)
[2023-10-06 09:30] LABS: Pathologist Review Reviewed
== END 2023-10-21 23:59 ==
LOC: PAVLAB 07:29
PROVIDERS: Family Provider Internal Medicine; PCP Family Medicine
DX: R79.9 Abnormal finding of blood chemistry, unspecified; Z94.2 Lung transplant status; Z51.81 Encounter for therapeutic drug level monitoring; Z79.899 Other long term (current) drug therapy; D84.9 Immunodeficiency, unspecified; Z48.24 Encounter for aftercare following lung transplant; E78.5 Hyperlipidemia, unspecified
CPT/HCPCS: 36415; 80053; 80061; 80197; 82248; 82728; 82784; 82977; 83540; 83550; 83735; 84100; 84466; 85025; 87497

== ENCOUNTER 2023-11-05 07:34 | Outpatient (RCR) | payer MEDICARE, MEDICAID, SELFPAY ==
[2023-10-22 00:05] VITALS: BMI 27.8
[2023-11-05 08:26] LABS: Hematocrit 26.7 % (37-47); Hemoglobin 8.1 g/dL (12.0-15.0); Mean Corp Hgb Conc 30.3 g/dL (32-36); Mean Corpuscular Hgb 30.8 pg (27.0-32.0); Mean Corpuscular Volume 101.5 fL (81-99); Mean Platelet Vol. 10.4 fl (6.2-12.0); POSITIVE COUNT YES; POSITIVE DIFFERENTIAL YES; POSITIVE MORPHOLOGY YES; Platelet Count 156 K/mm3 (150-450); RBC Distribution Width CV 18.4 % (11.6-14.6); RBC Distribution Width SD 67.8 fl (35.1-43.9); Red Blood Count 2.63 M/mm3 (4.2-5.4); White Blood Count 2.5 K/mm3 (4.4-11.0)
[2023-11-05 08:45] LABS: Differential Indicated MANUAL DIFF
[2023-11-05 08:47] LABS: AST(SGOT) 18 U/L (15-37); Alanine Aminotransfer ALT/SGPT 15 U/L (13-56); Albumin, Serum 3.5 g/dL (3.2-5.0); Alkaline Phosphatase 35 U/L (45-117); Anion Gap 6 (5-15); BUN 25 mg/dL (7-18); BUN/Creat Ratio 13.6 RATIO (10-20); Chloride 107 mmol/L (98-107); Creatinine, Serum 1.84 mg/dL (0.55-1.02); EST Glomerular Filtration Rate 29 mL/min (>60); Est Glom Filt Rate - Afr Amer 35 mL/min (>60); GGTP 9 U/L (5-55); Globulin 3.6 g/dL (2.2-4.2); Glucose 101 mg/dL (74-106); Magnesium 2.7 mg/dL (1.6-2.6); Potassium 4.6 mmol/L (3.5-5.1); Protein, Total 7.1 g/dL (6.4-8.2); Sodium Level 136 mmol/L (136-145)
[2023-11-05 09:08] LABS: Metamyelocyte 1 % (0-1); Neutrophil-Band 1 % (0-5); Neutrophil-Segmented 27 % (47-70); Total Cells Counted 100 (MANUAL DIFF)
[2023-11-05 09:09] LABS: Basophil 3 % (0-1); Eosinophil 5 % (0-5); Lymphocyte 58 % (19-41); Monocyte 5 % (0-10)
[2023-11-05 09:12] LABS: Atypical Lymphocyte 1+ %
[2023-11-05 09:13] LABS: Platelet Estimate ADEQUATE (ADEQ)
[2023-11-05 09:15] LABS: Anisocytosis 2+
[2023-11-05 09:17] LABS: Hypochromasia 1+
[2023-11-05 09:20] LABS: Monocyte% 2.5 % (0-10); Scan Smear per Review Criteria MANUAL DIFF
[2023-11-05 09:21] LABS: Absolute Neutrophil Count 0.7 X10^3/uL (2.0-7.7)
[2023-11-05 09:22] LABS: Absolute Lymphocyte Count 1.42 X10^3/uL (0.83-4.51)
[2023-11-05 13:01] LABS: Pathologist Review Reviewed
[2023-11-10 04:07] LABS: Tacrolimus (FK506) 3.9 ng/mL (2.0-20.0)
== END 2023-11-19 23:59 ==
LOC: PAVLAB 07:34
PROVIDERS: Family Provider Internal Medicine; PCP Family Medicine
DX: D89.9 Disorder involving the immune mechanism, unspecified (principal); R79.9 Abnormal finding of blood chemistry, unspecified; Z94.2 Lung transplant status; Z51.81 Encounter for therapeutic drug level monitoring; Z79.899 Other long term (current) drug therapy
CPT/HCPCS: 36415; 80053; 80197; 82248; 82977; 83735; 84100; 85025; 87497

== ENCOUNTER → 2023-11-11 | Outpatient (CLI) | payer MEDICARE, MEDICAID, SELFPAY | END | disposition home or self-care (01) | LOC: PSN 09:12 | PROVIDERS: PCP Family Medicine; Visit Provider Internal Medicine | DX: Z94.2 Lung transplant status (principal) | CPT/HCPCS: 94010 ==

== ENCOUNTER → 2023-12-03 | Outpatient (CLI) | payer MEDICARE, MEDICAID, SELFPAY | END | disposition home or self-care (01) | LOC: PSN 10:17 | PROVIDERS: PCP Family Medicine; Referring Provider Internal Medicine; Visit Provider Internal Medicine | DX: Z94.2 Lung transplant status (principal); D84.9 Immunodeficiency, unspecified | CPT/HCPCS: 94010 ==

== ENCOUNTER 2023-12-18 07:32 | Outpatient (RCR) | payer MEDICARE, MEDICAID, SELFPAY ==
[2023-11-20 00:07] VITALS: BMI 27.8
[2023-12-18 08:14] LABS: Absolute Lymphocyte Count 1.53 X10^3/uL (0.83-4.51); Absolute Neutrophil Count 0.7 X10^3/uL (2.0-7.7); Basophil# 0.02 X10^3/uL; Basophil% 0.7 % (0-1); Eosinophil# 0.08 X10^3/uL; Eosinophils% 2.8 % (0-5); Hematocrit 24.8 % (37-47); Hemoglobin 7.6 g/dL (12.0-15.0); Lymphocyte # 1.53 X10^3/ul (0.83-4.51); Lymphocyte % 54.3 % (19-41); Mean Corp Hgb Conc 30.6 g/dL (32-36); Mean Corpuscular Hgb 30.8 pg (27.0-32.0); Mean Corpuscular Volume 100.4 fL (81-99); Mean Platelet Vol. 9.9 fl (6.2-12.0); Monocyte# 0.28 X10^3/uL; Monocyte% 9.9 % (0-10); NRBC Flagged by Analyzer 0 % (0-5); Neutrophil # 0.67 X10^3/uL (2.7-7.7); Neutrophil % 23.8 % (47-70); POSITIVE COUNT YES; POSITIVE DIFFERENTIAL YES; POSITIVE MORPHOLOGY YES; Platelet Count 258 K/mm3 (150-450); RBC Distribution Width CV 22.5 % (11.6-14.6); RBC Distribution Width SD 83.5 fl (35.1-43.9); Red Blood Count 2.47 M/mm3 (4.2-5.4); White Blood Count 2.8 K/mm3 (4.4-11.0)
[2023-12-18 08:26] LABS: ALB/GLOB Ratio 1.2 RATIO (0.9-2.4); AST(SGOT) 20 U/L (15-37); Alanine Aminotransfer ALT/SGPT 15 U/L (13-56); Albumin, Serum 3.7 g/dL (3.2-5.0); Alkaline Phosphatase 29 U/L (45-117); Anion Gap 6 (5-15); BUN 21 mg/dL (7-18); BUN/Creat Ratio 9.3 RATIO (10-20); Bilirubin, Direct 0.08 mg/dL (0.00-0.30); Calcium,Total 8.8 mg/dL (8.5-10.1); Chloride 104 mmol/L (98-107); Creatinine, Serum 2.25 mg/dL (0.55-1.02); EST Glomerular Filtration Rate 23 mL/min (>60); Est Glom Filt Rate - Afr Amer 28 mL/min (>60); GGTP 7 U/L (5-55); Globulin 3.2 g/dL (2.2-4.2); Glucose 90 mg/dL (74-106); Magnesium 2.9 mg/dL (1.6-2.6); Phosphorus 4.5 mg/dL (2.5-4.9); Protein, Total 6.9 g/dL (6.4-8.2); Sodium Level 133 mmol/L (136-145)
[2023-12-18 08:34] LABS: Differential Indicated SCAN CRITERIA MET
[2023-12-18 08:52] LABS: Differential Comment SCANNED
[2023-12-18 11:08] LABS: Pathologist Review Reviewed
[2023-12-21 12:08] LABS: Tacrolimus (FK506) 4.6 ng/mL (2.0-20.0)
== END 2023-12-20 23:59 ==
LOC: PAVLAB 07:32
PROVIDERS: Family Provider Internal Medicine; PCP Family Medicine
DX: R79.9 Abnormal finding of blood chemistry, unspecified; Z94.2 Lung transplant status; Z51.81 Encounter for therapeutic drug level monitoring; Z79.899 Other long term (current) drug therapy; D84.9 Immunodeficiency, unspecified; Z48.24 Encounter for aftercare following lung transplant; E78.5 Hyperlipidemia, unspecified
CPT/HCPCS: 36415; 80053; 80197; 82248; 82977; 83735; 84100; 85025; 87497

== ENCOUNTER 2024-01-15 07:43 | Outpatient (RCR) | payer MEDICARE, MEDICAID, SELFPAY ==
[2023-12-21 00:11] VITALS: BMI 27.8
[2024-01-15 08:49] LABS: Absolute Lymphocyte Count 1.51 X10^3/uL (0.83-4.51); Absolute Neutrophil Count 0.9 X10^3/uL (2.0-7.7); Basophil# 0.02 X10^3/uL; Basophil% 0.7 % (0-1); Eosinophil# 0.06 X10^3/uL; Eosinophils% 2.1 % (0-5); Hematocrit 24.3 % (37-47); Hemoglobin 7.7 g/dL (12.0-15.0); Lymphocyte # 1.51 X10^3/ul (0.83-4.51); Lymphocyte % 53.5 % (19-41); Mean Corp Hgb Conc 31.7 g/dL (32-36); Mean Corpuscular Hgb 32.4 pg (27.0-32.0); Mean Corpuscular Volume 102.1 fL (81-99); Mean Platelet Vol. 9.5 fl (6.2-12.0); Monocyte# 0.29 X10^3/uL; Monocyte% 10.3 % (0-10); NRBC Flagged by Analyzer 0 % (0-5); Neutrophil # 0.89 X10^3/uL (2.7-7.7); Neutrophil % 31.6 % (47-70); POSITIVE DIFFERENTIAL YES; POSITIVE MORPHOLOGY YES; Platelet Count 155 K/mm3 (150-450); RBC Distribution Width CV 23.6 % (11.6-14.6); RBC Distribution Width SD 87.9 fl (35.1-43.9); Red Blood Count 2.38 M/mm3 (4.2-5.4); White Blood Count 2.8 K/mm3 (4.4-11.0)
[2024-01-15 09:00] LABS: Differential Indicated SCAN CRITERIA MET
[2024-01-15 09:17] LABS: ALB/GLOB Ratio 0.9 RATIO (0.9-2.4); AST(SGOT) 19 U/L (15-37); Alanine Aminotransfer ALT/SGPT 14 U/L (13-56); Albumin, Serum 3.5 g/dL (3.2-5.0); Alkaline Phosphatase 29 U/L (45-117); Anion Gap 4 (5-15); BUN 25 mg/dL (7-18); BUN/Creat Ratio 12.4 RATIO (10-20); Calcium,Total 9.3 mg/dL (8.5-10.1); Chloride 105 mmol/L (98-107); Creatinine, Serum 2.01 mg/dL (0.55-1.02); EST Glomerular Filtration Rate 26 mL/min (>60); Est Glom Filt Rate - Afr Amer 31 mL/min (>60); Ferritin 37 ng/mL (8-252); GGTP 10 U/L (5-55); Globulin 3.9 g/dL (2.2-4.2); Glucose 94 mg/dL (74-106); Iron 62 ug/dL (50-170); Iron Binding Capacity,Total 381 ug/dL (250-450); PERCENT IRON SATURATION 16.3 % (15.0-55.0); Potassium 4.9 mmol/L (3.5-5.1); Protein, Total 7.4 g/dL (6.4-8.2); Sodium Level 133 mmol/L (136-145)
[2024-01-15 09:38] LABS: Hemoglobin A1c 5.3 % (3.8-5.6)
[2024-01-15 10:21] LABS: Anisocytosis 2+; Differential Comment SCANNED; Macrocytosis 1+; Microcytosis 1+; Reactive Lymphocyte 1+
[2024-01-18 11:07] LABS: Immunoglobulin A 161 mg/dL (64-422); Immunoglobulin G 879 mg/dL (586-1602); Immunoglobulin M 209 mg/dL (26-217); Tacrolimus (FK506) 5.5 ng/mL (2.0-20.0); Transferrin 305 mg/dL (192-364)
[2024-01-22 13:08] LABS: Anti-Nuclear Antibody Test Positive (.)
== END 2024-01-19 23:59 ==
LOC: PAVLAB 07:43
PROVIDERS: Internal Medicine; Family Provider Internal Medicine; PCP Family Medicine
DX: R79.9 Abnormal finding of blood chemistry, unspecified; Z94.2 Lung transplant status; Z51.81 Encounter for therapeutic drug level monitoring; Z79.899 Other long term (current) drug therapy; D84.9 Immunodeficiency, unspecified
CPT/HCPCS: 36415; 80053; 80197; 82248; 82728; 82784; 82977; 83036; 83540; 83550; 83735; 84100; 84466; 85025; 86038; 87497

== ENCOUNTER 2024-01-20 13:04 | Outpatient (RCR) | payer MEDICARE, MEDICAID, SELFPAY ==
[2024-01-20 00:38] VITALS: BMI 27.8
[2024-01-20 13:58] LABS: Protein, Urine (Random) 30.3 mg/dL (<11.9)
== END 2024-02-19 23:59 ==
LOC: PAVLAB 13:04
PROVIDERS: Internal Medicine Nephrology; Family Provider Internal Medicine; PCP Family Medicine
DX: Z94.2 Lung transplant status; N18.4 Chronic kidney disease, stage 4 (severe)
CPT/HCPCS: 82570; 84156

== ENCOUNTER → 2024-01-25 | Outpatient (CLI) | payer MEDICARE, MEDICAID, SELFPAY ==
--- NOTE | 2024-01-25 14:43 | US_ITS ---
EXAM: US RETROPERITONEAL LIMITED, RENAL CLINICAL INDICATION: CKD 4 TECHNIQUE: Limited grayscale and color Doppler sonographic evaluation of the retroperitoneum was performed. COMPARISON: No relevant prior studies available. 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 10 cm by 4.2 cm x 4.4 cm. No hydronephrosis. Multiple stones with expected artifact, the largest roughly 4 mm. No other focal lesion. No perinephric collection is demonstrated. Cortex 1.3 cm thickness. LEFT KIDNEY: Unremarkable. 9.8 cm x 5.2 cm x 4.2 cm. No hydronephrosis. At least 2 stones, the largest 5 mm. No perinephric collection is demonstrated. Cortex 1 cm thickness. BLADDER: Initially calculated volume 87 cc, slight 3.3 cc post void bladder residual. Borderline wall of 4 mm, likely overestimated due to incomplete distention. US/Kidney and Bladder IMPRESSION: Bilateral nephrolithiasis. No visible hydronephrosis or perinephric fluid collections. Electronically Signed: Joi More MD at 6:14 EDT ,
== END | disposition home or self-care (01) ==
LOC: US 14:39
PROVIDERS: PCP Family Medicine
DX: N18.4 Chronic kidney disease, stage 4 (severe) (principal); Z94.2 Lung transplant status
CPT/HCPCS: 76770

== ENCOUNTER → 2024-01-28 | Outpatient (CLI) | payer MEDICARE, MEDICAID, SELFPAY | END | disposition home or self-care (01) | LOC: PSN 10:28 | PROVIDERS: PCP Family Medicine; Referring Provider Internal Medicine; Visit Provider Internal Medicine | DX: Z94.2 Lung transplant status (principal); D84.9 Immunodeficiency, unspecified | CPT/HCPCS: 94010 ==

== ENCOUNTER 2024-03-16 07:32 | Outpatient (RCR) | payer MEDICARE, MEDICAID, SELFPAY ==
[2024-02-20 00:55] VITALS: BMI 27.8
[2024-03-18 17:07] LABS: Tacrolimus (FK506) 4.1 ng/mL (2.0-20.0)
== END 2024-03-20 23:59 ==
LOC: PAVLAB 07:32
PROVIDERS: Family Provider Internal Medicine
DX: R79.9 Abnormal finding of blood chemistry, unspecified; Z94.2 Lung transplant status; Z51.81 Encounter for therapeutic drug level monitoring; Z79.899 Other long term (current) drug therapy; D84.9 Immunodeficiency, unspecified
CPT/HCPCS: 36415; 80197

== ENCOUNTER → 2024-04-06 | Outpatient (CLI) | payer MEDICARE, MEDICAID, SELFPAY | END | disposition home or self-care (01) | LOC: PSN 10:29 | PROVIDERS: PCP Family Medicine; Referring Provider Internal Medicine; Visit Provider Internal Medicine | DX: D84.9 Immunodeficiency, unspecified (principal); Z94.2 Lung transplant status | CPT/HCPCS: 94010 ==

== ENCOUNTER → 2024-04-12 | Outpatient (CLI) | payer MEDICARE, MEDICAID, SELFPAY ==
--- NOTE | 2024-04-12 08:46 | BD_ITS ---
STUDY: DUAL ENERGY X-RAY ABSORPTIOMETRY / DXA REASON FOR EXAM: Female, 73 years old. Z79.52 TECHNIQUE: Bone Mineral Density (BMD) measurements of lumbar spine and bilateral hips were obtained. COMPARISON: Comparison is made with prior study dated April 30, 2023. FINDINGS: Lumbar Spine (L1-L4): g/cm2 (0.880) / T-score (-2.0) / Z-score (0.4) Findings are suggestive of osteopenia with a moderate fracture risk. Left Femur Total: g/cm2 (0.749) / T-score (-1.6) / Z-score (0.1) Left Femoral Neck: g/cm2 (0.566) / T-score (-2.6) / Z-score (-0.6) Right Femur Total: g/cm2 (0.665) / T-score (-2.3) / Z-score (-0.6) Right Femoral Neck: g/cm2 (0.579) / T-score (-2.4) / Z-score (-0.5) The T-Scores on the most recent prior examination were: Lumbar Spine (L1-L4): There has been worsening of bone density since the previous examination. Left Femur Total: which represents a worsening of 5.1%. Right Femur Total: which represents a worsening of 5.5%. BD/Dexa Bone Density Study IMPRESSION: The patient is considered osteoporotic as outlined below according to World Joseph Organization (WHO) criteria with a high fracture risk. There has been worsening of bone density since the previous examination. Reference Information: The T-score is the number of standard deviations above or below the standard which is normal for young adults at their peak bone mineral density. The World Health Organization (WHO) interprets the T-scores as follows: Above -1 Normal bone density Between -1 and -2.5 Osteopenia Equal to / or below -2.5 Osteoporosis As a practical clinical guideline, osteopenia may be graded as follows: Mild -1 through -1.5 Moderate -1.6 through -2.0 Severe -2.1 through -2.4 The Z-score is the number of standard deviations above or below age-matched controls. A Z-score of less than -1.5 would be considered abnormal. References: 1. NIH Osteoporosis and Related Bone Diseases www osteo.org 2. International Society for Clinical Densitometry www iscd.org 3. National Osteoporosis Foundation www nof.org Electronically Signed: Jcarlos Lennon MD at 8:36 EDT ,
== END | disposition home or self-care (01) ==
LOC: OPBD 08:16
PROVIDERS: PCP Family Medicine; Referring Provider Internal Medicine; Visit Provider Internal Medicine
DX: M81.0 Age-related osteoporosis without current pathological fracture (principal); Z94.2 Lung transplant status; Z48.24 Encounter for aftercare following lung transplant; Z79.52 Long term (current) use of systemic steroids
CPT/HCPCS: 77080

== ENCOUNTER 2024-04-20 07:31 | Outpatient (RCR) | payer MEDICARE, MEDICAID, SELFPAY ==
[2024-03-21 00:13] VITALS: BMI 27.8
[2024-04-20 08:23] LABS: Hemoglobin 6.8 g/dL (12.0-15.0); Mean Corp Hgb Conc 30.9 g/dL (32-36); Mean Platelet Vol. 9.3 fl (6.2-12.0); POSITIVE COUNT YES; POSITIVE DIFFERENTIAL YES; POSITIVE MORPHOLOGY YES; Platelet Count 217 K/mm3 (150-450); RBC Distribution Width CV 16.2 % (11.6-14.6); RBC Distribution Width SD 65.5 fl (35.1-43.9)
[2024-04-20 08:25] LABS: Differential Indicated MANUAL DIFF
[2024-04-20 08:37] LABS: AST(SGOT) 16 U/L (15-37); Alanine Aminotransfer ALT/SGPT 13 U/L (13-56); Albumin, Serum 3.2 g/dL (3.2-5.0); Alkaline Phosphatase 31 U/L (45-117); Anion Gap 5 (5-15); BUN 22 mg/dL (7-18); Bilirubin, Direct 0.08 mg/dL (0.00-0.30); Calcium,Total 8.4 mg/dL (8.5-10.1); Chloride 110 mmol/L (98-107); Creatinine, Serum 1.69 mg/dL (0.55-1.02); EST Glomerular Filtration Rate 32 mL/min (>60); Est Glom Filt Rate - Afr Amer 38 mL/min (>60); Ferritin 13 ng/mL (8-252); Globulin 3.3 g/dL (2.2-4.2); Glucose 92 mg/dL (74-106); Iron 23 ug/dL (50-170); Iron Binding Capacity,Total 397 ug/dL (250-450); Magnesium 2.1 mg/dL (1.6-2.6); PERCENT IRON SATURATION 5.8 % (15.0-55.0); Phosphorus 4.2 mg/dL (2.5-4.9); Potassium 4.9 mmol/L (3.5-5.1); Protein, Total 6.5 g/dL (6.4-8.2); Sodium Level 138 mmol/L (136-145)
[2024-04-20 09:25] LABS: Eosinophil 4 % (0-5); Lymphocyte 43 % (19-41); Neutrophil-Band 5 % (0-5); Neutrophil-Segmented 30 % (47-70); Total Cells Counted 100 (MANUAL DIFF)
[2024-04-20 09:28] LABS: Monocyte 18 % (0-10)
[2024-04-20 09:36] LABS: Absolute Lymphocyte Count 0.86 X10^3/uL (0.83-4.51); Absolute Neutrophil Count 0.7 X10^3/uL (2.0-7.7); Macrocytosis 3+
[2024-04-20 09:37] LABS: Anisocytosis 1+; Ovalocyte 2+; Schistocytes 1+; Tear Drop Cell 1+
[2024-04-22 20:08] LABS: GGTP 8 IU/L (0-60); Immunoglobulin A 140 mg/dL (64-422); Immunoglobulin G 782 mg/dL (586-1602); Immunoglobulin M 190 mg/dL (26-217); Tacrolimus (FK506) 3.8 ng/mL (2.0-20.0); Transferrin 307 mg/dL (192-364)
== END 2024-04-20 23:59 ==
LOC: PAVLAB 07:31
PROVIDERS: Internal Medicine; Family Provider Internal Medicine; PCP Family Medicine
DX: R79.9 Abnormal finding of blood chemistry, unspecified; Z94.2 Lung transplant status; Z51.81 Encounter for therapeutic drug level monitoring; Z79.899 Other long term (current) drug therapy; D84.9 Immunodeficiency, unspecified; Z48.24 Encounter for aftercare following lung transplant; E78.5 Hyperlipidemia, unspecified
CPT/HCPCS: 36415; 80053; 80197; 82248; 82728; 82784; 82977; 83036; 83540; 83550; 83735; 84100; 84466; 85025; 87497

== ENCOUNTER → 2024-05-05 | Outpatient (CLI) | payer MEDICARE, MEDICAID, SELFPAY | END | disposition home or self-care (01) | LOC: PSN 10:21 | PROVIDERS: PCP Family Medicine; Referring Provider Internal Medicine; Visit Provider Internal Medicine | DX: Z94.2 Lung transplant status (principal); D84.9 Immunodeficiency, unspecified | CPT/HCPCS: 94010 ==

== ENCOUNTER 2024-05-24 06:26 | Outpatient (RCR) | payer SELFPAY | END 2024-06-20 23:59 | LOC: PR 06:26 | PROVIDERS: PCP Family Medicine | DX: J44.9 Chronic obstructive pulmonary disease, unspecified (principal) ==

== ENCOUNTER → 2024-06-07 | Outpatient (CLI) | payer MEDICARE, MEDICAID, SELFPAY ==
[2024-06-07 17:55] LABS: Absolute Lymphocyte Count 0.78 X10^3/uL (0.83-4.51); Absolute Neutrophil Count 1.3 X10^3/uL (2.0-7.7); Basophil# 0.02 X10^3/uL; Basophil% 0.8 % (0-1); Eosinophil# 0.01 X10^3/uL; Eosinophils% 0.4 % (0-5); Hematocrit 24.2 % (37-47); Hemoglobin 7.7 g/dL (12.0-15.0); Lymphocyte # 0.78 X10^3/ul (0.83-4.51); Lymphocyte % 32.8 % (19-41); Mean Corp Hgb Conc 31.8 g/dL (32-36); Mean Corpuscular Hgb 34.4 pg (27.0-32.0); Monocyte# 0.24 X10^3/uL; Monocyte% 10.1 % (0-10); NRBC Flagged by Analyzer 0 % (0-5); Neutrophil # 1.29 X10^3/uL (2.7-7.7); Neutrophil % 54.2 % (47-70); POSITIVE MORPHOLOGY YES; Platelet Count 300 K/mm3 (150-450); RBC Distribution Width SD 66.4 fl (35.1-43.9); Red Blood Count 2.24 M/mm3 (4.2-5.4); White Blood Count 2.4 K/mm3 (4.4-11.0)
[2024-06-07 18:03] LABS: Differential Indicated SCAN CRITERIA MET
[2024-06-07 18:21] LABS: Vitamin D,25 Hydroxy 71.8 ng/mL
[2024-06-07 18:29] LABS: AST(SGOT) 17 U/L (15-37); Alanine Aminotransfer ALT/SGPT 12 U/L (13-56); Albumin, Serum 3.7 g/dL (3.2-5.0); Alkaline Phosphatase 43 U/L (45-117); Anion Gap 8 (5-15); BUN 24 mg/dL (7-18); BUN/Creat Ratio 12.7 RATIO (10-20); Calcium,Total 9.7 mg/dL (8.5-10.1); Chloride 101 mmol/L (98-107); Creatinine, Serum 1.89 mg/dL (0.55-1.02); EST Glomerular Filtration Rate 28 mL/min (>60); Est Glom Filt Rate - Afr Amer 34 mL/min (>60); Ferritin 19 ng/mL (8-252); Globulin 3.8 g/dL (2.2-4.2); Glucose 111 mg/dL (74-106); Hemoglobin A1c 5.2 % (3.8-5.6); Iron 29 ug/dL (50-170); Iron Binding Capacity,Total 436 ug/dL (250-450); PERCENT IRON SATURATION 6.7 % (15.0-55.0); Potassium 4.8 mmol/L (3.5-5.1); Protein, Total 7.5 g/dL (6.4-8.2); Sodium Level 133 mmol/L (136-145)
[2024-06-07 18:35] LABS: Anisocytosis 1+; Differential Comment SCANNED
== END | disposition home or self-care (01) ==
LOC: MTLAB 15:31
PROVIDERS: PCP Family Medicine; Referring Provider Family Medicine; Visit Provider Family Medicine
DX: R53.83 Other fatigue (principal); D64.9 Anemia, unspecified
CPT/HCPCS: 36415; 80053; 82306; 82728; 83036; 83540; 83550; 84443; 85025

== ENCOUNTER 2024-06-15 07:28 | Outpatient (RCR) | payer MEDICARE, MEDICAID, SELFPAY ==
[2024-04-21 00:10] VITALS: BMI 27.8
[2024-06-15 08:01] LABS: Hematocrit 23.9 % (37-47); Hemoglobin 7.6 g/dL (12.0-15.0); Mean Corp Hgb Conc 31.8 g/dL (32-36); Mean Corpuscular Hgb 34.1 pg (27.0-32.0); Mean Corpuscular Volume 107.2 fL (81-99); Mean Platelet Vol. 10.2 fl (6.2-12.0); POSITIVE COUNT YES; POSITIVE DIFFERENTIAL YES; POSITIVE MORPHOLOGY YES; Platelet Count 165 K/mm3 (150-450); RBC Distribution Width CV 17.1 % (11.6-14.6); RBC Distribution Width SD 67.1 fl (35.1-43.9); Red Blood Count 2.23 M/mm3 (4.2-5.4); White Blood Count 2.1 K/mm3 (4.4-11.0)
[2024-06-15 08:05] LABS: Differential Indicated MANUAL DIFF
[2024-06-15 08:20] LABS: AST(SGOT) 18 U/L (15-37); Alanine Aminotransfer ALT/SGPT 13 U/L (13-56); Albumin, Serum 3.7 g/dL (3.2-5.0); Alkaline Phosphatase 40 U/L (45-117); Anion Gap 7 (5-15); BUN 31 mg/dL (7-18); BUN/Creat Ratio 14.8 RATIO (10-20); Bilirubin, Direct 0.11 mg/dL (0.00-0.30); Calcium,Total 9.4 mg/dL (8.5-10.1); Chloride 104 mmol/L (98-107); EST Glomerular Filtration Rate 25 mL/min (>60); Est Glom Filt Rate - Afr Amer 30 mL/min (>60); Globulin 3.6 g/dL (2.2-4.2); Glucose 83 mg/dL (74-106); Magnesium 2.2 mg/dL (1.6-2.6); Phosphorus 3.6 mg/dL (2.5-4.9); Potassium 3.8 mmol/L (3.5-5.1); Protein, Total 7.3 g/dL (6.4-8.2); Sodium Level 136 mmol/L (136-145)
[2024-06-15 08:24] LABS: Anisocytosis 2+; Eosinophil 7 % (0-5); Lymphocyte 54 % (19-41); Metamyelocyte 2 % (0-1); Monocyte 4 % (0-10); Myelocyte 1 % (0-0); Neutrophil-Band 3 % (0-5); Neutrophil-Segmented 29 % (47-70); Platelet Estimate ADEQUATE (ADEQ); Total Cells Counted 100 (MANUAL DIFF)
[2024-06-15 08:25] LABS: Absolute Neutrophil Count 0.7 X10^3/uL (2.0-7.7); Polychromasia RARE
[2024-06-15 08:26] LABS: Absolute Lymphocyte Count 1.13 X10^3/uL (0.83-4.51); Reactive Lymphocyte 1+
[2024-06-16 14:07] LABS: Pathologist Review Reviewed
[2024-06-18 11:09] LABS: GGTP 10 IU/L (0-60); Tacrolimus (FK506) 3.6 ng/mL (2.0-20.0)
== END 2024-06-20 23:59 ==
LOC: PAVLAB 07:28
PROVIDERS: Family Provider Internal Medicine; PCP Family Medicine
DX: R79.9 Abnormal finding of blood chemistry, unspecified; Z94.2 Lung transplant status; Z51.81 Encounter for therapeutic drug level monitoring; Z79.899 Other long term (current) drug therapy
CPT/HCPCS: 36415; 80053; 80197; 82248; 82977; 83735; 84100; 85025; 87497

== ENCOUNTER 2024-07-05 07:05 | Day surgery (SDC) | payer MEDICARE, MEDICAID, SELFPAY ==
[2024-07-05] VITALS (7 sets, daily range): BP systolic 93–153; BP diastolic 47–68; PULSE 72–83; RESP 14–16; TEMP 36.1–36.6; O2SAT 97–100; BMI 22.3
--- NOTE | 2024-07-05 07:24 | PCM.PRE.AN2 ---
ASA Classification* ASA Classification ASA Classification: 3 Assessment & Plan Anesthesia* Anesthesia Assessment Anesthesia Assessment: Discussed sedation and/or anesthesia options, risks, benefits, and alternatives with patient/parents/legal guardian/POA. Questions invited. The patient/parents/legal guardian/POA seems to understand and agrees to proceed with anesthesia plan. Reviewed the physical assessment, medical history, allergy history and patient home medications list prior to surgery/procedure/anesthetic and documented any changes. Performed airway and anesthesia risk assessments. Anesthesia Type Anesthesia Type: MAC (see written pre anesthesia record for full assessment) Anesthesia Focused Assessment* Airway Assessment Mouth opens: >3 cm Mallampati Score: II Focused Labs Anesthesia Preop lab: CBC WBC 10.5 K/mm3 (4.4-11.0) 06/28/24 07:58 RBC 2.63 M/mm3 (4.2-5.4) L 06/28/24 07:58 Hgb 9.0 g/dL (12.0-15.0) L 06/28/24 07:58 Hct 27.5 % (37-47) L 06/28/24 07:58 Plt Count 284 K/mm3 (150-450) 06/28/24 07:58 CHEMISTRY Potassium 3.8 mmol/L (3.5-5.1) 06/15/24 07:33 Sodium 136 mmol/L (136-145) 06/15/24 07:33 Magnesium 2.2 mg/dL (1.6-2.6) 06/15/24 07:33 Phosphorus 3.6 mg/dL (2.5-4.9) 06/15/24 07:33 BUN 31 mg/dL (7-18) H 06/15/24 07:33 Creatinine 2.10 mg/dL (0.55-1.02) H 06/15/24 07:33 Glucose 83 mg/dL (74-106) 06/15/24 07:33 TSH 1.270 uIU/mL (0.358-3.740) 06/07/24 15:32 COAG PT 13.0 SECONDS (11.7-14.9) 06/04/20 09:18 Pre-Assessment Diagnosis/Proposed Procedure Planned Operative Procedure(s): EGD, CSCOPE Anesthesia History 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 When Was Last Pacemaker Check QUESTION #4 FULL TEXT: You/Your Family Experience fever (hyperthermia) with Anesthesia Last Oral Intake Last Oral intake: Last Oral Intake NPO since Meds taken in AM with sips of water? 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 Female Yes 06/30/24 13:49 HX of Motion Sickness No 06/30/24 13:49 HX of N/V After Surgery No 06/30/24 13:49 Non-Smoker Yes 06/30/24 13:49 Duration of Surgery greater No 06/30/24 13:49 than 60 minutes Number of Risk Factors 2 06/30/24 13:49 PONV Score Moderate Risk 06/30/24 13:49 Height & Weight Height & Weight: Anesthesia: Height & Weight Height 5 ft 1 in 06/29/24 14:27 Respiratory Assessment Respiratory Assessment - enlisted aircrew/aerial observer/gunner: Respiratory Tract Infection Hx - 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 Has anyone observed you stop No 06/30/24 13:49 breathing during sleep? STOP Results Negative 06/30/24 13:49 QUESTION #5 FULL TEXT : Do you snore loudly (louder than talking or can be heard through closed doors)? 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 Specify any problems Hx of Preganancy in last 3 N/A 06/30/24 13:49 Months Nurse Filling Out Transfusion NBUCHER 06/30/24 13:49 & Questions: Date: 06/30/24 06/30/24 13:49 Time: 13:51 06/30/24 13:49 Patient unable to answer at this time (ie. 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: /Reproductive Hx- enlisted aircrew/aerial observer/gunner Hx Now No 06/30/24 13:49 Gestational Age (in weeks): EDC: Hx Hx Para Hx Section SAB No 06/30/24 13:49 PFSH Medical History COPD (chronic obstructive pulmonary disease) Wears glasses Wears partial dentures History of steroid therapy History of renal disease Anemia Former smoker History of atrial fibrillation History of echocardiogram Cardiology follow-up encounter Iron deficiency anemia Cardiac murmur Essential hypertension Sleep apnea Anxiety GERD (gastroesophageal reflux disease) Left ventricular systolic dysfunction Dilated cardiomyopathy Hypersomnia Chronic hypoxemic respiratory failure Acute and chronic respiratory failure with hypercapnia Rib pain on right side Chronic hypercapnic respiratory failure Stage 4 very severe COPD by GOLD classification Ventricular premature depolarization Allergic rhinitis Fatigue Shortness of breath Hyperkalemia PVC (premature ventricular contraction) Hyperlipidemia Abnormal nuclear stress test Chest pain Chronic respiratory failure COLD (chronic obstructive lung disease) Home Medications ?Medication ?Instructions ?Recorded ?Last Taken ?Type aspirin 81 mg chewable tablet 81 mg PO DAILY 01/23/15 01/02/17 09:30 History cholecalciferol (vitamin D3) 50 2,000 unit PO DAILY 04/20/19 Unknown History mcg (2,000 unit) tablet azithromycin 250 mg tablet 250 mg PO MOWEFR 02/03/20 Unknown History calcium 315 mg (as 1 tab PO BID 02/03/20 Unknown History citrate)-vitamin D3 5 mcg (200 unit) tablet sulfamethoxazole 800 1 tab PO TUTHSA 02/03/20 Unknown History mg-trimethoprim 160 mg tablet (Bactrim DS) acetaminophen 325 mg capsule 325 mg PO Q6H PRN pain 04/18/20 Unknown History multivitamin-iron 9 mg-folic acid 1 tab PO DAILY 04/18/20 Unknown History 400 mcg-calcium and minerals tablet (Thera-M) triamcinolone acetonide 55 mcg 2 spray intranasal DAILY PRN nasal 04/18/20 Unknown History nasal spray aerosol (Nasacort) congestion prednisone 5 mg tablet 5 mg PO DAILY 01/29/21 Unknown History tacrolimus 0.5 mg capsule,extended 0.5 mg PO .COMPLEX 01/29/21 Unknown History release 24 hr azathioprine 50 mg tablet 50 mg PO DAILY 01/24/22 Unknown History Allergy/AdvReac Type Severity Reaction Status Date / Time codeine AdvReac Vomiting Verified 07/05/24 07:21 morphine AdvReac Nausea Verified 07/05/24 07:21 Family History Sister Asthma Hypertension Grandmother Asthma CAD (coronary artery disease) Grandfather CAD (coronary artery disease) Son Diabetes Hypertension Surgical History History of esophagogastroduodenoscopy (EGD) History of colonoscopy S/P lung transplant (~08/31/19) H/O tubal ligation History of cholecystectomy Social History Smoking Status: Former smoker quit date: 09/21/96 pack-years: 30 how long ago did patient quit smokin second hand exposure: No alcohol intake: never substance use type: does not use Review of Systems (Anesthesia) ROS Narrative System reviewed and no additional complaints, except as documented.
--- NOTE | 2024-07-05 08:15 | COLBX_PTH ---
PATIENT: EPIFANIO PAYTON LOC: EN U#:[id number] AGE/SX: 73/F ROOM: RE07/05/[address]: Dr. Ezequiel Avina MD : 1950 BED: DIS: 07/05/2024 SPEC #: [id number] RECD: 07/05/24 10:11 STATUS: HOPE REShai #: [id number] DAVIDA: 07/05/24 08:[address]: Ezequiel Avina DEPT: SURGICAL PATHOLOGY RECD BY: Rina Shukla ENTERED: 07/05/24 11:27 SP TYPE: COLON BX OTHR DR: Betty Lozano MD Tissues: A - Gastric mucous membrane B - Esophagus, NOS C - Rectum, NOS Procedures: Surgery Specimen Level IV HEADER OPERATION: Colonoscopy with biopsies, EGD with biopsies PRE-OP DIAGNOSIS: Iron deficiency anemia TISSUE SUBMITTED: A- Antrum biopsy, B- Gastroesophageal junction biopsy, C- Rectal biopsy MICROSCOPIC DIAGNOSIS A. Antrum biopsy: Mild gastritis. See microscopic description and comment. B. Gastroesophageal junction, biopsy: Fragments of benign squamous mucosa. C. Rectal biopsy: Fragments of colonic mucosa, no pathologic diagnosis. 07/06/2024 COMMENT A. The results of immunohistochemistry for Helicobacter pylori will be reported separately ([id number]). MICROSCOPIC DESCRIPTION Slides are reviewed. A. The specimen shows fragments of gastric mucosa with chronic inflammatory cell infiltrates in the lamina propria consisting of lymphocytes and plasma cells, consistent with mild chronic gastritis. GROSS DESCRIPTION A. Received in fixative is one container labeled with the patient's name and designated Antrum biopsy. The specimen consists of two irregular fragments of light tobin soft tissue that in aggregate measure 1.0 x 0.4 x 0.1 cm. The specimen is totally submitted in one cassette. B. Received in fixative is one container labeled with the patient's name and designated GE junction biopsy. The specimen consists of multiple irregular fragments of light tobin soft tissue that in aggregate measure 1.5 x 0.3 x 0.1 cm. The specimen is totally submitted in one cassette. C. Received in fixative is one container labeled with the patient's name and designated Rectal biopsy. The specimen consists of two irregular fragments of light tobin soft tissue that in aggregate measure 0.4 x 0.3 x 0.1 cm. The specimen is totally submitted in one cassette. SJRahulmr 07/05/2024 TC:3 CPT:82190p3
--- NOTE | 2024-07-05 08:15 | IMM_PTH ---
PATIENT: EPIFANIO PAYTON LOC: EN U#:[id number] AGE/SX: 73/F ROOM: RE07/05/[address]: Dr. Ezequiel Avina MD : 1950 BED: DIS: 07/05/2024 SPEC #: [id number] RECD: 07/05/24 11:36 STATUS: HOPE REQ #: [id number] DAVIDA: 07/05/24 08:[address]: Ezequiel Avina DEPT: IMMUNOHISTOCHEMISTRY RECD BY: Luther Dumont ENTERED: 07/05/24 11:36 SP TYPE: IMMUNO OTHR DR: Betty Lozano MD Tissues: A - Gastric mucous membrane Procedures: H Pylori (initial) PHYSICIAN & INSTITUTION [place] [address] SPECIMEN INFORMATION: Tissue Source: A- Antrum biopsy Clinical Info: Iron deficiency anemia Specimen Number: [id number] CPT code: 19906 METHODOLOGY: Deparaffinized sections of prefer/formalin-fixed tissue or PAP/DQ stained slides are incubated with monoclonal/polyclonal antibodies/oligonucleotide probes. Localization is made via biotin free immunoperoxidase method. Appropriate controls are performed and reacted as expected. Results on target cell population are indicated in the following table: RESULTS: ANTIBODY / CLONE RESULT Block A H Pylori (polyclonal) negative These tests were developed and their performance characteristics determined by [facility]. They may not have been cleared or approved by the U.S. Food and Drug Administration. The FDA has determined that such clearance or approval is not necessary. The above immunohistochemical/dualISH markers are ordered and reviewed by the Pathologist. INTERPRETATION: A. Antrum, biopsy: Negative for Helicobacter pylori organisms. 07/06/2024
--- NOTE | 2024-07-05 08:27 | HP.PCM_ITS ---
HPI - General General Date of Admission: 07/05/24 Date of Service: 07/05/24 Chief Complaint: Anemia HPI Narrative EPIFANIO PAYTON, is a 73 F who presents for EGD. She was seen in my office recently for anemia. She was recently hospitalized for this recently. Her treating physicians of recommend an EGD and colonoscopy to rule out source of blood loss. She denies any black or tarry stools. Last colonoscopy was in 2019 and showed only 1 polyp [facility] Medical History COPD (chronic obstructive pulmonary disease) Wears glasses Wears partial dentures History of steroid therapy History of renal disease Anemia Former smoker History of atrial fibrillation History of echocardiogram Cardiology follow-up encounter Iron deficiency anemia Cardiac murmur Essential hypertension Sleep apnea Anxiety GERD (gastroesophageal reflux disease) Left ventricular systolic dysfunction Dilated cardiomyopathy Hypersomnia Chronic hypoxemic respiratory failure Acute and chronic respiratory failure with hypercapnia Rib pain on right side Chronic hypercapnic respiratory failure Stage 4 very severe COPD by GOLD classification Ventricular premature depolarization Allergic rhinitis Fatigue Shortness of breath Hyperkalemia PVC (premature ventricular contraction) Hyperlipidemia Abnormal nuclear stress test Chest pain Chronic respiratory failure COLD (chronic obstructive lung disease) Home Medications ?Medication ?Instructions ?Recorded ?Last Taken ?Type aspirin 81 mg chewable tablet 81 mg PO DAILY 01/23/15 01/02/17 09:30 History cholecalciferol (vitamin D3) 50 2,000 unit PO DAILY 04/20/19 Unknown History mcg (2,000 unit) tablet azithromycin 250 mg tablet 250 mg PO MOWEFR 02/03/20 Unknown History calcium 315 mg (as 1 tab PO BID 02/03/20 Unknown History citrate)-vitamin D3 5 mcg (200 unit) tablet sulfamethoxazole 800 1 tab PO TUTHSA 02/03/20 Unknown History mg-trimethoprim 160 mg tablet (Bactrim DS) acetaminophen 325 mg capsule 325 mg PO Q6H PRN pain 04/18/20 Unknown History multivitamin-iron 9 mg-folic acid 1 tab PO DAILY 04/18/20 Unknown History 400 mcg-calcium and minerals tablet (Thera-M) triamcinolone acetonide 55 mcg 2 spray intranasal DAILY PRN nasal 04/18/20 Unknown History nasal spray aerosol (Nasacort) congestion prednisone 5 mg tablet 5 mg PO DAILY 01/29/21 Unknown History tacrolimus 0.5 mg capsule,extended 0.5 mg PO .COMPLEX 01/29/21 Unknown History release 24 hr azathioprine 50 mg tablet 50 mg PO DAILY 01/24/22 Unknown History Allergy/AdvReac Type Severity Reaction Status Date / Time codeine AdvReac Vomiting Verified 07/05/24 07:21 morphine AdvReac Nausea Verified 07/05/24 07:21 Family History Sister Asthma Hypertension Grandmother Asthma CAD (coronary artery disease) Grandfather CAD (coronary artery disease) Son Diabetes Hypertension Surgical History History of esophagogastroduodenoscopy (EGD) History of colonoscopy S/P lung transplant (~08/31/19) H/O tubal ligation History of cholecystectomy Social History Smoking Status: Former smoker quit date: 09/21/96 pack-years: 30 how long ago did patient quit smokin second hand exposure: No alcohol intake: never substance use type: does not use Vital Signs Vital Signs Vital Signs: 07/05/24 07:22 07/05/24 07:22 Temperature 97 F L Temperature Source Temporal Pulse Rate 83 Respiratory Rate 16 Respiratory Pattern Normal Blood Pressure 153/68 H Blood Pressure Mean 96 Blood Pressure Source Monitor Blood Pressure Position Semi-Fowlers Blood Pressure Location Right Arm Pulse Ox 99 Oxygen Delivery Method Room Air Weight Weight: 118 lb Body Mass Index (BMI) 22.3 Physical Exam Narrative She is alert and oriented x 3. She is in no acute distress. Head is normocephalic and atraumatic. Pupils are equal round and reactive to light. Abdomen is soft nontender nondistended. Assessment & Plan Assessment/Plan (1) Encounter for screening for malignant neoplasm of colon: PLAN: Plan Plan is for upper and lower scopes to rule out polyp or mass as a cause for her anemia. We discussed the details of the planned procedure including risks benefits and alternatives. She wishes to proceed. Procedure will begin momentarily. Charges/Coding Visit Charges Inpatient E&M: 37599 Init Hosp L1
--- NOTE | 2024-07-05 09:18 | OP.EGD_ITS ---
Patient Name: Mary Petit Procedure Date: 07/05/2024 8:24 AM Date of : 1950 Age: 73 Procedure: Upper GI endoscopy Indications: Iron deficiency anemia Providers: Ezequiel Avina MD Medicines: Monitored Anesthesia Care Patient Profile: Refer to note in patient chart for documentation of history and physical. anemia Complications: No immediate complications. Estimated blood loss: Minimal. Procedure: Pre-Anesthesia Assessment: - Prior to the procedure, a History and Physical was performed, and patient medications and allergies were reviewed. The patient's tolerance of previous anesthesia was also reviewed. The risks and benefits of the procedure and the sedation options and risks were discussed with the patient. All questions were answered, and informed consent was obtained. Prior Anticoagulants: The patient has taken no anticoagulant or antiplatelet agents. ASA Grade Assessment: II - A patient with mild systemic disease. After reviewing the risks and benefits, the patient was deemed in satisfactory condition to undergo the procedure. After obtaining informed consent, the endoscope was passed under direct vision. Throughout the procedure, the patient's blood pressure, pulse, and oxygen saturations were monitored continuously. The gastroscope was introduced through the mouth, and advanced to the second part of duodenum. The upper GI endoscopy was accomplished without difficulty. The patient tolerated the procedure well. Moderate Sedation: See the other procedure note for documentation of moderate sedation with intraservice time. Scope In: 8:38:40 AM Scope Out: 8:45:56 AM Total Procedure Duration Time 0 hours 7 minutes 16 seconds Findings: The examined esophagus was normal. Mucosa was biopsied with a cold forceps for histology randomly at the gastroesophageal junction. Verification of patient identification for the specimen was done by the nurse using the patient's name, date and medical record number. Estimated blood loss was minimal. The entire examined stomach was normal. Biopsies were taken with a cold forceps for Helicobacter pylori testing. Verification of patient identification for the specimen was done by the nurse using the patient's name, date and medical record number. Estimated blood loss was minimal. The examined duodenum was normal. A small hiatal hernia was present. Impression: - Normal esophagus. Biopsied. - Normal stomach. Biopsied. - Normal examined duodenum. Recommendation: - Discharge patient to home. - High fiber diet. - Await pathology results. - Repeat upper endoscopy for surveillance based on pathology results. - Return to my office PRN. - Continue present medications. Procedure Code(s): --- Professional --- 70286, Esophagogastroduodenoscopy, flexible, transoral; with biopsy, single or multiple Diagnosis Code(s): --- Professional --- D50.9, Iron deficiency anemia, unspecified CPT copyright 2021 [employer]. All rights reserved. The codes documented in this report are preliminary and upon explosives engineer review may be revised to meet current compliance requirements. Ezequiel Avina MD 07/05/2024 9:17:48 AM This report has been signed electronically. Number of Addenda: 0 Note Initiated On: 07/05/2024 8:24 AM
--- NOTE | 2024-07-05 09:18 | OP.CCLET_ITS ---
07/05/2024 Betty Lozano Md Re : Upper GI endoscopy procedure for Mary Petit Dear Blake This procedure was performed on Friday, July 05, 2024. My impressions and recommendations are as follows: Impressions : - Normal esophagus. Biopsied. - Normal stomach. Biopsied. - Normal examined duodenum. Recommendations : - Discharge patient to home. - High fiber diet. - Await pathology results. - Repeat upper endoscopy for surveillance based on pathology results. - Return to my office PRN. - Continue present medications. My findings are described in the full procedure note, which is enclosed. If I can be of further assistance, please feel free to contact me at . Sincerely, Ezequiel Avina MD 07/05/2024 9:17:48 AM This report has been signed electronically.
--- NOTE | 2024-07-05 09:18 | PCM.POST.ANE ---
Anesthesia: Postop Eval I Current Vital Signs Temperature: 97.1 F Pulse Rate: 72 Blood Pressure: 95/58 Respiratory Rate: 14 Pulse Ox: 100 Oxygen Delivery Method: Room Air Assessment Airway patent: Yes Spontaneous unlabored respirations: Yes Mental status: Asleep nausea: No Vomiting: No Anesthesia Complication: No Fluid Hydration Crystalloid volume administer (ml): 60 Total IV fluid infused: 60 Progress Note Anesthesia document: Postop Eval 1 completed: Yes
--- NOTE | 2024-07-05 09:19 | PCM.POSTANE2 ---
Anesthesia Postop Eval I Sum Postop Eval Completion status Anesthesia document: Postop Eval 1 completed: Yes Anesthesia Postop Eval I Summary Anesthesia Postop Eval I Summary: Anesthesia Postop Eval I: Assessment Summary Airway patent Yes 07/05/24 09:18 [email or web address] Spontaneous unlabored Yes 07/05/24 09:18 [email or web address] respirations Mental status Asleep 07/05/24 09:18 [email or web address] nausea No 07/05/24 09:18 [email or web address] Vomiting No 07/05/24 09:18 [email or web address] Anesthesia Postop Eval I: Fluid Summary Crystalloid volume administer 60 07/05/24 09:18 [email or web address] (ml) Colloids volume administered ( ml) Blood Product volume administered (ml) Total IV fluid infused 60 07/05/24 09:18 [email or web address] Anesthesia Postop Eval I: Summary Notes Anesthesia Complication No 07/05/24 09:18 [email or web address] Anesthesia Complication Comment: Post-operative progress note Anesthesia: Postop Eval II Evaluation Mental status: Awake Pain Level: 0 nausea: No Vomiting: No
--- NOTE | 2024-07-05 09:21 | OP.COLON_ITS ---
Patient Name: Mary Petit Procedure Date: 07/05/2024 8:47 AM Date of : 1950 Age: 73 Procedure: Colonoscopy Indications: Iron deficiency anemia Providers: Ezequiel Avina MD Medicines: Monitored Anesthesia Care Patient Profile: Refer to note in patient chart for documentation of history and physical. Last Colonoscopy: 5 years ago. Complications: No immediate complications. Estimated blood loss: Minimal. Procedure: Pre-Anesthesia Assessment: - Prior to the procedure, a History and Physical was performed, and patient medications and allergies were reviewed. The patient's tolerance of previous anesthesia was also reviewed. The risks and benefits of the procedure and the sedation options and risks were discussed with the patient. All questions were answered, and informed consent was obtained. Prior Anticoagulants: The patient has taken no anticoagulant or antiplatelet agents. ASA Grade Assessment: II - A patient with mild systemic disease. After reviewing the risks and benefits, the patient was deemed in satisfactory condition to undergo the procedure. - Prior to the procedure, a History and Physical was performed, and patient medications and allergies were reviewed. The patient's tolerance of previous anesthesia was also reviewed. The risks and benefits of the procedure and the sedation options and risks were discussed with the patient. All questions were answered, and informed consent was obtained. Prior Anticoagulants: The patient has taken no anticoagulant or antiplatelet agents. ASA Grade Assessment: II - A patient with mild systemic disease. After reviewing the risks and benefits, the patient was deemed in satisfactory condition to undergo the procedure. After I obtained informed consent, the scope was passed under direct vision. Throughout the procedure, the patient's blood pressure, pulse, and oxygen saturations were monitored continuously. The colonoscope was introduced through the anus and advanced to the cecum, identified by the appendiceal orifice, ileocecal valve and palpation. The ileocecal valve, appendiceal orifice, and rectum were photographed. The entire colon was well visualized. The colonoscopy was performed without difficulty. The patient tolerated the procedure well. The quality of the bowel preparation was adequate. Moderate Sedation: See the other procedure note for documentation of moderate sedation with intraservice time. Scope In: 8:49:14 AM Scope Withdrawal Time 0 hours 13 minutes 3 seconds Scope Out: 9:09:23 AM Total Procedure Duration Time 0 hours 20 minutes 9 seconds Findings: The perianal and digital rectal examinations were normal. Many small-mouthed diverticula were found in the sigmoid colon and descending colon. Multiple petechiae were found in the rectum. This was biopsied with a cold forceps for histology. Verification of patient identification for the specimen was done by the nurse using the patient's name, date and medical record number. Estimated blood loss was minimal. The exam was otherwise without abnormality. Impression: - Diverticulosis in the sigmoid colon and in the descending colon. - Petechia(e) in the rectum. Biopsied. - The examination was otherwise normal. Recommendation: - Discharge patient to home (ambulatory). - High fiber diet indefinitely. - Await pathology results. - Repeat colonoscopy in 5-10 years for screening purposes. - Return to my office PRN. - Continue present medications. Procedure Code(s): --- Professional --- 83505, Colonoscopy, flexible; with biopsy, single or multiple Diagnosis Code(s): --- Professional --- K63.89, Other specified diseases of intestine K57.30, Diverticulosis of large intestine without perforation or abscess without bleeding D50.9, Iron deficiency anemia, unspecified CPT copyright 2021 [employer]. All rights reserved. The codes documented in this report are preliminary and upon cord tire builder review may be revised to meet current compliance requirements. Ezequiel Avina MD 07/05/2024 9:21:39 AM This report has been signed electronically. Number of Addenda: 0 Note Initiated On: 07/05/2024 8:47 AM
--- NOTE | 2024-07-05 09:22 | OP.CCLET_ITS ---
07/05/2024 Betty Lozano Md Re : Colonoscopy procedure for Mary Francoke This procedure was performed on Friday, July 05, 2024. My impressions and recommendations are as follows: Impressions : - Diverticulosis in the sigmoid colon and in the descending colon. - Petechia(e) in the rectum. Biopsied. - The examination was otherwise normal. Recommendations : - Discharge patient to home (ambulatory). - High fiber diet indefinitely. - Await pathology results. - Repeat colonoscopy in 5-10 years for screening purposes. - Return to my office PRN. - Continue present medications. My findings are described in the full procedure note, which is enclosed. If I can be of further assistance, please feel free to contact me at . Sincerely, Ezequiel Avina MD 07/05/2024 9:21:39 AM This report has been signed electronically.
== END 2024-07-05 09:56 | disposition home or self-care (01) ==
LOC: EN 07:06 → AC 07:07
PROVIDERS: PCP Family Medicine; Referring Provider Family Medicine; Visit Provider Surgery
PROC: 0DJD8ZZ Inspection of Lower Intestinal Tract, Via Natural or Artificial Opening Endoscopic (ICD-10-PCS; CPT 45378; principal; 2024-07-05 08:10)
DX: Z12.11 Encounter for screening for malignant neoplasm of colon (principal); Z94.2 Lung transplant status; J96.12 Chronic respiratory failure with hypercapnia; J96.11 Chronic respiratory failure with hypoxia; K29.50 Unspecified chronic gastritis without bleeding; K57.30 Diverticulosis of large intestine without perforation or abscess without bleeding; K62.89 Other specified diseases of anus and rectum; K44.9 Diaphragmatic hernia without obstruction or gangrene; D50.0 Iron deficiency anemia secondary to blood loss (chronic); I10 Essential (primary) hypertension; E78.5 Hyperlipidemia, unspecified; Z79.52 Long term (current) use of systemic steroids; Z79.82 Long term (current) use of aspirin; Z79.899 Other long term (current) drug therapy; Z87.891 Personal history of nicotine dependence
CPT/HCPCS: 45380; 43239; 88305; 88342; A4216; J2405

== ENCOUNTER → 2024-07-06 | Outpatient (CLI) | payer MEDICARE, MEDICAID, SELFPAY | END | disposition home or self-care (01) | LOC: PSN 10:46 | PROVIDERS: PCP Family Medicine; Referring Provider Internal Medicine; Visit Provider Internal Medicine | DX: D84.9 Immunodeficiency, unspecified (principal); Z94.2 Lung transplant status | CPT/HCPCS: 94010 ==

== ENCOUNTER 2024-07-18 07:36 | Outpatient (RCR) | payer MEDICARE, MEDICAID, SELFPAY ==
[2024-06-21 00:05] VITALS: BMI 27.8
[2024-06-28 08:16] LABS: Hematocrit 27.5 % (37-47); Mean Corp Hgb Conc 32.7 g/dL (32-36); Mean Corpuscular Hgb 34.2 pg (27.0-32.0); Mean Corpuscular Volume 104.6 fL (81-99); POSITIVE COUNT YES; POSITIVE MORPHOLOGY YES; Platelet Count 284 K/mm3 (150-450); RBC Distribution Width CV 18.6 % (11.6-14.6); RBC Distribution Width SD 68.8 fl (35.1-43.9); Red Blood Count 2.63 M/mm3 (4.2-5.4); White Blood Count 10.5 K/mm3 (4.4-11.0)
[2024-06-28 08:37] LABS: Differential Indicated MANUAL DIFF
[2024-06-28 09:57] LABS: Lymphocyte 23 % (19-41); Metamyelocyte 2 % (0-1); Monocyte 7 % (0-10); Myelocyte 2 % (0-0); Neutrophil-Band 1 % (0-5); Neutrophil-Segmented 65 % (47-70); Total Cells Counted 100 (MANUAL DIFF)
[2024-06-28 09:59] LABS: Absolute Lymphocyte Count 2.41 X10^3/uL (0.83-4.51); Absolute Neutrophil Count 6.9 X10^3/uL (2.0-7.7)
[2024-06-28 10:04] LABS: Dohle Bodies 1+; Platelet Estimate ADEQUATE (ADEQ); Toxic Granulation 1+
[2024-06-28 10:05] LABS: Acanthocytes RARE; Anisocytosis 2+; Macrocytosis 1+; Ovalocyte 2+; Polychromasia 1+; Schistocytes RARE
[2024-06-28 10:06] LABS: Tear Drop Cell RARE
[2024-06-29 15:52] LABS: Pathologist Review Reviewed
[2024-07-18 08:22] LABS: Absolute Lymphocyte Count 1.06 X10^3/uL (0.83-4.51); Absolute Neutrophil Count 2.5 X10^3/uL (2.0-7.7); Basophil# 0.03 X10^3/uL; Basophil% 0.7 % (0-1); Eosinophils% 2.4 % (0-5); Hematocrit 29.7 % (37-47); Hemoglobin 9.5 g/dL (12.0-15.0); Lymphocyte # 1.06 X10^3/ul (0.83-4.51); Lymphocyte % 25.2 % (19-41); Mean Corpuscular Hgb 35.4 pg (27.0-32.0); Mean Corpuscular Volume 110.8 fL (81-99); Mean Platelet Vol. 9.1 fl (6.2-12.0); Monocyte# 0.45 X10^3/uL; Monocyte% 10.7 % (0-10); NRBC Flagged by Analyzer 0 % (0-5); Neutrophil # 2.51 X10^3/uL (2.7-7.7); Neutrophil % 59.6 % (47-70); POSITIVE MORPHOLOGY YES; Platelet Count 207 K/mm3 (150-450); RBC Distribution Width CV 19.1 % (11.6-14.6); Red Blood Count 2.68 M/mm3 (4.2-5.4); White Blood Count 4.2 K/mm3 (4.4-11.0)
[2024-07-18 08:27] LABS: Differential Indicated SCAN CRITERIA MET
[2024-07-18 08:50] LABS: AST(SGOT) 22 U/L (15-37); Alanine Aminotransfer ALT/SGPT 21 U/L (13-56); Albumin, Serum 3.3 g/dL (3.2-5.0); Alkaline Phosphatase 43 U/L (45-117); Anion Gap 10 (5-15); BUN 17 mg/dL (7-18); Bilirubin, Direct 0.09 mg/dL (0.00-0.30); Calcium,Total 8.9 mg/dL (8.5-10.1); Chloride 101 mmol/L (98-107); Creatinine, Serum 1.55 mg/dL (0.55-1.02); EST Glomerular Filtration Rate 35 mL/min (>60); Est Glom Filt Rate - Afr Amer 42 mL/min (>60); Ferritin 704 ng/mL (8-252); Globulin 3.3 g/dL (2.2-4.2); Glucose 88 mg/dL (74-106); Iron 75 ug/dL (50-170); Iron Binding Capacity,Total 312 ug/dL (250-450); Magnesium 1.9 mg/dL (1.6-2.6); Phosphorus 3.8 mg/dL (2.5-4.9); Potassium 4.2 mmol/L (3.5-5.1); Protein, Total 6.6 g/dL (6.4-8.2); Sodium Level 136 mmol/L (136-145)
[2024-07-18 08:53] LABS: Hemoglobin A1c 5.2 % (3.8-5.6)
[2024-07-18 10:44] LABS: Anisocytosis 3+; Differential Comment SCANNED; Hypochromasia 1+; Macrocytosis 2+; Platelet Estimate ADEQUATE (ADEQ); Polychromasia 1+
[2024-07-18 10:45] LABS: Acanthocytes RARE; Ovalocyte 2+; Schistocytes RARE; Stomatocyte 1+
[2024-07-20 12:09] LABS: GGTP 13 IU/L (0-60); Immunoglobulin A 161 mg/dL (64-422); Immunoglobulin G 845 mg/dL (586-1602); Immunoglobulin M 181 mg/dL (26-217); Tacrolimus (FK506) 3.2 ng/mL (2.0-20.0); Transferrin 232 mg/dL (192-364)
== END 2024-07-21 23:59 ==
LOC: PAVLAB 07:36
PROVIDERS: Internal Medicine; Family Provider Internal Medicine; PCP Family Medicine
DX: R79.9 Abnormal finding of blood chemistry, unspecified; Z94.2 Lung transplant status; Z51.81 Encounter for therapeutic drug level monitoring; Z79.899 Other long term (current) drug therapy; D84.9 Immunodeficiency, unspecified
CPT/HCPCS: 36415; 80053; 80197; 82248; 82728; 82784; 82977; 83036; 83540; 83550; 83735; 84100; 84466; 85025; 87497

== ENCOUNTER 2024-07-21 08:00 | Outpatient (RCR) | payer SELFPAY | END 2024-07-21 23:59 | LOC: PR 08:00 | PROVIDERS: PCP Family Medicine | DX: J44.9 Chronic obstructive pulmonary disease, unspecified (principal) ==

== ENCOUNTER → 2024-08-03 | Outpatient (CLI) | payer MEDICARE, MEDICAID, SELFPAY | END | disposition home or self-care (01) | LOC: PSN 10:35 | PROVIDERS: PCP Family Medicine; Referring Provider Internal Medicine; Visit Provider Internal Medicine | DX: D84.9 Immunodeficiency, unspecified (principal); Z94.2 Lung transplant status | CPT/HCPCS: 94010 ==

== ENCOUNTER 2024-08-04 08:00 | Outpatient (RCR) | payer SELFPAY | END 2024-08-20 23:59 | LOC: PR 08:00 | PROVIDERS: PCP Family Medicine | DX: Z00.00 Encounter for general adult medical examination without abnormal findings (principal) ==

== ENCOUNTER 2024-08-16 07:25 | Outpatient (RCR) | payer MEDICARE, MEDICAID, SELFPAY ==
[2024-07-22 00:07] VITALS: BMI 27.8
[2024-08-16 08:07] LABS: Absolute Lymphocyte Count 1.61 X10^3/uL (0.83-4.51); Absolute Neutrophil Count 1.2 X10^3/uL (2.0-7.7); Basophil# 0.04 X10^3/uL; Basophil% 1.1 % (0-1); Eosinophil# 0.16 X10^3/uL; Eosinophils% 4.4 % (0-5); Hematocrit 33.1 % (37-47); Hemoglobin 10.9 g/dL (12.0-15.0); Lymphocyte # 1.61 X10^3/ul (0.83-4.51); Lymphocyte % 44.4 % (19-41); Mean Corp Hgb Conc 32.9 g/dL (32-36); Mean Corpuscular Hgb 36.2 pg (27.0-32.0); Mean Platelet Vol. 9.6 fl (6.2-12.0); Monocyte# 0.52 X10^3/uL; Monocyte% 14.3 % (0-10); NRBC Flagged by Analyzer 0 % (0-5); Neutrophil # 1.23 X10^3/uL (2.7-7.7); Neutrophil % 33.9 % (47-70); Platelet Count 202 K/mm3 (150-450); RBC Distribution Width CV 14.6 % (11.6-14.6); RBC Distribution Width SD 59.5 fl (35.1-43.9); Red Blood Count 3.01 M/mm3 (4.2-5.4); White Blood Count 3.6 K/mm3 (4.4-11.0)
[2024-08-16 08:23] LABS: AST(SGOT) 21 U/L (15-37); Alanine Aminotransfer ALT/SGPT 16 U/L (13-56); Albumin, Serum 3.4 g/dL (3.2-5.0); Alkaline Phosphatase 43 U/L (45-117); Anion Gap 5 (5-15); BUN 20 mg/dL (7-18); BUN/Creat Ratio 15.4 RATIO (10-20); Bilirubin, Direct 0.07 mg/dL (0.00-0.30); Calcium,Total 9.1 mg/dL (8.5-10.1); Chloride 108 mmol/L (98-107); EST Glomerular Filtration Rate 43 mL/min (>60); Est Glom Filt Rate - Afr Amer 52 mL/min (>60); Globulin 3.4 g/dL (2.2-4.2); Glucose 87 mg/dL (74-106); Magnesium 2.2 mg/dL (1.6-2.6); Phosphorus 3.3 mg/dL (2.5-4.9); Potassium 4.4 mmol/L (3.5-5.1); Protein, Total 6.8 g/dL (6.4-8.2); Sodium Level 138 mmol/L (136-145)
[2024-08-20 07:07] LABS: Tacrolimus (FK506) 2.7 ng/mL (2.0-20.0)
== END 2024-08-20 23:59 ==
LOC: PAVLAB 07:25
PROVIDERS: Internal Medicine; Family Provider Internal Medicine; PCP Family Medicine
DX: Z94.2 Lung transplant status; Z79.899 Other long term (current) drug therapy; D84.9 Immunodeficiency, unspecified; R79.9 Abnormal finding of blood chemistry, unspecified; Z51.81 Encounter for therapeutic drug level monitoring; Z48.24 Encounter for aftercare following lung transplant; E78.5 Hyperlipidemia, unspecified
CPT/HCPCS: 36415; 80053; 80197; 82248; 82977; 83735; 84100; 85025; 87497

== ENCOUNTER 2024-08-23 06:27 | Outpatient (RCR) | payer SELFPAY | END 2024-09-20 23:59 | LOC: PR 06:27 | PROVIDERS: PCP Family Medicine | DX: Z00.00 Encounter for general adult medical examination without abnormal findings (principal) ==

== ENCOUNTER 2024-08-29 07:36 | Outpatient (RCR) | payer MEDICARE, MEDICAID, SELFPAY ==
[2024-08-21 00:11] VITALS: BMI 27.8
== END 2024-09-20 23:59 ==
LOC: PAVLAB 07:36
PROVIDERS: Internal Medicine; Family Provider Internal Medicine; PCP Family Medicine
DX: Z94.2 Lung transplant status; D84.9 Immunodeficiency, unspecified; Z79.899 Other long term (current) drug therapy; R79.9 Abnormal finding of blood chemistry, unspecified; Z51.81 Encounter for therapeutic drug level monitoring
CPT/HCPCS: 36415; 80197

== ENCOUNTER 2024-09-20 19:21 | Emergency (ER) | payer MEDICARE, MEDICAID, SELFPAY ==
[2024-09-20 19:23] VITALS: BP 160/85; PULSE 98; RESP 16; TEMP 36.7; O2SAT 98; BMI 22.6
--- NOTE | 2024-09-20 21:03 | CT_ITS ---
STUDY: CT BRAIN WITHOUT CONTRAST REASON FOR EXAM: Female, 74 years old. Pain RADIATION DOSAGE (If Supplied By Facility): CTDIvol = ( 44.99 ) mGy, DLP = ( 846.73 ) mGycm TECHNIQUE: Transaxial CT imaging of the brain was performed without administration of intravenous contrast material. Individualized dose optimization techniques were used for this CT. COMPARISON: No relevant priors. FINDINGS: Normal soft tissue structures. Normal calvarium. Normal size ventricles and extra-axial spaces for the patient''s age. Normal white matter tracts of the cerebral hemispheres. Normal basal ganglia and thalami. Normal brainstem. Normal cerebellum. There is no intracranial hemorrhage. There are no findings of an acute ischemic infarction. Normal visualized paranasal sinuses. CT/Brain/Head without Contrast IMPRESSION: Normal unenhanced CT scan of the brain. Electronically Signed: Partha Arellano MD at 21:36 EST ,
[2024-09-20] MEDS: DiphenhydrAMINE 50 MG/ML Syringe 25 MG IV (21:13)
[2024-09-20] MEDS: Metoclopramide 10 MG/2 ML Vial IV (21:14)
[2024-09-20] MEDS: Ketorolac 15 MG/ML Vial IV (21:15)
[2024-09-20 21:21] LABS: Hematocrit 37.2 % (37-47); Hemoglobin 12.7 g/dL (12.0-15.0); Mean Corp Hgb Conc 34.1 g/dL (32-36); Mean Corpuscular Hgb 35.7 pg (27.0-32.0); Mean Corpuscular Volume 104.5 fL (81-99); POSITIVE COUNT YES; POSITIVE MORPHOLOGY YES; Platelet Count 236 K/mm3 (150-450); RBC Distribution Width CV 12.9 % (11.6-14.6); RBC Distribution Width SD 49.8 fl (35.1-43.9); Red Blood Count 3.56 M/mm3 (4.2-5.4); White Blood Count 4.5 K/mm3 (4.4-11.0)
[2024-09-20 21:28] LABS: Differential Indicated MANUAL DIFF
[2024-09-20 21:36] LABS: Anion Gap 12 (5-15); BUN 23 mg/dL (7-18); BUN/Creat Ratio 12.2 RATIO (10-20); Calcium,Total 10.3 mg/dL (8.5-10.1); Chloride 93 mmol/L (98-107); Creatinine, Serum 1.88 mg/dL (0.55-1.02); EST Glomerular Filtration Rate 28 mL/min (>60); Est Glom Filt Rate - Afr Amer 34 mL/min (>60); Estimated Creatinine Clearance 20.11 ml/min; Glucose 109 mg/dL (74-106); Potassium 4.5 mmol/L (3.5-5.1); Sodium Level 130 mmol/L (136-145)
--- NOTE | 2024-09-20 22:01 | EX.ED.VIS.HA ---
HPI History of Present Illness Chief Complaint: Headache Detail of Chief Complaint: Right sided unilateral headache that was intermittent over the last 3 weeks Informant: patient Onset/Context/Timing Onset: Weeks Context: Sudden Timing: Intermittent Current Severity: Severe Maximum Severity: Severe Worsened by: Light and sound Relieved by: Nothing Associated Symptoms/Injury Associated Symptoms: Positive for Nausea, Visual Changes, Blurred Vision and Photophobia; Negative for Fever, Vomiting, Sore Throat, Sinus Pressure, Numbness, Tingling, Preceding Aura or Visual Loss Injury - TORRES: Negative for Direct Trauma Narrative Narrative: Patient presents with initially intermittent right sided head pain with photophobia, sonophobia and nausea. She has no history of glaucoma, migraine headaches or autoimmune disorder. She denies trouble with speech or swallowing. She denies pain in her jaw with chewing. She denies cardiac or respiratory symptoms. She does endorse nausea without vomiting or diarrhea. She denies trouble with balance or coordination. There is no history of trauma. Prior similar symptoms: No Recent Illness/Hospitalization: No PFSH PFSH Medical History COPD (chronic obstructive pulmonary disease) Wears glasses Wears partial dentures History of steroid therapy History of renal disease Anemia Former smoker History of atrial fibrillation History of echocardiogram Cardiology follow-up encounter Iron deficiency anemia Cardiac murmur Essential hypertension Sleep apnea Anxiety GERD (gastroesophageal reflux disease) Left ventricular systolic dysfunction Dilated cardiomyopathy Hypersomnia Chronic hypoxemic respiratory failure Acute and chronic respiratory failure with hypercapnia Rib pain on right side Chronic hypercapnic respiratory failure Stage 4 very severe COPD by GOLD classification Ventricular premature depolarization Allergic rhinitis Fatigue Shortness of breath Hyperkalemia PVC (premature ventricular contraction) Hyperlipidemia Abnormal nuclear stress test Chest pain Chronic respiratory failure COLD (chronic obstructive lung disease) Home Medications ?Medication ?Instructions ?Recorded ?Last Taken ?Type aspirin 81 mg chewable tablet 81 mg PO DAILY 01/23/15 01/02/17 09:30 History cholecalciferol (vitamin D3) 50 2,000 unit PO DAILY 04/20/19 Unknown History mcg (2,000 unit) tablet azithromycin 250 mg tablet 250 mg PO MOWEFR 02/03/20 Unknown History sulfamethoxazole 800 1 tab PO TUTHSA 02/03/20 Unknown History mg-trimethoprim 160 mg tablet (Bactrim DS) acetaminophen 325 mg capsule 325 mg PO Q6H PRN pain 04/18/20 Unknown History triamcinolone acetonide 55 mcg 2 spray intranasal DAILY PRN nasal 04/18/20 Unknown History nasal spray aerosol (Nasacort) congestion prednisone 5 mg tablet 5 mg PO DAILY 01/29/21 Unknown History tacrolimus 0.5 mg capsule,extended 1.5 mg PO BID 01/29/21 Unknown History release 24 hr azathioprine 50 mg tablet 50 mg PO DAILY 01/24/22 Unknown History calcium 315 mg (as 1 tab PO BID 09/20/24 Unknown History citrate)-vitamin D3 6.25 mcg (250 unit) tablet multivitamin with folic acid 400 1 tab PO DAILY 09/20/24 Unknown History mcg tablet (Thera) pantoprazole 40 mg tablet,delayed 40 mg PO DAILY 09/20/24 Unknown History release sumatriptan 5 mg/actuation nasal 20 mg intranasal Q2H PRN migraine 09/20/24 Unknown Rx spray headache #6 ea Allergy/AdvReac Type Severity Reaction Status Date / Time codeine AdvReac Vomiting Verified 09/20/24 19:23 morphine AdvReac Nausea Verified 09/20/24 19:23 Family History Sister Asthma Hypertension Grandmother Asthma CAD (coronary artery disease) Grandfather CAD (coronary artery disease) Son Diabetes Hypertension Surgical History History of esophagogastroduodenoscopy (EGD) History of colonoscopy S/P lung transplant (~08/31/19) H/O tubal ligation History of cholecystectomy Social History Smoking Status: Former smoker quit date: 09/21/96 pack-years: 30 how long ago did patient quit smokin second hand exposure: No alcohol intake: never substance use type: does not use ROS ROS ED Constitutional Constitutional ED: Denies chills, fever(s), subjective or sweats Eyes Eyes: Reports blurry vision bilateral ENT ENT ED: Denies ear pain, rhinorrhea or sore throat Cardiovascular Cardiovascular: Denies chest pain or palpitations Respiratory/Chest Respiratory/Chest: Denies cough, dyspnea or dyspnea on exertion Gastrointestinal Gastrointestinal: Reports nausea; Denies abdominal pain, constipation or vomiting Musculoskeletal Musculoskeletal: Denies arthralgias, back pain, myalgias or neck pain Integumentary Denies rash Neurologic Neurologic: Reports headache(s); Denies paresthesias or weakness Psychiatric Psychiatric: Denies anxiety or depression Endocrine Endocrinology: Denies polydipsia or polyphagia Hematologic/Lymphatic Hematologic/Lymphatic: Denies easy bleeding or easy bruising Allergic/Immunologic Allergic/Immunologic ED: Denies mouth swelling or tongue swelling EXAM Physical Exam Const Vital Signs: 09/20/24 19:23 09/20/24 20:23 09/20/24 22:13 Temperature 98.1 F Temperature Source Oral Pulse Rate 98 102 H Respiratory Rate 16 19 H Respiratory Effort Normal Non-Labored Respiratory Pattern Normal Blood Pressure 160/85 H 198/81 H Blood Pressure Mean 110 120 Pulse Ox 98 96 Oxygen Delivery Method Room Air Room Air Oxygen Flow Rate (L/min) 2 Positive well nourished and well developed Constitutional Narrative: Blood pressure is slightly elevated. Vital signs otherwise unremarkable. She appears uncomfortable. Lights are out. She did not like when I turned on the lights in the room to examine her. General Appearance ED: well developed and NAD; Negative for cyanotic, diaphoretic or pallor HEENT Reports normocephalic, TM's clear and moist mucous membranes HEENT Narrative: Uvula is midline. There is no deviation with protrusion. There is no tenderness over the right or left temporal artery. There is no skin lesions noted forehead or scalp. atraumatic; Negative for tenderness, temporal artery tenderness or vesicular rash Tympanic Membrane ED: Yes TM's clear Eyes PERRL and EOMs intact bilaterally Eyes Narrative: There is no nystagmus. Pupils equal round reactive. Funduscopic exam limited. There is no obvious papilledema. General Eye ED: Negative for pale conjunctiva or scleral icterus Neck no lymphadenopathy, supple, no meningeal signs and no JVD Resp normal respiratory effort and clear to auscultation bilaterally Cardio regular rate, regular rhythm, S1 normal heart sound, S2 normal heart sound and no murmurs GI non-tender and non-distended Auscultation: normoactive bowel sounds Back/Spine no CVA tenderness Extremity normal to inspection, full ROM and normal capillary refill Neuro oriented x3, CN's II-XII intact bilaterally and no sensory deficits noted Neuro Narrative: There is no dysmetria. There is no clonus Babinski sign noted. Humble Coma Scale: document GCS findings Spontaneous Obeys Commands Oriented 15 Sensorium / Orientation: awake and alert Coordination / Balance: [id number] test normal Speech: speech normal Skin General Skin Exam: elasticity normal and turgor normal; Negative for jaundice or pallor Rashes: no rashes MDM MDM MDM Narrative Medical decision making narrative: Symptoms are suggestive of migraine however unusual for for some age 74 with no history of migraines have migraine headache. For this reason we will obtain CT to rule out intracranial process. ESR was obtained. Appropriate blood work which included CBC electrolyte panel. Patient was treated with IV Toradol Reglan and Benadryl. When she was reassessed she reported improvement. The headache did not resolve. Lab Data Attestation: I reviewed the patient's lab results. Lab results narrative: CBC is remarkable for MCV of 104.5. Glucose slightly elevated 109 with a normal CO2 anion gap. BUN and creatinine are elevated 23 and 1.88. This is approximately her baseline. Awaiting sed rate. ESR is slightly elevated. ESR is normal when corrected for age. Labs: Laboratory Results - last 24 hr 09/20/24 20:40 WBC 4.5 RBC 3.56 L Hgb 12.7 Hct 37.2 MCV 104.5 H MCH 35.7 H MCHC 34.1 RDW Std Deviation 49.8 H RDW Coeff of Pablo 12.9 Plt Count 236 MPV 10.0 Neut % (Auto) Not Reportable Absolute Neuts (auto) 2.5 Absolute Lymphs (auto) 1.58 Total Counted 100 Neutrophils % (Manual) 49 Band Neutrophils % 6 H Lymphocytes % (Manual) 35 Monocytes % (Manual) 9 Eosinophils % (Manual) 1 Diff Path Review May foll ESR 36 H Sodium 130 L Potassium 4.5 Chloride 93 L Carbon Dioxide 25.0 Anion Gap 12 BUN 23 H Creatinine 1.88 H Estim Creat Clear Calc 20.11 Est GFR (MDRD) Af Amer 34 L Est GFR (MDRD) Non-Af 28 L BUN/Creatinine Ratio 12.2 Glucose 109 H Calcium 10.3 H Radiography Diagnostic Testing: Clinical Impression(s) from Imaging Studies Brain CT 09/20/24 21:03 IMPRESSION: Normal unenhanced CT scan of the brain. Electronically Signed: Partha Arellano MD at 21:36 EST , Treatment and Re-Evaluation Narrative: Patient reports marked improvement. With her having unilateral headache with photophobia, sonophobia and a negative workup will treat as migraine Discharge Plan Triage Chief Complaint: Headache Other Complaint: Hypertension ED Provider: Misbah Cordova Dx/Rx/DC Orders Clinical Impression: Intractable chronic migraine without aura, Hyperlipidemia, Dilated cardiomyopathy, Essential hypertension, Lung transplant status, bilateral Instructions: ED, Migraine (Classical) Prescriptions: New sumatriptan 5 mg/actuation spray,non-aerosol 20 mg intranasal Q2H PRN (Reason: migraine headache) Qty: 6 0RF Rx Instructions: administer into one nostril as a single dose; if 2nd dose needed,administer into other nostril after at least 2 hrs, NTE 2 doses (40 mg) per episode No Action cholecalciferol (vitamin D3) 2,000 unit tablet 2,000 unit PO DAILY Patient Comments: when 50,000 IU finished azithromycin 250 mg tablet 250 mg PO MOWEFR sulfamethoxazole-trimethoprim [Bactrim DS] 800-160 mg tablet 1 tab PO TUTHSA acetaminophen 325 mg capsule 325 mg PO Q6H PRN (Reason: pain) triamcinolone acetonide [Nasacort] 55 mcg aerosol,spray 2 spray INTRANASAL DAILY PRN (Reason: nasal congestion) Rx Instructions: administer into each nostril prednisone 5 mg tablet 5 mg PO DAILY azathioprine 50 mg tablet 50 mg PO DAILY aspirin 81 MG tablet,chewable 81 mg PO DAILY Patient Comments: [facility] tacrolimus 0.5 mg capsule,extended release 24hr 1.5 mg PO BID pantoprazole 40 mg tablet,delayed release (DR/EC) 40 mg PO DAILY calcium citrate-vitamin D3 315 mg-6.25 mcg (250 unit) tablet 1 tab PO BID multivitamin with folic acid [Thera] 400 mcg tablet 1 tab PO DAILY Primary Care Provider: Betty Lozano Referrals: Betty Lozano MD [Primary Care Provider] - Print Language: Mohawk Disposition Disposition: Home, Self Care
[2024-09-20 22:09] LABS: Eosinophil 1 % (0-5); Lymphocyte 35 % (19-41); Monocyte 9 % (0-10); Neutrophil-Band 6 % (0-5); Neutrophil-Segmented 49 % (47-70); Total Cells Counted 100 (MANUAL DIFF)
[2024-09-20 22:11] LABS: Absolute Lymphocyte Count 1.58 X10^3/uL (0.83-4.51); Absolute Neutrophil Count 2.5 X10^3/uL (2.0-7.7)
[2024-09-20 22:12] LABS: Erythrocyte Sedimentation Rate 36 mm/hr (0-30)
[2024-09-20 22:13] VITALS: BP 198/81; PULSE 102; RESP 19; O2SAT 96
[2024-09-20 23:43] VITALS: BP 184/74; PULSE 91; RESP 16; TEMP 36.6; O2SAT 97
[2024-09-22 13:16] LABS: Pathologist Review Reviewed
== END 2024-09-20 23:45 | disposition home or self-care (01) ==
PROVIDERS: Emergency Provider Emergency Medicine; PCP Family Medicine; Visit Provider Emergency Medicine
DX: R51.9 Headache, unspecified (principal); Z94.2 Lung transplant status; I42.0 Dilated cardiomyopathy; I10 Essential (primary) hypertension; E78.5 Hyperlipidemia, unspecified; Z79.52 Long term (current) use of systemic steroids; Z79.82 Long term (current) use of aspirin; Z79.899 Other long term (current) drug therapy; Z87.891 Personal history of nicotine dependence
CPT/HCPCS: 70450; 80048; 85025; 85652; 96374; 96375; 99284; A4216

== ENCOUNTER 2024-09-22 05:50 | Outpatient (RCR) | payer SELFPAY | END 2024-10-21 23:59 | LOC: PR 05:50 | PROVIDERS: PCP Family Medicine | DX: Z00.00 Encounter for general adult medical examination without abnormal findings (principal) ==

== ENCOUNTER 2024-09-26 01:37 | Emergency (ER) | payer MEDICARE, MEDICAID, SELFPAY ==
[2024-09-26 01:37] VITALS: BP 202/79; PULSE 101; RESP 18; TEMP 36.1; O2SAT 99; BMI 22.2
[2024-09-26] MEDS: 0.9% Normal Saline (1000mL) 1,000 ML 999 ML IV (02:06)
[2024-09-26] MEDS: dexAMETHasone 10 MG/ML Vial IV (02:06)
[2024-09-26] MEDS: Metoclopramide 10 MG/2 ML Vial IV (02:06)
[2024-09-26] MEDS: Ketorolac 15 MG/ML Vial IV (02:06)
[2024-09-26] MEDS: DiphenhydrAMINE 50 MG/ML Syringe 25 MG IV (02:06)
--- NOTE | 2024-09-26 03:03 | EDS_ITS ---
HPI History of Present Illness Chief Complaint: Headache Informant: patient Narrative Narrative: Patient is a 74-year-old female with past medical history of hypertension hyperlipidemia COPD and dilated cardiomyopathy. She was seen on September 20 secondary to headache and at that time had lab work and a CT obtained. Workup revealed no clinically significant findings and after receiving a migraine cocktail she did have improvement of her headache and was discharged home. Patient states she has been doing better and follow-up with her family doctor who started her on Imitrex. She states that there has been no recent trauma and she denies any sick symptoms but reports that her headache returned and she took the medication without symptom improvement. She reports the headache is right sided is sensitive to light and sound and feels similar nature to her recent evaluation in the ER. As the headache will not improve she presents for evaluation [facility] Medical History COPD (chronic obstructive pulmonary disease) Wears glasses Wears partial dentures History of steroid therapy History of renal disease Anemia Former smoker History of atrial fibrillation History of echocardiogram Cardiology follow-up encounter Iron deficiency anemia Cardiac murmur Essential hypertension Sleep apnea Anxiety GERD (gastroesophageal reflux disease) Left ventricular systolic dysfunction Dilated cardiomyopathy Hypersomnia Chronic hypoxemic respiratory failure Acute and chronic respiratory failure with hypercapnia Rib pain on right side Chronic hypercapnic respiratory failure Stage 4 very severe COPD by GOLD classification Ventricular premature depolarization Allergic rhinitis Fatigue Shortness of breath Hyperkalemia PVC (premature ventricular contraction) Hyperlipidemia Abnormal nuclear stress test Chest pain Chronic respiratory failure COLD (chronic obstructive lung disease) Home Medications ?Medication ?Instructions ?Recorded ?Last Taken ?Type aspirin 81 mg chewable tablet 81 mg PO DAILY 01/23/15 01/02/17 09:30 History cholecalciferol (vitamin D3) 50 2,000 unit PO DAILY 04/20/19 Unknown History mcg (2,000 unit) tablet azithromycin 250 mg tablet 250 mg PO MOWEFR 02/03/20 Unknown History sulfamethoxazole 800 1 tab PO TUTHSA 02/03/20 Unknown History mg-trimethoprim 160 mg tablet (Bactrim DS) acetaminophen 325 mg capsule 325 mg PO Q6H PRN pain 04/18/20 Unknown History triamcinolone acetonide 55 mcg 2 spray intranasal DAILY PRN nasal 04/18/20 Unknown History nasal spray aerosol (Nasacort) congestion prednisone 5 mg tablet 5 mg PO DAILY 01/29/21 Unknown History tacrolimus 0.5 mg capsule,extended 1.5 mg PO BID 01/29/21 Unknown History release 24 hr azathioprine 50 mg tablet 50 mg PO DAILY 01/24/22 Unknown History calcium 315 mg (as 1 tab PO BID 09/20/24 Unknown History citrate)-vitamin D3 6.25 mcg (250 unit) tablet multivitamin with folic acid 400 1 tab PO DAILY 09/20/24 Unknown History mcg tablet (Thera) pantoprazole 40 mg tablet,delayed 40 mg PO DAILY 09/20/24 Unknown History release sumatriptan 5 mg/actuation nasal 20 mg intranasal Q2H PRN migraine 09/20/24 Unknown Rx spray headache #6 ea amlodipine 5 mg tablet 5 mg PO DAILY 09/26/24 Unknown History ondansetron HCl 4 mg tablet 4 mg PO BID PRN PRN nausea and 09/26/24 Unknown History vomiting rimegepant 75 mg disintegrating 75 mg PO QODAY PRN migraine 09/26/24 Unknown Rx tablet (Nurtec ODT) headache 30 days #18 tabs sumatriptan 20 mg/actuation nasal 20 mg intranasal PRN PRN migraine 09/26/24 Unknown History spray sumatriptan succinate 50 mg tablet 50 mg PO BID PRN PRN migraine 09/26/24 Unknown History headache Allergy/AdvReac Type Severity Reaction Status Date / Time codeine AdvReac Vomiting Verified 09/26/24 01:40 morphine AdvReac Nausea Verified 09/26/24 01:40 Family History Sister Asthma Hypertension Grandmother Asthma CAD (coronary artery disease) Grandfather CAD (coronary artery disease) Son Diabetes Hypertension Surgical History History of esophagogastroduodenoscopy (EGD) History of colonoscopy S/P lung transplant (~08/31/19) H/O tubal ligation History of cholecystectomy Social History Smoking Status: Former smoker quit date: 09/21/96 pack-years: 30 how long ago did patient quit smokin second hand exposure: No alcohol intake: never substance use type: does not use ROS ROS ED Constitutional Constitutional ED: Denies chills or fever(s) Eyes Eyes: Reports other Details: Positive photophobia ENT ENT ED: Denies rhinorrhea or sore throat Cardiovascular Cardiovascular: Denies chest pain Respiratory/Chest Respiratory/Chest: Denies cough or dyspnea Gastrointestinal Gastrointestinal: Reports nausea; Denies abdominal pain, diarrhea or vomiting Genitourinary Genitourinary ED: Denies dysuria Musculoskeletal Musculoskeletal: Denies neck pain Integumentary Denies rash Neurologic Neurologic: Reports headache(s); Denies paresthesias or weakness Hematologic/Lymphatic Hematologic/Lymphatic: Denies easy bleeding or easy bruising EXAM Physical Exam Const Vital Signs: 09/26/24 01:37 09/26/24 03:11 Temperature 96.9 F L 98 F Temperature Source Axillary Pulse Rate 101 H 100 Respiratory Rate 18 18 Blood Pressure 202/79 H 176/80 H Blood Pressure Mean 120 112 Pulse Ox 99 97 Oxygen Delivery Method Room Air Positive well nourished and well developed General Appearance ED: well developed; Negative for pallor HEENT HEENT Narrative: Normocephalic atraumatic There is pain on palpation along the right temporal portion of the scalp however no overlying soft tissue finding to suggest trauma or infection Eyes PERRL and EOMs intact bilaterally General Eye ED: Negative for scleral icterus Neck supple Neck Narrative: No nuchal rigidity or meningeal signs Resp normal respiratory effort Resp Narrative: Breath sounds are diminished throughout with faint expiratory wheeze consistent history of COPD without signs of respiratory distress Cardio regular rate and regular rhythm GI normal to inspection, nondistended, normoactive bowel sounds, non-tender, non- distended and no masses GI Narrative: No pulsatile mass Auscultation: normoactive bowel sounds Palpation: soft Extremity normal to inspection Extremity Narrative: No asymmetric edema no pitting edema negative Homans' sign bilaterally Neuro oriented x3, CN's II-XII intact bilaterally and no sensory deficits noted Neuro Narrative: GCS of 15 Cranial nerves II through XII are grossly intact there are no focal neurologic deficits No pronator drift no dysmetria no truncal ataxia NIH stroke scale score of 0 Sensorium / Orientation: alert Motor Exam: strength 5/5 throughout Psych mental status grossly normal Skin no rashes or lesions noted and no wounds General Skin Exam: Negative for jaundice or pallor MDM MDM MDM Narrative Medical decision making narrative: Patient presented to the ER hypertensive but has a past medical history of this and otherwise vitals are stable. She denied any recent trauma or sick symptoms since her last evaluation in the ER. She reports her headache feels similar nature to the last evaluation and is also sensitive to light and sound. This is most consistent with migraine headache. As patient had a recent CT scan I have low concern for acute spontaneous subarachnoid or subdural hemorrhage or brain mass/tumor. As she denies fevers chills or sick symptoms I have low concern that headache is related to sinusitis or viral infection such as COVID or influenza. Her ESR was not clinically elevated for her age and this could go against temporal arteritis. Therefore as patient's had previous CT scan and laboratory studies in the last week showing no clinically significant findings and her neurologic exam is normal I do not feel there is need for repeat labs or images. Patient was given IV Toradol Benadryl Reglan fluids and Decadron. On reevaluation she reports improvement of her headache and her neurologic exam remains normal. Her blood pressure is also improved with treatment of the headache as well. Therefore this time I do not feel there is need for admission or further workup and she can be discharged home and follow-up with neurology on an outpatient basis History & Record Review Discussion w/independent historian: Patient Discharge Plan Triage Chief Complaint: Headache ED Provider: Jean-Claude Almaguer Dx/Rx/DC Orders Clinical Impression: Cephalgia, Essential hypertension, Dilated cardiomyopathy, Hyperlipidemia Instructions: Understanding Headache Pain, ED Headache Unspecified Prescriptions: New Nurtec ODT 75 mg tablet,disintegrating 75 mg PO QODAY PRN (Reason: migraine headache) 30 Days Qty: 18 0RF No Action cholecalciferol (vitamin D3) 2,000 unit tablet 2,000 unit PO DAILY Patient Comments: when 50,000 IU finished azithromycin 250 mg tablet 250 mg PO MOWEFR sulfamethoxazole-trimethoprim [Bactrim DS] 800-160 mg tablet 1 tab PO TUTHSA acetaminophen 325 mg capsule 325 mg PO Q6H PRN (Reason: pain) triamcinolone acetonide [Nasacort] 55 mcg aerosol,spray 2 spray INTRANASAL DAILY PRN (Reason: nasal congestion) Rx Instructions: administer into each nostril prednisone 5 mg tablet 5 mg PO DAILY azathioprine 50 mg tablet 50 mg PO DAILY aspirin 81 MG tablet,chewable 81 mg PO DAILY Patient Comments: [facility] tacrolimus 0.5 mg capsule,extended release 24hr 1.5 mg PO BID pantoprazole 40 mg tablet,delayed release (DR/EC) 40 mg PO DAILY calcium citrate-vitamin D3 315 mg-6.25 mcg (250 unit) tablet 1 tab PO BID multivitamin with folic acid [Thera] 400 mcg tablet 1 tab PO DAILY sumatriptan 5 mg/actuation spray,non-aerosol 20 mg intranasal Q2H PRN (Reason: migraine headache) Qty: 6 0RF Rx Instructions: administer into one nostril as a single dose; if 2nd dose needed,administer into other nostril after at least 2 hrs, NTE 2 doses (40 mg) per episode ondansetron HCl 4 mg tablet 4 mg PO BID PRN PRN (Reason: nausea and vomiting) amlodipine 5 mg tablet 5 mg PO DAILY sumatriptan succinate 50 mg tablet 50 mg PO BID PRN PRN (Reason: migraine headache) sumatriptan 20 mg/actuation spray,non-aerosol 20 mg INTRANASAL PRN PRN (Reason: migraine) Primary Care Provider: Betty Lozano Referrals: Betty Lozano MD [Primary Care Provider] - Néstor Mei MD [Non-Staff -Ordering Privileges] - Activity Restrictions/Additional Instructions: Please stop the sumatriptan/Imitrex and begin taking the Nurtec every other day as directed to help prevent migraine headache. Follow-up with neurology for further evaluation of your headaches and return to the ER should you have any further concern Print Language: Mohawk Disposition Disposition: Home, Self Care Discharge Date/Time: 09/26/24 03:12
[2024-09-26 03:11] VITALS: BP 176/80; PULSE 100; RESP 18; TEMP 36.6; O2SAT 97
== END 2024-09-26 03:12 | disposition home or self-care (01) ==
PROVIDERS: Emergency Provider Emergency Medicine; PCP Family Medicine; Visit Provider Emergency Medicine
DX: R51.9 Headache, unspecified (principal); Z94.2 Lung transplant status; I42.0 Dilated cardiomyopathy; E78.5 Hyperlipidemia, unspecified; I10 Essential (primary) hypertension; Z79.82 Long term (current) use of aspirin; Z79.899 Other long term (current) drug therapy; Z87.891 Personal history of nicotine dependence
CPT/HCPCS: 96361; 96374; 96375; 99283; A4216

== ENCOUNTER → 2024-10-18 | Outpatient (CLI) | payer MEDICARE, MEDICAID, SELFPAY | END | disposition home or self-care (01) | LOC: PSN 12:23 | PROVIDERS: PCP Family Medicine; Referring Provider Internal Medicine; Visit Provider Internal Medicine | DX: Z48.24 Encounter for aftercare following lung transplant (principal); Z94.2 Lung transplant status; D84.9 Immunodeficiency, unspecified | CPT/HCPCS: 94010 ==

== ENCOUNTER 2024-10-20 07:38 | Outpatient (RCR) | payer MEDICARE, MEDICAID, SELFPAY ==
[2024-09-21 00:36] VITALS: BMI 27.8
[2024-10-20 09:21] LABS: AST(SGOT) 22 U/L (15-37); Alanine Aminotransfer ALT/SGPT 19 U/L (13-56); Albumin, Serum 3.9 g/dL (3.2-5.0); Alkaline Phosphatase 37 U/L (45-117); Anion Gap 8 (5-15); BUN 18 mg/dL (7-18); BUN/Creat Ratio 10.2 RATIO (10-20); Calcium,Total 9.7 mg/dL (8.5-10.1); Chloride 99 mmol/L (98-107); Creatinine, Serum 1.77 mg/dL (0.55-1.02); EST Glomerular Filtration Rate 30 mL/min (>60); Est Glom Filt Rate - Afr Amer 36 mL/min (>60); Globulin 3.8 g/dL (2.2-4.2); Glucose 84 mg/dL (74-106); Phosphorus 3.4 mg/dL (2.5-4.9); Potassium 3.8 mmol/L (3.5-5.1); Protein, Total 7.7 g/dL (6.4-8.2); Sodium Level 132 mmol/L (136-145)
[2024-10-20 16:00] LABS: Xtra Tube EP Lab EXTRA TUBE
[2024-10-25 14:08] LABS: GGTP 16 IU/L (0-60); Tacrolimus (FK506) 4.4 ng/mL (2.0-20.0)
== END 2024-10-21 23:59 ==
LOC: PAVLAB 07:38
PROVIDERS: Family Provider Internal Medicine; PCP Family Medicine
DX: D89.9 Disorder involving the immune mechanism, unspecified (principal); R79.9 Abnormal finding of blood chemistry, unspecified; Z94.2 Lung transplant status; Z51.81 Encounter for therapeutic drug level monitoring; Z79.899 Other long term (current) drug therapy
CPT/HCPCS: 36415; 80053; 80197; 82248; 82977; 83735; 84100

== ENCOUNTER 2024-10-25 06:06 | Outpatient (RCR) | payer SELFPAY | END 2024-11-18 23:59 | LOC: PR 06:06 | PROVIDERS: PCP Family Medicine | DX: Z00.00 Encounter for general adult medical examination without abnormal findings (principal) ==

== ENCOUNTER 2024-11-14 07:52 | Outpatient (RCR) | payer MEDICARE, MEDICAID, SELFPAY ==
[2024-10-22 00:56] VITALS: BMI 27.8
[2024-11-14 08:50] LABS: Hematocrit 30.3 % (37-47); Hemoglobin 10.2 g/dL (12.0-15.0); Mean Corp Hgb Conc 33.7 g/dL (32-36); Mean Corpuscular Hgb 36.6 pg (27.0-32.0); Mean Corpuscular Volume 108.6 fL (81-99); Mean Platelet Vol. 9.6 fl (6.2-12.0); POSITIVE COUNT YES; POSITIVE DIFFERENTIAL YES; POSITIVE MORPHOLOGY YES; Platelet Count 239 K/mm3 (150-450); RBC Distribution Width CV 15.1 % (11.6-14.6); RBC Distribution Width SD 59.6 fl (35.1-43.9); Red Blood Count 2.79 M/mm3 (4.2-5.4); White Blood Count 3.1 K/mm3 (4.4-11.0)
[2024-11-14 08:55] LABS: Differential Indicated MANUAL DIFF
[2024-11-14 09:11] LABS: AST(SGOT) 19 U/L (15-37); Alanine Aminotransfer ALT/SGPT 19 U/L (13-56); Albumin, Serum 3.2 g/dL (3.2-5.0); Alkaline Phosphatase 36 U/L (45-117); Anion Gap 10 (5-15); BUN 22 mg/dL (7-18); BUN/Creat Ratio 16.3 RATIO (10-20); Bilirubin, Direct 0.06 mg/dL (0.00-0.30); Calcium,Total 9.1 mg/dL (8.5-10.1); Chloride 104 mmol/L (98-107); Creatinine, Serum 1.35 mg/dL (0.55-1.02); EST Glomerular Filtration Rate 41 mL/min (>60); Est Glom Filt Rate - Afr Amer 49 mL/min (>60); Ferritin 80 ng/mL (8-252); Globulin 3.5 g/dL (2.2-4.2); Glucose 82 mg/dL (74-106); Iron 92 ug/dL (50-170); Iron Binding Capacity,Total 345 ug/dL (250-450); Magnesium 1.9 mg/dL (1.6-2.6); PERCENT IRON SATURATION 26.7 % (15.0-55.0); Phosphorus 3.2 mg/dL (2.5-4.9); Protein, Total 6.7 g/dL (6.4-8.2); Sodium Level 139 mmol/L (136-145)
[2024-11-14 09:17] LABS: Eosinophil 4 % (0-5); Lymphocyte 58 % (19-41); Monocyte 6 % (0-10); Neutrophil-Band 3 % (0-5); Neutrophil-Segmented 29 % (47-70); Total Cells Counted 100 (MANUAL DIFF)
[2024-11-14 09:18] LABS: Absolute Lymphocyte Count 1.79 X10^3/uL (0.83-4.51); Platelet Estimate ADEQUATE (ADEQ); Red Cell Morphology NORM C+C NORMAL (NORM C&C)
[2024-11-16 13:08] LABS: Tacrolimus (FK506) 4.1 ng/mL (5.0-20.0); Transferrin 259 mg/dL (192-364)
== END 2024-11-18 23:59 ==
LOC: PAVLAB 07:52
PROVIDERS: Family Provider Internal Medicine; PCP Family Medicine
DX: R79.9 Abnormal finding of blood chemistry, unspecified; Z94.2 Lung transplant status; Z51.81 Encounter for therapeutic drug level monitoring; Z79.899 Other long term (current) drug therapy; D84.9 Immunodeficiency, unspecified
CPT/HCPCS: 36415; 80048; 80076; 80197; 82728; 83540; 83550; 83735; 84100; 84466; 85025; 87497

== ENCOUNTER 2024-11-14 08:48 | Outpatient (CLI) | payer MEDICARE, MEDICAID, SELFPAY | END 2024-11-14 23:59 | disposition home or self-care (01) | LOC: PSN 08:50 | PROVIDERS: PCP Family Medicine; Referring Provider Internal Medicine; Visit Provider Internal Medicine | DX: Z51.81 Encounter for therapeutic drug level monitoring (principal); Z94.2 Lung transplant status; R79.9 Abnormal finding of blood chemistry, unspecified; D84.9 Immunodeficiency, unspecified; Z79.899 Other long term (current) drug therapy | CPT/HCPCS: 36415; 80048; 80076; 80197; 82728; 83540; 83550; 83735; 84100; 84466; 85025; 87497; 94010 ==

== ENCOUNTER 2024-12-13 08:05 | Outpatient (RCR) | payer MEDICARE, MEDICAID, SELFPAY ==
[2024-11-19 00:46] VITALS: BMI 27.8
[2024-12-13 08:34] LABS: Hematocrit 31.3 % (37-47); Hemoglobin 10.5 g/dL (12.0-15.0); Mean Corp Hgb Conc 33.5 g/dL (32-36); Mean Corpuscular Hgb 36.8 pg (27.0-32.0); Mean Corpuscular Volume 109.8 fL (81-99); Mean Platelet Vol. 9.6 fl (6.2-12.0); POSITIVE COUNT YES; POSITIVE MORPHOLOGY YES; Platelet Count 232 K/mm3 (150-450); RBC Distribution Width CV 15.2 % (11.6-14.6); RBC Distribution Width SD 61.1 fl (35.1-43.9); Red Blood Count 2.85 M/mm3 (4.2-5.4); White Blood Count 3.4 K/mm3 (4.4-11.0)
[2024-12-13 08:37] LABS: Differential Indicated MANUAL DIFF
[2024-12-13 09:26] LABS: Anion Gap 13 (5-15); BUN 27 mg/dL (4-19); BUN/Creat Ratio 15.5 RATIO (10-20); Calcium,Total 9.4 mg/dL (7.6-11.0); Carbon Dioxide 20.5 mmol/L (21.0-32.0); Chloride 103 mmol/L (98-108); Creatinine, Serum 1.72 mg/dL (0.70-1.20); EST Glomerular Filtration Rate 31 (>60); Glucose 82 mg/dL (70-99); Potassium 3.8 mmol/L (3.3-5.1); Sodium Level 136 mmol/L (133-145)
[2024-12-13 09:44] LABS: Eosinophil 2 % (0-5); Lymphocyte 57 % (19-41); Monocyte 8 % (0-10); Myelocyte 1 % (0-0); Neutrophil-Segmented 32 % (47-70); Platelet Estimate ADEQUATE (ADEQ); Red Cell Morphology NORM C+C NORMAL (NORM C&C); Total Cells Counted 100 (MANUAL DIFF)
[2024-12-13 09:45] LABS: Absolute Neutrophil Count 1.1 X10^3/uL (2.0-7.7); Pathologist Review May foll
[2024-12-16 09:08] LABS: Tacrolimus (FK506) 4.9 ng/mL (5.0-20.0)
== END 2024-12-19 23:59 ==
LOC: PAVLAB 08:05
PROVIDERS: Family Provider Internal Medicine; PCP Family Medicine
DX: R79.9 Abnormal finding of blood chemistry, unspecified; Z94.2 Lung transplant status; Z51.81 Encounter for therapeutic drug level monitoring; Z79.899 Other long term (current) drug therapy; D84.9 Immunodeficiency, unspecified
CPT/HCPCS: 36415; 80048; 80197; 85025

== ENCOUNTER 2024-12-13 10:01 | Outpatient (CLI) | payer MEDICARE, MEDICAID, SELFPAY ==
--- NOTE | 2024-12-13 10:10 | RAD_ITS ---
EXAM: XR Chest, 2 Views CLINICAL INDICATION: S/P LUNG TRANSPLANT TECHNIQUE: Frontal and lateral views of the chest. COMPARISON: No relevant prior studies available. FINDINGS: LUNGS AND PLEURAL SPACES: Unremarkable. No consolidation. No pneumothorax. HEART: Unremarkable. No cardiomegaly. MEDIASTINUM: Multiple mediastinal wires are identified. BONES/JOINTS: Unremarkable. No acute fracture. RAD/Chest PA and Lateral IMPRESSION: No acute cardiopulmonary process. Reading Location: [facility]
== END 2024-12-13 23:59 | disposition home or self-care (01) ==
PROVIDERS: PCP Family Medicine; Referring Provider Internal Medicine; Visit Provider Internal Medicine
DX: Z48.24 Encounter for aftercare following lung transplant (principal); Z94.2 Lung transplant status; D84.9 Immunodeficiency, unspecified; R79.9 Abnormal finding of blood chemistry, unspecified; Z51.81 Encounter for therapeutic drug level monitoring; Z79.899 Other long term (current) drug therapy
CPT/HCPCS: 36415; 71046; 80048; 80197; 85025; 94010

== ENCOUNTER 2025-01-10 07:36 | Outpatient (RCR) | payer MEDICARE, MEDICAID, SELFPAY ==
[2024-12-20 00:41] VITALS: BMI 27.8
[2025-01-10 07:56] LABS: Hematocrit 33.6 % (37-47); Hemoglobin 11.5 g/dL (12.0-15.0); Mean Corp Hgb Conc 34.2 g/dL (32-36); Mean Corpuscular Hgb 37.1 pg (27.0-32.0); Mean Corpuscular Volume 108.4 fL (81-99); Mean Platelet Vol. 9.3 fl (6.2-12.0); POSITIVE COUNT YES; POSITIVE DIFFERENTIAL YES; POSITIVE MORPHOLOGY YES; Platelet Count 236 K/mm3 (150-450); RBC Distribution Width CV 14.2 % (11.6-14.6); RBC Distribution Width SD 55.9 fl (35.1-43.9); White Blood Count 3.5 K/mm3 (4.4-11.0)
[2025-01-10 07:58] LABS: Differential Indicated MANUAL DIFF
[2025-01-10 08:17] LABS: Anion Gap 11 (5-15); BUN 28 mg/dL (4-19); BUN/Creat Ratio 20.2 RATIO (10-20); Calcium,Total 9.6 mg/dL (7.6-11.0); Carbon Dioxide 22.6 mmol/L (21.0-32.0); Chloride 102 mmol/L (98-108); Creatinine, Serum 1.39 mg/dL (0.70-1.20); EST Glomerular Filtration Rate 40 (>60); Glucose 96 mg/dL (70-99); Potassium 3.9 mmol/L (3.3-5.1); Sodium Level 135 mmol/L (133-145)
[2025-01-10 08:42] LABS: Eosinophil 3 % (0-5); Lymphocyte 60 % (19-41); Monocyte 3 % (0-10); Neutrophil-Band 8 % (0-5); Neutrophil-Segmented 26 % (47-70); Total Cells Counted 100 (MANUAL DIFF)
[2025-01-10 08:43] LABS: Platelet Estimate ADEQUATE (ADEQ); Red Cell Morphology NORM C+C NORMAL (NORM C&C)
[2025-01-10 08:44] LABS: Absolute Neutrophil Count 1.2 X10^3/uL (2.0-7.7)
[2025-01-10 15:32] LABS: Pathologist Review Reviewed
[2025-01-13 01:07] LABS: Tacrolimus (FK506) 4.7 ng/mL (5.0-20.0)
== END 2025-01-18 23:59 ==
LOC: PAVLAB 07:36
PROVIDERS: Family Provider Internal Medicine; PCP Family Medicine
DX: Z94.2 Lung transplant status; D84.9 Immunodeficiency, unspecified; Z79.899 Other long term (current) drug therapy; R79.9 Abnormal finding of blood chemistry, unspecified; Z51.81 Encounter for therapeutic drug level monitoring
CPT/HCPCS: 36415; 80048; 80197; 85025

== ENCOUNTER → 2025-01-10 | Outpatient (CLI) | payer MEDICARE, MEDICAID, SELFPAY | END | disposition home or self-care (01) | LOC: PSN 09:57 | PROVIDERS: PCP Family Medicine; Referring Provider Internal Medicine; Visit Provider Internal Medicine | DX: Z48.24 Encounter for aftercare following lung transplant (principal); Z94.2 Lung transplant status | CPT/HCPCS: 94010 ==

== ENCOUNTER 2025-02-07 07:44 | Outpatient (RCR) | payer MEDICARE, MEDICAID, SELFPAY ==
[2025-01-19 00:15] VITALS: BMI 27.8
[2025-02-07 08:22] LABS: Absolute Lymphocyte Count 1.68 X10^3/uL (0.83-4.51); Absolute Neutrophil Count 1.1 X10^3/uL (2.0-7.7); Basophil# 0.03 X10^3/uL; Basophil% 0.9 % (0-1); Eosinophil# 0.08 X10^3/uL; Eosinophils% 2.4 % (0-5); Hematocrit 32.6 % (37-47); Lymphocyte # 1.68 X10^3/ul (0.83-4.51); Lymphocyte % 49.4 % (19-41); Mean Corp Hgb Conc 33.7 g/dL (32-36); Mean Corpuscular Hgb 36.7 pg (27.0-32.0); Mean Corpuscular Volume 108.7 fL (81-99); Mean Platelet Vol. 9.8 fl (6.2-12.0); Monocyte# 0.52 X10^3/uL; Monocyte% 15.3 % (0-10); NRBC Flagged by Analyzer 0 % (0-5); Neutrophil # 1.06 X10^3/uL (2.7-7.7); Neutrophil % 31.1 % (47-70); Platelet Count 256 K/mm3 (150-450); RBC Distribution Width CV 14.5 % (11.6-14.6); RBC Distribution Width SD 57.3 fl (35.1-43.9); White Blood Count 3.4 K/mm3 (4.4-11.0)
[2025-02-07 08:41] LABS: Anion Gap 11 (5-15); BUN 22 mg/dL (4-19); BUN/Creat Ratio 17.2 RATIO (10-20); Calcium,Total 9.3 mg/dL (7.6-11.0); Carbon Dioxide 22.6 mmol/L (21.0-32.0); Chloride 100 mmol/L (98-108); Creatinine, Serum 1.26 mg/dL (0.70-1.20); EST Glomerular Filtration Rate 45 (>60); Glucose 99 mg/dL (70-99); Potassium 4.7 mmol/L (3.3-5.1); Sodium Level 134 mmol/L (133-145)
[2025-02-10 04:07] LABS: Tacrolimus (FK506) 3.4 ng/mL (5.0-20.0)
== END 2025-02-18 23:59 ==
LOC: PAVLAB 07:44
PROVIDERS: Family Provider Internal Medicine; PCP Family Medicine
DX: Z94.2 Lung transplant status
CPT/HCPCS: 36415; 80048; 80197; 85025

== ENCOUNTER → 2025-02-07 | Outpatient (CLI) | payer MEDICARE, MEDICAID, SELFPAY | END | disposition home or self-care (01) | LOC: PSN 09:38 | PROVIDERS: PCP Family Medicine; Referring Provider Internal Medicine; Visit Provider Internal Medicine | DX: Z48.24 Encounter for aftercare following lung transplant (principal); Z94.2 Lung transplant status; D84.9 Immunodeficiency, unspecified | CPT/HCPCS: 94010 ==

== ENCOUNTER 2025-03-08 07:39 | Outpatient (RCR) | payer MEDICARE, MEDICAID, SELFPAY ==
[2025-02-19 00:10] VITALS: BMI 27.8
[2025-03-08 08:08] LABS: Differential Indicated MANUAL DIFF; Hematocrit 31.5 % (37-47); Hemoglobin 10.7 g/dL (12.0-15.0); Mean Corpuscular Hgb 35.4 pg (27.0-32.0); Mean Corpuscular Volume 104.3 fL (81-99); Mean Platelet Vol. 9.7 fl (6.2-12.0); POSITIVE COUNT YES; POSITIVE DIFFERENTIAL YES; POSITIVE MORPHOLOGY YES; Platelet Count 220 K/mm3 (150-450); RBC Distribution Width CV 14.3 % (11.6-14.6); RBC Distribution Width SD 53.3 fl (35.1-43.9); Red Blood Count 3.02 M/mm3 (4.2-5.4); White Blood Count 3.4 K/mm3 (4.4-11.0)
[2025-03-08 08:31] LABS: Eosinophil 2 % (0-5); Lymphocyte 61 % (19-41); Monocyte 12 % (0-10); Neutrophil-Segmented 25 % (47-70); Platelet Estimate ADEQUATE (ADEQ); Red Cell Morphology NORM C+C NORMAL (NORM C&C); Total Cells Counted 100 (MANUAL DIFF)
[2025-03-08 08:32] LABS: Absolute Neutrophil Count 0.8 X10^3/uL (2.0-7.7)
[2025-03-08 08:35] LABS: AST(SGOT) 23 U/L (<=31); Alanine Aminotransfer ALT/SGPT 8 U/L (<=34); Albumin, Serum 4.3 g/dL (3.4-4.8); Alkaline Phosphatase 41 U/L (35-104); Anion Gap 12 (5-15); BUN 29 mg/dL (4-19); BUN/Creat Ratio 13.9 RATIO (10-20); Bilirubin, Direct 0.12 mg/dL (0.00-0.30); Calcium,Total 9.5 mg/dL (7.6-11.0); Carbon Dioxide 22.6 mmol/L (21.0-32.0); Chloride 99 mmol/L (98-108); Creatinine, Serum 2.11 mg/dL (0.70-1.20); EST Glomerular Filtration Rate 24 (>60); Ferritin 34 ng/mL (22-378); Globulin 2.7 g/dL (2.2-4.2); Glucose 82 mg/dL (70-99); Iron 51 ug/dL (50-170); Iron Binding Capacity,Total 384 ug/dL (250-450); Iron Binding Capacity,Unsat 333 ug/dL (228-428); Magnesium 2.1 mg/dL (1.5-2.2); Phosphorus 3.6 mg/dL (2.7-4.5); Potassium 4.2 mmol/L (3.3-5.1); Sodium Level 134 mmol/L (133-145); Total Bilirubin 0.24 mg/dL (0.00-1.30)
[2025-03-13 16:09] LABS: Tacrolimus (FK506) 6.3 ng/mL (5.0-20.0); Transferrin 341 mg/dL (192-364)
[2025-03-22 12:01] LABS: Pathologist Review Reviewed
== END 2025-03-20 23:59 ==
LOC: PAVLAB 07:39
PROVIDERS: Family Provider Internal Medicine; PCP Family Medicine
DX: Z94.2 Lung transplant status; D84.9 Immunodeficiency, unspecified; Z79.899 Other long term (current) drug therapy; R79.9 Abnormal finding of blood chemistry, unspecified; Z51.81 Encounter for therapeutic drug level monitoring
CPT/HCPCS: 36415; 80048; 80076; 80197; 82728; 83540; 83550; 83735; 84100; 84466; 85025; 87497

== ENCOUNTER 2025-03-21 06:22 | Outpatient (RCR) | payer SELFPAY | END 2025-04-20 23:59 | LOC: PR 06:22 | PROVIDERS: PCP Family Medicine | DX: Z00.00 Encounter for general adult medical examination without abnormal findings (principal) ==

== ENCOUNTER → 2025-04-11 | Outpatient (CLI) | payer MEDICARE, MEDICAID, SELFPAY | END | disposition home or self-care (01) | LOC: PSN 07:54 | PROVIDERS: PCP Family Medicine; Referring Provider Internal Medicine; Visit Provider Internal Medicine | DX: Z48.24 Encounter for aftercare following lung transplant (principal); Z94.2 Lung transplant status; D84.9 Immunodeficiency, unspecified | CPT/HCPCS: 94010 ==

== ENCOUNTER 2025-04-13 07:30 | Outpatient (RCR) | payer MEDICARE, MEDICAID, SELFPAY ==
[2025-04-13 07:47] LABS: Hematocrit 26.1 % (37-47); Hemoglobin 8.5 g/dL (12.0-15.0); Immature Granulocytes Count 0.020 X10^3/uL (0.0-0.0); Mean Corp Hgb Conc 32.6 g/dL (32-36); Mean Corpuscular Volume 105.7 fL (81-99); Mean Platelet Vol. 9.7 fl (6.2-12.0); NRBC Flagged by Analyzer 0 % (0-5); POSITIVE DIFFERENTIAL YES; POSITIVE MORPHOLOGY YES; Platelet Count 217 K/mm3 (150-450); RBC Distribution Width CV 15.1 % (11.6-14.6); RBC Distribution Width SD 58.8 fl (35.1-43.9); Red Blood Count 2.47 M/mm3 (4.2-5.4); White Blood Count 2.8 K/mm3 (4.4-11.0)
[2025-04-13 07:51] LABS: Differential Indicated SCAN CRITERIA MET
[2025-04-13 08:08] LABS: Anion Gap 11 (5-15); BUN 26 mg/dL (4-19); BUN/Creat Ratio 15.1 RATIO (10-20); Calcium,Total 9.0 mg/dL (7.6-11.0); Carbon Dioxide 21.7 mmol/L (21.0-32.0); Chloride 103 mmol/L (98-108); Glucose 86 mg/dL (70-99); Potassium 4.5 mmol/L (3.3-5.1)
== END 2025-04-20 23:59 ==
LOC: PAVLAB 07:30
PROVIDERS: Family Provider Internal Medicine; PCP Family Medicine
DX: Z94.2 Lung transplant status
CPT/HCPCS: 36415; 80048; 80197; 85025

== ENCOUNTER → 2025-05-05 | Outpatient (CLI) | payer MEDICARE, MEDICAID, SELFPAY | END | disposition home or self-care (01) | LOC: PSN 10:17 | PROVIDERS: PCP Family Medicine; Referring Provider Internal Medicine; Visit Provider Internal Medicine | DX: Z48.24 Encounter for aftercare following lung transplant (principal); Z94.2 Lung transplant status; D84.9 Immunodeficiency, unspecified | CPT/HCPCS: 94010 ==

== ENCOUNTER 2025-06-06 07:28 | Outpatient (RCR) | payer MEDICARE, MEDICAID, SELFPAY ==
[2025-06-06 07:57] LABS: Hematocrit 26.6 % (37-47); Hemoglobin 8.7 g/dL (12.0-15.0); Immature Granulocytes Count 0.070 X10^3/uL (0.0-0.0); Mean Corp Hgb Conc 32.7 g/dL (32-36); Mean Corpuscular Volume 99.6 fL (81-99); Mean Platelet Vol. 9.5 fl (6.2-12.0); NRBC Flagged by Analyzer 0 % (0-5); POSITIVE DIFFERENTIAL YES; Platelet Count 254 K/mm3 (150-450); RBC Distribution Width CV 15.2 % (11.6-14.6); RBC Distribution Width SD 55.2 fl (35.1-43.9); Red Blood Count 2.67 M/mm3 (4.2-5.4); White Blood Count 2.8 K/mm3 (4.4-11.0)
[2025-06-06 08:05] LABS: Differential Indicated SCAN CRITERIA MET
[2025-06-06 08:54] LABS: AST(SGOT) 23 U/L (<=31); Alanine Aminotransfer ALT/SGPT 10 U/L (<=34); Albumin, Serum 4.2 g/dL (3.4-4.8); Alkaline Phosphatase 34 U/L (35-104); Anion Gap 13 (5-15); BUN 26 mg/dL (4-19); BUN/Creat Ratio 13.7 RATIO (10-20); Bilirubin, Direct 0.12 mg/dL (0.00-0.30); Calcium,Total 9.6 mg/dL (7.6-11.0); Carbon Dioxide 21.6 mmol/L (21.0-32.0); Chloride 97 mmol/L (98-108); Ferritin 20 ng/mL (22-378); Globulin 2.9 g/dL (2.2-4.2); Glucose 88 mg/dL (70-99); Iron 34 ug/dL (50-170); Iron Binding Capacity,Total 408 ug/dL (250-450); Iron Binding Capacity,Unsat 374 ug/dL (228-428); Magnesium 2.0 mg/dL (1.5-2.2); Potassium 4.1 mmol/L (3.3-5.1)
[2025-06-09 18:08] LABS: Transferrin 348 mg/dL (192-364)
== END 2025-06-20 23:59 ==
LOC: PAVLAB 07:28
PROVIDERS: Family Provider Internal Medicine; PCP Family Medicine
DX: D89.9 Disorder involving the immune mechanism, unspecified (principal); R79.9 Abnormal finding of blood chemistry, unspecified; Z94.2 Lung transplant status; Z51.81 Encounter for therapeutic drug level monitoring; Z79.899 Other long term (current) drug therapy
CPT/HCPCS: 80048; 80076; 80197; 82728; 83540; 83550; 83735; 84100; 84466; 85025; 87497

== ENCOUNTER → 2025-06-06 | Outpatient (CLI) | payer MEDICARE, MEDICAID, SELFPAY | END | disposition home or self-care (01) | PROVIDERS: PCP Family Medicine; Referring Provider Internal Medicine; Visit Provider Internal Medicine | DX: Z48.24 Encounter for aftercare following lung transplant (principal); Z94.2 Lung transplant status; D84.9 Immunodeficiency, unspecified | CPT/HCPCS: 94010 ==

== ENCOUNTER → 2025-07-14 | Outpatient (CLI) | payer MEDICARE, MEDICAID, SELFPAY | END | disposition home or self-care (01) | PROVIDERS: PCP Family Medicine; Referring Provider Internal Medicine; Visit Provider Internal Medicine | DX: Z48.24 Encounter for aftercare following lung transplant (principal); Z94.2 Lung transplant status | CPT/HCPCS: 94010 ==

== ENCOUNTER 2025-07-19 07:48 | Outpatient (RCR) | payer MEDICARE, MEDICAID, SELFPAY ==
[2025-07-19 08:08] LABS: Hematocrit 25.2 % (37-47); Hemoglobin 7.8 g/dL (12.0-15.0); Mean Corp Hgb Conc 31.0 g/dL (32-36); Mean Corpuscular Volume 97.7 fL (81-99); Mean Platelet Vol. 9.6 fl (6.2-12.0); POSITIVE COUNT YES; POSITIVE DIFFERENTIAL YES; POSITIVE MORPHOLOGY YES; Platelet Count 368 K/mm3 (150-450); RBC Distribution Width CV 16.5 % (11.6-14.6); RBC Distribution Width SD 59.0 fl (35.1-43.9); Red Blood Count 2.58 M/mm3 (4.2-5.4); White Blood Count 3.4 K/mm3 (4.4-11.0)
[2025-07-19 08:11] LABS: Differential Indicated MANUAL DIFF
[2025-07-19 08:25] LABS: Anion Gap 13 (5-15); BUN 34 mg/dL (4-19); BUN/Creat Ratio 15.4 RATIO (10-20); Calcium,Total 9.4 mg/dL (7.6-11.0); Carbon Dioxide 21.8 mmol/L (21.0-32.0); Chloride 96 mmol/L (98-108); Glucose 119 mg/dL (70-99); Potassium 4.6 mmol/L (3.3-5.1)
[2025-07-19 08:55] LABS: Neutrophil-Band 1 % (0-5); Neutrophil-Segmented 33 % (47-70); Red Cell Morphology NORM C+C NORMAL (NORM C&C); Total Cells Counted 100 (MANUAL DIFF)
[2025-07-19 16:05] LABS: Xtra Tube EP Lab EXTRA TUBE
== END 2025-07-21 23:59 ==
LOC: PAVLAB 07:48
PROVIDERS: Family Provider Internal Medicine; PCP Family Medicine
DX: R79.9 Abnormal finding of blood chemistry, unspecified; Z94.2 Lung transplant status; Z51.81 Encounter for therapeutic drug level monitoring; Z79.899 Other long term (current) drug therapy; D84.9 Immunodeficiency, unspecified
CPT/HCPCS: 36415; 80048; 80197; 85025

== ENCOUNTER 2025-08-07 07:36 | Outpatient (RCR) | payer MEDICARE, MEDICAID, SELFPAY ==
[2025-08-07 08:11] LABS: Hematocrit 24.7 % (37-47); Hemoglobin 7.6 g/dL (12.0-15.0); Immature Granulocytes Count 0.020 X10^3/uL (0.0-0.0); Mean Corp Hgb Conc 30.8 g/dL (32-36); Mean Corpuscular Volume 95.0 fL (81-99); Mean Platelet Vol. 10.0 fl (6.2-12.0); NRBC Flagged by Analyzer 0 % (0-5); POSITIVE DIFFERENTIAL YES; POSITIVE MORPHOLOGY YES; Platelet Count 250 K/mm3 (150-450); RBC Distribution Width CV 16.5 % (11.6-14.6); RBC Distribution Width SD 56.4 fl (35.1-43.9); Red Blood Count 2.60 M/mm3 (4.2-5.4); White Blood Count 2.0 K/mm3 (4.4-11.0)
[2025-08-07 08:14] LABS: Differential Indicated SCAN CRITERIA MET
[2025-08-07 08:39] LABS: Reactive Lymphocyte 1+
[2025-08-07 08:40] LABS: AST(SGOT) 20 U/L (<=31); Alanine Aminotransfer ALT/SGPT 10 U/L (<=34); Albumin, Serum 4.2 g/dL (3.4-4.8); Alkaline Phosphatase 28 U/L (35-104); Anion Gap 11 (5-15); BUN 26 mg/dL (4-19); BUN/Creat Ratio 13.1 RATIO (10-20); Bilirubin, Direct 0.10 mg/dL (0.00-0.30); Calcium,Total 9.5 mg/dL (7.6-11.0); Carbon Dioxide 22.7 mmol/L (21.0-32.0); Chloride 101 mmol/L (98-108); Ferritin 26 ng/mL (22-378); Globulin 2.8 g/dL (2.2-4.2); Glucose 89 mg/dL (70-99); Iron 19 ug/dL (50-170); Iron Binding Capacity,Total 396 ug/dL (250-450); Iron Binding Capacity,Unsat 377 ug/dL (228-428); Magnesium 2.0 mg/dL (1.5-2.2); Potassium 4.2 mmol/L (3.3-5.1)
[2025-08-09 23:07] LABS: Transferrin 320 mg/dL (192-364)
== END 2025-08-20 23:59 ==
LOC: PAVLAB 07:36
PROVIDERS: Family Provider Internal Medicine; PCP Family Medicine
DX: D89.9 Disorder involving the immune mechanism, unspecified (principal); R79.9 Abnormal finding of blood chemistry, unspecified; Z94.2 Lung transplant status; Z51.81 Encounter for therapeutic drug level monitoring; Z79.899 Other long term (current) drug therapy; Z48.24 Encounter for aftercare following lung transplant
CPT/HCPCS: 36415; 80048; 80076; 80197; 82728; 83540; 83550; 83735; 84100; 84466; 85025; 87497; 94010

== ENCOUNTER 2025-08-07 09:57 | Outpatient (CLI) | payer MEDICARE, MEDICAID, SELFPAY | END 2025-08-07 23:59 | disposition home or self-care (01) | LOC: PSN 09:58 | PROVIDERS: PCP Family Medicine; Referring Provider Internal Medicine; Visit Provider Internal Medicine | DX: Z48.24 Encounter for aftercare following lung transplant (principal); Z94.2 Lung transplant status; R79.9 Abnormal finding of blood chemistry, unspecified | CPT/HCPCS: 94010 ==

== ENCOUNTER 2025-08-31 11:05 | Outpatient (CLI) | payer MEDICARE, MEDICAID, SELFPAY ==
[2025-08-31 11:27] VITALS: BP 187/85; PULSE 98; RESP 16; TEMP 35.9; BMI 21.7
[2025-08-31] MEDS: Ferric Carboxymaltose (Injectafer) 750 MG in 0.9% NaCl 250 ML 795 MG IV (11:53)
[2025-08-31 12:03] LABS: Hematocrit 24.4 % (37-47); Hemoglobin 7.5 g/dL (12.0-15.0); Mean Corp Hgb Conc 30.7 g/dL (32-36); Mean Corpuscular Volume 93.1 fL (81-99); Mean Platelet Vol. 10.6 fl (6.2-12.0); POSITIVE COUNT YES; POSITIVE MORPHOLOGY YES; Platelet Count 241 K/mm3 (150-450); RBC Distribution Width CV 18.3 % (11.6-14.6); RBC Distribution Width SD 62.0 fl (35.1-43.9); Red Blood Count 2.62 M/mm3 (4.2-5.4); White Blood Count 2.7 K/mm3 (4.4-11.0)
[2025-08-31 12:07] LABS: Differential Indicated MANUAL DIFF
[2025-08-31 12:20] LABS: Anion Gap 15 (5-15); BUN 32 mg/dL (4-19); BUN/Creat Ratio 15.4 RATIO (10-20); Calcium,Total 9.8 mg/dL (7.6-11.0); Carbon Dioxide 21.3 mmol/L (21.0-32.0); Chloride 96 mmol/L (98-108); Estimated Creatinine Clearance 18.26 ml/min (50-250); Glucose 136 mg/dL (70-99); Potassium 4.4 mmol/L (3.3-5.1)
[2025-08-31 12:44] LABS: Neutrophil-Segmented 64 % (47-70); Total Cells Counted 100 (MANUAL DIFF)
[2025-08-31 12:46] LABS: Differential Comment MANUAL DIFF
[2025-08-31 12:48] LABS: Anisocytosis 2+; Macrocytosis 1+; Microcytosis 1+; Polychromasia RARE
[2025-08-31 12:49] VITALS: BP 155/71; PULSE 90; TEMP 36.4
== END 2025-08-31 23:59 | disposition home or self-care (01) ==
LOC: MEDOUTP 11:06
PROVIDERS: PCP Family Medicine; Referring Provider Internal Medicine; Visit Provider Internal Medicine
DX: D50.9 Iron deficiency anemia, unspecified (principal); Z94.2 Lung transplant status; K90.9 Intestinal malabsorption, unspecified
CPT/HCPCS: 36415; 80048; 80197; 85025; 96365; J1439; A4216

== ENCOUNTER 2025-09-06 12:33 | Outpatient (CLI) | payer MEDICARE, MEDICAID, SELFPAY ==
[2025-09-06 13:04] VITALS: BP 170/57; PULSE 102; RESP 16; TEMP 36.3; O2SAT 98; BMI 21.7
[2025-09-06] MEDS: Ferric Carboxymaltose (Injectafer) 750 MG in 0.9% NaCl 250 ML 795 MG IV (13:40)
[2025-09-06 14:12] VITALS: BP 172/69; PULSE 88; RESP 16; TEMP 36.4
== END 2025-09-06 23:59 | disposition home or self-care (01) ==
LOC: MEDOUTP 12:33
PROVIDERS: PCP Family Medicine; Referring Provider Internal Medicine; Visit Provider Internal Medicine
DX: D50.9 Iron deficiency anemia, unspecified (principal); Z94.2 Lung transplant status; K90.9 Intestinal malabsorption, unspecified
CPT/HCPCS: 96365; J1439; A4216